=== PATIENT | male | born 1950 | race Caucasian/White ===

== ENCOUNTER 2024-07-21 13:04 | Emergency (ER) | payer OTHER, SELFPAY ==
[2024-07-21 13:19] VITALS: BP 107/59; PULSE 62; RESP 22; TEMP 37; O2SAT 95
--- NOTE | 2024-07-21 13:19 | EKG_ITS ---
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
--- NOTE | 2024-07-21 13:30 | XR_ITS ---
Examination: CT cervical spine without contrast 2-D sagittal reconstructions 2-D coronal reconstructions 3-D reconstructions. Exam date and time:July 21, 2024 1417 hours Indications fell today with injury to the neck, neck pain CTDI:vol (mGy) 13.2 DLP: (mGycm) 322 Technique: Multiple 2 mm axial sections of the cervical spine have been obtained. The coronal and sagittal reconstructions have been obtained. 3-D reconstructions have been obtained. Low dose protocols were performed. One or more of the following dose reduction techniques were used; automated exposure control, adjustment of the mA and/or KV according to patient size, use of iterative reconstruction technique. Findings: Axial sections demonstrate intact base of the skull. C1 exhibit satisfactory relationship to the odontoid. No acute cervical vertebral body fracture seen. Alignment posterior spinous processes satisfactory. Impression: No acute cervical fracture.
--- NOTE | 2024-07-21 13:30 | XR_ITS ---
Examination: CT brain head without contrast. 2-D sagittal coronal reconstructions Date and time of exam:July 21, 2024 1415 hours INDICATIONS: Syncopal episode, patient fell today with injury to the head, head pain COMPARISON: February 29, 2024 CTDI: vol (mGy):51 DLP: (mGycm):1097 Technique: Multiple CT axial sections of the brain have been obtained, 5 mm slice thickness. Contrast has not been administered. 2-D sagittal, coronal reconstructions have been obtained Low dose protocols were performed. One or more of the following dose reduction techniques were used; automated exposure control, adjustment of the mA and/or KV according to patient size, use of iterative reconstruction technique. Findings: No significant ventricular enlargement. Patient motion obscures frontal brain detail Intra-axial or extra-axial hemorrhage density is not seen. No mass effect or midline shift Basal cisterns are not remarkable. Fourth ventricle is midline. Cranial vault intact. Impression: Limited study secondary to patient motion No gross hemorrhage mass effect or midline shift
--- NOTE | 2024-07-21 13:32 | PD.EDRME ---
Rapid Medical Screening Exam RME Arrival date/time: 07/21/24 13:04 74-year-old male presents the emergency department today with caregiver reports patient has syncopal episode and fell hit his head Chief Complaint: Syncope / Near Syncope Vital signs: Vital Signs Temperature 98.6 F 07/21/24 13:19 Pulse Rate 62 07/21/24 13:19 Respiratory Rate 22 H 07/21/24 13:19 Blood Pressure 107/59 L 07/21/24 13:19 Pulse Oximetry (%) 95 07/21/24 13:19 Oxygen Delivery Method Room Air 07/21/24 13:19
[2024-07-21 14:54] LABS: Basophils # (Auto) 0.1 Thou/mm3 (0.0-0.2); Basophils % (Auto) 1 % (0-2.5); Eosinophils # (Auto) 0.5 Thou/mm3 (0.0-0.5); Eosinophils % (Auto) 5 % (0-10); Hematocrit 39.9 % (41.0-53.0); Immature Granulocytes % (Auto) 1 % (0-0); Immature Granulocytes Auto 0.05 Thou/mm3 (0.00-0.00); Lymphocytes # (Auto) 1.2 Thou/mm3 (1.0-4.8); Lymphocytes % (Auto) 11 % (10-50); Mean Corpuscular HGB Conc 32.6 g/dl (31.0-37.0); Mean Corpuscular Volume 95 fL (80-100); Monocytes # (Auto) 0.8 Thou/mm3 (0.0-0.8); Monocytes % (Auto) 8 % (0-12); Neutrophils # (Auto) 8.1 Thou/mm3 (1.8-7.7); Neutrophils % (Auto) 75 % (37-80); Nucleated Red Blood Cell % 0 /100 WBC (0); Platelet Count 234 Thou/mm3 (140-440); RDW Standard Deviation 43.1 fL (35.1-43.9); White Blood Count 10.8 Thou/mm3 (3.8-10.6)
--- NOTE | 2024-07-21 15:15 | EDNOTE_ITS ---
ED General RME/HPI General Chief complaint: Syncope / Near Syncope Stated complaint: SYNCOPE Time Seen by Provider: 07/21/24 15:10 Arrival date/time: 07/21/24 13:04 CC: Syncope HPI this patient is developmentally delayed with Parkinson's disease and a history of prenatally anoxic brain injury was sitting in a barstool chair eating breakfast, the care provider watched him suddenly become silent close as I am begin to slide out of the chair. Patient has no history of such. She was able to partially blocked the fall but not until he hit his head and part of his face cutting his lip against his teeth. The patient is currently awake alert answering to very basic questions. He has no specific complaints RME / HPI RME / HPI narrative: 07/21/24 13:04 74-year-old male presents the emergency department today with caregiver reports patient has syncopal episode and fell hit his head Related Data Home Medications ?Medication ?Instructions ?Recorded ?Confirmed docusate sodium 250 mg capsule 1 tab PO QDAY ##0 10/27/14 05/12/24 omeprazole 20 mg capsule,delayed 20 mg PO QDAY ##0 10/27/14 05/12/24 release (Prilosec) cetirizine 10 mg tablet 10 mg PO QDAY 09/11/22 05/12/24 montelukast 10 mg tablet 10 mg PO HS 09/11/22 05/12/24 propranolol 40 mg tablet 40 mg PO BID 09/11/22 05/12/24 valbenazine 80 mg capsule 80 mg PO QDAY 09/11/22 05/12/24 (Ingrezza) calcium 600 mg (as 1 tab PO HS 02/28/24 05/12/24 carbonate)-vitamin D3 10 mcg (400 unit) tablet escitalopram oxalate 10 mg tablet 10 mg PO DAILY 02/28/24 05/12/24 ferrous sulfate 325 mg (65 mg 325 mg PO DAILY 02/28/24 05/12/24 iron) tablet (FeroSul) tamsulosin 0.4 mg capsule 0.4 mg PO QHS 05/12/24 05/12/24 Previous Rx's ?Medication ?Instructions ?Recorded aspirin 81 mg capsule 81 mg PO QDAY #30 caps 02/29/24 Allergies Allergy/AdvReac Type Severity Reaction Status Date / Time No Known Drug Allergies Allergy Verified 07/21/24 13:06 Review of Systems Review of Systems Narrative Review of Systems: GEN: No fever, no chills, no weight loss EYES: No discharge, no visual changes, no pain HEENT: No ear pain, no congestion, no sore throat PULM: No shortness of breath, no cough, no congestion CV: No chest pain, no dyspnea on exertion, no palpitations GI: No nausea, no vomiting, no diarrhea, no pain, no constipation : No frequency, no urgency, no dysuria MUSC/SKEL: No joint pain, no back pain SKIN: No rash PSYCH: No hallucinations, no depression HEME/LYMPH: No easy bleeding or bruising tendencies NEURO: No weakness, no headache Past Medical History Past Medical History NEUROLOGIC: Positive Neurological Disorders, Parkinson's Disease and Traumatic Brain Injury; Negative Seizures CARDIAC: Positive Cardiac Disorders and Hypertension; Negative Congestive Heart Failure RESPIRATORY: Positive Asthma; Negative Chronic Obstructive Pulmonary Disease (COPD) GASTROINTESTINAL: Positive Gastrointestinal Disorders and Gastroesophageal Reflux Disease GENITOURINARY: Negative Genitourinary Disorders or Renal Disease MUSCULOSKELETAL: Positive Musculoskeletal Disorders, Osteoporosis and Fractures ENT: Positive Cataracts ENDOCRINE: Negative Endocrine Disorders, Diabetes Mellitus Type 1 or Diabetes Mellitus Type 2 HEMATOLOGIC: Positive Blood Disorders and Anemia PSYCHO/SOCIAL: Positive Depression OTHER HISTORY: Negative Blood Transfusions or Anesthesia Reactions Social History SMOKING STATUS: Never smoker ED Exam Narrative Physical exam: [General: Not in any acute distress Head normocephalic, no step-off hematoma depression laceration abrasion HEENT: Eyes pupils are PERRLA EOMs intact, nose no rhinorrhea epistaxis, face no facial asymmetry bogginess mouth, pink dry membranes uvula is midline swallow symmetrical. Small laceration to the center upper lip secondary to a crush injury from his upper front teeth. No Hummel sign or raccoon's eyes. All other subsystems of HEENT are within acceptable limits Neck is supple nontender no JVD no edema Chest equal chest rise nontender to palpation Respiratory: Clear to auscultation no wheezes crackles or rubs CV: Rate rhythm is regular no murmurs rubs or clicks Abdomen is soft nontender no masses positive bowel sounds all 4 quadrants Back: No CVA tenderness no spinous process tenderness from cervical spine thoracic and lumbar spine Skin: Intact no petechiae rash induration ulceration or crepitus Extremities: Moving all extremity against resistance cap refill less than 2 seconds neurosensory intact Neuro: Awake alert oriented x3 Glascow coma 15 no focal deficits] Course Quality Measures none Orders Category Date Time Status EKG (ED ONLY) *Do not use* NOW Care 07/21/24 13:[address] cervical spine wo con Stat Exams 07/21/24 13:[address] head/brain wo con Stat Exams 07/21/24 13:30 Completed EKG (ED Only) Stat Exams 07/21/24 13:19 Draft CBC Stat Lab 07/21/24 14:36 Completed Comprehensive Metabolic Panel Stat Lab 07/21/24 14:36 Completed Troponin I Stat Lab 07/21/24 14:36 Completed Vital Signs Vital signs: Vital Signs Temperature 98.6 F 07/21/24 13:19 Pulse Rate 62 07/21/24 13:19 Respiratory Rate 22 H 07/21/24 13:19 Blood Pressure 107/59 L 07/21/24 13:19 Pulse Oximetry (%) 95 07/21/24 13:19 Oxygen Delivery Method Room Air 07/21/24 13:19 [facility] Patient data External records reviewed:: [facility] previous records 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 CBC shows no significant leukocytosis stable H&H of 13 and 39 no thrombocytopenia. CMP shows no acute electrolyte imbalances renal impairment transaminitis or T. bili elevation. Interpretation Summary: Patient has had no deterioration neurologic status throughout his visit the emergency room and the care provider states he is at baseline the patient states he wants to go home I am comfortable discharging the patient at this time with a diagnosis of syncope. There are no indications of dehydration I suspect this may be vasovagal. Medications Medications considered but not ordered:: None Medication administrations:: None Consultations Consultation(s) initiated? (list below): No Diagnosis Differential Diagnosis ED Complaint MDM: Vasovagal closed head injury neck fracture Most likely diagnosis given after review of the tests above:: Syncope Admission Indicated Admission indicated?: not indicated Explain why admission is indicated or not indicated:: Stable for outpatient follow-up Admission Request Was there a request for admission?: No Disposition Plan Disposition Plan: Discharge Discharge Attestation Discharge Attestation: The patient and all family members were given an opportunity to ask questions and understood the discharge instructions. Discharge instructions specifically effects, indications for sooner follow up or return to the emergency department, and the expected course of current diagnosis. Patient condition: Stable Medical Decision Making Differential Diagnosis Differential Diagnosis: Vasovagal closed head injury neck fracture Lab Data 07/21/24 14:36 07/21/24 14:36 Labs: Lab Results 07/21/24 Range/Units 14:36 WBC 10.8 H (3.8-10.6) Thou/mm3 RBC 4.20 L (4.50-5.90) Miln/mm3 Hgb 13.0 L (13.5-16.0) g/dL Hct 39.9 L (41.0-53.0) % MCV 95 (80-100) fL MCH 31.0 (25.0-35.0) pg MCHC 32.6 (31.0-37.0) g/dl RDW Std Deviation 43.1 (35.1-43.9) fL Plt Count 234 (140-440) Thou/mm3 Neut % (Auto) 75 (37-80) % Lymph % (Auto) 11 (10-50) % Burnett % (Auto) 8 (0-12) % Eos % (Auto) 5 (0-10) % Baso % (Auto) 1 (0-2.5) % Neut # (Auto) 8.1 H (1.8-7.7) Thou/mm3 Lymph # (Auto) 1.2 (1.0-4.8) Thou/mm3 Burnett # (Auto) 0.8 (0.0-0.8) Thou/mm3 Eos # (Auto) 0.5 (0.0-0.5) Thou/mm3 Baso # (Auto) 0.1 (0.0-0.2) Thou/mm3 Immature Gran # (Auto) 0.05 H (0.00-0.00) Thou/mm3 Absolute Nucleated RBC 0.00 (0.00-0.00) Thou/mm3 Immature Gran % 1 H (0-0) % Nucleated RBC % 0 (0) /100 WBC Sodium 140 (136-145) mMol/L Potassium 4.0 (3.4-5.1) mMol/L Chloride 105 (98-107) mMol/L Carbon Dioxide 28.1 (20.0-31.0) mMol/L Anion Gap 7 (7-16) BUN 21 (9-23) mg/dL Creatinine 1.2 (0.6-1.3) mg/dL Estim Creat Clear Calc Not Performed. eGFR > 60 (60 - ) See Note BUN/Creatinine Ratio 18 (12-20) Ratio Glucose 77 (74-106) mg/dL Calculated Osmolality 281 (275-295) Calcium 9.0 (8.3-10.6) mg/dL Corrected Calcium 9.0 (8.5-10.1) mg/dL Total Bilirubin 0.4 (0.3-1.2) mg/dL AST 20 (0-34) U/L ALT < 7 L (10-49) U/L Alkaline Phosphatase 112 (46-116) U/L Troponin I < 0.002 (0.0-0.045) ng/mL Total Protein 7.4 (5.7-8.2) gm/dL Albumin 4.5 (3.4-4.8) gm/dL Globulin 2.9 (2.3-3.5) gm/dL Albumin/Globulin Ratio 1.6 (1.2-2.2) Discharge Plan Plan Patient Disposition: HOME (Self Care) Patient condition on transfer: Stable Prescriptions/Referrals Prescriptions/Med Rec: No Action tamsulosin 0.4 mg capsule 0.4 mg PO QHS omeprazole [Prilosec] 20 MG capsule,delayed release(DR/EC) 20 mg PO QDAY Qty: 0 Patient Comments: TO SUPPRESS GASTRIC ACID SECRETIONS docusate sodium 250 MG capsule 1 tab PO QDAY Qty: 0 ferrous sulfate [FeroSul] 325 mg (65 mg iron) tablet 325 mg PO DAILY escitalopram oxalate 10 mg tablet 10 mg PO DAILY calcium carbonate-vitamin D3 600 mg-10 mcg (400 unit) tablet 1 tab PO HS aspirin 81 mg capsule 81 mg PO QDAY Qty: 30 0RF cetirizine 10 mg tablet 10 mg PO QDAY propranolol 40 mg tablet 40 mg PO BID montelukast 10 mg tablet 10 mg PO HS Ingrezza 80 mg capsule 80 mg PO QDAY 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 Print Language: German Stand Alone Forms: [place] Award Info., Patient Portal Info Letter, Work/School Release PA/LINUX NETWORK ENGINEER Supervising Physician PA/LINUX NETWORK ENGINEER Supervising Physician: Juan Strauss ENP
[2024-07-21 15:23] VITALS: BP 100/58; PULSE 58; RESP 18; O2SAT 98
[2024-07-21 15:25] LABS: Alanine Aminotransferase < 7 U/L (10-49); Albumin, Serum 4.5 gm/dL (3.4-4.8); Albumin/Globulin Ratio 1.6 (1.2-2.2); Alkaline Phosphatase 112 U/L (46-116); Anion Gap 7 (7-16); Aspartate Amino Transferase 20 U/L (0-34); BUN/Creatinine Ratio 18 Ratio (12-20); Bilirubin,Total 0.4 mg/dL (0.3-1.2); Blood Urea Nitrogen 21 mg/dL (9-23); Carbon Dioxide 28.1 mMol/L (20.0-31.0); Chloride 105 mMol/L (98-107); Creatinine (Component) 1.2 mg/dL (0.6-1.3); Globulin 2.9 gm/dL (2.3-3.5); Glucose 77 mg/dL (74-106); Osmolality,Calculated 281 (275-295); Sodium 140 mMol/L (136-145); Total Protein 7.4 gm/dL (5.7-8.2); Troponin I < 0.002 ng/mL (0.0-0.045); eGFR > 60 See Note
--- NOTE | 2024-07-21 15:28 | PC.NURSE ---
Patient from [facility] and taken to [facility] with [facility], care provider at bedside, from [facility] with c/o syncopal episode at approx. 1230pm, upon standing patient fell forward, with abrasion to mid upper lip and fell onto left arm, patient developmentally delayed and is actin appropriately per careprovider, patient skin is warm dry and slightly pale. Awaiting lab work.
== END 2024-07-21 16:07 | disposition home or self-care (01) ==
PROVIDERS: Nurse Practitioner Primary Care; Emergency Provider Emergency Medicine; PCP Nurse Practitioner Family
DX: R55 Syncope and collapse (principal); G20.A1 Parkinson's disease without dyskinesia, without mention of fluctuations
CPT/HCPCS: 36415; 70450; 72125; 80053; 84484; 85025; 93005; 99284

== ENCOUNTER → 2024-08-20 | Outpatient (CLI) | payer OTHER, SELFPAY ==
[2024-08-20 08:36] LABS: Basophils # (Auto) 0.1 Thou/mm3 (0.0-0.2); Basophils % (Auto) 1 % (0-2.5); Eosinophils # (Auto) 0.5 Thou/mm3 (0.0-0.5); Eosinophils % (Auto) 6 % (0-10); Hematocrit 39.8 % (41.0-53.0); Hemoglobin 12.9 g/dL (13.5-16.0); Immature Granulocytes % (Auto) 0 % (0-0); Immature Granulocytes Auto 0.03 Thou/mm3 (0.00-0.00); Lymphocytes # (Auto) 1.2 Thou/mm3 (1.0-4.8); Lymphocytes % (Auto) 14 % (10-50); Mean Corpuscular HGB Conc 32.4 g/dl (31.0-37.0); Mean Corpuscular Hemoglobin 30.4 pg (25.0-35.0); Mean Corpuscular Volume 94 fL (80-100); Monocytes # (Auto) 0.6 Thou/mm3 (0.0-0.8); Monocytes % (Auto) 7 % (0-12); Neutrophils # (Auto) 6.2 Thou/mm3 (1.8-7.7); Neutrophils % (Auto) 72 % (37-80); Nucleated Red Blood Cell % 0 /100 WBC (0); Platelet Count 295 Thou/mm3 (140-440); Red Blood Count 4.25 Miln/mm3 (4.50-5.90); White Blood Count 8.6 Thou/mm3 (3.8-10.6)
[2024-08-20 08:41] LABS: Glucose Estimated Average 105 mg/dL (80-131); Hemoglobin A1C 5.3 % Hgb (4.8-6.0)
[2024-08-20 08:51] LABS: Prostate Specific Antigen 1.41 ng/mL (0-4.00)
[2024-08-20 09:01] LABS: Folate > 24.00 ng/mL (>5.38); Vitamin B12 945 pg/mL (211-911); Vitamin D 25 Hydroxy Total 63.3 ng/mL (7.3-40.2)
[2024-08-20 09:19] LABS: Alanine Aminotransferase 13 U/L (10-49); Albumin, Serum 4.3 gm/dL (3.4-4.8); Albumin/Globulin Ratio 1.6 (1.2-2.2); Alkaline Phosphatase 124 U/L (46-116); Anion Gap 7 (7-16); Aspartate Amino Transferase 18 U/L (0-34); BUN/Creatinine Ratio 14 Ratio (12-20); Bilirubin,Total 0.3 mg/dL (0.3-1.2); Blood Urea Nitrogen 19 mg/dL (9-23); Carbon Dioxide 31.2 mMol/L (20.0-31.0); Cardiac Risk Estimate 3.8 RATIO (4.0-6.7); Chloride 106 mMol/L (98-107); Cholesterol 167 mg/dL (132-200); Creatinine (Component) 1.4 mg/dL (0.6-1.3); Free T4 (Free Thyroxine) 1.47 ng/dL (0.89-1.76); Globulin 2.7 gm/dL (2.3-3.5); Glucose 89 mg/dL (74-106); HDL Cholesterol 44 mg/dL (40-60); LDL Cholesterol,Calculated 102 mg/dL (0-130); Osmolality,Calculated 288 (275-295); Potassium 4.4 mMol/L (3.4-5.1); Sodium 144 mMol/L (136-145); Thyroid Stimulating Hormone 4.35 uIU/mL (0.55-4.78); Triglycerides 103 mg/dL (30-150); Uric Acid 4.4 mg/dL (3.7-9.2); eGFR 53 See Note
[2024-08-20 09:57] LABS: Sed Rate (ESR) 22 mm/hr (0-20)
[2024-08-20 13:29] LABS: RA Screen Negative (Negative)
[2024-08-24 06:50] LABS: ANA Pattern CYTOPLASMIC; ANA Pattern NUCLEAR, SPECKLED; ANA Screen, IFA POSITIVE (NEGATIVE); ANA Titer 1:40 titer
== END | disposition home or self-care (01) ==
PROVIDERS: PCP Nurse Practitioner Family; Referring Provider Nurse Practitioner Family; Visit Provider Nurse Practitioner Family
DX: R25.1 Tremor, unspecified (principal); E78.2 Mixed hyperlipidemia; E03.9 Hypothyroidism, unspecified; Z79.899 Other long term (current) drug therapy; E55.9 Vitamin D deficiency, unspecified; Z12.5 Encounter for screening for malignant neoplasm of prostate; K25.1 Acute gastric ulcer with perforation
CPT/HCPCS: 36415; 80053; 80061; 81001; 82043; 82306; 82570; 82607; 82746; 83036; 84153; 84439; 84443; 84550; 85025; 85652; 86038; 86039; 86430

== ENCOUNTER → 2024-09-17 | Outpatient (CLI) | payer OTHER, SELFPAY ==
--- NOTE | 2024-09-17 09:01 | XR_ITS ---
Examination: PA chest single view TECHNIQUE: Upright PA chest single view Exam date and time: September 17, 2024 0943 hours INDICATIONS: Difficulty swallowing this week. FINDINGS: Normal heart size No pneumonia. Prominent osteopenia IMPRESSION: No pneumonia or pulmonary edema
== END | disposition home or self-care (01) ==
PROVIDERS: PCP Nurse Practitioner Family; Referring Provider Nurse Practitioner Family; Visit Provider Nurse Practitioner Family
DX: R13.10 Dysphagia, unspecified (principal)
CPT/HCPCS: 74220

== ENCOUNTER 2024-09-21 13:35 | Emergency (ER) | payer OTHER, SELFPAY ==
[2024-09-21 13:36] VITALS: BMI 25.7
--- NOTE | 2024-09-21 13:45 | EKG_ITS ---
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
[2024-09-21 13:51] VITALS: BP 105/63; PULSE 71; RESP 20; TEMP 36.5; O2SAT 95
--- NOTE | 2024-09-21 14:12 | XR_ITS ---
Examination: PA lateral chest 2 views TECHNIQUE: Upright PA lateral chest 2 views Exam date and time: September 21, 2024 1433 hours INDICATIONS: Onset chest pain today. FINDINGS: Pleural scarring at the right base Normal heart size No pneumonia or pulmonary edema IMPRESSION: No pneumonia or pulmonary edema
--- NOTE | 2024-09-21 14:12 | EDRME_ITS ---
Rapid Medical Screening Exam RME Arrival date/time: 09/21/24 13:35 74-year-old male developmentally delayed and a residential presents emergency department today with caregiver reports the patient had an episode today where he looks like he was having trouble breathing and went to the clinic and they referred the patient to the ER for further evaluation Chief Complaint: Arrhythmia/Palpitations Vital signs: Vital Signs Temperature 97.7 F 09/21/24 13:51 Pulse Rate 71 09/21/24 13:51 Respiratory Rate 20 09/21/24 13:51 Blood Pressure 105/63 09/21/24 13:51 Pulse Oximetry (%) 95 09/21/24 13:51 Oxygen Delivery Method Room Air 09/21/24 13:51
[2024-09-21 16:23] LABS: Basophils # (Auto) 0.1 Thou/mm3 (0.0-0.2); Basophils % (Auto) 1 % (0-2.5); Eosinophils # (Auto) 0.6 Thou/mm3 (0.0-0.5); Eosinophils % (Auto) 7 % (0-10); Hematocrit 39.4 % (41.0-53.0); Hemoglobin 12.7 g/dL (13.5-16.0); Immature Granulocytes % (Auto) 0 % (0-0); Immature Granulocytes Auto 0.03 Thou/mm3 (0.00-0.00); Lymphocytes # (Auto) 1.4 Thou/mm3 (1.0-4.8); Lymphocytes % (Auto) 16 % (10-50); Mean Corpuscular HGB Conc 32.2 g/dl (31.0-37.0); Mean Corpuscular Hemoglobin 30.2 pg (25.0-35.0); Mean Corpuscular Volume 94 fL (80-100); Monocytes # (Auto) 0.9 Thou/mm3 (0.0-0.8); Monocytes % (Auto) 10 % (0-12); Neutrophils % (Auto) 66 % (37-80); Nucleated Red Blood Cell % 0 /100 WBC (0); Platelet Count 252 Thou/mm3 (140-440); RDW Standard Deviation 43.4 fL (35.1-43.9); White Blood Count 9.1 Thou/mm3 (3.8-10.6)
[2024-09-21 16:45] LABS: INR 1.1 (0.9-1.3); Partial Thromboplastin Time 24.8 Seconds (22.0-36.0)
[2024-09-21 16:46] LABS: B-Type Natriuretic Peptide 28 pg/mL (0-100)
[2024-09-21 16:52] LABS: Alanine Aminotransferase 14 U/L (10-49); Albumin, Serum 4.3 gm/dL (3.4-4.8); Albumin/Globulin Ratio 1.3 (1.2-2.2); Alkaline Phosphatase 119 U/L (46-116); Anion Gap 9 (7-16); Aspartate Amino Transferase 19 U/L (0-34); BUN/Creatinine Ratio 16 Ratio (12-20); Bilirubin,Total 0.2 mg/dL (0.3-1.2); Blood Urea Nitrogen 19 mg/dL (9-23); Calcium 9.4 mg/dL (8.3-10.6); Calcium (Corrected) 9.4 mg/dL (8.5-10.1); Carbon Dioxide 30.3 mMol/L (20.0-31.0); Chloride 105 mMol/L (98-107); Creatinine (Component) 1.2 mg/dL (0.6-1.3); Estimated Creatinine Clearance 45.9 mL/min (>60); Globulin 3.3 gm/dL (2.3-3.5); Glucose 92 mg/dL (74-106); Magnesium 2.2 mg/dL (1.6-2.6); Osmolality,Calculated 289 (275-295); Potassium 4.3 mMol/L (3.4-5.1); Sodium 144 mMol/L (136-145); Total Protein 7.6 gm/dL (5.7-8.2); Troponin I < 0.002 ng/mL (0.0-0.045); eGFR > 60 See Note
--- NOTE | 2024-09-21 17:35 | PD.EDARRY ---
ED Arrhythmia Palp. RME/HPI General Chief Complaint: Arrhythmia/Palpitations Stated Complaint: TACHYCARDIA (SENT FROM [facility]) Time Seen by Provider: 09/21/24 17:32 Arrival date/time: 09/21/24 13:35 74 year old male with developmentally delayed and a residential present to emergency room with c/o of tachycardia and having trouble breathing while at [facility] today. SEVERITY: Symptoms are described as being severe with limitations on activities of daily living CONTEXT: The patient is unable to identify any inciting events. DURATION/TIMING: The symptoms started approximately 1 day ASSOCIATED SYMPTOMS: The patient is unable to identify any other associated symptoms. MODIFYING FACTORS: The patient is unable to identify any alleviating or aggravating symptoms. PERTINENT ROS: no fevers, no cough, no pleuritic pain, no ripping or tearing sensations, denies any lower extremity edema and no unilateral swelling, no chest pain no nausea,vomiting, diarrhea, no dizziness/headache no rash no loc/syncope episode no abd/back pain REVIEW OF SYSTEMS: See History of Present Illness - with the exception of those mentioned in the history of present illness, all other systems reviewed and reported as negative GENERAL: In general the patient is awake, interactive, in an emergency department gurney. HEAD/EYES/EARS/NOSE/THROAT: normo-cephalic, atraumatic, mucus membranes are moist, anicteric, palpebral conjunctiva is pink, trachea is midline. CARDIOVASCULAR: regular rate and regular rhythm, no murmurs, heart sounds are not distant, strong pulses in all four extremities that are equal and symmetric bilateral upper and lower extremities, normal capillary refill. CHEST/PULMONARY: normal chest rise and fall, good air movement, clear to auscultation bilaterally, normal inspiratory to expiratory ratios without evidence of respiratory distress. NECK: No midline/Paraspinal tenderness, no step off ROM/Strenght intact No Kernig and bruzinski sign. No trauma ABDOMEN: soft, not tender, no masses appreciated BACK: normal range of motion without pain. NEUROLOGICAL: cranio-facial features are symmetric, moves all four extremities equally without obvious limitations or weakness. EXTREMITY: no tenderness to palpation over the long bones or large joints of the bilateral upper and lower extremities, no joint swelling, no joint erythema, no signs of trauma, no unilateral leg swelling and no peripheral edema. SKIN: warm, dry, well-perfused, no jaundice, no rash, no telangiectasias or petechia. PSYCH: , no evidence of psychosis or agitation RME / HPI RME / HPI narrative: 09/21/24 13:35 74-year-old male developmentally delayed and a residential presents emergency department today with caregiver reports the patient had an episode today where he looks like he was having trouble breathing and went to the clinic and they referred the patient to the ER for further evaluation Related Data Home Medications ?Medication ?Instructions ?Recorded ?Confirmed docusate sodium 250 mg capsule 1 tab PO QDAY ##0 10/27/14 05/12/24 omeprazole 20 mg capsule,delayed 20 mg PO QDAY ##0 10/27/14 05/12/24 release (Prilosec) cetirizine 10 mg tablet 10 mg PO QDAY 09/11/22 05/12/24 montelukast 10 mg tablet 10 mg PO HS 09/11/22 05/12/24 propranolol 40 mg tablet 40 mg PO BID 09/11/22 05/12/24 valbenazine 80 mg capsule 80 mg PO QDAY 09/11/22 05/12/24 (Ingrezza) calcium 600 mg (as 1 tab PO HS 02/28/24 05/12/24 carbonate)-vitamin D3 10 mcg (400 unit) tablet escitalopram oxalate 10 mg tablet 10 mg PO DAILY 02/28/24 05/12/24 ferrous sulfate 325 mg (65 mg 325 mg PO DAILY 02/28/24 05/12/24 iron) tablet (FeroSul) tamsulosin 0.4 mg capsule 0.4 mg PO QHS 05/12/24 05/12/24 Previous Rx's ?Medication ?Instructions ?Recorded aspirin 81 mg capsule 81 mg PO QDAY #30 caps 02/29/24 oseltamivir 75 mg capsule (Tamiflu) 75 mg PO BID 5 days #10 caps 09/21/24 Allergies Allergy/AdvReac Type Severity Reaction Status Date / Time No Known Drug Allergies Allergy Verified 07/21/24 13:06 Course Course Course Narrative: Patient presenting with influenza like symptoms.? Obtained influenza A/B screen, which revealed positive influenza.? The following were considered in the patient's differential diagnosis but was not deemed to be consistent with patient's history of present illness and/or physical examination; meningitis, pharyngitis, otitis media, pneumonia, urinary tract infection, peritonsillar abscess, retropharyngeal abscess.? As patient does not present with any signs/symptoms of pneumonia or other complications, cxr: nad, cbc/cmp no acute findings Educated patient on diagnosis and natural course of influenza.? Supportive care and preventive measures were discussed.? Continue fluid hydration. Follow up with primary physician in 3-5 days if symptoms continue or new problems arise. Return if having persistent high fever, altered mental status, shortness of breath, uncontrolled vomiting, or other concerns.? ? Plan:? Prescribed tamiflu? Advised patient on support therapies, including rest, advancement of fluids as tolerated, thorough handwashing w/ soap and H2O, taking OTC ibuprofen or acetaminophen as directed, OTC expectorant/antitussive/decongestants as directed. Advised patient to refrain from visiting work, school, or daycares , elderly, or those w/ chronic illnesses. Advised patient to return with new or worsening symptoms. Quality Measures none Orders Category Date Time Status Bedside Influenza A&B Antigen Test NOW Care 09/21/24 14:12 Completed EKG (ED ONLY) *Do not use* NOW Care 09/21/24 13:45 Completed EKG (ED Only) Stat Exams 09/21/24 13:45 Draft XR chest 2V Stat Exams 09/21/24 14:12 Completed B-Type Natriuretic Peptide Stat Lab 09/21/24 15:54 Completed CBC Stat Lab 09/21/24 14:12 Completed Comprehensive Metabolic Panel Stat Lab 09/21/24 15:54 Completed Magnesium Stat Lab 09/21/24 15:54 Completed Partial Thromboplastin Time Stat Lab 09/21/24 15:54 Completed Prothrombin Time with INR Stat Lab 09/21/24 15:54 Completed Troponin I Stat Lab 09/21/24 15:54 Completed Vital Signs Vital signs: Vital Signs Temperature 97.7 F 09/21/24 13:51 Pulse Rate 71 09/21/24 13:51 Respiratory Rate 20 09/21/24 13:51 Blood Pressure 105/63 09/21/24 13:51 Pulse Oximetry (%) 95 09/21/24 13:51 Oxygen Delivery Method Room Air 09/21/24 13:51 Procedures -ED EKG Interpretation #1: Date of EK09/21/24 Rate: 74 Interpretation: Reviewed by me EKG Impression: Normal sinus rhythm, No acute ST-T changes, No ectopy, No ischemic changes and Normal QRS Arrhythmia/Palpitations Patient data External records reviewed:: 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 Social determinants that could affect healthcare access:: mental health Patient has the following chronic illnesses:: mentally delayed How is presenting disease/condition affected by chronic disease/condition?: exacerbated by Evaluation data The following diagnostics were reviewed and interpreted by me:: lab results, radiology exam(s) and EKG tracing(s) Lab and/or radiology exams considered but not ordered:: none Interpretation Summary: cbc/cmp no acute findings mg, trop negative xray: nad Medications / Prescriptions Medications or Prescriptions considered but not ordered:: no Medication administrations:: none Consultations Consultation(s) initiated? (list below): No Diagnosis Most likely diagnosis given after review of the tests above:: influenza a Admission Indicated Admission indicated?: not indicated Admission Request Was there a request for admission?: No Disposition Plan Disposition Plan: Discharge Discharge Attestation Discharge Attestation: The patient and all family members were given an opportunity to ask questions and understood the discharge instructions. Discharge instructions specifically effects, indications for sooner follow up or return to the emergency department, and the expected course of current diagnosis. Patient condition: Stable Discharge Plan Plan Patient Disposition: HOME (Self Care) Health Concerns: Follow with PMD as directed Take tylenol or motrin as need Return to ED if sx worsen Prescriptions/Referrals Prescriptions/Med Rec: New oseltamivir [Tamiflu] 75 mg capsule 75 mg PO BID 5 Days Qty: 10 0RF No Action tamsulosin 0.4 mg capsule 0.4 mg PO QHS omeprazole [Prilosec] 20 MG capsule,delayed release(DR/EC) 20 mg PO QDAY Qty: 0 Patient Comments: TO SUPPRESS GASTRIC ACID SECRETIONS docusate sodium 250 MG capsule 1 tab PO QDAY Qty: 0 ferrous sulfate [FeroSul] 325 mg (65 mg iron) tablet 325 mg PO DAILY escitalopram oxalate 10 mg tablet 10 mg PO DAILY calcium carbonate-vitamin D3 600 mg-10 mcg (400 unit) tablet 1 tab PO HS aspirin 81 mg capsule 81 mg PO QDAY Qty: 30 0RF cetirizine 10 mg tablet 10 mg PO QDAY propranolol 40 mg tablet 40 mg PO BID montelukast 10 mg tablet 10 mg PO HS Ingrezza 80 mg capsule 80 mg PO QDAY Problem List Clinical Impression: Influenza Patient/Caregiver Discharge Instructions Education Materials: ED Influenza (Adult) Print Language: Congolese Stand Alone Forms: [place] Award Info., Patient Portal Info Letter
[2024-09-21] MEDS: OSELTAMIVIR 75 MG CAPSULE PO (17:59)
== END 2024-09-21 18:07 | disposition home or self-care (01) ==
PROVIDERS: Nurse Practitioner Primary Care; Emergency Provider Emergency Medicine
DX: J10.1 Influenza due to other identified influenza virus with other respiratory manifestations (principal); F88 Other disorders of psychological development; R00.0 Tachycardia, unspecified
CPT/HCPCS: 36415; 71046; 80053; 83735; 83880; 84484; 85025; 85610; 85730; 87400; 93005; 99283; A9270

== ENCOUNTER 2025-03-03 14:08 | Emergency (ER) | payer OTHER, SELFPAY ==
[2025-03-03 14:16] VITALS: BP 113/63; PULSE 75; RESP 20; TEMP 37; O2SAT 97
--- NOTE | 2025-03-03 14:25 | XR_ITS ---
Examination: AP lateral chest 2 views TECHNIQUE: Upright AP lateral chest 2 views Date and time: March 03, 2025 1449 hours INDICATIONS: Coughing and congestion today. FINDINGS: Normal heart size Blunting of the right costophrenic angle. No pneumonia or pulmonary edema IMPRESSION: No pneumonia or pulmonary edema
--- NOTE | 2025-03-03 14:25 | PD.EDRME ---
Rapid Medical Screening Exam RME Arrival date/time: 03/03/25 14:08 74-year-old male with developmental delay here with caregiver presents to the emergency department today for concerns for cough, congestion Chief Complaint: Flu Like Symptoms Vital signs: Vital Signs Temperature 98.6 F 03/03/25 14:16 Pulse Rate 75 03/03/25 14:16 Respiratory Rate 20 03/03/25 14:16 Blood Pressure 113/63 03/03/25 14:16 Pulse Oximetry (%) 97 03/03/25 14:16 Oxygen Delivery Method Room Air 03/03/25 14:16
[2025-03-03 14:50] LABS: Lactate (Lactic Acid) 1.8 mMol/L (0.4-2.0)
[2025-03-03 14:51] LABS: Basophils # (Auto) 0.1 Thou/mm3 (0.0-0.2); Basophils % (Auto) 1 % (0-2.5); Eosinophils # (Auto) 0.9 Thou/mm3 (0.0-0.5); Eosinophils % (Auto) 9 % (0-10); Hematocrit 38.7 % (41.0-53.0); Hemoglobin 13.0 g/dL (13.5-16.0); Immature Granulocytes Auto 0.03 Thou/mm3 (0.00-0.00); Lymphocytes # (Auto) 1.4 Thou/mm3 (1.0-4.8); Lymphocytes % (Auto) 14 % (10-50); Mean Corpuscular HGB Conc 33.6 g/dl (31.0-37.0); Mean Corpuscular Hemoglobin 31.0 pg (25.0-35.0); Mean Corpuscular Volume 92 fL (80-100); Monocytes # (Auto) 0.8 Thou/mm3 (0.0-0.8); Monocytes % (Auto) 8 % (0-12); Neutrophils # (Auto) 6.8 Thou/mm3 (1.8-7.7); Neutrophils % (Auto) 68 % (37-80); Nucleated Red Blood Cell # 0.00 Thou/mm3 (0.00-0.00); Nucleated Red Blood Cell % 0 /100 WBC (0); Platelet Count 258 Thou/mm3 (140-440); RDW Standard Deviation 42.2 fL (35.1-43.9); Red Blood Count 4.20 Miln/mm3 (4.50-5.90); White Blood Count 10.0 Thou/mm3 (3.8-10.6)
[2025-03-03 15:21] LABS: Alanine Aminotransferase 12 U/L (10-49); Albumin, Serum 4.3 gm/dL (3.4-4.8); Anion Gap 9 (7-16); Aspartate Amino Transferase 20 U/L (0-34); BUN/Creatinine Ratio 12 Ratio (12-20); Bilirubin,Total 0.2 mg/dL (0.3-1.2); Blood Urea Nitrogen 14 mg/dL (9-23); Calcium 8.9 mg/dL (8.3-10.6); Calcium (Corrected) 8.9 mg/dL (8.5-10.1); Carbon Dioxide 29.8 mMol/L (20.0-31.0); Chloride 105 mMol/L (98-107); Creatinine (Component) 1.2 mg/dL (0.6-1.3); Glucose 76 mg/dL (74-106); Osmolality,Calculated 286 (275-295); Potassium 3.9 mMol/L (3.4-5.1); Sodium 144 mMol/L (136-145); Total Protein 7.2 gm/dL (5.7-8.2); eGFR > 60 See Note
[2025-03-03 15:22] LABS: Albumin/Globulin Ratio 1.5 (1.2-2.2); Alkaline Phosphatase 122 U/L (46-116); Globulin 2.9 gm/dL (2.3-3.5); Procalcitonin 0.05 ng/ml (0.0-0.49)
[2025-03-03 19:00] VITALS: BP 113/66; PULSE 89; RESP 18; TEMP 36.6; O2SAT 99
--- NOTE | 2025-03-03 19:02 | PD.EDURI ---
Upper Respiratory Inf. RME/HPI General Chief Complaint: Flu Like Symptoms Stated Complaint: COUGH W/ SOB; POSSIBE ASPIRATIONS Time Seen by Provider: 03/03/25 18:11 Arrival date/time: 03/03/25 14:08 RME / HPI RME / HPI Narrative: 03/03/25 14:08 74-year-old male with developmental delay here with caregiver presents to the emergency department today for concerns for cough, congestion This section includes all my notes and documentations, including HPI, PE, and ED course. Silvestre Avery MD HPI: 74yo male here with about a week history of worsening cough, productive cough, purulent sputum, and dyspnea. No other complaints. ROS: Unable to obtain from the patient due to the patient's history of developmental delay. Physical Exam: General: Alert. Hacking cough noted. Eyes: Conjunctivae and lids clear. ENT: No nasal congestion. Pharynx normal. TM normal bilaterally. Neck: Supple. Heart: RRR. Lungs: Mild respiratory distress. Moderately decreased air movement with diffuse rhonchi. Abdomen: Soft and nontender. Skin: Warm and dry. Neuro: Alert and oriented X 1. I reviewed all diagnostic test results. My interpretation of the chest x-ray is increased bronchial markings. My review of the CT angio chest is no PE. Blood tests are remarkable for ESR 38, D-Dimer 2240. COVID/Influenza negative. At this point, diagnoses include lower respiratory infection. Treatment here included Duoneb, Solumedrol, Rocephin, Azithromycin. Significant improvement noted. Recommend outpatient management. Based on my best medical judgment, made decision no further evaluation or treatment indicated at this time. Staff understands and agrees to the discharge instructions customized and printed, see below. Discharge instructions from Dr. Avery: --No physical exertion for 3 days to help rest the lungs. ?No smoking or exposure to smoking or pets or dust or cold or humidity. --Zithromax and cefdinir to kill the germs causing the bronchitis. --Prednisone to help decrease the swelling in the airways. --Albuterol 2 puffs every 4-6 hours as needed for cough or shortness of breath. --See a private doctor on 03/08/2025 if not completely better. --Seek immediate medical care with worsening or with any concerns. Silvestre Avery MD Related Data Home Medications ?Medication ?Instructions ?Recorded ?Confirmed docusate sodium 250 mg capsule 1 tab PO QDAY ##0 10/27/14 05/12/24 omeprazole 20 mg capsule,delayed 20 mg PO QDAY ##0 10/27/14 05/12/24 release (Prilosec) cetirizine 10 mg tablet 10 mg PO QDAY 09/11/22 05/12/24 montelukast 10 mg tablet 10 mg PO HS 09/11/22 05/12/24 propranolol 40 mg tablet 40 mg PO BID 09/11/22 05/12/24 valbenazine 80 mg capsule 80 mg PO QDAY 09/11/22 05/12/24 (Ingrezza) calcium 600 mg (as 1 tab PO HS 02/28/24 05/12/24 carbonate)-vitamin D3 10 mcg (400 unit) tablet escitalopram oxalate 10 mg tablet 10 mg PO DAILY 02/28/24 05/12/24 ferrous sulfate 325 mg (65 mg 325 mg PO DAILY 02/28/24 05/12/24 iron) tablet (FeroSul) tamsulosin 0.4 mg capsule 0.4 mg PO QHS 05/12/24 05/12/24 Previous Rx's ?Medication ?Instructions ?Recorded aspirin 81 mg capsule 81 mg PO QDAY #30 caps 02/29/24 albuterol sulfate 90 mcg/actuation 2 puff inhalation Q6H PRN 03/04/25 aerosol inhaler shortness of breath or wheezing #8.5 grams azithromycin 500 mg tablet 500 mg PO QDAY 3 days #3 tabs 03/04/25 (Zithromax TRI-RACHEL) cefdinir 300 mg capsule 300 mg PO BID #14 caps 03/04/25 prednisone 50 mg tablet 50 mg PO QDAY #3 tabs 03/04/25 Allergies Allergy/AdvReac Type Severity Reaction Status Date / Time No Known Drug Allergies Allergy Verified 03/03/25 14:10 Review of Systems Review of Systems ROS Unobtainable: other (unobtainable due to the patient's history of developmental delay) Past Medical History Past Medical History NEUROLOGIC: Positive Neurological Disorders, Parkinson's Disease and Traumatic Brain Injury ( anoxia at ); Negative Seizures CARDIAC: Positive Cardiac Disorders and Hypertension; Negative Congestive Heart Failure RESPIRATORY: Positive Asthma; Negative Chronic Obstructive Pulmonary Disease (COPD) GASTROINTESTINAL: Positive Gastrointestinal Disorders and Gastroesophageal Reflux Disease GENITOURINARY: Negative Genitourinary Disorders or Renal Disease MUSCULOSKELETAL: Positive Musculoskeletal Disorders, Osteoporosis and Fractures ENT: Positive Cataracts ENDOCRINE: Positive Hypothyroidism; Negative Endocrine Disorders, Diabetes Mellitus Type 1 or Diabetes Mellitus Type 2 HEMATOLOGIC: Positive Blood Disorders and Anemia PSYCHO/SOCIAL: Positive Depression OTHER HISTORY: Negative Blood Transfusions or Anesthesia Reactions Social History SMOKING STATUS: Never smoker Course Quality Measures none Orders Category Date Time Status Bedside COVID-19 Antigen Test NOW Care 03/03/25 19:12 Completed Bedside Influenza A&B Antigen Test NOW Care 03/03/25 19:[address] Screening NOW Care 03/03/25 19:13 Completed Saline [Insert IV] NOW Care 03/03/25 19:12 Completed Straight [In and Out Catheter] X1 Care 03/03/25 19:[address] angio chest Stat Exams 03/03/25 19:13 Completed XR chest 2V Stat Exams 03/03/25 14:25 Completed BNP [B-Type Natriuretic Peptide] Stat Lab 03/03/25 14:41 Completed Blood Culture (Lab) Stat Lab 03/03/25 14:41 Received CBC Stat Lab 03/03/25 14:41 Completed CRP [C-Reactive Protein] Stat Lab 03/03/25 14:41 Completed Comprehensive Metabolic Panel Stat Lab 03/03/25 14:41 Completed D-Dimer Stat Lab 03/03/25 14:41 Completed Lactate (Lactic Acid) Stat Lab 03/03/25 14:41 Completed Magnesium Stat Lab 03/03/25 14:41 Completed Procalcitonin Stat Lab 03/03/25 14:41 Completed Sed Rate (ESR) Stat Lab 03/03/25 14:41 Completed Troponin I Stat Lab 03/03/25 14:41 Completed Albuterol/Ipratr Rt [place] [Duoneb Rt [place]] Med 03/03/25 19:13 Discontinued 3 ml INH X1 ONE Azithromycin Po [Zithromax PO] Med 03/04/25 01:10 Discontinued 500 mg PO X1 ONE MethylPREDNISolone.* [SoluMEDROL Inj] Med 03/03/25 19:13 Discontinued 125 mg IVP X1 ONE MethylPREDNISolone.* [SoluMEDROL Inj] Med 03/04/25 00:21 Discontinued 125 mg IVP X1 ONE cefTRIAXone/D5w 1gm IV premix [Rocephin/D5w 1gm IV Med 03/04/25 01:10 Discontinued premix] 1 gm in 50 ml IV X1 Vital Signs Vital signs: Vital Signs Temperature 98.6 F 03/03/25 14:16 Pulse Rate 75 03/03/25 14:16 Respiratory Rate 20 03/03/25 14:16 Blood Pressure 113/63 03/03/25 14:16 Pulse Oximetry (%) 97 03/03/25 14:16 Oxygen Delivery Method Room Air 03/03/25 14:16 Upper Respiratory Infection MDM Narrative MDM Narrative:: 74yo male here with about a week history of worsening cough, productive cough, purulent sputum, and dyspnea. No other complaints. Patient data External records reviewed:: [facility] previous records (Per chart review, patient was seen here on 09/21/24 for Influenza.) Clinical information provided by:: patient Social determinants that could affect healthcare access:: none Patient has the following chronic illnesses:: develepmental delay, Parkinson's, HTN How is presenting disease/condition affected by chronic disease/condition?: uneffected by Evaluation data The following diagnostics were reviewed and interpreted by me:: lab results and radiology exam(s) Lab and/or radiology exams considered but not ordered:: none Interpretation Summary: I reviewed all diagnostic test results. My interpretation of the chest x-ray is increased bronchial markings. My review of the CT angio chest is no PE. Blood tests are remarkable for ESR 38, D-Dimer 2240. COVID/Influenza negative. Medications / Prescriptions Medications or Prescriptions considered but not ordered:: none Medication administrations:: Medication Administration History Discontinued Medications Albuterol/Ipratropium (Albuterol/Ipratropium (Duoneb) Rt [place] 3 Ml Nebu) 3 ml INH X1 ONE Stop: 03/03/25 19:14 Last Admin: 03/03/25 22:18 Dose: 3 ml Documented By: FYMeliza Azithromycin (Azithromycin 250 Mg Tablet) 500 mg PO X1 ONE Stop: 03/04/25 01:11 Last Admin: 03/04/25 01:45 Dose: 500 mg Documented By: SF Ceftriaxone Sodium/Dextrose (Rocephin/D5w 1gm Iv Premix) 1 gm in 50 mls @ 100 mls/hr IV X1 ONE Stop: 03/04/25 01:39 Last Infusion: 03/04/25 02:20 Dose: Infused Documented By: Admin: 03/04/25 01:45 Dose: 100 mls/hr Documented By: NEAL Methylprednisolone Sodium Succinate (Methylprednisolone Sod Succ 62.5 Mg/Ml 2ml Vial) 125 mg IVP X1 ONE Stop: 03/03/25 19:14 Last Admin: 03/04/25 00:36 Dose: Not Given Documented By: HARI Non-Admin Reason: Cancelled by Provider Methylprednisolone Sodium Succinate (Methylprednisolone Sod Succ 62.5 Mg/Ml 2ml Vial) 125 mg IVP X1 ONE Stop: 03/04/25 00:22 Last Admin: 03/04/25 00:30 Dose: 125 mg Documented By: HARI Duoneb, Solumedrol, Rocephin, Azithromycin Consultations Consultation(s) initiated? (list below): No Diagnosis Upper Respiratory Differential Diagnosis: upper respiratory infection, viral infection, bronchitis, influenza and other (Pneumonia, COVID) Most likely diagnosis given after review of the tests above:: Lower respiratory infection Admission Indicated Admission indicated?: not indicated Explain why admission is indicated or not indicated:: With significant improvement and no condition needing emergent intervention, there was no indication for admission. Admission Request Was there a request for admission?: No Disposition Plan Disposition Plan: Discharge Discharge Attestation Discharge Attestation: The patient and all family members were given an opportunity to ask questions and understood the discharge instructions. Discharge instructions specifically effects, indications for sooner follow up or return to the emergency department, and the expected course of current diagnosis. Patient condition: Stable Discharge Plan Plan Patient Disposition: HOME (Self Care) Prescriptions/Referrals Prescriptions/Med Rec: New prednisone 50 mg tablet 50 mg PO QDAY Qty: 3 0RF albuterol sulfate 90 mcg/actuation HFA aerosol inhaler 2 puff inhalation Q6H PRN (Reason: shortness of breath or wheezing) Qty: 8.5 0RF cefdinir 300 mg capsule 300 mg PO BID Qty: 14 0RF azithromycin [Zithromax TRI-RACHEL] 500 mg tablet 500 mg PO QDAY 3 Days Qty: 3 0RF No Action tamsulosin 0.4 mg capsule 0.4 mg PO QHS omeprazole [Prilosec] 20 MG capsule,delayed release(DR/EC) 20 mg PO QDAY Qty: 0 Patient Comments: TO SUPPRESS GASTRIC ACID SECRETIONS docusate sodium 250 MG capsule 1 tab PO QDAY Qty: 0 ferrous sulfate [FeroSul] 325 mg (65 mg iron) tablet 325 mg PO DAILY escitalopram oxalate 10 mg tablet 10 mg PO DAILY calcium carbonate-vitamin D3 600 mg-10 mcg (400 unit) tablet 1 tab PO HS aspirin 81 mg capsule 81 mg PO QDAY Qty: 30 0RF cetirizine 10 mg tablet 10 mg PO QDAY propranolol 40 mg tablet 40 mg PO BID montelukast 10 mg tablet 10 mg PO HS Ingrezza 80 mg capsule 80 mg PO QDAY Referrals: Mandi Fernandez PA-C [Primary Care Provider] - In 1 week Problem List Clinical Impression: Lower respiratory infection Patient/Caregiver Discharge Instructions Discharge Activity: activity as tolerated Education Materials: ED Bronchitis, Antibiotics (Child) Additional Instructions: Discharge instructions from Dr. Avery: --No physical exertion for 3 days to help rest the lungs. ?No smoking or exposure to smoking or pets or dust or cold or humidity. --Zithromax and cefdinir to kill the germs causing the bronchitis. --Prednisone to help decrease the swelling in the airways. --Albuterol 2 puffs every 4-6 hours as needed for cough or shortness of breath. --See a private doctor on 03/08/2025 if not completely better. --Seek immediate medical care with worsening or with any concerns. Print Language: Wolof Stand Alone Forms: [place] Award Info., Patient Portal Info Letter
--- NOTE | 2025-03-03 19:13 | XR_ITS ---
Examination: CTA chest with intravenous contrast 2-D reconstructions 3-D reconstructions, vascular Date and time of exam: March 03, 2025 11:15 AM INDICATIONS: Shortness of breath chest pain today CTDI: vol (mGy) 13.1 DLP: (mGycm) 537 Technique: Multiple axial sections of the thorax have been obtained. 3 mm slice thickness, from below the hemidiaphragms to above the apices of the lungs. Mediastinal and lung density settings have been obtained. 2-D sagittal and coronal reconstructions. 3-D angiographic renderings, 3-D volume renderings, 3D post processing, vascular maximum intensity projections obtained. Contrast administered is 100 cc Isovue 370. Intravenous Low dose protocols were performed. One or more of the following dose reduction techniques were used; automated exposure control, adjustment of the mA and/or KV according to patient size, use of iterative reconstruction technique. Findings: No thoracic aortic aneurysm dilatation or dissection Pulmonary artery segments are not enlarged No pulmonary artery emboli No mediastinal lymphadenopathy. No pneumonia or pulmonary edema No visualized liver or splenic lesion No gallstones No pancreatic mass IMPRESSION: Negative for pulmonary artery emboli No pneumonia, pulmonary edema or pleural disease
[2025-03-03 19:46] LABS: Sed Rate (ESR) 38 mm/hr (0-20)
[2025-03-03 20:10] LABS: D-Dimer 2240 ng/mL (<600)
[2025-03-03 20:11] LABS: C-Reactive Protein < 0.5 mg/dL (0.0-0.9); Magnesium 1.8 mg/dL (1.6-2.6); Troponin I < 0.002 ng/mL (0.0-0.045)
[2025-03-03 20:26] LABS: B-Type Natriuretic Peptide 40 pg/mL (0-100)
[2025-03-03] MEDS: ALBUTEROL/IPRATROPIUM (Duoneb) RT SOL 3 ML NEBU INH (22:18)
[2025-03-03 22:20] VITALS: PULSE 56; RESP 16; O2SAT 99
--- NOTE | 2025-03-04 00:15 | PC.NURSE ---
lyric writer assumes care of patient at this time, no reports of pain or acuted stress noted, pt noted to be mentally delayed but is able to follow lyric writer commands, child day care provider at bedside at this time, reports coughing x 1 to 2 days, no fever
[2025-03-04 00:20] VITALS: BP 123/52; PULSE 61; RESP 13; TEMP 36.9; O2SAT 95
[2025-03-04] MEDS: MethylPREDNISolone SOD SUCC 62.5 MG/ML 2ML VIAL 125 MG IVP (00:30)
[2025-03-04] MEDS: cefTRIAXone/D5w 1gm IV premix 1 GM/50 ML BAG IV (01:45)
[2025-03-04] MEDS: AZITHROMYCIN 250 MG TABLET 500 MG PO (01:45)
[2025-03-04 01:55] VITALS: BP 143/41; PULSE 63; RESP 18; TEMP 37.2; O2SAT 97
== END 2025-03-04 02:38 | disposition home or self-care (01) ==
PROVIDERS: Nurse Practitioner Primary Care; Emergency Provider Emergency Medicine; PCP Physician Assistant
DX: J22 Unspecified acute lower respiratory infection (principal)
CPT/HCPCS: 36415; 71046; 71275; 80053; 81001; 83605; 83735; 83880; 84145; 84484; 85025; 85379; 85652; 86140; 87040; 87400; 87811; 94640; 96365; 96375; 99284; A4649; A9270; J0696; J2919; Q9967

== ENCOUNTER 2025-03-08 10:21 | Inpatient (IN) | payer OTHER, MEDICAID, MEDICARE, SELFPAY ==
[2025-03-08] VITALS (9 sets, daily range): BP systolic 105–143; BP diastolic 54–68; PULSE 58–100; RESP 17–93; TEMP 36.4–38.8; O2SAT 94–96; BMI 25.7
--- NOTE | 2025-03-08 10:42 | EKG_ITS ---
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
--- NOTE | 2025-03-08 10:42 | PD.EDWEAK ---
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 Per circuit breaker supervisor, patient at baseline is able to perform majority of ADLs and communicate with some words. However, this morning noted he was not able to stand and required assistance by two caregivers to change him. Caregiver additionally reported the patient had woken up drenched in sweat , making different facial expressions, and while attempting to talk sounded muffled . Caregiver states he is being treated with antibiotics for bronchitis by PCP. Otherwise no other recent illness reported. Related Data Home Medications ?Medication ?Instructions ?Recorded ?Confirmed docusate sodium 250 mg capsule 1 tab PO QDAY ##0 10/27/14 05/12/24 omeprazole 20 mg capsule,delayed 20 mg PO QDAY ##0 10/27/14 05/12/24 release (Prilosec) cetirizine 10 mg tablet 10 mg PO QDAY 09/11/22 05/12/24 montelukast 10 mg tablet 10 mg PO HS 09/11/22 05/12/24 propranolol 40 mg tablet 40 mg PO BID 09/11/22 05/12/24 valbenazine 80 mg capsule 80 mg PO QDAY 09/11/22 05/12/24 (Ingrezza) calcium 600 mg (as 1 tab PO HS 02/28/24 05/12/24 carbonate)-vitamin D3 10 mcg (400 unit) tablet escitalopram oxalate 10 mg tablet 10 mg PO DAILY 02/28/24 05/12/24 ferrous sulfate 325 mg (65 mg 325 mg PO DAILY 02/28/24 05/12/24 iron) tablet (FeroSul) tamsulosin 0.4 mg capsule 0.4 mg PO QHS 05/12/24 05/12/24 Previous Rx's ?Medication ?Instructions ?Recorded aspirin 81 mg capsule 81 mg PO QDAY #30 caps 02/29/24 albuterol sulfate 90 mcg/actuation 2 puff inhalation Q6H PRN 03/04/25 aerosol inhaler shortness of breath or wheezing #8.5 grams cefdinir 300 mg capsule 300 mg PO BID #14 caps 03/04/25 prednisone 50 mg tablet 50 mg PO QDAY #3 tabs 03/04/25 Allergies Allergy/AdvReac Type Severity Reaction Status Date / Time No Known Drug Allergies Allergy Verified 03/08/25 10:31 Review of Systems Review of Systems ROS Unobtainable: unobtainable due to medical condition Past Medical History Past Medical History NEUROLOGIC: Positive Neurological Disorders, Parkinson's Disease and Traumatic Brain Injury CARDIAC: Positive Cardiac Disorders and Hypertension RESPIRATORY: Positive Asthma GASTROINTESTINAL: Positive Gastrointestinal Disorders and Gastroesophageal Reflux Disease GENITOURINARY: Positive Genitourinary Disorders and Renal Disease MUSCULOSKELETAL: Positive Musculoskeletal Disorders, Osteoporosis and Fractures ENT: Positive Cataracts PSYCHO/SOCIAL: Positive Depression Social History SMOKING STATUS: Never smoker ED Exam General Limitations: Present no limitations General appearance: Present other (awake, appears to be in pain, nonverbal at baseline, resting tremor noted ) Head Head exam: Present atraumatic and normocephalic Eye Eye exam: Present normal appearance, PERRL and EOMI ENT ENT exam: Present normal exam, normal oropharynx and mucous membranes moist Neck Neck exam: Present normal inspection, full ROM and trachea midline Chest Chest inspection: Present normal inspection and symmetric chest wall rise Respiratory Respiratory exam: Present other (diminished breath sounds bilaterally ) Cardiovascular Cardiovascular exam: Present regular rate, normal rhythm and normal heart sounds Abdominal Exam Abdominal exam: Present soft, tenderness (in all quadrants without rebound or guarding) and normal bowel sounds Extremities Exam Extremities exam: Present normal inspection and full ROM Neurological Exam Neurological exam: Present other (awake, nonverbal at baseline, resting tremor noted ) Psychiatric Psychiatric exam: Present normal affect and normal mood Skin Skin exam: Present warm, dry, intact and normal color Course Quality Measures Current suspected stage: sepsis Possible source: unknown Blood cultures ordered: completed in ED Antibiotic ordered: Yes Pertinent labs: 03/08/25 11:00 Lactic Acid 2.0 mMol/L (0.4-2.0) Procalcitonin 0.10 ng/ml (0.0-0.49) sepsis Orders Category Date Time Status Bedside COVID-19 Antigen Test NOW Care 03/08/25 14:18 Active Bedside Influenza A&B Antigen Test NOW Care 03/08/25 14:[address] Screening NOW Care 03/08/25 14:52 Active [employer] Consultant STAT Care 03/08/25 10:42 Active Continuous Pulse Oximetry STAT Care 03/08/25 10:42 Completed EKG (ED ONLY) *Do not use* NOW Care 03/08/25 10:42 Completed In and Out Catheter X1PRN Care 03/08/25 10:42 Completed Insert IV NOW Care 03/08/25 10:42 Active NPO STAT Care 03/08/25 10:42 Active Strict Intake and Output Routine Care 03/08/25 10:[address] chest abdomen pelvis w Stat Exams 03/08/25 14:51 Completed EKG (ED Only) Stat Exams 03/08/25 10:42 Draft XR chest 1V portable Stat Exams 03/08/25 10:42 Completed XR hip RT w pelvis 2-3V Stat Exams 03/08/25 17:30 Taken B-Type Natriuretic Peptide Stat Lab 03/08/25 11:00 Completed Blood Culture (Lab) Stat Lab 03/08/25 11:00 Received CBC Stat Lab 03/08/25 11:00 Completed Comprehensive Metabolic Panel Stat Lab 03/08/25 11:00 Completed LDH (Lactate Dehydrogenase) Stat Lab 03/08/25 11:00 Completed Lactate (Lactic Acid) Stat Lab 03/08/25 11:00 Completed Lipase Stat Lab 03/08/25 11:00 Completed Magnesium Stat Lab 03/08/25 11:00 Completed Partial Thromboplastin Time Stat Lab 03/08/25 11:02 Completed Phosphorous Stat Lab 03/08/25 11:00 Completed Procalcitonin Stat Lab 03/08/25 11:00 Completed Prothrombin Time with INR Stat Lab 03/08/25 11:02 Completed Troponin I Stat Lab 03/08/25 11:00 Completed Urinalysis Stat Lab 03/08/25 11:23 Completed Urine Culture Stat Lab 03/08/25 11:23 Received VBG [Venous Blood Gas] Stat Lab 03/08/25 11:00 Completed Acetaminophen Ivpb [Ofirmev Inj] Med 03/08/25 10:44 Discontinued 1,000 mg in 100 ml IV NOW Doxycycline Inj [Vibramycin Inj] 100 mg Med 03/08/25 10:42 Discontinued Sodium Chloride 0.9% (Pop) [NS 0.9% mini bag] 100 ml IV X1 Piper/Tazo 3.375 gm Premix [Zosyn] Med 03/08/25 10:43 Discontinued 3.375 gm in 50 ml IV X1 Sodium Chloride 0.9% 1000 ml [Ns] 1,000 ml Med 03/08/25 10:42 Discontinued IV 999 mls/hr Sodium Chloride 0.9% 1000 ml [Ns] 1,000 ml Med 03/08/25 12:08 Discontinued IV 999 mls/hr Sodium Chloride 0.9% 250 ml [Ns] 250 ml Med 03/08/25 12:08 Discontinued IV 999 mls/hr Oxygen Delivery NOW RT 03/08/25 10:42 Active Vital Signs Vital signs: Vital Signs Temperature 100.1 F 03/08/25 10:26 Pulse Rate 66 03/08/25 10:26 Respiratory Rate 22 H 03/08/25 10:26 Blood Pressure 121/68 03/08/25 10:26 Pulse Oximetry (%) 94 L 03/08/25 10:26 Oxygen Delivery Method Room Air 03/08/25 10:26 Pulse ox is 94% on room air which is adequate. Weakness MDM Narrative MDM Narrative:: Matilde Hassan am scribing for and in the presence of Dr. Carnes. Hospitalist team was contacted for admission. They are requesting ortho consultation prior to accepting patient for admission due to acute comminuted right subcapital hip fracture on CT. Ortho Dr. Nguyen was called with no answer. Patient signed out to Dr. Ley at 18:00 hours pending call back from Dr. Nguyen and final disposition. 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 NSR, rate 68, normal axis, no ectopy, no signs of acute ischemia, QRS 105 ms. ) Lab and/or radiology exams considered but not ordered:: None Interpretation Summary: Ordering Physician: Bharat Carnes MD Date of Service: 03/08/25 Procedure(s): XR chest 1V portable Accession Number(s): [id number] cc: Himanshu Palacio MD; Pretty Serrato NP; Bharat Carnes MD~ Examination: AP chest single view Technique one AP portable upright chest single view Date and time: March 08, 2025 1102 hours Comparison March 03, 2025 INDICATIONS: Shortness of breath fever sepsis today. FINDINGS: Normal heart size. Lungs are clear. Significant osteopenia. IMPRESSION: No pneumonia or pulmonary edema Dictated By: Himanshu Palacio MD Signed By: <Electronically signed by Himanshu Palacio MD in OV> 03/08/25 1125 Ordering Physician: Bharat Carnes MD Date of Service: 03/08/25 Procedure(s): CT chest abdomen pelvis w Accession Number(s): [id number] cc: Himanshu Palacio MD; Pretty Serrato NP; Bharat Carnes MD~ Examination: CT chest with intravenous contrast CT abdomen with intravenous contrast CT pelvis with intravenous contrast 2-D coronal and sagittal reconstructions Time of exam: March 08, 2025, 1622 hours 399 INDICATIONS: Sepsis alert, sepsis unknown source CTDI: vol (mGy) : 10.0 DLP: (mGycm): There is an Technique: Multiple axial images of the chest, abdomen and pelvis with intravenous contrast, 3.0 mm slice thickness. Images obtained post intravenous injection Isovue 370 CT chest March 03, 2025 cc. 2-D sagittal and coronal reconstructions. Low dose protocols were performed. One or more of the following dose reduction techniques were used; automated exposure control, adjustment of the mA and/or KV according to patient size, use of iterative reconstruction technique. Findings: No thoracic aortic aneurysm dilatation No pulmonary artery emboli No paratracheal tracheobronchial or bronchopulmonary adenopathy No pneumonia pulmonary edema or pleural disease Lower wall of the esophagus is thickened No visualized liver or splenic lesion No gallstones No pancreatic or adrenal mass No renal or ureteral calculi, no hydronephrosis Normal appendix No bowel obstruction No diverticulitis Normal seminal vesicles Abundant stool in the rectum Negative for prostatomegaly No bladder mass or bladder calculi No abdominal or pelvic abscess Moderate osteopenia Old left hip fracture deformity Acute comminuted right subcapital hip fracture IMPRESSION: No pneumonia, pulmonary edema or pleural disease Lower wall of the esophagus is thickened, consider reflux esophagitis, recommend standard fluoroscopically guided esophagram follow-up Normal appendix No abdominal or pelvic abscess Acute comminuted right subcapital hip fracture, recommend plain films right hip follow-up Dictated By: Himanshu Palacio MD Signed By: <Electronically signed by Himanshu Palaico MD in [place]> 03/08/25 1717 Medications / Prescriptions Medications or Prescriptions considered but not ordered:: None Medication administrations:: Medication Administration History Discontinued Medications Sodium Chloride (Ns) 1,000 mls @ 999 mls/hr IV .Q1H1M ONE Stop: 03/08/25 11:42 Last Infusion: 03/08/25 14:02 Dose: Infused Documented By: Admin: 03/08/25 11:39 Dose: 999 mls/hr Documented By: CLOVER Piperacillin/Tazobactam/Dextrose (Zosyn) 3.375 gm in 50 mls @ 100 mls/hr IV X1 ONE Stop: 03/08/25 11:12 Last Infusion: 03/08/25 12:10 Dose: Infused Documented By: Admin: 03/08/25 11:43 Dose: 100 mls/hr Documented By: CLOVER Doxycycline Hyclate 100 mg/ (Sodium Chloride) 100 mls @ 100 mls/hr IV X1 ONE Stop: 03/08/25 11:41 Last Infusion: 03/08/25 14:01 Dose: Infused Documented By: Admin: 03/08/25 12:35 Dose: 100 mls/hr Documented By: CLOVER Acetaminophen (Ofirmev Inj) 1,000 mg in 100 mls @ 250 mls/hr IV NOW ONE Stop: 03/08/25 11:07 Last Infusion: 03/08/25 12:10 Dose: Infused Documented By: Admin: 03/08/25 11:41 Dose: 250 mls/hr Documented By: CLOVER Sodium Chloride (Ns) 1,000 mls @ 999 mls/hr IV .Q1H1M ONE Stop: 03/08/25 13:08 Last Infusion: 03/08/25 15:30 Dose: Infused Documented By: Admin: 03/08/25 12:39 Dose: 999 mls/hr Documented By: CLOVER Sodium Chloride (Ns) 250 mls @ 999 mls/hr IV .Q16M ONE Stop: 03/08/25 12:23 Last Infusion: 03/08/25 14:01 Dose: Infused Documented By: Admin: 03/08/25 12:39 Dose: 999 mls/hr Documented By: CLOVER See above Consultations Consultation(s) initiated? (list below): Yes Consultation #1 (Physician, Specialty, Details): 1806: I called ortho Dr. Nguyen and left a voicemail. Diagnosis Weakness Differential Diagnosis: acute myocardial infarction, anemia, hypoglycemia, sepsis, dehydration and other (UTI) Most likely diagnosis given after review of the tests above:: Sepsis Generalized weakness Admission Indicated Admission indicated?: indicated Admission Request Was there a request for admission?: Yes Admission Attestation Admission request attestation: Discussed case with [] from Hospitalist service regarding admission. Discussed patients ED course, exam findings, labs, and radiology results. The Hospitalist [agrees,declines] to accept the patient for admission. Disposition Plan Disposition Plan: Admit Critical Care Time Critical Care Time Critical Care Time: Yes Total Critical Care Time (min.): 40 Attestation: The high probability of sudden, clinically significant deterioration in the patient's condition required the highest level of my preparedness to intervene urgently. The services I provided to this patient were to treat and/or prevent clinically significant deterioration. Services included the following: chart data review, reviewing nursing notes and/or old charts, documentation time, data center consultant collaboration regarding findings and treatment options, medication orders and management, direct patient care, vital sign assessments and ordering, interpreting and reviewing diagnostic studies and lab tests. Aggregate critical care time includes only time during which I was engaged in work directly related to the patient's care, as described above, whether at bedside or elsewhere in the Emergency Department. It did not include time spent performing other reported procedures or the services of residents, students, nurses or physician assistants. Discharge Plan Prescriptions/Referrals Prescriptions/Med Rec: No Action tamsulosin 0.4 mg capsule 0.4 mg PO QHS omeprazole [Prilosec] 20 MG capsule,delayed release(DR/EC) 20 mg PO QDAY Qty: 0 Patient Comments: TO SUPPRESS GASTRIC ACID SECRETIONS docusate sodium 250 MG capsule 1 tab PO QDAY Qty: 0 ferrous sulfate [FeroSul] 325 mg (65 mg iron) tablet 325 mg PO DAILY escitalopram oxalate 10 mg tablet 10 mg PO DAILY calcium carbonate-vitamin D3 600 mg-10 mcg (400 unit) tablet 1 tab PO HS aspirin 81 mg capsule 81 mg PO QDAY Qty: 30 0RF prednisone 50 mg tablet 50 mg PO QDAY Qty: 3 0RF albuterol sulfate 90 mcg/actuation HFA aerosol inhaler 2 puff inhalation Q6H PRN (Reason: shortness of breath or wheezing) Qty: 8.5 0RF cefdinir 300 mg capsule 300 mg PO BID Qty: 14 0RF cetirizine 10 mg tablet 10 mg PO QDAY propranolol 40 mg tablet 40 mg PO BID montelukast 10 mg tablet 10 mg PO HS Ingrezza 80 mg capsule 80 mg PO QDAY Referrals: Pretty Serrato [employer]ELTER HELPER [Primary Care Provider] - In 1 week Problem List Clinical Impression: Sepsis, Generalized weakness Patient/Caregiver Discharge Instructions Print Language: Hebrew
[2025-03-08 11:21] LABS: Lactate (Lactic Acid) 2.0 mMol/L (0.4-2.0)
[2025-03-08 11:22] LABS: Base Excess, Venous 3 (-3-3); O2 Saturation, Venous 62 % (96-97); PCO2, Venous 49 mmHg (36-56); PO2, Venous 33 mmHg (15-58); pH, Venous 7.38 (7.33-7.66)
[2025-03-08 11:35] LABS: Basophils # (Auto) 0.1 Thou/mm3 (0.0-0.2); Basophils % (Auto) 0 % (0-2.5); Eosinophils # (Auto) 0.4 Thou/mm3 (0.0-0.5); Eosinophils % (Auto) 2 % (0-10); Hematocrit 37.6 % (41.0-53.0); Hemoglobin 12.6 g/dL (13.5-16.0); Immature Granulocytes Auto 0.10 Thou/mm3 (0.00-0.00); Lymphocytes # (Auto) 0.8 Thou/mm3 (1.0-4.8); Lymphocytes % (Auto) 4 % (10-50); Mean Corpuscular HGB Conc 33.5 g/dl (31.0-37.0); Mean Corpuscular Hemoglobin 30.7 pg (25.0-35.0); Mean Corpuscular Volume 92 fL (80-100); Monocytes # (Auto) 2.2 Thou/mm3 (0.0-0.8); Monocytes % (Auto) 11 % (0-12); Neutrophils # (Auto) 17.1 Thou/mm3 (1.8-7.7); Neutrophils % (Auto) 83 % (37-80); Nucleated Red Blood Cell # 0.00 Thou/mm3 (0.00-0.00); Nucleated Red Blood Cell % 0 /100 WBC (0); Platelet Count 257 Thou/mm3 (140-440); RDW Standard Deviation 42.6 fL (35.1-43.9); Red Blood Count 4.10 Miln/mm3 (4.50-5.90); White Blood Count 20.6 Thou/mm3 (3.8-10.6)
[2025-03-08] MEDS: SODIUM CHLORIDE 0.9% 1000 ML 1,000 ML 999 ML IV ×2 (11:39→12:39)
[2025-03-08] MEDS: ACETAMINOPHEN IVPB 1,000 MG/100 ML VIAL 250 MG IV (11:41)
[2025-03-08 11:43] LABS: INR 1.1 (0.9-1.3); Partial Thromboplastin Time 20.8 Seconds (22.0-36.0); Prothrombin Time 12.4 Seconds (9.0-12.2)
[2025-03-08] MEDS: PIPER/TAZO 3.375 GM PREMIX 3.375 GM/50 ML BAG IV (11:43)
[2025-03-08 11:45] LABS: Collection Type, Urine Clean Catch
[2025-03-08 11:49] LABS: Alanine Aminotransferase 18 U/L (10-49); Albumin, Serum 3.9 gm/dL (3.4-4.8); Albumin/Globulin Ratio 1.4 (1.2-2.2); Alkaline Phosphatase 101 U/L (46-116); Anion Gap 10 (7-16); Aspartate Amino Transferase 33 U/L (0-34); BUN/Creatinine Ratio 13 Ratio (12-20); Bilirubin,Total 0.5 mg/dL (0.3-1.2); Blood Urea Nitrogen 17 mg/dL (9-23); Calcium 8.8 mg/dL (8.3-10.6); Calcium (Corrected) 8.9 mg/dL (8.5-10.1); Carbon Dioxide 23.8 mMol/L (20.0-31.0); Chloride 113 mMol/L (98-107); Creatinine (Component) 1.3 mg/dL (0.6-1.3); Estimated Creatinine Clearance 42.4 mL/min (>60); Globulin 2.8 gm/dL (2.3-3.5); Glucose 101 mg/dL (74-106); LDH (Lactate Dehydrogenase) 400 U/L (120-246); Lipase 60 U/L (12-53); Magnesium 1.9 mg/dL (1.6-2.6); Osmolality,Calculated 293 (275-295); Phosphorous 2.5 mg/dL (2.4-5.1); Potassium 4.4 mMol/L (3.4-5.1); Procalcitonin 0.10 ng/ml (0.0-0.49); Sodium 147 mMol/L (136-145); Total Protein 6.7 gm/dL (5.7-8.2); Troponin I < 0.002 ng/mL (0.0-0.045); eGFR 58 See Note
[2025-03-08 11:52] LABS: B-Type Natriuretic Peptide 105 pg/mL (0-100)
[2025-03-08] MEDS: DOXYCYCLINE INJ 100 MG in SODIUM CHLORIDE 0.9% (POP) 100 ML IV ×2 (12:35→21:09)
[2025-03-08] MEDS: SODIUM CHLORIDE 0.9% 250 ML 250 ML 999 ML IV (12:39)
[2025-03-08 13:02] LABS: Bilirubin,Urine Negative (Negative); Blood,Urine Trace (Negative); Clarity,Urine Clear (Clear/Hazy); Color,Urine Yellow (Lt Yel-Yel); Glucose, Urine Negative (Negative); Ketones,Urine Negative (Negative); Leukocyte Esterase,Urine Negative (Negative); Nitrite,Urine Negative (Negative); PH,Urine 5.5 (5.0-7.0); Protein,Urine Trace (Neg - Trace); RBC,Urine 8 /hpf (0-3); Specific Gravity,Urine 1.031 (1.001-1.035); Squamous Epithelial Cell,Urine 1 /hpf (0-5); Transitional Epi Cells,Urine < 1 /hpf (0-5); Urobilinogen,Urine Negative mg/dL (0.0-1.0); WBC,Urine 2 /hpf (0-5)
--- NOTE | 2025-03-08 14:51 | XR_ITS ---
Examination: CT chest with intravenous contrast CT abdomen with intravenous contrast CT pelvis with intravenous contrast 2-D coronal and sagittal reconstructions Time of exam: March 08, 2025, 1622 hours 399 INDICATIONS: Sepsis alert, sepsis unknown source CTDI: vol (mGy) : 10.0 DLP: (mGycm): There is an Technique: Multiple axial images of the chest, abdomen and pelvis with intravenous contrast, 3.0 mm slice thickness. Images obtained post intravenous injection Isovue 370 CT chest March 03, 2025 cc. 2-D sagittal and coronal reconstructions. Low dose protocols were performed. One or more of the following dose reduction techniques were used; automated exposure control, adjustment of the mA and/or KV according to patient size, use of iterative reconstruction technique. Findings: No thoracic aortic aneurysm dilatation No pulmonary artery emboli No paratracheal tracheobronchial or bronchopulmonary adenopathy No pneumonia pulmonary edema or pleural disease Lower wall of the esophagus is thickened No visualized liver or splenic lesion No gallstones No pancreatic or adrenal mass No renal or ureteral calculi, no hydronephrosis Normal appendix No bowel obstruction No diverticulitis Normal seminal vesicles Abundant stool in the rectum Negative for prostatomegaly No bladder mass or bladder calculi No abdominal or pelvic abscess Moderate osteopenia Old left hip fracture deformity Acute comminuted right subcapital hip fracture IMPRESSION: No pneumonia, pulmonary edema or pleural disease Lower wall of the esophagus is thickened, consider reflux esophagitis, recommend standard fluoroscopically guided esophagram follow-up Normal appendix No abdominal or pelvic abscess Acute comminuted right subcapital hip fracture, recommend plain films right hip follow-up
--- NOTE | 2025-03-08 17:30 | XR_ITS ---
Examination:Right hip AP, lateral, AP pelvis 3 views Technique: Hip AP lateral, AP pelvis, 3 views Exam date and time:March 08, 2025 at 1740 hours INDICATIONS: Patient fell today with injury of the right hip, right hip pain. FINDINGS: Acute comminuted right subcapital hip fracture Severe osteopenia. Old fracture deformities greater trochanter left hip Bones of the pelvis and direct IMPRESSION: Acute comminuted right subcapital hip fracture.
--- NOTE | 2025-03-08 18:53 | PD.EDADDENDU ---
Emergency Room Addendum Addendum Narrative: 1800: Care assumed from Dr. Carnes, the previous shift emergency physician. Past medical, surgical, social and family history reviewed. Vitals and home medications reviewed. Results and treatment plan discussed. I will assume the care of the patient at this time and will follow the patient, pending consultation with Dr. Nguyen. Please refer to the emergency department record for history and examination from initial visit. 1843: Discussed case with Dr. Nguyen from orthopedic surgery regarding consultation. Discussed patients ED course, exam findings, labs, and radiology results. Agrees to consult. 1845: Discussed case with Dr. Kang from Hospitalist service regarding admission. Discussed patients ED course, exam findings, labs, and radiology results. The Hospitalist agrees to accept the patient for admission.
--- NOTE | 2025-03-08 19:22 | ESHP_ITS ---
<Statement entered by Tushar James MD - 03/09/25 11:24> I have reviewed the note and agree with the resident's assessment & plan with exceptions as below. I have personally reviewed labs, imaging, home meds/prior records, examined the patient, formulated and discussed management plan with the IM team. Pt examined at bedside today. Initial call from ED was due to concern for sepsis with 3/4 SIRS criteria (leukocytosis, fever and tachycardia), of unknown source. However, per history, it was noted that patient has been having more trouble with ambulation. Further imaging had revealed a subcapital R Hip fracture. Fever could be related to systemic inflammatory response to fracture, however, could be an underlying infection as well. Other responses including tachycardia and leukocytosis are likely reactive at this time. Orthopedics, Dr. Nguyen, was consulted for admission for possible surgical intervention. Will continue with analgesia, at this time and resume other home medicines for chronic conditions including Parkinson's and HTN. Orthopedics on consult, appreciate further recs. Repeat hematology, and chemistry in AM. Holding DVT prophylaxis at this time. 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 History taken with assistance of caregiver. A 74 yo male with a pmh of Parkinson's, cognitive impairment associated with anoxia, hypertension, and depression presents for concerns of fever, and inability to bear weight per caregiver. Per caregiver, the patient is ambulatory at baseline without assistance, however he is a bit unsteady due to his parkinsons disease. He is also difficult to understand, however he typically is able to follow directions at baseline. Today, patient is difficulty to understand, and does not follow commands. He was found to be clammy, febrile, and nonambulatory at home and was brought in for evaluation. ED course: Vitals on admission were T: 101.9, HR: 70, RR: 22, BP 121/68, SPO2: 94 RA Physical exam in ER was found to be unrevealing. Labs were notable for WBC 20.6, Hgb 12.6, PT 12.4, APTT 20.8, VBG 02 62, Na+ 147, Cl 113, Est Cr Cl 42.4, eGFR 58, LDH 400, BNP 105, Lipase 60, UA 8RBC Imaging: CXR: No pneumonia or pulmonary edema Chest CTA: Negative for pulmonary artery emboli, No pneumonia, pulmonary edema or pleural disease EKG: Sinus rhythm, QT 376 CT Abd/Pelvis w Con: No pneumonia, pulmonary edema or pleural disease, Lower wall of the esophagus is thickened, consider reflux esophagitis, Normal appendix, No abdominal or pelvic abscess, Acute comminuted right subcapital hip fracture, recommend plain films right hip follow-up Hip and Pelvis X-ray: Acute comminuted right subcapital hip fracture Medications given: NS 1L x2, NS 250 mls IV X1, Acetaminophen 1G IV x1, Zosyn 3.375 gm IV x1, Doxycycline Hyclate 100 mg IV x1 Consults: Orthopedics PMH: Parkinsons disease, HTN, MR PSx: None Meds: Amlodipine 5mg AM, Asa 81 po qd, cetirizine 10mg Qam, Docusate 100mg am, escitalopram 10mg QAM, Ferrous sulfate 1325 mg iron supplement All; NKDA FHx: unable to ascertain at this time Social Hx: unable to ascertain at this time, receives care from caregiver ROS: Unable to ascertain at this time Review of Systems Review of Systems ROS Unobtainable: unobtainable due to mental status and unobtainable due to medical condition Exam Vital Signs Temp Pulse Resp BP Pulse Ox O2 Del Method 98.7 F 58 L 18 114/56 L 94 L Room Air 03/08/25 17:13 03/08/25 17:13 03/08/25 17:13 03/08/25 17:13 03/08/25 17:13 03/08/25 17:13 Narrative Exam General: NAD, nonconversant, unable to follow commands HEENT: NOrmocephalic atraumatic, PERRL, pupils anicteric Cardio: Normal S1, S2, RRR, Peripheral pulses 2+, no peripheral edema Pulm: Lungs clear to auscultation bilaterally Abdominal: Abdomen soft, nontender with no rigidity or guarding, bowel sounds present x4 MSK: Patient is moving all extremities against gravity, unable to assess ROM/strength at this time Neuro: CN exam, strength/sensation unable to assess due to patients medical condition/mentation Results: Labs 03/09/25 05:26 03/09/25 05:26 Labs: Short CBC 03/08/25 Range/Units 11:00 WBC 20.6 H D (3.8-10.6) Thou/mm3 Hgb 12.6 L (13.5-16.0) g/dL Hct 37.6 L (41.0-53.0) % Plt Count 257 (140-440) Thou/mm3 BMP 03/08/25 11:00 Sodium 147 H Potassium 4.4 Chloride 113 H Carbon Dioxide 23.8 BUN 17 Creatinine 1.3 Glucose 101 Calcium 8.8 Cardiac Enzymes 03/08/25 Range/Units 11:00 Troponin I < 0.002 (0.0-0.045) ng/mL Liver Function 03/08/25 Range/Units 11:00 Total Bilirubin 0.5 (0.3-1.2) mg/dL AST 33 (0-34) U/L ALT 18 (10-49) U/L Alkaline Phosphatase 101 (46-116) U/L Albumin 3.9 (3.4-4.8) gm/dL Urine 03/08/25 Range/Units 11:23 Urine Color Yellow (Lt Yel-Yel) Urine Clarity Clear (Clear/Hazy) Urine pH 5.5 (5.0-7.0) Ur Specific [place] 1.031 (1.001-1.035) Urine Protein Trace (Neg - Trace) Urine Glucose (UA) Negative (Negative) ABG Interpretation ABG results: 03/08/25 11:00 VBG pH 7.38 VBG pCO2 49 VBG pO2 33 VBG Base Excess 3 Quality Measures Quality Measures sepsis Current suspected stage: ruled out Possible source: unknown Blood cultures ordered: completed in ED Antibiotic ordered: Yes Advance care planning discussed with:: other (Caregiver who relayed information from patients conservatory) Medications Home Medications and Allergies Home Medications ?Medication ?Instructions ?Recorded ?Confirmed ?Type docusate sodium 250 mg capsule 1 tab PO QDAY ##0 10/2703/09/25 History omeprazole 20 mg capsule,delayed 20 mg PO QDAY ##0 07/0303/09/25 History release (Prilosec) cetirizine 10 mg tablet 10 mg PO QDAY 09/11/2203/09 History montelukast 10 mg tablet 10 mg PO HS 09/11/22 5 History propranolol 40 mg tablet 40 mg PO BID 09/11/22 History valbenazine 80 mg capsule 80 mg PO QDAY 09/11/2203/09 History (Ingrezza) calcium 600 mg (as 1 tab PO HS 02/28/24 5 History carbonate)-vitamin D3 10 mcg (400 unit) tablet escitalopram oxalate 10 mg tablet 10 mg PO DAILY 02/2703/09/25 History ferrous sulfate 325 mg (65 mg 325 mg PO DAILY 02/28/24 03/09/25 History iron) tablet (FeroSul) tamsulosin 0.4 mg capsule 0.4 mg PO QHS 05/12/2403/09 History amlodipine 5 mg tablet 5 mg PO DAILY 03/09/2503/09 History ibuprofen 400 mg tablet 400 mg PO Q12H 03/09/2502/17 History levothyroxine 50 mcg tablet 50 mcg PO DAILY 03/09/25 0 03/09/25 History Allergies Allergy/AdvReac Type Severity Reaction Status Date / Time No Known Drug Allergies Allergy Verified 03/08/25 10:31 Visit Medications Acetaminophen (Acetaminophen 325 Mg Tablet) 650 mg PO Q6H PRN PRN Reason: Fever >100.4 or pain 1-3 Stop: 04/07/25 19:06 Hydrocodone Bitart/Acetaminophen (Hydrocodone/Apap 10/325 Tab) 1 tab PO Q4HR PRN PRN Reason: PAIN SCALE 7-10 (Severe Stop: 03/13/25 19:06 Docusate Sodium (Docusate Sod 100 Mg Capsule) 100 mg PO QDAY PRN; Protocol PRN Reason: CONSTIPATION Stop: 04/07/25 19:06 Ondansetron HCl (Ondansetron Inj 2 Mg/Ml Inj 2 Ml) 4 mg IVP Q6H PRN; Protocol PRN Reason: NAUSEA OR VOMITING Stop: 04/07/25 19:06 Oxycodone/Acetaminophen (Oxycodone/Apap 5/325 Tablet) 1 tab PO Q6H PRN PRN Reason: PAIN SCALE 4-6 (Moderate Stop: 03/13/25 19:06 Discontinued Medications Heparin Sodium (Porcine) (Heparin Sod Inj 5000 Unit/Ml Vial) 5,000 unit SC X1 ONE Stop: 03/08/25 19:20 Sodium Chloride (Ns) 1,000 mls @ 999 mls/hr IV .Q1H1M ONE Stop: 03/08/25 11:42 Last Infusion: 03/08/25 14:02 Dose: Infused Piperacillin/Tazobactam/Dextrose (Zosyn) 3.375 gm in 50 mls @ 100 mls/hr IV X1 ONE Stop: 03/08/25 11:12 Last Infusion: 03/08/25 12:10 Dose: Infused Doxycycline Hyclate 100 mg/ (Sodium Chloride) 100 mls @ 100 mls/hr IV X1 ONE Stop: 03/08/25 11:41 Last Infusion: 03/08/25 14:01 Dose: Infused Acetaminophen (Ofirmev Inj) 1,000 mg in 100 mls @ 250 mls/hr IV NOW ONE Stop: 03/08/25 11:07 Last Infusion: 03/08/25 12:10 Dose: Infused Sodium Chloride (Ns) 1,000 mls @ 999 mls/hr IV .Q1H1M ONE Stop: 03/08/25 13:08 Last Infusion: 03/08/25 15:30 Dose: Infused Sodium Chloride (Ns) 250 mls @ 999 mls/hr IV .Q16M ONE Stop: 03/08/25 12:23 Last Infusion: 03/08/25 14:01 Dose: Infused Assessment & Plan Plan Assessment and Plan A 74 yo male with a pmh of Parkinson's, 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 He met 2/4 SIRS criteria and was found to have an acute comminuted right subcapital hip fracture. #R Comminuted Subcapital Hip Fx Patient is able to ambulate without assistance at baseline Per caregiver, patient was unable to bear weight today, and was found to be febrile and clammy CT Abd/Pelvis w Con: No pneumonia, pulmonary edema or pleural disease, Lower wall of the esophagus is thickened, consider reflux esophagitis, Normal appendix, No abdominal or pelvic abscess, Acute comminuted right subcapital hip fracture Hip and Pelvis X-ray confirmed the CT findings. LDH 400 likely due to soft tissue injury/bone trauma Hip fracture could be source of systemic inflammatory response (SIRS 3/4) Plan: -Orthopedics consulted -Pain managed with PRN analgesics per pain scale protocol -XR Femur 2V pending -PT w INR AM #SIRS 3/4 No signs of end organ damage Patient had Temp of 101.9, RR: 22, WBC 20.6 CXR, UA, Chest CTA negative for infectious process/emboli Given Acetaminophen 1G IV x1, Zosyn 3.375 gm IV x1, Doxycycline Hyclate 100 mg IV x1 in ED Plan: -LR IV 70 mls/hr -Doxycycline 100mg IV BID -Ceftriaxone 1gm IV QD -Blood cxr pending -Urine cxr pending -Trend CBC #Parkinsons Disease Per caregiver, patient is hard to understand, and follows commands at baseline Currently functioning below baseline as he does not follow commands, and is not understandable Plan: -Swallow screen -Txt acute process and monitor for return to baseline #Depression Continue home Escitalopram 10mg po QAM #Hypertension Patient takes Amlodipine 5mg po QAM at home Blood pressure is soft today at 114/56 Plan: -Hold home meds Health Maintenance: Disposition: Med Tele DVT Prophylaxis: Held as patient will require Orthopedic intervention GI Prophylaxis: Protonix 40 QD Diet: NPO after midnight CODE STATUS: Full Code Case and Plan discussed with my attending physician, Dr. Kang , and my senior resident, Dr. Jacob Colón, [facility] Attending Provider Attestation/Addendum I attest that I was physically present for the evaluation, physical examination, lab and imaging review of the patient with the residents. I discussed the case with the residents and agree with the findings and plans of care as documented above. After examination of the patient and review of the clinical data I feel that this patient needs admission to the hospital for further treatment/evaluation. Patient is a 74 years old male with past medical history of Parkinson's disease, cognitive impairment associated with anoxia, hypertension and depression who was brought to the ED with concern of inability to bear weight and fever. Hospitalist team was consulted for possible admission for sepsis with SIRS criteria and unknown source of infection. As per the roof painter at bedside, patient is ambulatory without rehab assistant at baseline but recently has been unable to ambulate. He had a temperature of 101.9 ?F in the ED with elevated respiratory rate. Saturating well on room air. He also had WBC count of 20.6, sodium 147, chloride 113, GFR 58. Chest CTA was done which was negative for PE, pneumonia or any pulmonary disease. CT abdomen/pelvis also did not show any infectious pathology but showed acute commuted right subcapital hip fracture. Hip and pelvis x-ray was done afterwards which also confirmed acute comminuted right subcapital hip fracture. Orthopedics was contacted by ED, who agreed to follow the patient. Patient received fluid bolus in the ED, IV antibiotics. We will admit the patient for management of right comminuted subcapital hip fracture, we will start analgesic regimen, obtain physical therapy, and follow orthopedics recommendations. There is also concern for infection, meeting 3/4 SIRS criteria, we will start him on IV Rocephin and doxycycline, IV hydration with Ringer's lactate at 70 cc/h, obtain culture results. Selvin Kang MD
--- NOTE | 2025-03-08 19:30 | XR_ITS ---
Examination: Right femur 2 views TECHNIQUE:: AP lateral right femur 2 views Date and time: March 08, 2025 1755 hours INDICATIONS: Injury to the hip today, hip pain. FINDINGS: Right subcapital hip fracture. Shaft of the femur intact IMPRESSION: Right subcapital hip fracture with impaction
[2025-03-08] MEDS: cefTRIAXone/D5w 1gm IV premix 1 GM/50 ML BAG IV (20:17)
[2025-03-08] MEDS: RINGERS LACTATED 1000 ML 1,000 ML 70 ML IV (21:08)
--- NOTE | 2025-03-08 23:05 | PC.NURSE ---
called Oxana Forbes, one of patient's caregiver at [facility] to obtain admission information and updated on POC. Per caregiver, will bring patient's medication list tomorrow, a caregiver will be at bedside at 0830 tomorrow. Per caregiver, patient is conserved by [facility] to obtain consent from them if needed.
[2025-03-09] VITALS (9 sets, daily range): BP systolic 96–137; BP diastolic 57–82; PULSE 77–96; RESP 18–20; TEMP 36.4–37.1; O2SAT 93–97
[2025-03-09 06:03] LABS: Basophils # (Auto) 0.0 Thou/mm3 (0.0-0.2); Basophils % (Auto) 0 % (0-2.5); Eosinophils # (Auto) 0.7 Thou/mm3 (0.0-0.5); Eosinophils % (Auto) 4 % (0-10); Hematocrit 35.9 % (41.0-53.0); Hemoglobin 11.9 g/dL (13.5-16.0); Immature Granulocytes Auto 0.07 Thou/mm3 (0.00-0.00); Lymphocytes # (Auto) 0.5 Thou/mm3 (1.0-4.8); Lymphocytes % (Auto) 3 % (10-50); Mean Corpuscular HGB Conc 33.1 g/dl (31.0-37.0); Mean Corpuscular Hemoglobin 30.8 pg (25.0-35.0); Mean Corpuscular Volume 93 fL (80-100); Monocytes # (Auto) 1.1 Thou/mm3 (0.0-0.8); Monocytes % (Auto) 7 % (0-12); Neutrophils # (Auto) 14.0 Thou/mm3 (1.8-7.7); Neutrophils % (Auto) 86 % (37-80); Nucleated Red Blood Cell # 0.00 Thou/mm3 (0.00-0.00); Nucleated Red Blood Cell % 0 /100 WBC (0); Platelet Count 203 Thou/mm3 (140-440); RDW Standard Deviation 43.8 fL (35.1-43.9); Red Blood Count 3.86 Miln/mm3 (4.50-5.90); White Blood Count 16.4 Thou/mm3 (3.8-10.6)
[2025-03-09 06:15] LABS: INR 1.2 (0.9-1.3); Prothrombin Time 13.2 Seconds (9.0-12.2)
[2025-03-09 06:31] LABS: Alanine Aminotransferase 16 U/L (10-49); Albumin, Serum 3.6 gm/dL (3.4-4.8); Albumin/Globulin Ratio 1.4 (1.2-2.2); Alkaline Phosphatase 95 U/L (46-116); Anion Gap 13 (7-16); Aspartate Amino Transferase 28 U/L (0-34); BUN/Creatinine Ratio 13 Ratio (12-20); Bilirubin,Total 0.6 mg/dL (0.3-1.2); Blood Urea Nitrogen 13 mg/dL (9-23); Calcium 8.3 mg/dL (8.3-10.6); Calcium (Corrected) 8.6 mg/dL (8.5-10.1); Carbon Dioxide 24.1 mMol/L (20.0-31.0); Chloride 109 mMol/L (98-107); Creatinine (Component) 1.0 mg/dL (0.6-1.3); Estimated Creatinine Clearance 55.1 mL/min (>60); Globulin 2.6 gm/dL (2.3-3.5); Glucose 68 mg/dL (74-106); Magnesium 1.6 mg/dL (1.6-2.6); Osmolality,Calculated 288 (275-295); Phosphorous 2.1 mg/dL (2.4-5.1); Potassium 4.0 mMol/L (3.4-5.1); Sodium 146 mMol/L (136-145); Total Protein 6.2 gm/dL (5.7-8.2); eGFR > 60 See Note
[2025-03-09] MEDS: PANTOPRAZOLE 40 MG TABLET PO (08:30)
[2025-03-09] MEDS: ESCITALOPRAM OXALATE 10 MG TABLET PO (08:30)
[2025-03-09] MEDS: DOXYCYCLINE INJ 100 MG in SODIUM CHLORIDE 0.9% (POP) 100 ML IV ×2 (08:31→20:57)
[2025-03-09] MEDS: SODIUM CHLORIDE 0.9% IV (11:12)
[2025-03-09] MEDS: LEVOTHYROXINE IV (11:12)
--- NOTE | 2025-03-09 11:55 | PC.SS ---
Initial assessment: Patient is a 74-year old male admitted for hip fracture. Patient comes from a community care facility names [facility] in [place]. Information was obtained by the administration at the assisted, Rosanna Taylor . Per Rosanna, the patient is aligned with [facility] and they are the ones who make medical decsions on behalf of the patient. The point of contact with [facility] is Mango Santos and Olvin Colin . Per Rosanna, the patient was previously independent with ambulation. Patient does not require or use any DME at their care facility. Patient's PCP is Pretty Serrato. At this time, the discharge plan is pending to return to community care facility vs SNF. Rosanna informs if physical therapy recommends SNF then they would be agreeable. No preferred SNF identified. If patient is to return to facility, then the staff is able to transport the patient to return. D/c plan: Home vs SNF Next of kin: [facility]: Olvin Llamas [facility]: Rosanna
--- NOTE | 2025-03-09 13:09 | PD.ORTHCONPN ---
Subjective Subjective Narrative: I have talked to Rosanna Taylor and Olvin Leon who are the contacts listed. The latter informed us that she will get in contact with her boss. It has been over 24 hours now and we still have no consent. I have spent over 1 hour trying to obtain consent personally. I have tried calling [facility] this morning and could not get any information regarding the status of the consent. Her boss' (romero osei) number is not being answered as well as Olvin Edward's number. I am escalating the situation to risk management and social human services assistants. Exam Vital Signs Temp Pulse Resp BP Pulse Ox O2 Del Method 97.8 F 86 18 96/66 95 Room Air 03/09/25 12:00 03/09/25 12:00 03/09/25 12:00 03/09/25 12:00 03/09/25 12:00 03/09/25 12:00 Objective - Ortho Labs 03/10/25 05:28 03/10/25 05:28 Labs: Laboratory Results - last 24 hr 03/09/25 05:26 WBC 16.4 H RBC 3.86 L Hgb 11.9 L Hct 35.9 L MCV 93 MCH 30.8 MCHC 33.1 RDW Std Deviation 43.8 Plt Count 203 D Neut % (Auto) 86 H Lymph % (Auto) 3 L [place] % (Auto) 7 Eos % (Auto) 4 Baso % (Auto) 0 Neut # (Auto) 14.0 H Lymph # (Auto) 0.5 L [place] # (Auto) 1.1 H Eos # (Auto) 0.7 H Baso # (Auto) 0.0 Immature Gran # (Auto) 0.07 H Absolute Nucleated RBC 0.00 Immature Gran % 0 Nucleated RBC % 0 PT 13.2 H INR 1.2 Sodium 146 H Potassium 4.0 Chloride 109 H Carbon Dioxide 24.1 Anion Gap 13 BUN 13 Creatinine 1.0 Estim Creat Clear Calc 55.1 L eGFR > 60 BUN/Creatinine Ratio 13 Glucose 68 L Calculated Osmolality 288 Calcium 8.3 Corrected Calcium 8.6 Phosphorus 2.1 L Magnesium 1.6 Total Bilirubin 0.6 AST 28 ALT 16 Alkaline Phosphatase 95 Total Protein 6.2 Albumin 3.6 Globulin 2.6 Albumin/Globulin Ratio 1.4 ABG Interpretation ABG results: 03/08/25 11:00 VBG pH 7.38 VBG pCO2 49 VBG pO2 33 VBG Base Excess 3 Documentation for date of: 03/09/25
--- NOTE | 2025-03-09 13:09 | PD.ORTHCON ---
HPI Consult details Reason for consultation narrative: Right hip pain History of present illness: Patient is a 74-year-old male with developmental delay with right hip pain. He was reportedly walking on Saturday and has been unable to walk since then. He was admitted to hospital for respiratory issues. He is now stable from this perspective. He is using no assistive device at baseline. He is alert and oriented x 0 due to his developmental delay. He has been able to walk since the injury The history was obtained from his detention. I spoke to Rosanna in great detail today. Meds Home Medications and Allergies Home Medications ?Medication ?Instructions ?Recorded ?Confirmed ?Type docusate sodium 250 mg capsule 1 tab PO QDAY ##0 10/27/14 03/09/25 History omeprazole 20 mg capsule,delayed 20 mg PO QDAY ##0 10/27/14 03/09/25 History release (Prilosec) cetirizine 10 mg tablet 10 mg PO QDAY 09/11/22 03/09/25 History montelukast 10 mg tablet 10 mg PO HS 09/11/22 03/09/25 History propranolol 40 mg tablet 40 mg PO BID 09/11/22 03/09/25 History valbenazine 80 mg capsule 80 mg PO QDAY 09/11/22 03/09/25 History (Ingrezza) calcium 600 mg (as 1 tab PO HS 02/28/24 03/09/25 History carbonate)-vitamin D3 10 mcg (400 unit) tablet escitalopram oxalate 10 mg tablet 10 mg PO DAILY 02/28/24 03/09/25 History ferrous sulfate 325 mg (65 mg 325 mg PO DAILY 02/28/24 03/09/25 History iron) tablet (FeroSul) tamsulosin 0.4 mg capsule 0.4 mg PO QHS 05/12/24 03/09/25 History amlodipine 5 mg tablet 5 mg PO DAILY 03/09/25 03/09/25 History ibuprofen 400 mg tablet 400 mg PO Q12H 03/09/25 03/09/25 History levothyroxine 50 mcg tablet 50 mcg PO DAILY 03/09/25 03/09/25 History Allergies Allergy/AdvReac Type Severity Reaction Status Date / Time No Known Drug Allergies Allergy Verified 03/08/25 10:31 Exam Vital Signs Temp Pulse Resp BP Pulse Ox O2 Del Method 97.8 F 86 18 96/66 95 Room Air 03/09/25 12:00 03/09/25 12:00 03/09/25 12:00 03/09/25 12:00 03/09/25 12:00 03/09/25 12:00 Additional findings Additional findings: Patient is in no acute distress and is cooperative with the examination today. Patient is stuttering and shaking his fingers Breathing is nonlabored. In no respiratory distress. Bilateral extremities were evaluated and demonstrates sensation intact to light touch. Palpable pedal pulses are present. No significant edema is present. He has pain with logroll of his right hip. It is not significantly shortened Results - Ortho Labs 03/09/25 05:26 03/09/25 05:26 Labs: Short CBC 03/09/25 Range/Units 05:26 WBC 16.4 H (3.8-10.6) Thou/mm3 Hgb 11.9 L (13.5-16.0) g/dL Hct 35.9 L (41.0-53.0) % Plt Count 203 D (140-440) Thou/mm3 BMP 03/09/25 05:26 Sodium 146 H Potassium 4.0 Chloride 109 H Carbon Dioxide 24.1 BUN 13 Creatinine 1.0 Glucose 68 L Calcium 8.3 Liver Function 03/09/25 Range/Units 05:26 Total Bilirubin 0.6 (0.3-1.2) mg/dL AST 28 (0-34) U/L ALT 16 (10-49) U/L Alkaline Phosphatase 95 (46-116) U/L Albumin 3.6 (3.4-4.8) gm/dL ABG Interpretation ABG results: 03/08/25 11:00 VBG pH 7.38 VBG pCO2 49 VBG pO2 33 VBG Base Excess 3 Imaging Xray: Additional comments: Right hip x-rays as well as a CT of his abdomen pelvis directly reviewed the right hip demonstrates a comminuted right femoral head and femoral neck fracture. Assessment & Plan Problem List (1) Femoral neck fracture: Status: Acute Assessment and plan: Patient is a 74-year-old male with right femoral neck fracture that is displaced and comminuted. There is extension to the femoral head as well. It is an unusual pattern. There is no mechanism of the injury except for the fact that he has stopped walking 2 days ago. This almost certainly happened because of trauma. Obtaining consent on this patient was rather difficult. I spoke with Rosanna in great detail about the risks and benefits of surgery. She is the director of the home he is at. She subsequently sent me to talk to Daria Beltre who I also spoke to in great detail. She reports that she cannot consent the patient as she needs to speak to her mainframe programmer. I did try to call the mainframe programmer directly but he was unable to be reached. I discussed the risks and benefits of surgery including infection, fracture, dislocation, loosening, medical complications. In Particular he is at high risk for dislocation due to his dementia. - N.p.o. at midnight - Social work consult as we cannot talk to the mainframe programmer to consent him for surgery - Plan for right hip hemiarthroplasty if he can be cleared
[2025-03-09] MEDS: RINGERS LACTATED 1000 ML 1,000 ML 70 ML IV (13:12)
[2025-03-09] MEDS: cefTRIAXone/D5w 1gm IV premix 1 GM/50 ML BAG IV (13:13)
--- NOTE | 2025-03-09 14:16 | ESPR_ITS ---
<Statement entered by Medardo Alex MD - 03/09/25 19:59> In summary: 74-year-old male PMH of Parkinson and cognitive impairment, HTN, asthma, hypothyroidism, and depression presenting with acute onset of weakness, found to have fever, tachypnea and leukocytosis as well as acute subcapital fracture of the right hip. Pending possible ORIF tomorrow 03/10. Additionally, he has leukocytosis of 20 > 16 with unknown source. UA was negative. No findings of pneumonia on imaging. CT CAP also showed no signs of infection. Continued on CEFTRIAXONE for now. Cultures are still are pending. I?ve reviewed the note and agree with the resident's assessment and plan, with the exceptions outlined above. I personally went over the labs, imaging, home medications, and prior records, and examined the patient. The case was also reviewed with the attending physician. Please note: this document was transcribed using voice recognition technology; minor inaccuracies may be present. Medardo Alex DO PGY II Documentation for date of: 03/09/25 Subjective Subjective Interval history: Patient seen and examined at bedside today. Patient is able to tell me his name and where he is, but does not answer further questions. No acute overnight events. Caregiver is at bedside, and tells me that at baseline he can follow commands and respond to questions, but only if hes willing to engage. Not sure if he is below baseline in regards to mentation secondary to pain/possible infection or he is anxious/uncomfortable in a new environment. There were no acute overnight events. Exam Vital Signs Temp Pulse Resp BP Pulse Ox O2 Del Method 97.8 F 86 18 96/66 95 Room Air 03/09/25 12:03/09/25 12:03/09/25 12:03/09/25 12:03/09/25 12:03/09/25 12:00 Narrative Exam General: NAD, nonconversant, unable to follow commands HEENT: Normocephalic atraumatic, PERRL, pupils anicteric Cardio: Normal S1, S2, RRR, Peripheral pulses 2+, no peripheral edema Pulm: Lungs clear to auscultation bilaterally Abdominal: Abdomen soft, nontender with no rigidity or guarding, bowel sounds present x4 MSK: Patient is moving all extremities against gravity, unable to assess ROM/strength at this time Neuro: CN exam, strength/sensation unable to assess due to patients medical condition/mentation Objective Labs 03/09/25 05:26 03/09/25 05:26 Labs: Laboratory Results - last 24 hr 03/09/25 05:26 WBC 16.4 H RBC 3.86 L Hgb 11.9 L Hct 35.9 L MCV 93 MCH 30.8 MCHC 33.1 RDW Std Deviation 43.8 Plt Count 203 D Neut % (Auto) 86 H Lymph % (Auto) 3 L Patrick % (Auto) 7 Eos % (Auto) 4 Baso % (Auto) 0 Neut # (Auto) 14.0 H Lymph # (Auto) 0.5 L Patrick # (Auto) 1.1 H Eos # (Auto) 0.7 H Baso # (Auto) 0.0 Immature Gran # (Auto) 0.07 H Absolute Nucleated RBC 0.00 Immature Gran % 0 Nucleated RBC % 0 PT 13.2 H INR 1.2 Sodium 146 H Potassium 4.0 Chloride 109 H Carbon Dioxide 24.1 Anion Gap 13 BUN 13 Creatinine 1.0 Estim Creat Clear Calc 55.1 L eGFR > 60 BUN/Creatinine Ratio 13 Glucose 68 L Calculated Osmolality 288 Calcium 8.3 Corrected Calcium 8.6 Phosphorus 2.1 L Magnesium 1.6 Total Bilirubin 0.6 AST 28 ALT 16 Alkaline Phosphatase 95 Total Protein 6.2 Albumin 3.6 Globulin 2.6 Albumin/Globulin Ratio 1.4 ABG Interpretation ABG results: 03/08/25 11:00 VBG pH 7.38 VBG pCO2 49 VBG pO2 33 VBG Base Excess 3 Quality Measures Quality Measures sepsis Current suspected stage: ruled out (low suspicion) Possible source: unknown Blood cultures ordered: completed in ED Antibiotic ordered: Yes Advance care planning discussed with:: other (with caregiver who relayed information from his legal surrogate) Assessment & Plan Assessment Current Active Medications: Generic Name Dose Route Start Last Admin Trade Name Freq PRN Reason Stop Dose Admin Acetaminophen 650 mg 03/08/25 19:07 Acetaminophen 325 Mg Tablet PO 04/07/25 19:06 Q6H PRN Fever >100.4 or pain 1-3 Hydrocodone Bitart/Acetaminophen 1 tab 03/08/25 19:07 Hydrocodone/Apap 10/325 Tab PO 03/13/25 19:06 Q4HR PRN PAIN SCALE 7-10 (Severe Levothyroxine Sodium 35 mcg/ 0 mcg 03/09/25 09:45 03/09/25 11:12 Sodium Chloride 1.75 ml IV 04/08/25 09:44 1.75 syringe QDAY [facility] Administration Docusate Sodium 100 mg 03/08/25 19:07 Docusate Sod 100 Mg Capsule PO 04/07/25 19:06 QDAY PRN CONSTIPATION Protocol Escitalopram Oxalate 10 mg 03/09/25 09:00 03/09/25 08:30 Escitalopram Oxalate 10 Mg Tablet PO 04/08/25 08:59 10 mg DAILY RO[facility]IE Administration Ceftriaxone Sodium/Dextrose 1 gm in 50 mls @ 100 mls/hr 03/08/25 19:28 03/09/25 13:13 Rocephin/D5w 1gm Iv Premix IV 03/15/25 19:27 100 mls/hr QDAY@1400 [facility] Administration Doxycycline Hyclate 100 mg/ 100 mls @ 100 mls/hr 03/08/25 21:00 03/09/25 08:31 Sodium Chloride IV 03/15/25 20:59 100 mls/hr BID RO[facility]IE Administration Lactated Ringer's 1,000 mls @ 70 mls/hr 03/08/25 19:30 03/09/25 13:12 Lactated Ringers IV 04/07/25 19:29 70 mls/hr .[id number] RO[facility] Administration Loratadine 10 mg 03/09/25 09:00 03/09/25 08:30 Loratadine 10 Mg Tablet PO 04/08/25 08:59 10 mg QDAY [facility] Administration Morphine Sulfate 1 mg 03/08/25 19:31 Morphine Sulf Inj 10 Mg/Ml Vial IVP 03/13/25 19:30 Q6HR PRN pain 7-10 Ondansetron HCl 4 mg 03/08/25 19:07 Ondansetron Inj 2 Mg/Ml Inj 2 Ml IVP 04/07/25 19:06 Q6H PRN NAUSEA OR VOMITING Protocol Oxycodone/Acetaminophen 1 tab 03/08/25 19:07 Oxycodone/Apap 5/325 Tablet PO 03/13/25 19:06 Q6H PRN PAIN SCALE 4-6 (Moderate Pantoprazole Sodium 40 mg 03/09/25 09:00 03/09/25 08:30 Pantoprazole 40 Mg Tablet PO 04/08/25 08:59 40 mg QDAY [facility] Administration Tamsulosin HCl 0.4 mg 03/10/25 09:00 Tamsulosin Hcl 0.4 Mg Capsule PO 04/09/25 08:59 QAM [facility] Plan Assessment and Plan A 74 yo male with a pmh of Parkinson's, 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 He was febrile, tachypneic with leukocyotis, and was found to have an acute comminuted right subcapital hip fracture. #R Comminuted Subcapital Hip Fx Patient is able to ambulate without assistance at baseline Per caregiver, patient was brought in because he was unable to bear weight, and was found to be febrile and clammy CT Abd/Pelvis w Con: No pneumonia, pulmonary edema or pleural disease, Lower wall of the esophagus is thickened, consider reflux esophagitis, Normal appendix, No abdominal or pelvic abscess, Acute comminuted right subcapital hip fracture Hip and Pelvis X-ray confirmed the CT findings. Fexur X-ray: Right subcapital hip fracture with impaction LDH 400 on admission likely due to soft tissue injury/bone trauma Plan: -Orthopedics consulted, appreciate recs -NPO at midnight -Pain managed with PRN analgesics per pain scale protocol -XR Femur 2V pending -PT w INR AM #Leukocytosis Likely reactive Patient had Temp of 101.9, RR: 22, WBC 20.6 WBC downtrending Procalcitonin wnl CXR, UA, Chest CTA negative for infectious process/emboli Given Acetaminophen 1G IV x1, Zosyn 3.375 gm IV x1, Doxycycline Hyclate 100 mg IV x1 in ED Blood culture preliminary read shows no growth after 24 hrs x2 Plan: -LR IV 70 mls/hr -Doxycycline 100mg IV BID -Ceftriaxone 1gm IV QD -Blood cxr pending -Urine cxr pending -Trend CBC #Parkinsons Disease Per caregiver, patient can communicate in short phrases, and follows commands at baseline Currently functioning below baseline as he does not follow commands, and is difficult to understand However, change in baseline status can be secondary to stress/agitation in setting of pain and new environment Plan: -Txt acute process and monitor for return to baseline #Depression Continue home Escitalopram 10mg po QAM #Hypertension Patient takes Amlodipine 5mg po QAM at home Propranolol 50 TID Blood pressure ranges from 130s systolic to 96. Plan: -Hold home meds Health Maintenance: Disposition: Medsur DVT Prophylaxis: Held as patient will require Orthopedic intervention GI Prophylaxis: Protonix 40 QD Diet: NPO after midnight CODE STATUS: Full Code Case and Plan discussed with my attending physician, Dr. Arita, and my senior resident, Dr. Abi Colón, [facility] [place]- Attending Provider Attestation/Addendum I have discussed and was present for the essential components of the history, physical examination, diagnosis, and treatment plan with the resident. I agree with the patient's care as documented by the resident and amended herein by me. Osbaldo Arita DO. Although this document has been carefully reviewed, there may still be some phonetic and other typographical errors. These errors are purely grammatical due to imperfections in the software program and should not be construed in any way to compromise the substance of the patient's medical care during this visit.
--- NOTE | 2025-03-09 14:36 | PC.SS ---
Rounding note: patient to have surgery tomorrow with Dr. Nguyen. D/c plan is home vs SNF, pending PT recommendations.
[2025-03-09 19:59] LABS: Partial Thromboplastin Time 29.1 Seconds (22.0-36.0)
[2025-03-09] MEDS: ACETAMINOPHEN 325 MG TABLET 650 MG PO (22:38)
[2025-03-10] VITALS (14 sets, daily range): BP systolic 108–150; BP diastolic 52–86; PULSE 72–93; RESP 16–23; TEMP 36.3–37.2; O2SAT 95–100
[2025-03-10] MEDS: RINGERS LACTATED 1000 ML 1,000 ML 70 ML IV (02:45)
[2025-03-10 06:23] LABS: Basophils # (Auto) 0.0 Thou/mm3 (0.0-0.2); Basophils % (Auto) 0 % (0-2.5); Eosinophils # (Auto) 0.8 Thou/mm3 (0.0-0.5); Eosinophils % (Auto) 5 % (0-10); Hematocrit 35.6 % (41.0-53.0); Hemoglobin 11.8 g/dL (13.5-16.0); Immature Granulocytes Auto 0.13 Thou/mm3 (0.00-0.00); Lymphocytes # (Auto) 0.8 Thou/mm3 (1.0-4.8); Lymphocytes % (Auto) 6 % (10-50); Mean Corpuscular HGB Conc 33.1 g/dl (31.0-37.0); Mean Corpuscular Hemoglobin 30.9 pg (25.0-35.0); Mean Corpuscular Volume 93 fL (80-100); Monocytes # (Auto) 1.5 Thou/mm3 (0.0-0.8); Monocytes % (Auto) 10 % (0-12); Neutrophils # (Auto) 11.3 Thou/mm3 (1.8-7.7); Neutrophils % (Auto) 78 % (37-80); Nucleated Red Blood Cell # 0.00 Thou/mm3 (0.00-0.00); Nucleated Red Blood Cell % 0 /100 WBC (0); Platelet Count 195 Thou/mm3 (140-440); RDW Standard Deviation 43.1 fL (35.1-43.9); Red Blood Count 3.82 Miln/mm3 (4.50-5.90); White Blood Count 14.5 Thou/mm3 (3.8-10.6)
[2025-03-10 06:28] LABS: INR 1.2 (0.9-1.3); Partial Thromboplastin Time 29.1 Seconds (22.0-36.0); Prothrombin Time 13.3 Seconds (9.0-12.2)
[2025-03-10 06:42] LABS: Alanine Aminotransferase 18 U/L (10-49); Albumin, Serum 3.5 gm/dL (3.4-4.8); Albumin/Globulin Ratio 1.4 (1.2-2.2); Alkaline Phosphatase 91 U/L (46-116); Anion Gap 12 (7-16); Aspartate Amino Transferase 38 U/L (0-34); BUN/Creatinine Ratio 9 Ratio (12-20); Bilirubin,Total 0.5 mg/dL (0.3-1.2); Blood Urea Nitrogen 9 mg/dL (9-23); Calcium 8.2 mg/dL (8.3-10.6); Calcium (Corrected) 8.6 mg/dL (8.5-10.1); Carbon Dioxide 23.8 mMol/L (20.0-31.0); Chloride 105 mMol/L (98-107); Creatinine (Component) 1.0 mg/dL (0.6-1.3); Estimated Creatinine Clearance 55.1 mL/min (>60); Globulin 2.5 gm/dL (2.3-3.5); Glucose 82 mg/dL (74-106); Magnesium 1.5 mg/dL (1.6-2.6); Osmolality,Calculated 278 (275-295); Phosphorous 2.0 mg/dL (2.4-5.1); Potassium 3.6 mMol/L (3.4-5.1); Sodium 141 mMol/L (136-145); Total Protein 6.0 gm/dL (5.7-8.2); eGFR > 60 See Note
--- NOTE | 2025-03-10 08:15 | PC.SS ---
Addendum entered by KEVIN Rodriguez 03/10/25 17:04: Rounding note: patient had orthopedic surgery with Dr. Nguyen today. Addendum entered by KEVIN Rodriguez 03/10/25 09:24: SS update: confirmed with [facility]-pillowcase turner Olvin that verbal consent was provided to Dr. Nguyen for surgery today. Dr. Arita and MARIA DEL CARMEN Hutton were updated. Original Note: SS follow up: Was contacted by [facility] DEL CARMEN Hutton informing that Dr. Nguyen is pending consent for this patient to have surgery today. Reached out to [facility] pillowcase turner- Olvin Llamas to notify her. She informed that she was waiting for paperwork consent to be faxed over/emailed to be signed by [facility] Dr. Simmons. Updated MARIA DEL CARMEN Hutton. Provided Olvin with Dr. Nguyen's contact information and updated MARIA DEL CARMEN Hutton and resident Dr. James with his contact information to get in touch. Per Olvin, she informs that Dr. Simmons or her supervisor mirror fabrication are able to provide verbal consent.
[2025-03-10] MEDS: DOXYCYCLINE INJ 100 MG in SODIUM CHLORIDE 0.9% (POP) 100 ML IV ×2 (09:32→20:40)
[2025-03-10] MEDS: SODIUM CHLORIDE 0.9% IV (09:33)
[2025-03-10] MEDS: LEVOTHYROXINE IV (09:33)
[2025-03-10] MEDS: Magnesium Sulfate 2 GM Ivpb 2 GM/50 ML BAG IV (09:46)
--- NOTE | 2025-03-10 12:30 | XR_ITS ---
Examination: AP right hip single view TECHNIQUE: Portable AP right hip single view Date and time: March 10, 2025 1404 hours INDICATIONS: Status post right hip arthroplasty FINDINGS: Right hip hemiarthroplasty. Satisfactory alignment No fractures IMPRESSION: Right hip hemiarthroplasty with satisfactory alignment
--- NOTE | 2025-03-10 13:54 | ESPR_ITS ---
<Statement entered by Tushar James MD - 03/11/25 14:40> I have reviewed the note and agree with the resident's assessment & plan with exceptions as below. I have personally reviewed labs, imaging, home meds/prior records, examined the patient, formulated and discussed management plan with the IM team. Patient examined at bedside today. Patient to get orthopedic surgery today by Dr. Nguyen. Will continue with antibiotic, analgesia and will determine anticoagulation after procedure. Repeat hematology and chemistry in AM. Will get physical therapy after patient has surgery. Tushar James, PGY-2 Internal Medicine Documentation for date of: 03/10/25 Subjective Subjective Interval history: Patient seen and examined at bedside. Per caregiver, patient seems to be more at his baseline of mentation. He is more conversant today and was able tell me his name, where he is, and appreciated the fact that he will be receiving surgery today. He had one bowel movement yesterday evening. Unable to perform a detailed ros due to patients cognitive impairment. Exam Vital Signs Temp Pulse Resp BP Pulse Ox O2 Del Method 97.4 F 87 18 119/86 H 99 Room Air 03/10/25 12:00 03/10/25 12:00 03/10/25 12:00 03/10/25 12:00 03/10/25 12:03/10/25 12:00 Narrative Exam General: NAD, nonconversant, unable to follow commands HEENT: Normocephalic atraumatic, PERRL, pupils anicteric Cardio: Normal S1, S2, RRR, Peripheral pulses 2+, no peripheral edema Pulm: Lungs clear to auscultation bilaterally Abdominal: Abdomen soft, nontender with no rigidity or guarding, bowel sounds present x4 MSK: Patient is moving all extremities against gravity, unable to assess ROM/strength at this time Neuro: CN exam, strength/sensation unable to assess due to patients medical condition/mentation Objective Labs 03/11/25 06:00 03/11/25 06:00 Labs: Laboratory Results - last 24 hr 03/09/25 03/10/25 19:27 05:28 WBC 14.5 H RBC 3.82 L Hgb 11.8 L Hct 35.6 L MCV 93 MCH 30.9 MCHC 33.1 RDW Std Deviation 43.1 Plt Count 195 Neut % (Auto) 78 Lymph % (Auto) 6 L Union % (Auto) 10 Eos % (Auto) 5 Baso % (Auto) 0 Neut # (Auto) 11.3 H Lymph # (Auto) 0.8 L Union # (Auto) 1.5 H Eos # (Auto) 0.8 H Baso # (Auto) 0.0 Immature Gran # (Auto) 0.13 H Absolute Nucleated RBC 0.00 Immature Gran % 1 H Nucleated RBC % 0 PT 13.3 H INR 1.2 APTT 29.1 29.1 Sodium 141 Potassium 3.6 Chloride 105 Carbon Dioxide 23.8 Anion Gap 12 BUN 9 Creatinine 1.0 Estim Creat Clear Calc 55.1 L eGFR > 60 BUN/Creatinine Ratio 9 L Glucose 82 Calculated Osmolality 278 Calcium 8.2 L Corrected Calcium 8.6 Phosphorus 2.0 L Magnesium 1.5 L Total Bilirubin 0.5 AST 38 H ALT 18 Alkaline Phosphatase 91 Total Protein 6.0 Albumin 3.5 Globulin 2.5 Albumin/Globulin Ratio 1.4 ABG Interpretation ABG results: 03/08/25 11:00 VBG pH 7.38 VBG pCO2 49 VBG pO2 33 VBG Base Excess 3 Quality Measures Quality Measures sepsis Current suspected stage: ruled out Possible source: unknown Blood cultures ordered: completed in ED Antibiotic ordered: Yes Advance care planning discussed with:: other (Patients conservator) Assessment & Plan Assessment Current Active Medications: Generic Name Dose Route Start Last Admin Trade Name Freq PRN Reason Stop Dose Admin Acetaminophen 650 mg 03/08/25 19:07 03/09/25 22:38 Acetaminophen 325 Mg Tablet PO 04/07/25 19:06 650 mg Q6H PRN Administration Fever >100.4 or pain 1-3 Hydrocodone Bitart/Acetaminophen 1 tab 03/08/25 19:07 Hydrocodone/Apap 10/325 Tab PO 03/13/25 19:06 Q4HR PRN PAIN SCALE 7-10 (Severe Levothyroxine Sodium 35 mcg/ 0 mcg 03/09/25 09:45 03/10/25 09:33 Sodium Chloride 1.75 ml IV 04/08/25 09:44 1.75 syringe QDAY [facility] Administration Ingrezza 80 Mg 0 ea 03/10/25 11:00 Capsule PO 04/09/25 10:59 DAILY ROSE MARIE Docusate Sodium 100 mg 03/08/25 19:07 Docusate Sod 100 Mg Capsule PO 04/07/25 19:06 QDAY PRN CONSTIPATION Protocol Escitalopram Oxalate 10 mg 03/09/25 09:00 03/10/25 09:34 Escitalopram Oxalate 10 Mg Tablet PO 04/08/25 08:59 Not Given DAILY ROSE MARIE Ceftriaxone Sodium/Dextrose 1 gm in 50 mls @ 100 mls/hr 03/08/25 19:28 03/09/25 13:13 Rocephin/D5w 1gm Iv Premix IV 03/15/25 19:27 100 mls/hr QDAY@1400 [facility] Administration Doxycycline Hyclate 100 mg/ 100 mls @ 100 mls/hr 03/08/25 21:00 03/10/25 09:32 Sodium Chloride IV 03/15/25 20:59 100 mls/hr BID [facility] Administration Lactated Ringer's 1,000 mls @ 70 mls/hr 03/08/25 19:30 03/10/25 02:45 Lactated Ringers IV 04/07/25 19:29 70 mls/hr .[id number] [facility] Administration Loratadine 10 mg 03/09/25 09:00 03/10/25 09:34 Loratadine 10 Mg Tablet PO 04/08/25 08:59 Not Given QDAY [facility] Morphine Sulfate 1 mg 03/08/25 19:31 Morphine Sulf Inj 10 Mg/Ml Vial IVP 03/13/25 19:30 Q6HR PRN pain 7-10 Ondansetron HCl 4 mg 03/08/25 19:07 Ondansetron Inj 2 Mg/Ml Inj 2 Ml IVP 04/07/25 19:06 Q6H PRN NAUSEA OR VOMITING Protocol Oxycodone/Acetaminophen 1 tab 03/08/25 19:07 Oxycodone/Apap 5/325 Tablet PO 03/13/25 19:06 Q6H PRN PAIN SCALE 4-6 (Moderate Pantoprazole Sodium 40 mg 03/09/25 09:00 03/10/25 09:34 Pantoprazole 40 Mg Tablet PO 04/08/25 08:59 Not Given QDAY [facility] Tamsulosin HCl 0.4 mg 03/10/25 09:00 03/10/25 09:34 Tamsulosin Hcl 0.4 Mg Capsule PO 04/09/25 08:59 Not Given QAM [facility] Plan Assessment and Plan A 74 yo male with a pmh of Parkinson's, 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 He was febrile, tachypneic with leukocyotis, and was found to have an acute comminuted right subcapital hip fracture. #R Comminuted Subcapital Hip Fx Patient is able to ambulate without assistance at baseline CT Abd/Pelvis w Con: No pneumonia, pulmonary edema or pleural disease, Lower wall of the esophagus is thickened, consider reflux esophagitis, Normal appendix, No abdominal or pelvic abscess, Acute comminuted right subcapital hip fracture Hip and Pelvis X-ray confirmed the CT findings. Fexur X-ray: Right subcapital hip fracture with impaction LDH 400 on admission likely due to soft tissue injury/bone trauma Plan: -Orthopedics consulted, appreciate recs -Right hip hemiarthroplasty planned today -Pain managed with PRN analgesics per pain scale protocol #Leukocytosis Likely reactive Patient had Temp of 101.9, RR: 22, WBC 20.6 WBC downtrending Procalcitonin wnl CXR, UA, Chest CTA negative for infectious process/emboli Given Acetaminophen 1G IV x1, Zosyn 3.375 gm IV x1, Doxycycline Hyclate 100 mg IV x1 in ED Blood culture preliminary read shows no growth after 24 hrs x2 Plan: -LR IV 70 mls/hr -Doxycycline 100mg IV BID -Ceftriaxone 1gm IV QD -Blood cxr pending -Urine cxr pending -Trend CBC #Parkinsons Disease Per caregiver, patient can communicate in short phrases, and follows commands at baseline Mentation is improving, patient is conversant today. Change in baseline status can be secondary to stress/agitation in setting of pain and new environment Plan: -Txt acute process -Ingrezza 80 MG po QAM #Electrolyte abnormalities Repleted #Depression Continue home Escitalopram 10mg po QAM #Hypertension Patient takes Amlodipine 5mg po QAM at home Propranolol 50 TID Blood pressure ranges from 130s systolic to 96. Plan: -Held home meds Health Maintenance: Disposition: Medsur DVT Prophylaxis: Held as patient will require Orthopedic intervention GI Prophylaxis: Protonix 40 QD Diet: Dysphagia 2-Mechanical altered CODE STATUS: Full Code Case and Plan discussed with my attending physician, Dr. Arita, and my senior resident, Dr. Jacob Colón, [facility] Attending Provider Attestation/Addendum I have discussed and was present for the essential components of the history, physical examination, diagnosis, and treatment plan with the resident. I agree with the patient's care as documented by the resident and amended herein by me. Osbaldo Arita DO. Although this document has been carefully reviewed, there may still be some phonetic and other typographical errors. These errors are purely grammatical due to imperfections in the software program and should not be construed in any way to compromise the substance of the patient's medical care during this visit.
--- NOTE | 2025-03-10 14:24 | ESOP_ITS ---
Date of Procedure 03/10/25 Pre Op Diagnosis right hip femoral neck fracture Post Op Diagnosis right hip femoral neck fracture Procedure right hip hemiarthroplasty anterolateral Findings subcapital and comminuted femoral head fracture Procedure Description Indications: The patient is a 74y.o. year-old with a right femoral neck fracture after ground-level fall. After considering the patient's condition and the impact of their hip injury on the patient's quality of life and risks of nonoperative treatment, total hip replacement was offered as a reasonable option. Prior to the surgery I discussed the nature of the hip replacement surgery including alternatives to surgery and the purpose of, and indications for proceeding with surgery. I discussed that this surgery is a shared decision between the patient and the surgeon. Risks and benefits and alternatives of the procedure have been explained to the medical safety director [place]. Anesthesia complications and risks include but are not limited to stroke, heart attack, and . The surgical risks include but are not limited to infection, instability/dislocation, bleeding, nerve and blood vessel injury, deep vein thrombosis, pulmonary embolus, stiffness, pain, scar, need for reoperation, leg length discrepancy, thigh numbness, weakness, and mechanical failure of the implant including loosening, metal complications, metal allergy, wear or breakage. I discussed the expected recovery from surgery and the importance of compliance with all our pre and post-operative recommendat ions in order to maximize the recovery. We obtained consent from his legal provider. Patient Positioning: The patient was placed in the lateral decubitus position on a standard table using a pegboard. An axillary role was placed. All extremities were padded to ensure adequate protection. A howe catheter was aseptically inserted. Time Out: A timeout was performed prior to the procedure which verified the correct patient, positioning, operation to be performed, operative site, antibiotics, allergies, imaging, and any other concerns. All parties were in agreement. Procedure in detail: The operative site was cleaned and draped in the usual sterile fashion. A final timeout was performed with all parties in agreement. A modified anterolateral approach to the hip was utilized. A 16cm skin incision was made centered over the greater trochanter in line with the femur. This was taken down through skin and subcutaneous tissue using a 10 blade. Bleeding was controlled using electrocautery. The fascia was identified and split in line with the femur. The charnley retractor was then placed. The abductor insertion was identified and a split made in the anterior 1/3 of the tendon proximally. Retractors were placed and the gluteus minimus was visualized. A capsulotomy was made down to the femoral neck anterior to the minimus. A split was then made in the anterior 1/3 of the vastus lateralis. A retractor was then placed anterior to the femoral shaft, the tendon was tagged with #1 ethibond sutures and a U-shaped split was made in the anterior 1/3 of the abductor tendon being careful to leave enough tendon to re-attach. The hip was then gently externally rotated as the anterior tissues were taken down with the tendon and capsule as one sleeve. A femoral neck fracture was visualized. The hip was gently dislocated. Retractors were placed around the femoral neck and the femoral neck osteotomy was then made to freshen up the cut. The femoral head was then removed. We then turned our attention to the femur. The leg was brought into external rotation and the femur was exposed. A canal finder was used followed by a box osteotomy and the femur was broached sequentially. The trial stem was then left in and the hip was trialed using various neck offsets and head sizes until the appropriate size was found based on leg length, stability. Once we were satisfied with the construct a cross-table AP pelvis radiograph was obtained to confirm appropriate positioning and sizing. The hip was then dislocated and the trials were then removed and the final stem impacted into placed. The hip was then again trialed and the appropriate head size identified. The severino taper was then cleaned and dried and the final head impact into place and tested. The acetabulum was irrigated and confirmed to be free of debris. The hip was then reduced and taken through range of motion. The hip was stable in abduction and external rotation, adduction and external rotation, flexion past 90 degrees and internal rotation past 20 degrees. It did not sublux throughout range of motion and no impingement was detected. Leg lengths were appropriately restored based on preoperative leg lengths and intraoperative testing. . The hip was then copiously irrigated with dilute betadine followed by normal saline. The hip was then injected with the cocktail per protocol The hip was the closed in layers. The abductor tendon was closed with #1 ethibond. The fascia was closed with 0 Vicryl followed by an 0 V-lock. . The deep layer was closed with 0-Vicryl and the subcutaneous layer by a 2-0 Vicryl. The subdermal layer was closed with a 3-0 monocryl. The skin was then cleaned and dried and steri- strips placed followed by a sterile dressing. The drapes were then taken down and the patient was placed supine. Leg lengths were confirmed to be appropriate and the patient's lower extremities were warm and well perfused with brisk capillary refill and palpable pulses. The patient was then awoken, transferred to the [facility] and taken to the PACU in stable condition. They tolerated the procedure well. The patient's family/caregiviers were made aware of their condition. Postoperative plan Activity: WBAT, no hip precautions , no active hip abduction DVT Prophylaxis: aspirin 81mg BID Antibiotics: Standard postoperative antibiotics x 24 hours Implants: Barbara 42 bipolar head, 4 high stem, 42 outer ball, 26+0 Anesthesia GETA Implants barbara Pathology / specimen None Pathology comment: none Estimated Blood Loss 150 Condition Stable Disposition floor Surgeon Iván Nguyen MD Surgical Staff Operation Date: 03/10/25 13:30 Case Staff Anesthesiologist: Bharat Sanchez RN First Assistant: Ciera Baldwin
--- NOTE | 2025-03-10 14:38 | XR_ITS ---
Examination:Right hip AP, lateral, AP pelvis 3 views Technique: Hip AP lateral, AP pelvis, 3 views Exam date and time:March 10, 2025 1557 hours INDICATIONS: Postop right hip replacement FINDINGS: Right hip bipolar hemiarthroplasty. Satisfactory alignment Old deformity of the left hip greater trochanter Bones the pelvis intact IMPRESSION: Right hip bipolar hemiarthroplasty with satisfactory alignment.
--- NOTE | 2025-03-10 15:00 | SUR.PHASEI ---
pt received from OR in recovery bay 4. pt obtunded, breathing unlabored on oxymask 8l, oral airway in place. v/s stable. pt dressing to right hip cdi. report recevied from Dr. Sanchez and Dasia JOYCE.
--- NOTE | 2025-03-10 16:32 | SUR.PHASEI ---
pt awake and alert, breathing unlabored on room air. v/s stable. pt dressing to right hip cdi. report called to Anni JOYCE. pt will be transferred to room at this time.
--- NOTE | 2025-03-10 19:32 | PC.RT ---
pt remains on RA spo2 97% hr 85, RR 19
[2025-03-11] VITALS: BP 130/66; PULSE 87; RESP 19; TEMP 36.6; O2SAT 98
[2025-03-11] MEDS: RINGERS LACTATED 1000 ML 1,000 ML 70 ML IV (02:24)
[2025-03-11] MEDS: ACETAMINOPHEN 325 MG TABLET 650 MG PO (02:27)
[2025-03-11 04:00] VITALS: BP 119/80; PULSE 76; PULSE 87; RESP 21; TEMP 36.9; O2SAT 97
[2025-03-11 06:31] LABS: Basophils # (Auto) 0.0 Thou/mm3 (0.0-0.2); Basophils % (Auto) 0 % (0-2.5); Eosinophils # (Auto) 0.0 Thou/mm3 (0.0-0.5); Eosinophils % (Auto) 0 % (0-10); Hematocrit 33.7 % (41.0-53.0); Hemoglobin 11.5 g/dL (13.5-16.0); Immature Granulocytes Auto 0.13 Thou/mm3 (0.00-0.00); Lymphocytes # (Auto) 0.7 Thou/mm3 (1.0-4.8); Lymphocytes % (Auto) 3 % (10-50); Mean Corpuscular HGB Conc 34.1 g/dl (31.0-37.0); Mean Corpuscular Hemoglobin 31.3 pg (25.0-35.0); Mean Corpuscular Volume 92 fL (80-100); Monocytes # (Auto) 1.9 Thou/mm3 (0.0-0.8); Monocytes % (Auto) 9 % (0-12); Neutrophils # (Auto) 18.5 Thou/mm3 (1.8-7.7); Neutrophils % (Auto) 87 % (37-80); Nucleated Red Blood Cell # 0.00 Thou/mm3 (0.00-0.00); Nucleated Red Blood Cell % 0 /100 WBC (0); Platelet Count 216 Thou/mm3 (140-440); RDW Standard Deviation 41.8 fL (35.1-43.9); Red Blood Count 3.68 Miln/mm3 (4.50-5.90); White Blood Count 21.2 Thou/mm3 (3.8-10.6)
[2025-03-11 06:48] LABS: Alanine Aminotransferase 21 U/L (10-49); Albumin, Serum 3.5 gm/dL (3.4-4.8); Albumin/Globulin Ratio 1.3 (1.2-2.2); Alkaline Phosphatase 86 U/L (46-116); Anion Gap 13 (7-16); Aspartate Amino Transferase 43 U/L (0-34); BUN/Creatinine Ratio 12 Ratio (12-20); Bilirubin,Total 0.4 mg/dL (0.3-1.2); Blood Urea Nitrogen 12 mg/dL (9-23); Calcium 8.1 mg/dL (8.3-10.6); Calcium (Corrected) 8.5 mg/dL (8.5-10.1); Carbon Dioxide 21.3 mMol/L (20.0-31.0); Chloride 107 mMol/L (98-107); Creatinine (Component) 1.0 mg/dL (0.6-1.3); Estimated Creatinine Clearance 55.1 mL/min (>60); Globulin 2.6 gm/dL (2.3-3.5); Glucose 109 mg/dL (74-106); Magnesium 1.9 mg/dL (1.6-2.6); Osmolality,Calculated 281 (275-295); Phosphorous 2.2 mg/dL (2.4-5.1); Potassium 4.0 mMol/L (3.4-5.1); Sodium 141 mMol/L (136-145); Total Protein 6.1 gm/dL (5.7-8.2); eGFR > 60 See Note
[2025-03-11 08:00] VITALS: BP 120/62; PULSE 112; PULSE 80; RESP 19; TEMP 36.5; O2SAT 94
[2025-03-11] MEDS: HYDROcodone/APAP 5/325 TABLET 1 TAB PO (08:56)
[2025-03-11] MEDS: TAMSULOSIN HCL 0.4 MG CAPSULE PO (08:56)
[2025-03-11] MEDS: INGREZZA 80 MG CAPSULE PO (08:57)
[2025-03-11] MEDS: ASPIRIN EC 81 MG TABEC PO (08:57)
[2025-03-11] MEDS: PANTOPRAZOLE 40 MG TABLET PO (08:57)
[2025-03-11] MEDS: ESCITALOPRAM OXALATE 10 MG TABLET PO (08:57)
[2025-03-11] MEDS: DOXYCYCLINE INJ 100 MG in SODIUM CHLORIDE 0.9% (POP) 100 ML IV (08:58)
[2025-03-11] MEDS: LEVOTHYROXINE IV (08:59)
[2025-03-11] MEDS: SODIUM CHLORIDE 0.9% IV (08:59)
[2025-03-11] MEDS: NAPH,KPH MBDB 1 PACKET (1.5 GM) PO (10:25)
[2025-03-11 12:00] VITALS: BP 98/69; PULSE 101; PULSE 105; RESP 20; TEMP 36.9; O2SAT 94
--- NOTE | 2025-03-11 13:07 | PD.ORTHCON ---
HPI Consult details History of present illness: Patient is a 74-year-old male with developmental delay with right hip pain. He is status post right hip hemiarthroplasty for a displaced femoral neck fracture. He is doing well. Meds Home Medications and Allergies Home Medications ?Medication ?Instructions ?Recorded ?Confirmed ?Type docusate sodium 250 mg capsule 1 tab PO QDAY ##0 10/27/14 03/09/25 History omeprazole 20 mg capsule,delayed 20 mg PO QDAY ##0 10/27/14 03/09/25 History release (Prilosec) cetirizine 10 mg tablet 10 mg PO QDAY 09/11/22 03/09/25 History montelukast 10 mg tablet 10 mg PO HS 09/11/22 03/09/25 History propranolol 40 mg tablet 40 mg PO BID 09/11/22 03/09/25 History valbenazine 80 mg capsule 80 mg PO QDAY 09/11/22 03/09/25 History (Ingrezza) calcium 600 mg (as 1 tab PO HS 02/28/24 03/09/25 History carbonate)-vitamin D3 10 mcg (400 unit) tablet escitalopram oxalate 10 mg tablet 10 mg PO DAILY 02/28/24 03/09/25 History tamsulosin 0.4 mg capsule 0.4 mg PO QHS 05/12/24 03/09/25 History amlodipine 5 mg tablet 5 mg PO DAILY 03/09/25 03/09/25 History ibuprofen 400 mg tablet 400 mg PO Q12H 03/09/25 03/09/25 History Held on 03/11/25. Instructions: resume with pcp as now you are taking eliquis levothyroxine 50 mcg tablet 50 mcg PO DAILY 03/09/25 03/09/25 History Allergies Allergy/AdvReac Type Severity Reaction Status Date / Time No Known Drug Allergies Allergy Verified 03/08/25 10:31 Exam Vital Signs Temp Pulse Resp BP Pulse Ox O2 Del Method O2 Flow Rate 97.7 F 80 19 120/62 94 L Room Air 6 03/11/25 08:00 03/11/25 08:00 03/11/25 08:00 03/11/25 08:00 03/11/25 08:00 03/11/25 08:00 03/10/25 16:00 Additional findings Additional findings: Right hip incision is clean dry intact. He is able to grossly move his extremities. The exam is limited due to verbal communication Results - Ortho Labs 03/11/25 06:00 03/11/25 06:00 Labs: Short CBC 03/11/25 Range/Units 06:00 WBC 21.2 H D (3.8-10.6) Thou/mm3 Hgb 11.5 L (13.5-16.0) g/dL Hct 33.7 L (41.0-53.0) % Plt Count 216 (140-440) Thou/mm3 BMP 03/11/25 06:00 Sodium 141 Potassium 4.0 Chloride 107 Carbon Dioxide 21.3 BUN 12 Creatinine 1.0 Glucose 109 H Calcium 8.1 L Liver Function 03/11/25 Range/Units 06:00 Total Bilirubin 0.4 (0.3-1.2) mg/dL AST 43 H (0-34) U/L ALT 21 (10-49) U/L Alkaline Phosphatase 86 (46-116) U/L Albumin 3.5 (3.4-4.8) gm/dL ABG Interpretation ABG results: 03/08/25 11:00 VBG pH 7.38 VBG pCO2 49 VBG pO2 33 VBG Base Excess 3 Assessment & Plan Problem List (1) Femoral neck fracture: Status: Acute Assessment and plan: Patient is a 74-year-old male with right femoral neck fracture that is displaced and comminuted. He is status post right hip MR with arthroplasty and is doing well. His leg lengths are equal. - Eliquis for DVT prophylaxis - Pain control - Discharged to SNF versus rehab versus home pending physical therapy.
[2025-03-11 13:16] VITALS: BMI 12.0
[2025-03-11] MEDS: cefTRIAXone/D5w 1gm IV premix 1 GM/50 ML BAG IV (13:48)
--- NOTE | 2025-03-11 14:48 | PC.SS ---
Addendum entered by Adeline Whaley ELECTRICAL WIRER 03/11/25 16:19: Dr. Arita informs he spoke with [facility] keycase assembler and Dr. Simmons and they are agreeable with patient returning back to [facility] with [facility] health services as they have hired more staff to help assist with patient's care. Dr. Arita informs home health orders have been placed. And d/c plan is to return to [facility] today w/home health for PT and [facility] to transport the patient at 5:30pm. Addendum entered by Adeline Whaley ELECTRICAL WIRER 03/11/25 16:04: Received call from [facility], who informs they want to transition patient home w/ home health services for PT needs today. No preferred home health agency. PCP is Pretty Serrato. RN Socorro updated. Updated Dr. Arita as home health orders would be needed and he expressed concern with the patient returning to the [facility] as he is high fall risk/maximum assist. Dr. Arita to speak to [facility] and pen[facility]entiary to discuss disposition plan. Addendum entered by KEVIN Rodriguez 03/11/25 16:01: SNF referral sent on [facility]. Addendum entered by Adeline Whaley ELECTRICAL WIRER 03/11/25 15:46: PASRR completed. No follow up required. Addendum entered by Adeline Whaley ELECTRICAL WIRER 03/11/25 15:38: Rosanna is aware, insurance authorization for SNF will be needed from patient's insurance for SNF. Addendum entered by Adeline Whaley [facility] 03/11/25 15:37: SS update: spoke with [facility] Rosanna Taylor. She is aware that patient is unable to bear his own weight at this time and is requesting short term SNF for PT needs. Rosanna informs the preferred SNF is [facility]. Addendum entered by Adeline Whaley [facility] 03/11/25 14:53: Per PT note, the patient is a maximum assist. Patient was recommended for SNF vs HH for PT needs if the [facility] is able to accommodate. Original Note: SS follow up: attempted contact with [facility] Rosanna aTylor at and to discuss the d/c plan as patient has d/c orders in. Unsuccessful in reaching, voicemail provided to both contact numbers listed.
[2025-03-11 16:00] VITALS: PULSE 98
--- NOTE | 2025-03-11 16:41 | ESDS_ITS ---
<Statement entered by Tushar James MD - 03/11/25 17:51> I have reviewed the note and agree with the resident's assessment & plan with exceptions as below. I have personally reviewed labs, imaging, home meds/prior records, examined the patient, formulated and discussed management plan with the IM team. Patient examined at bedside today. No acute overnight events. Patient to be discharged back home although it was recommended for patient to be discharged to SNF, will send patient out home with home health. Patient to be sent out with Eliquis 2.5 mg twice a day for 35 days for DVT prophylaxis after surgery, [place] 10 every 8 hours as needed for pain for 5 days. Patient to follow-up with orthopedic surgeon, Dr. Puentes in 1 to 2 weeks of discharge. Patient was then di scharged with the following instructions listed below. Tushar James, PGY-2 Internal Medicine Planned Discharge Date 03/11/25 DS: Providers Provider Date of admission: 03/08/25 18:47 Primary care physician: Pretty Serrato NP Admitting Provider: Selvin Kang MD Attending Provider on Admission: Selvin Kang MD Consults: 03/08/25 18:48 Consult to Orthopedic Stat Comment: Consulting Provider: Iván Puentes 03/08/25 23:02 Referral Physical Therapy Routine Comment: Physician Instructions: Referral Respiratory Therapy Routine Comment: 03/10/25 14:37 PT [Referral Physical Therapy] Urgent Comment: Physician Instructions: Attending Provider on DC: Dakota Arita DO Discharging Provider: Dakota Arita DO Anticipated date of discharge: 03/11/25 DS: Diagnosis Problem List Completed Was Problem List Reviewed/Reconciled?: Yes Hospital Course Hospital Course Hospital course: A 74 yo male with a pmh of Parkinson's, 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 He was febrile, tachypneic with leukocyotis, and was found to have an acute comminuted right subcapital hip fracture. ED Course: Vitals on admission were T: 101.9, HR: 70, RR: 22, BP 121/68, SPO2: 94 RA Physical exam in ER was found to be unrevealing. Labs were notable for WBC 20.6, Hgb 12.6, PT 12.4, APTT 20.8, VBG 02 62, Na+ 147, Cl 113, Est Cr Cl 42.4, eGFR 58, LDH 400, BNP 105, Lipase 60, UA 8RBC Imaging: CXR: No pneumonia or pulmonary edema Chest CTA: Negative for pulmonary artery emboli, No pneumonia, pulmonary edema or pleural disease EKG: Sinus rhythm, QT 376 CT Abd/Pelvis w Con: No pneumonia, pulmonary edema or pleural disease, Lower wall of the esophagus is thickened, consider reflux esophagitis, Normal appendix, No abdominal or pelvic abscess, Acute comminuted right subcapital hip fracture, recommend plain films right hip follow-up Hip and Pelvis X-ray: Acute comminuted right subcapital hip fracture Medications given: NS 1L x2, NS 250 mls IV X1, Acetaminophen 1G IV x1, Zosyn 3.375 gm IV x1, Doxycycline Hyclate 100 mg IV x1 Consults: Orthopedics Hospital Course: The patients right communited subcapital fracture was managed with prn pain medications per pain scale protocol. Additionally, the patient was closely monitored for signs of pain as his cognitive impairment makes it difficult to converse with the patient. As for the patients leukocytosis, the patient received doxycycline 100mg IV BID, and Ceftriaxone 1gm IV QD. The patient was kept npo at midnight before his surgery, and underwent a right hip hemiarthroplasty with satisfactory alignment on post op imaging per ortho. The patients electrolyte abnormalities were repleted during his stay. His chronic conditions of Parkinsons disease, depression, hypothyroidism, and hypertension were managed with continuation of his home medications. Discharge Instructions: * Follow-up with PCP within 1-2 weeks of discharge. * Follow-up with orthopedics, Dr. Puentes, within 1-2 weeks of discharge. * Continue taking ELIQUIS 2.5 mg twice daily for 35 days (NEW). * Continue taking IRON supplements sue (NEW). * Continue taking NORCO every 8 hours as needed for pain (NEW). * Continue taking medications as prescribed below. * Return to Emergency Room if symptoms persist, worsen, or new symptoms develop. Problem list #R Comminuted Subcapital Hip Fx s/p right hip hemiarthroplasty #Leukocytosis, resolved #Electrolyte abnormalities, resolved #Parkinsons Disease #Depression #Hypertension #Hypothyroidism Case and Plan discussed with my attending physician, Dr. Arita, and my senior resident, Dr. Jacob Colón, [facility] Time Spent with Patient Time attestation: Total time spent providing and/or coordinating discharge services: Time spent: Greater than 30 minutes Home Health Home Health Referral Orders: 03/11/25 16:11 Home Health Referral Routine Reason For Exam: debility Home-Bound The patient must either because of illness or injury, need the aid of supportive devices such as crutches, canes, wheelchairs, and walkers; the use of special transportation; or the assistance of another person in order to leave their place of residence; OR have a condition such that leaving his or her home is medically contraindicated. In addition, the patient also meets the following criteria: patient is normally unable to leave the home and leaving home requires considerable taxing effort. Addendum to Home Health Certification Practitioner's Certification: I certify that the patient has been under my care in the hospital and the care of attending physician (see below). We had a [id number] encounter on (see date below). My clinical findings indicate that the patient is home bound per the above criteria and the Home Health Services noted in these orders are medically necessary. The primary reason for the [id number] encounter is related to the fact that the patient requires home health services. Date Certifying [id number] Physician Encounter: 03/08/25 Physician's Name who will Assume Oversight for Services: Pretty Serrato Physician's Phone No.who will Assume Oversight for Service: [employer] SAL[employer] NETWORK ENGINEER - Community Resources: No PT to Evaluate: Yes PT to evaluate and provide a treatmnet plan to increase patient's mobility and strength. Wound Care: No IV Therapy: No Discontinue PICC Line Once Treatment Complete: No RN Safety Evaluation: Yes RN to evaluate and create a plan of care that will produce positive outcomes. Palliative Treatment: No Palliative treatment and evaluate the need for hospice. Home Health Aide - Personal Care: No Home Health Aide to assist with any ADL's. Exam Vital Signs Temp Pulse Resp BP Pulse Ox O2 Del Method O2 Flow Rate 98.5 F 105 H 20 98/69 94 L Room Air 6 03/11/25 12:00 03/11/25 12:00 03/11/25 12:00 03/11/25 12:00 03/11/25 12:00 03/11/25 12:03/10/25 16:00 Narrative Exam General: NAD, intermittently conversant, unable to follow commands HEENT: Normocephalic atraumatic, PERRL, pupils anicteric, involuntary facial grimacing consisent with tardive dyskinesia Cardio: Normal S1, S2, RRR, Peripheral pulses 2+, no peripheral edema Pulm: Lungs clear to auscultation bilaterally Abdominal: Abdomen soft, nontender with no rigidity or guarding, bowel sounds present x4 MSK: Patient is moving all extremities against gravity, unable to assess ROM/strength at this time. Bilateral pill rolling tremors of the hands noted. The patients surgical dressing is dry and intact with no bleed through. Neuro: CN exam, strength/sensation unable to assess due to patients medical condition/mentation, Discharge Plan Plan Patient Disposition: Xfer Skilled Ns Fac (SNF) Care Plan Goals: * Follow-up with PCP within 1-2 weeks of discharge. * Follow-up with orthopedics, Dr. Puentes, within 1-2 weeks of discharge. * Continue taking ELIQUIS 2.5 mg twice daily for 35 days (NEW). * Continue taking IRON supplements sue (NEW). * Continue taking NORCO every 8 hours as needed for pain (NEW). * Continue taking medications as prescribed below. * Return to Emergency Room if symptoms persist, worsen, or new symptoms develop. Prescriptions/Referrals Prescriptions/Med Rec: New hydrocodone-acetaminophen 10-325 mg tablet 1 tab PO Q8H MDD 3 tablets in one day PRN (Reason: pain 7-10 or breakthrough pain) 5 Days Qty: 15 0RF Rx Instructions: Take one tablet by mouth up to three times a day for severe pain Eliquis 2.5 mg tablet 2.5 mg PO BID 35 Days Qty: 70 0RF Rx Instructions: Take one tablet by mouth twice a day ferrous sulfate 325 mg (65 mg iron) tablet 325 mg PO Q OTHER DAY 30 Days Qty: 15 0RF Rx Instructions: Take one tablet by mouth every other day Continued tamsulosin 0.4 mg capsule 0.4 mg PO QHS omeprazole [Prilosec] 20 MG capsule,delayed release(DR/EC) 20 mg PO QDAY Qty: 0 Patient Comments: TO SUPPRESS GASTRIC ACID SECRETIONS docusate sodium 250 MG capsule 1 tab PO QDAY Qty: 0 escitalopram oxalate 10 mg tablet 10 mg PO DAILY calcium carbonate-vitamin D3 600 mg-10 mcg (400 unit) tablet 1 tab PO HS albuterol sulfate 90 mcg/actuation HFA aerosol inhaler 2 puff inhalation Q6H PRN (Reason: shortness of breath or wheezing) Qty: 8.5 0RF amlodipine 5 mg tablet 5 mg PO DAILY levothyroxine 50 mcg tablet 50 mcg PO DAILY cetirizine 10 mg tablet 10 mg PO QDAY propranolol 40 mg tablet 40 mg PO BID montelukast 10 mg tablet 10 mg PO HS Ingrezza 80 mg capsule 80 mg PO QDAY Held aspirin 81 mg capsule 81 mg PO QDAY Qty: 30 0RF Hold Instructions: resume with pcp once eliquis finishes ibuprofen 400 mg tablet 400 mg PO Q12H Hold Instructions: resume with pcp as now you are taking eliquis Discontinued ferrous sulfate [FeroSul] 325 mg (65 mg iron) tablet 325 mg PO DAILY cefdinir 300 mg capsule 300 mg PO BID Qty: 14 0RF Referrals: Pretty Serrato, COLD STRIP FEEDER [Primary Care Provider] - Patient/Caregiver Discharge Instructions Education Materials: Surgery Anesthesia After, Preventing Surgical Site Infections, TOTAL KNEE ARTHROPLASTY - DR. PUENTES Print Language: Pakistani Stand Alone Forms: [place] Award Info., Patient Portal Info Letter Discharge Order Discharge Orders: Discharge (Routine); Ordered 03/11/25 Ordered By: Medardo Alex Quality Discharge Quality Measures VTE prophylaxis
--- NOTE | 2025-03-11 17:20 | PC.NURSE ---
All discharge instructions given to child caregiver private home. Vital signs stable. IV removed. All questions answered.
--- NOTE | 2025-03-12 13:08 | PC.CM ---
Addendum entered by Eliane Em RN 03/12/25 18:58: I later received a text and [facility] and they said they will be able to keep the patient after all. I updated [facility]. Devon text me at the end of my shift and stated they are full and they are going to decline patient. They stated we could send to [facility]. [facility] and I was not able to unbook. I asked Devon to forward paperwork to [facility]. Addendum entered by Eliane Em RN 03/12/25 14:35: Patient accepted by [facility]. Start of care date set for 03/16. Original Note: Referral sent to [facility] and [facility]. Patient has [employer] insurance.
== END 2025-03-11 17:20 | disposition home health service (06) | DRG 522 ==
LOC: SERX 18:28 → SERHOLD 18:57 → S3SX 21:39
PROVIDERS: Orthopaedic Surgery Adult Reconstructive Orthopaedic Surgery; Admitting Provider Student in an Organized Health Care Education/Training Program; Emergency Provider Emergency Medicine; PCP Nurse Practitioner Family; Visit Provider Student in an Organized Health Care Education/Training Program
PROC: 0SRR0JZ Replacement of Right Hip Joint, Femoral Surface with Synthetic Substitute, Open Approach (ICD-10-PCS; CPT 27125; principal; 2025-03-10 13:15)
DX: S72.011A Unspecified intracapsular fracture of right femur, initial encounter for closed fracture (principal); F02.83 Dementia in other diseases classified elsewhere, unspecified severity, with mood disturbance; R65.10 Systemic inflammatory response syndrome (SIRS) of non-infectious origin without acute organ dysfunction; F32.A Depression, unspecified; G20.A1 Parkinson's disease without dyskinesia, without mention of fluctuations; I10 Essential (primary) hypertension; E03.9 Hypothyroidism, unspecified; R09.02 Hypoxemia; J45.909 Unspecified asthma, uncomplicated; Z79.890 Hormone replacement therapy; Z79.899 Other long term (current) drug therapy; Z87.440 Personal history of urinary (tract) infections
CPT/HCPCS: 36415; 71045; 71260; 73501; 73502; 73552; 74177; 80053; 81001; 82803; 83605; 83615; 83690; 83735; 83880; 84100; 84145; 84484; 85025; 85610; 85730; 87040; 87081; 87086; 87400; 87811; 93005; 93225; 96361; 96365; 96366; 97162; 99285; A4216; A4217; A4649; C1776; J0131; J0690; J0696; J2543; J2704; J3010; J3475; J3490; J7030; J7050; J7120; J7999; Q9967; A9270

== ENCOUNTER 2025-03-16 07:23 | Emergency (ER) | payer OTHER, MEDICAID, SELFPAY ==
[2025-03-16] VITALS (14 sets, daily range): BP systolic 92–124; BP diastolic 42–91; PULSE 71–96; RESP 13–26; TEMP 36.8–38.3; O2SAT 94–100; BMI 23.3
--- NOTE | 2025-03-16 07:47 | PD.EDSOB ---
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 Per medics report, patient is on a liquid diet and noted after 2 spoonfuls the patient began gurgling with bilateral rhonchi which concerned them. Medics state on scene the patient was saturating 82% on room air and placed on 6L nasal cannula with improvement to 96%. Staff denied patient coughing. Related Data Home Medications ?Medication ?Instructions ?Recorded ?Confirmed docusate sodium 250 mg capsule 1 tab PO QDAY ##0 10/27/14 03/09/25 omeprazole 20 mg capsule,delayed 20 mg PO QDAY ##0 10/27/14 03/09/25 release (Prilosec) cetirizine 10 mg tablet 10 mg PO QDAY 09/11/22 03/09/25 montelukast 10 mg tablet 10 mg PO HS 09/11/22 03/09/25 propranolol 40 mg tablet 40 mg PO BID 09/11/22 03/09/25 valbenazine 80 mg capsule 80 mg PO QDAY 09/11/22 03/09/25 (Ingrezza) calcium 600 mg (as 1 tab PO HS 02/28/24 03/09/25 carbonate)-vitamin D3 10 mcg (400 unit) tablet escitalopram oxalate 10 mg tablet 10 mg PO DAILY 02/28/24 03/09/25 tamsulosin 0.4 mg capsule 0.4 mg PO QHS 05/12/24 03/09/25 amlodipine 5 mg tablet 5 mg PO DAILY 03/09/25 03/09/25 ibuprofen 400 mg tablet 400 mg PO Q12H 03/09/25 03/09/25 Held on 03/11/25. Instructions: resume with pcp as now you are taking eliquis levothyroxine 50 mcg tablet 50 mcg PO DAILY 03/09/25 03/09/25 Previous Rx's ?Medication ?Instructions ?Recorded aspirin 81 mg capsule 81 mg PO QDAY #30 caps 02/29/24 Held on 03/11/25. Instructions: resume with pcp once eliquis finishes albuterol sulfate 90 mcg/actuation 2 puff inhalation Q6H PRN 03/04/25 aerosol inhaler shortness of breath or wheezing #8.5 grams apixaban 2.5 mg tablet (Eliquis) 2.5 mg PO BID 35 days #70 tabs 03/11/25 ferrous sulfate 325 mg (65 mg 325 mg PO Q OTHER DAY 1 month #15 03/11/25 iron) tablet tabs levofloxacin 500 mg tablet 500 mg PO QDAY #4 tabs 03/16/25 Allergies Allergy/AdvReac Type Severity Reaction Status Date / Time No Known Drug Allergies Allergy Verified 03/16/25 07:47 Review of Systems Review of Systems ROS Unobtainable: unobtainable due to medical condition Past Medical History Past Medical History NEUROLOGIC: Positive Neurological Disorders, Parkinson's Disease and Traumatic Brain Injury CARDIAC: Positive Cardiac Disorders and Hypertension RESPIRATORY: Positive Asthma GASTROINTESTINAL: Positive Gastrointestinal Disorders and Gastroesophageal Reflux Disease GENITOURINARY: Positive Genitourinary Disorders and Renal Disease MUSCULOSKELETAL: Positive Musculoskeletal Disorders, Osteoporosis and Fractures ENT: Positive Cataracts ENDOCRINE: Positive Hypothyroidism HEMATOLOGIC: Positive Blood Disorders and Anemia PSYCHO/SOCIAL: Positive Depression Social History SMOKING STATUS: Never smoker ED Exam Narrative Physical exam: GENERAL APPEARANCE: awake, well-developed, well-nourished, no acute distress HEENT: Normocephalic, atraumatic; pupils equal, round, reactive to light; EOMI; mucous membranes pink, moist; oropharynx clear NECK: Supple LUNGS: mild upper airway noise; no wheezes, no rales, no rhonchi HEART: Regular rate, regular rhythm; normal S1, S2; no murmurs ABDOMEN: non distended; normal BS; soft, no tenderness, no guarding, no rebound; no masses, no organomegaly, no hernia BACK: no CVA tenderness EXTREMITIES: atraumatic; no edema NEUROLOGIC: awake; alert; baseline tremor; cranial nerves II-XII grossly intact PSYCHIATRIC: appropriate mood and affect SKIN: warm, dry, normal color; no rashes Course Course Course Narrative: chest xray ordered to help determine etiology of chest pain. Quality Measures none Orders Category Date Time Status CT Screening NOW Care 03/16/25 10:05 Active Jtac NOW Care 03/16/25 07:47 Active EKG (ED ONLY) *Do not use* NOW Care 03/16/25 07:[address] angio chest Stat Exams 03/16/25 10:05 Completed EKG (ED Only) Stat Exams 03/16/25 07:47 Ordered XR chest 1V portable Stat Exams 03/16/25 07:47 Completed B-Type Natriuretic Peptide Stat Lab 03/16/25 08:14 Completed Blood Culture (Lab) Stat Lab 03/16/25 08:25 Received CBC Stat Lab 03/16/25 08:14 Completed Comprehensive Metabolic Panel Stat Lab 03/16/25 08:14 Completed Lactate (Lactic Acid) Stat Lab 03/16/25 08:14 Completed Lipase Stat Lab 03/16/25 08:14 Completed Magnesium Stat Lab 03/16/25 08:14 Completed Procalcitonin Stat Lab 03/16/25 08:14 Completed Troponin I Stat Lab 03/16/25 08:14 Completed Urinalysis Stat Lab 03/16/25 08:14 Completed Urine Culture Stat Lab 03/16/25 08:14 Received Levofloxacin/D5w 500 mg Ivpb [Levaquin Ivpb] Med 03/16/25 14:41 Discontinued 500 mg in 100 ml IV X1 Reevaluation(s) Reevaluation #1: Patient saturating 93% on room air. Was saturating 97% on 2L nasal cannula. Time: 13:45 Vital Signs Vital signs: Vital Signs Temperature 99.6 F 03/16/25 07:47 Pulse Rate 75 03/16/25 07:47 Respiratory Rate 25 H 03/16/25 07:47 Blood Pressure 119/62 03/16/25 07:47 Pulse Oximetry (%) 97 03/16/25 07:47 Oxygen Delivery Method Nasal Cannula 03/16/25 07:47 Oxygen Flow Rate 2 03/16/25 07:47 Shortness of Breath / Dyspnea MDM Narrative MDM Narrative:: Matilde Hassan am scribing for and in the presence of Dr. Ley. 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 Nguyen on 03/10/2025 How is presenting disease/condition affected by chronic disease/condition?: exacerbated by Evaluation data The following diagnostics were reviewed and interpreted by me:: lab results, radiology exam(s) and EKG tracing(s) (03/16/2025 @ 07:46 AM. Sinus rhythm, rate 72, baseline wander, mild IVCD, T-wave inversion in V1 and V2, no acute ischemic changes. ) Lab and/or radiology exams considered but not ordered:: None Interpretation Summary: Ordering Physician: Chanelle Ley MD Date of Service: 03/16/25 Procedure(s): CT angio chest Accession Number(s): [id number] cc: Himanshu Palacio MD; Pretty Serrato ELECTRONICS INSPECTOR; Chanelle Ley MD~ Examination: CTA chest with intravenous contrast 2-D reconstructions 3-D reconstructions, vascular Date and time of exam: March 16, 2025, 1240 hours Comparison March 08, 2025 INDICATIONS: Shortness of breath chest pain today CTDI: vol (mGy) : 1.1 DLP: (mGycm) 561 Technique: Multiple axial sections of the thorax have been obtained. 3 mm slice thickness, from below the hemidiaphragms to above the apices of the lungs. Mediastinal and lung density settings have been obtained. 2-D sagittal and coronal reconstructions. 3-D angiographic renderings, 3-D volume renderings, 3D post processing, vascular maximum intensity projections obtained. Contrast administered is 100 cc Isovue-370. Low dose protocols were performed. One or more of the following dose reduction techniques were used; automated exposure control, adjustment of the mA and/or KV according to patient size, use of iterative reconstruction technique. Findings: No thoracic aortic aneurysm dilatation or dissection No pulmonary artery filling defects No paratracheal tracheobronchial or bronchopulmonary adenopathy Multiple small soft nodules in the right lung, not visualized on the March 08, 2025 exam, most consistent with nodular pneumonia Left lung clear No visualized liver splenic lesion No gallstones No hydronephrosis IMPRESSION: Negative for pulmonary artery emboli Findings most consistent with diffuse nodular right lung pneumonia, recommend follow-up chest imaging to document clearing Dictated By: Himanshu Palacio MD Signed By: <Electronically signed by Himanshu Palacio MD in OV> 03/16/25 1303 Procedure(s): XR chest 1V portable Accession Number(s): [id number] cc: Himanshu Palacio MD; Pretty Serrato NP; Chanelle Lye MD~ Examination: AP chest single view Technique one AP portable sitting chest single view Date and time: March 16, 2025, 0813 hours Comparison March 08, 2025 INDICATIONS: Onset chest pain today FINDINGS: Normal heart size No lobar pneumonia or pulmonary edema Moderate osteopenia IMPRESSION: No pneumonia or pulmonary edema Dictated By: Himanshu Palacio MD Medications / Prescriptions Medications or Prescriptions considered but not ordered:: None Medication administrations:: Medication Administration History Discontinued Medications Levofloxacin/Dextrose (Levaquin Ivpb) 500 mg in 100 mls @ 100 mls/hr IV X1 ONE Stop: 03/16/25 15:40 Last Admin: 03/16/25 14:59 Dose: 100 mls/hr Documented By: MARCIAL See above Consultations Consultation(s) initiated? (list below): No Diagnosis Shortness of Breath Differential Diagnosis: acute exacerbation of chronic obstructive airways disease, congestive heart failure, asthma with exacerbation and other (Aspiration pneumonia ) Most likely diagnosis given after review of the tests above:: Pneumonia Admission Indicated Admission indicated?: not indicated Admission Request Was there a request for admission?: No Disposition Plan Disposition Plan: Discharge Discharge Attestation Discharge Attestation: The patient and all family members were given an opportunity to ask questions and understood the discharge instructions. Discharge instructions specifically effects, indications for sooner follow up or return to the emergency department, and the expected course of current diagnosis. Patient condition: Stable Discharge Plan Plan Patient Disposition: HOME (Self Care) Prescriptions/Referrals Prescriptions/Med Rec: New levofloxacin 500 mg tablet 500 mg PO QDAY Qty: 4 0RF No Action tamsulosin 0.4 mg capsule 0.4 mg PO QHS omeprazole [Prilosec] 20 MG capsule,delayed release(DR/EC) 20 mg PO QDAY Qty: 0 Patient Comments: TO SUPPRESS GASTRIC ACID SECRETIONS docusate sodium 250 MG capsule 1 tab PO QDAY Qty: 0 escitalopram oxalate 10 mg tablet 10 mg PO DAILY calcium carbonate-vitamin D3 600 mg-10 mcg (400 unit) tablet 1 tab PO HS aspirin 81 mg capsule 81 mg PO QDAY Qty: 30 0RF albuterol sulfate 90 mcg/actuation HFA aerosol inhaler 2 puff inhalation Q6H PRN (Reason: shortness of breath or wheezing) Qty: 8.5 0RF amlodipine 5 mg tablet 5 mg PO DAILY levothyroxine 50 mcg tablet 50 mcg PO DAILY ibuprofen 400 mg tablet 400 mg PO Q12H Eliquis 2.5 mg tablet 2.5 mg PO BID 35 Days Qty: 70 0RF Rx Instructions: Take one tablet by mouth twice a day ferrous sulfate 325 mg (65 mg iron) tablet 325 mg PO Q OTHER DAY 30 Days Qty: 15 0RF Rx Instructions: Take one tablet by mouth every other day cetirizine 10 mg tablet 10 mg PO QDAY propranolol 40 mg tablet 40 mg PO BID montelukast 10 mg tablet 10 mg PO HS Ingrezza 80 mg capsule 80 mg PO QDAY Referrals: Pretty Serrato NP [Primary Care Provider] - In 1 week Problem List Clinical Impression: Pneumonia Patient/Caregiver Discharge Instructions Education Materials: ED Pneumonia (Adult) Print Language: Lithuanian Stand Alone Forms: [place] Award Info., Patient Portal Info Letter
[2025-03-16 08:23] LABS: Collection Type, Urine Clean Catch; Squamous Epithelial Cell,Urine 0 /hpf (0-5)
[2025-03-16 08:27] LABS: Lactate (Lactic Acid) 1.9 mMol/L (0.4-2.0)
[2025-03-16 08:35] LABS: Basophils # (Auto) 0.1 Thou/mm3 (0.0-0.2); Basophils % (Auto) 1 % (0-2.5); Eosinophils # (Auto) 0.9 Thou/mm3 (0.0-0.5); Eosinophils % (Auto) 5 % (0-10); Hematocrit 32.9 % (41.0-53.0); Hemoglobin 10.6 g/dL (13.5-16.0); Immature Granulocytes Auto 0.27 Thou/mm3 (0.00-0.00); Lymphocytes # (Auto) 1.2 Thou/mm3 (1.0-4.8); Lymphocytes % (Auto) 7 % (10-50); Mean Corpuscular HGB Conc 32.2 g/dl (31.0-37.0); Mean Corpuscular Hemoglobin 30.5 pg (25.0-35.0); Mean Corpuscular Volume 95 fL (80-100); Monocytes # (Auto) 1.4 Thou/mm3 (0.0-0.8); Monocytes % (Auto) 8 % (0-12); Neutrophils # (Auto) 13.4 Thou/mm3 (1.8-7.7); Neutrophils % (Auto) 78 % (37-80); Nucleated Red Blood Cell # 0.00 Thou/mm3 (0.00-0.00); Nucleated Red Blood Cell % 0 /100 WBC (0); Platelet Count 379 Thou/mm3 (140-440); RDW Standard Deviation 45.1 fL (35.1-43.9); Red Blood Count 3.48 Miln/mm3 (4.50-5.90); White Blood Count 17.3 Thou/mm3 (3.8-10.6)
[2025-03-16 08:44] LABS: Bilirubin,Urine Negative (Negative); Blood,Urine Negative (Negative); Clarity,Urine Clear (Clear/Hazy); Color,Urine Yellow (Lt Yel-Yel); Glucose, Urine Negative (Negative); Ketones,Urine Negative (Negative); Leukocyte Esterase,Urine Negative (Negative); Nitrite,Urine Negative (Negative); PH,Urine 5.5 (5.0-7.0); Protein,Urine Trace (Neg - Trace); RBC,Urine 6 /hpf (0-3); Specific Gravity,Urine 1.031 (1.001-1.035); Urobilinogen,Urine Negative mg/dL (0.0-1.0); WBC,Urine 4 /hpf (0-5)
[2025-03-16 08:58] LABS: Alanine Aminotransferase 46 U/L (10-49); Albumin, Serum 3.2 gm/dL (3.4-4.8); Albumin/Globulin Ratio 1.4 (1.2-2.2); Alkaline Phosphatase 75 U/L (46-116); Anion Gap 10 (7-16); Aspartate Amino Transferase 79 U/L (0-34); BUN/Creatinine Ratio 13 Ratio (12-20); Bilirubin,Total 0.4 mg/dL (0.3-1.2); Blood Urea Nitrogen 13 mg/dL (9-23); Calcium 8.7 mg/dL (8.3-10.6); Calcium (Corrected) 9.3 mg/dL (8.5-10.1); Carbon Dioxide 27.8 mMol/L (20.0-31.0); Chloride 105 mMol/L (98-107); Creatinine (Component) 1.0 mg/dL (0.6-1.3); Estimated Creatinine Clearance 61.5 mL/min (>60); Globulin 2.3 gm/dL (2.3-3.5); Glucose 94 mg/dL (74-106); Lipase 44 U/L (12-53); Magnesium 1.9 mg/dL (1.6-2.6); Osmolality,Calculated 285 (275-295); Potassium 4.4 mMol/L (3.4-5.1); Procalcitonin 0.08 ng/ml (0.0-0.49); Sodium 143 mMol/L (136-145); Total Protein 5.5 gm/dL (5.7-8.2); Troponin I < 0.020 ng/mL (0.0-0.045); eGFR > 60 See Note
[2025-03-16 09:03] LABS: B-Type Natriuretic Peptide 46 pg/mL (0-100)
--- NOTE | 2025-03-16 09:35 | PC.NURSE ---
social worker palliative care at bedside
--- NOTE | 2025-03-16 10:05 | XR_ITS ---
Examination: CTA chest with intravenous contrast 2-D reconstructions 3-D reconstructions, vascular Date and time of exam: March 16, 2025, 1240 hours Comparison March 08, 2025 INDICATIONS: Shortness of breath chest pain today CTDI: vol (mGy) : 1.1 DLP: (mGycm) 561 Technique: Multiple axial sections of the thorax have been obtained. 3 mm slice thickness, from below the hemidiaphragms to above the apices of the lungs. Mediastinal and lung density settings have been obtained. 2-D sagittal and coronal reconstructions. 3-D angiographic renderings, 3-D volume renderings, 3D post processing, vascular maximum intensity projections obtained. Contrast administered is 100 cc Isovue-370. Low dose protocols were performed. One or more of the following dose reduction techniques were used; automated exposure control, adjustment of the mA and/or KV according to patient size, use of iterative reconstruction technique. Findings: No thoracic aortic aneurysm dilatation or dissection No pulmonary artery filling defects No paratracheal tracheobronchial or bronchopulmonary adenopathy Multiple small soft nodules in the right lung, not visualized on the March 08, 2025 exam, most consistent with nodular pneumonia Left lung clear No visualized liver splenic lesion No gallstones No hydronephrosis IMPRESSION: Negative for pulmonary artery emboli Findings most consistent with diffuse nodular right lung pneumonia, recommend follow-up chest imaging to document clearing
[2025-03-16] MEDS: LEVOFLOXACIN/D5W 500 MG IVPB 500 MG/100 ML BAG 100 MG IV (14:59)
--- NOTE | 2025-03-16 17:27 | PC.CC ---
ASW arranged transportation via [employer] and via [facility]. [facility] [phone] will call back with an expected p/u ETA. At this time, there is no expected p/u ETA and [employer] will call once they have a time ready.
--- NOTE | 2025-03-16 18:26 | PC.CM ---
1726 I received a referral to transfer patient for urology services. I sent information to Aaron and to Lalitha Garcia.
--- NOTE | 2025-03-16 18:54 | PC.NURSE ---
report given to senior living demo coordinator luis a miller.
== END 2025-03-16 18:54 | disposition home or self-care (01) ==
PROVIDERS: Emergency Provider Emergency Medicine; PCP Nurse Practitioner Family
DX: J18.9 Pneumonia, unspecified organism (principal); I10 Essential (primary) hypertension
CPT/HCPCS: 36415; 71045; 71275; 80053; 81001; 83605; 83690; 83735; 83880; 84145; 84484; 85025; 87040; 87077; 87086; 87186; 93005; 96365; 96366; 99283; A4649; J1956; Q9967

== ENCOUNTER 2025-03-26 15:11 | Outpatient (AMB) | payer OTHER, MEDICAID, SELFPAY ==
--- NOTE | 2025-03-26 15:40 | PD.ORTHCLVIS ---
Med/Allergies Allergies & Medications Allergies No Known Drug Allergies Allergy (Verified 03/16/25 07:47) Exam Exam Patient is in no acute distress and is cooperative with the examination today. Patient has a normal mood and affect. Breathing is nonlabored. In no respiratory distress. Bilateral extremities were evaluated and demonstrates sensation intact to light touch. Palpable pedal pulses are present. No significant edema is present. Right hip incision is clean dry and intact. His Prineo dressing is on and we instructed his caregiver to remove it Assessment and Plan Problem List (1) History of right hip hemiarthroplasty: Status: Acute Plan: Patient 74-year-old male status post right hip hemiarthroplasty. The patient is doing well. We will see him back in approximately 4 weeks with new hip x-rays. He reports that he is doing well and has minimal pain going Advanced Care Planning Discussion Advance care planning discussed with:: patient Questionairres Past Medical History Past Medical History Have you ever been diagnosed with any of the following: Neurological Problems Parkinson's Disease: Yes Seizures: No Traumatic Brain Injury: Yes Cardiology Problems Congestive Heart Failure: No Hypertension: Yes Respiratory Problems Chronic Obstructive Pulmonary Disease (COPD): No Asthma: Yes Stomache/Intestinal Problems Gastroesophageal Reflux Disease: Yes Genital/Urinary Problems Renal Disease: No Musculoskeletal Problems Osteoporosis: Yes Fractures: Yes Head,Eye,Nose,Throat Problems Cataracts: Yes Endocrine Problems Diabetes Mellitus Type 1: No Diabetes Mellitus Type 2: No Hypothyroidism: Yes Blood Problems Anemia: Yes Sickle Cell Disease: No Psychologic Problems Depression: Yes Other Problems Blood Transfusions: No Blood Transfusion Reaction: No Anesthesia Reactions: No Subjective Immunization / Flu Flu Vaccine in the Last 12 Months: Yes Flu Vaccine Exclusion Criteria: Already Received History of Present Illness Chief complaint: 2-week postop Patient is 2 weeks postop status post right hip hemiarthroplasty. He is doing well. Review of Systems Review of Systems: All systems negative unless otherwise noted in HPI.
== END 2025-03-26 15:41 | disposition home or self-care (01) ==
LOC: HODSRG 15:11
PROVIDERS: PCP Nurse Practitioner Family; Referring Provider Nurse Practitioner Family; Supervising Provider Orthopaedic Surgery Adult Reconstructive Orthopaedic Surgery; Visit Provider Orthopaedic Surgery Adult Reconstructive Orthopaedic Surgery
DX: Z96.641 Presence of right artificial hip joint (principal); I10 Essential (primary) hypertension; K21.9 Gastro-esophageal reflux disease without esophagitis
CPT/HCPCS: 99213; G0463

== ENCOUNTER 2025-04-05 00:28 | Emergency (ER) | payer OTHER, MEDICAID, SELFPAY ==
[2025-04-05 00:30] VITALS: BMI 20.5
[2025-04-05 00:50] VITALS: BP 107/66; PULSE 97; RESP 20; TEMP 36.6; O2SAT 97
--- NOTE | 2025-04-05 00:51 | XR_ITS ---
Examination: CT chest, without intravenous contrast. CT abdomen, without intravenous contrast. CT pelvis, without intravenous contrast. 2-D sagittal and coronal reconstructions. 3-D reconstructions. Date and time of exam:April 05, 2025 0115 hours INDICATIONS: Patient fell out of bed this morning with injury to the chest and abdomen, chest pain abdomen pain CTDI vol (mgy) 8.50 DLP (MGycm)674 Technique: Multiple CT images, 3.0 mm slice thickness, obtained chest, abdomen, pelvis, with the high-resolution 64 slice scanner.. Sagittal and coronal 2-D reconstructions are obtained. 3-D reconstructions Low dose protocols were performed. One or more of the following dose reduction techniques were used; automated exposure control, adjustment of the mA and/or KV according to patient size, use of iterative reconstruction technique. Findings: Thoracic aorta pulmonary arteries intact No hemopericardium No pneumothorax Minimal opacity right base Manubrium and body of the sternum intact No acute thoracic lumbar or sacral fracture Fracture right eighth rib anteriorly, nondisplaced, which may be acute, clinical correlation advised Multiple old left-sided rib fractures No visualized liver is splenic or renal laceration Aorta is intact with no free body in the abdomen or pelvis Pancreas is not enlarged Normal appendix Negative for pneumoperitoneum No diverticulitis Intact urinary bladder Soft tissue swelling and air density lateral to the right hip, the patient is postop right hip replacement, clinical correlation is advised The right hip hemiarthroplasty with satisfactory alignment Impression : Thoracic aorta and pulmonary arteries intact. No hemopericardium or pneumothorax. Minimal opacity right base, consider pneumonia, pulmonary contusion Findings most consistent with postop status right hip No abdominal parenchymal laceration. Abdominal aorta intact No free blood in the abdomen or pelvis
--- NOTE | 2025-04-05 00:51 | XR_ITS ---
Examination: CT brain head without contrast. 2-D sagittal coronal reconstructions Date and time of exam:April 05, 2025 0113 hours INDICATIONS: Patient fell today with injury to the head, head pain CTDI: vol (mGy):50.60 DLP: (mGycm):1022 Technique: Multiple CT axial sections of the brain have been obtained, 5 mm slice thickness. Contrast has not been administered. 2-D sagittal, coronal reconstructions have been obtained Low dose protocols were performed. One or more of the following dose reduction techniques were used; automated exposure control, adjustment of the mA and/or KV according to patient size, use of iterative reconstruction technique. Findings: Patient motion degrades scan image quality No gross hemorrhage mass effect or midline shift Ventricles are not enlarged Cranial vault grossly intact IMPRESSION: Study severely limited secondary to patient motion No gross hemorrhage or mass effect or midline shift
--- NOTE | 2025-04-05 00:51 | XR_ITS ---
Examination: Bilateral hips, AP pelvis, 5 views Technique: AP, lateral views both hips, AP pelvis, 5 views Exam date and time: April 05, 2025 0110 hours INDICATIONS: Patient fell today with injury to the hips, hip pain FINDINGS: Total right hip hemiarthroplasty. Satisfactory alignment. No loosening of the prosthetic components. No acute left hip fracture There is a possible old fracture of the left greater trochanter IMPRESSION: There is displacement of the greater trochanter left hip which appears old but clinical correlation advised Recommend 1-2 day follow-up AP pelvis as clinically warranted
--- NOTE | 2025-04-05 02:03 | PRELIM_ITS ---
CT scan of the head without intravenous contrast (axial sections with sagittal and coronal reformats) April 05, 2025 0113 hours Clinical History: Fall. Comparison: None. Findings: There is no evidence of intracranial hemorrhage, mass effect or midline shift. There are periventricular white matter hypodensities, compatible with chronic small vessel ischemia. There is moderate volume loss. The calvarium is intact. The mastoid air cells and the visualized paranasal sinuses are clear. Impression: No evidence of intracranial hemorrhage, midline shift or calvarial fracture. Periventricular chronic small vessel ischemia and volume loss. Report Electronically Signed By: Iglesia Ruiz 04/05/2025 2:02:42 AM [EST]
--- NOTE | 2025-04-05 02:40 | PRELIM_ITS ---
CT scan of the chest, abdomen and pelvis without intravenous contrast (axial sections with sagittal and coronal reformats) April 05, 2025 0115 hours Clinical History: Fall. Comparison: None. Findings: Small consolidation in the right lower lobe. There is no pleural effusion or pneumothorax. The aorta is within normal limits for age on this noncontrast study. There is no mediastinal collection. There is no pericardial effusion. The liver, gallbladder, spleen, pancreas, adrenals and kidneys are unremarkable on this noncontrast study. The bowel is unremarkable. The urinary bladder is unremarkable. There is no free fluid or free air. Degenerative changes of the imaged portions of the spine. Chronic multilevel disc disease. No acute fractures. Status post right hip replacement. Small hiatus hernia. Vascular calcifications. Soft tissues emphysema lateral to the left trace right hip with questionable collection. Impression: 1. No acute fractures. 2. Small consolidation in the right lower lobe, atelectasis versus contusion versus pneumonia. 3. Small hiatus hernia. 4. Soft tissues emphysema lateral to the left trace right hip with questionable collection. Please, correlate clinically. Orthopedic consult is recommended. Consider repeating the study with IV contrast for further evaluation if clinically indicated Discussion Details: Results verbally communicated to : Dr. Nguyen at 02:17 AM 04/05/2025 Report Electronically Signed By: Iglesia Ruiz 04/05/2025 2:39:19 AM [EST]
--- NOTE | 2025-04-05 02:52 | PD.EDFALL ---
ED Fall Injury RME/HPI General Chief Complaint: Fall Stated Complaint: FALL HIP ISSUES Time Seen by Provider: 04/05/25 00:47 Arrival date/time: 04/05/25 00:28 This is a case 74-year-old male PMH of Parkinson and cognitive impairment, HTN, asthma, hypothyroidism, and depression history of mental delay nonverbal came in in the emergency room secondary to fall patient was brought by the shredding machine knife changer stated that patient fell at home from the bed landed on the right hip patient had status post hip Suhail arthroplasty secondary to femoral neck fracture last March 10, 2025 patient is currently complaining of headache right chest pain and noted to have bleeding on the surgical incision on the right hip caregiver denies any loss of consciousness Limitations: no limitations, physical limitation and other (Patient is mental delay) Related Data Home Medications ?Medication ?Instructions ?Recorded ?Confirmed docusate sodium 250 mg capsule 1 tab PO QDAY ##0 10/27/14 03/09/25 omeprazole 20 mg capsule,delayed 20 mg PO QDAY ##0 10/27/14 03/09/25 release (Prilosec) cetirizine 10 mg tablet 10 mg PO QDAY 09/11/22 03/09/25 montelukast 10 mg tablet 10 mg PO HS 09/11/22 03/09/25 propranolol 40 mg tablet 40 mg PO BID 09/11/22 03/09/25 valbenazine 80 mg capsule 80 mg PO QDAY 09/11/22 03/09/25 (Ingrezza) calcium 600 mg (as 1 tab PO HS 02/28/24 03/09/25 carbonate)-vitamin D3 10 mcg (400 unit) tablet escitalopram oxalate 10 mg tablet 10 mg PO DAILY 02/28/24 03/09/25 tamsulosin 0.4 mg capsule 0.4 mg PO QHS 05/12/24 03/09/25 amlodipine 5 mg tablet 5 mg PO DAILY 03/09/25 03/09/25 ibuprofen 400 mg tablet 400 mg PO Q12H 03/09/25 03/09/25 Held on 03/11/25. Instructions: resume with pcp as now you are taking eliquis levothyroxine 50 mcg tablet 50 mcg PO DAILY 03/09/25 03/09/25 Previous Rx's ?Medication ?Instructions ?Recorded aspirin 81 mg capsule 81 mg PO QDAY #30 caps 02/29/24 Held on 03/11/25. Instructions: resume with pcp once eliquis finishes albuterol sulfate 90 mcg/actuation 2 puff inhalation Q6H PRN 03/04/25 aerosol inhaler shortness of breath or wheezing #8.5 grams apixaban 2.5 mg tablet (Eliquis) 2.5 mg PO BID 35 days #70 tabs 03/11/25 ferrous sulfate 325 mg (65 mg 325 mg PO Q OTHER DAY 1 month #15 03/11/25 iron) tablet tabs levofloxacin 500 mg tablet 500 mg PO QDAY #4 tabs 03/16/25 Allergies Allergy/AdvReac Type Severity Reaction Status Date / Time No Known Drug Allergies Allergy Verified 04/05/25 00:38 Review of Systems Review of Systems Systems Reviewed: All systems reviewed, normal except as documented ROS Unobtainable: unobtainable due to medical condition and other (Unable to perform ROS due to medical condition patient is mentally delayed) Past Medical History Past Medical History NEUROLOGIC: Positive Neurological Disorders, Parkinson's Disease and Traumatic Brain Injury; Negative Seizures CARDIAC: Positive Hypertension; Negative Cardiac Disorders or Congestive Heart Failure RESPIRATORY: Positive Asthma; Negative Chronic Obstructive Pulmonary Disease (COPD) GASTROINTESTINAL: Positive Gastrointestinal Disorders and Gastroesophageal Reflux Disease GENITOURINARY: Positive Genitourinary Disorders; Negative Renal Disease MUSCULOSKELETAL: Positive Musculoskeletal Disorders, Osteoporosis and Fractures ENT: Positive Cataracts ENDOCRINE: Positive Hypothyroidism; Negative Endocrine Disorders, Diabetes Mellitus Type 1 or Diabetes Mellitus Type 2 HEMATOLOGIC: Positive Blood Disorders and Anemia; Negative Sickle Cell Disease PSYCHO/SOCIAL: Positive Depression OTHER HISTORY: Negative Blood Transfusions, Blood Transfusion Reaction or Anesthesia Reactions Social History SMOKING STATUS: Never smoker ED Exam General Limitations: Present no limitations, physical limitation and other (Patient is mental delay) General appearance: Present alert, in no apparent distress and other (Patient is awake mentally delay nonverbal not in distress nontoxic looking) Head Head exam: Present atraumatic, normocephalic, normal inspection and other (No contusion or hematoma) Eye Eye exam: Present normal appearance, PERRL, EOMI and other (no pappiledema) ENT ENT exam: Present normal exam, normal oropharynx and mucous membranes moist Neck Neck exam: Present normal inspection, full ROM and trachea midline; Absent tenderness, meningismus, lymphadenopathy or thyromegaly Chest Chest inspection: Present normal inspection, symmetric chest wall rise and tenderness (Noted mild tenderness on the right anterior chest suggestive of contusion negative crepitation negative deformity no palpable rib fracture) Respiratory Respiratory exam: Present normal lung sounds bilaterally; Absent respiratory distress, wheezes, stridor, accessory muscle use or prolonged expiratory phase Cardiovascular Cardiovascular exam: Present regular rate, normal rhythm and normal heart sounds; Absent bradycardia, tachycardia, irregular rhythm, systolic murmur or diastolic murmur Abdominal Exam Abdominal exam: Present soft and normal bowel sounds; Absent distention, tenderness, guarding, rebound, rigidity, diminished bowel sounds, hyperactive bowel sounds, hypoactive bowel sounds, organomegaly or trauma Extremities Exam Extremities exam: Present normal inspection and full ROM Expanded Lower Extremity Exam Hip/Pelvis exam: Present tenderness (Moderate tenderness), swelling (Mild swelling), pelvis stable and other (Noted surgical incision in the right hip is bleeding wound is slightly open no redness with bloody discharge unable to examine ROM patient following command neurovascular intact); Absent abrasion, laceration, ecchymosis, deformity, crepitus, dislocation or erythema Back Exam Back exam: Present normal inspection and full ROM Neurological Exam Neurological exam: Present other (Patient is awake nonverbal not following command sitting in the wheelchair) Psychiatric Psychiatric exam: Present normal affect and normal mood Skin Skin exam: Present warm, dry, intact and normal color Course Quality Measures none Orders Category Date Time Status CT chest abdomen pelvis wo Stat Exams 04/05/25 00:[address] head/brain wo con Stat Exams 04/05/25 00:51 Taken XR hip BI w pelvis 2V Stat Exams 04/05/25 00:51 Taken Acetaminophen Tab [Tylenol Tab] Med 04/05/25 03:42 Discontinued 650 mg PO X1 ONE Vital Signs Vital signs: Vital Signs Temperature 97.9 F 04/05/25 00:50 Pulse Rate 97 04/05/25 00:50 Respiratory Rate 20 04/05/25 00:50 Blood Pressure 107/66 04/05/25 00:50 Pulse Oximetry (%) 97 04/05/25 00:50 Oxygen Delivery Method Room Air 04/05/25 00:50 Patient is afebrile not tachycardic not tachypneic BP stable not hypoxic oxygen saturation is 97% in room Fall MDM Narrative MDM Narrative:: This is a case 74-year-old male PMH of Parkinson and cognitive impairment, HTN, asthma, hypothyroidism, and depression history of mental delay nonverbal came in in the emergency room secondary to fall patient was brought by the shredding machine knife changer stated that patient fell at home from the bed landed on the right hip patient had status post hip Suhail arthroplasty secondary to femoral neck fracture last March 10, 2025 patient is currently complaining of headache right chest pain and noted to have bleeding on the surgical incision on the right hip caregiver denies any loss of consciousness Medications / Prescriptions Medication administrations:: Medication Administration History Discontinued Medications Acetaminophen (Acetaminophen 325 Mg Tablet) 650 mg PO X1 ONE Stop: 04/05/25 03:43 Last Admin: 04/05/25 03:50 Dose: 650 mg Documented By: BD Discharge Plan Prescriptions/Referrals Prescriptions/Med Rec: No Action tamsulosin 0.4 mg capsule 0.4 mg PO QHS omeprazole [Prilosec] 20 MG capsule,delayed release(DR/EC) 20 mg PO QDAY Qty: 0 Patient Comments: TO SUPPRESS GASTRIC ACID SECRETIONS docusate sodium 250 MG capsule 1 tab PO QDAY Qty: 0 escitalopram oxalate 10 mg tablet 10 mg PO DAILY calcium carbonate-vitamin D3 600 mg-10 mcg (400 unit) tablet 1 tab PO HS aspirin 81 mg capsule 81 mg PO QDAY Qty: 30 0RF albuterol sulfate 90 mcg/actuation HFA aerosol inhaler 2 puff inhalation Q6H PRN (Reason: shortness of breath or wheezing) Qty: 8.5 0RF amlodipine 5 mg tablet 5 mg PO DAILY levothyroxine 50 mcg tablet 50 mcg PO DAILY ibuprofen 400 mg tablet 400 mg PO Q12H Eliquis 2.5 mg tablet 2.5 mg PO BID 35 Days Qty: 70 0RF Rx Instructions: Take one tablet by mouth twice a day ferrous sulfate 325 mg (65 mg iron) tablet 325 mg PO Q OTHER DAY 30 Days Qty: 15 0RF Rx Instructions: Take one tablet by mouth every other day levofloxacin 500 mg tablet 500 mg PO QDAY Qty: 4 0RF cetirizine 10 mg tablet 10 mg PO QDAY propranolol 40 mg tablet 40 mg PO BID montelukast 10 mg tablet 10 mg PO HS Ingrezza 80 mg capsule 80 mg PO QDAY Referrals: Ciera Serrato PA-C [Primary Care Provider] - In 1 week Patient/Caregiver Discharge Instructions Print Language: Azeri
[2025-04-05] MEDS: ACETAMINOPHEN 325 MG TABLET 650 MG PO (03:50)
--- NOTE | 2025-04-05 04:24 | PD.EDRME ---
Rapid Medical Screening Exam RME Arrival date/time: 04/05/25 00:28 This is a case 74-year-old male PMH of Parkinson and cognitive impairment, HTN, asthma, hypothyroidism, and depression history of mental delay nonverbal came in in the emergency room secondary to fall patient was brought by the sports marketing coordinator stated that patient fell at home from the bed landed on the right hip patient had status post hip Suhail arthroplasty secondary to femoral neck fracture last March 10, 2025 patient is currently complaining of headache right chest pain and noted to have bleeding on the surgical incision on the right hip caregiver denies any loss of consciousness Chief Complaint: Fall Time Seen by Provider: 04/05/25 00:47 Vital signs: Vital Signs Temperature 97.9 F 04/05/25 00:50 Pulse Rate 97 04/05/25 00:50 Respiratory Rate 20 04/05/25 00:50 Blood Pressure 107/66 04/05/25 00:50 Pulse Oximetry (%) 97 04/05/25 00:50 Oxygen Delivery Method Room Air 04/05/25 00:50
[2025-04-05 04:44] LABS: Basophils # (Auto) 0.1 Thou/mm3 (0.0-0.2); Basophils % (Auto) 1 % (0-2.5); Eosinophils # (Auto) 0.3 Thou/mm3 (0.0-0.5); Eosinophils % (Auto) 4 % (0-10); Hematocrit 31.9 % (41.0-53.0); Hemoglobin 10.1 g/dL (13.5-16.0); Immature Granulocytes Auto 0.04 Thou/mm3 (0.00-0.00); Lymphocytes # (Auto) 1.2 Thou/mm3 (1.0-4.8); Lymphocytes % (Auto) 13 % (10-50); Mean Corpuscular HGB Conc 31.7 g/dl (31.0-37.0); Mean Corpuscular Hemoglobin 29.7 pg (25.0-35.0); Mean Corpuscular Volume 94 fL (80-100); Monocytes # (Auto) 0.9 Thou/mm3 (0.0-0.8); Monocytes % (Auto) 9 % (0-12); Neutrophils # (Auto) 6.7 Thou/mm3 (1.8-7.7); Neutrophils % (Auto) 73 % (37-80); Nucleated Red Blood Cell # 0.00 Thou/mm3 (0.00-0.00); Nucleated Red Blood Cell % 0 /100 WBC (0); Platelet Count 323 Thou/mm3 (140-440); RDW Standard Deviation 44.2 fL (35.1-43.9); Red Blood Count 3.40 Miln/mm3 (4.50-5.90); White Blood Count 9.2 Thou/mm3 (3.8-10.6)
--- NOTE | 2025-04-05 04:57 | PD.EDFALL ---
ED Fall Injury RME/HPI General Chief Complaint: Fall Stated Complaint: FALL HIP ISSUES Time Seen by Provider: 04/05/25 00:47 Arrival date/time: 04/05/25 00:28 RME / HPI RME / HPI Narrative: 04/05/25 00:28 This is a case 74-year-old male PMH of Parkinson and cognitive impairment, HTN, asthma, hypothyroidism, and depression history of mental delay nonverbal came in in the emergency room secondary to fall patient was brought by the veterinary parasitologist stated that patient fell at home from the bed landed on the right hip patient had status post hip Suhail arthroplasty secondary to femoral neck fracture last March 10, 2025 patient is currently complaining of headache right chest pain and noted to have bleeding on the surgical incision on the right hip caregiver denies any loss of consciousness See MDM for HPI documentation. Related Data Home Medications ?Medication ?Instructions ?Recorded ?Confirmed docusate sodium 250 mg capsule 1 tab PO QDAY ##0 10/27/14 03/09/25 omeprazole 20 mg capsule,delayed 20 mg PO QDAY ##0 10/27/14 03/09/25 release (Prilosec) cetirizine 10 mg tablet 10 mg PO QDAY 09/11/22 03/09/25 montelukast 10 mg tablet 10 mg PO HS 09/11/22 03/09/25 propranolol 40 mg tablet 40 mg PO BID 09/11/22 03/09/25 valbenazine 80 mg capsule 80 mg PO QDAY 09/11/22 03/09/25 (Ingrezza) calcium 600 mg (as 1 tab PO HS 02/28/24 03/09/25 carbonate)-vitamin D3 10 mcg (400 unit) tablet escitalopram oxalate 10 mg tablet 10 mg PO DAILY 02/28/24 03/09/25 tamsulosin 0.4 mg capsule 0.4 mg PO QHS 05/12/24 03/09/25 amlodipine 5 mg tablet 5 mg PO DAILY 03/09/25 03/09/25 ibuprofen 400 mg tablet 400 mg PO Q12H 03/09/25 03/09/25 Held on 03/11/25. Instructions: resume with pcp as now you are taking eliquis levothyroxine 50 mcg tablet 50 mcg PO DAILY 03/09/25 03/09/25 Previous Rx's ?Medication ?Instructions ?Recorded aspirin 81 mg capsule 81 mg PO QDAY #30 caps 02/29/24 Held on 03/11/25. Instructions: resume with pcp once eliquis finishes albuterol sulfate 90 mcg/actuation 2 puff inhalation Q6H PRN 03/04/25 aerosol inhaler shortness of breath or wheezing #8.5 grams apixaban 2.5 mg tablet (Eliquis) 2.5 mg PO BID 35 days #70 tabs 03/11/25 ferrous sulfate 325 mg (65 mg 325 mg PO Q OTHER DAY 1 month #15 03/11/25 iron) tablet tabs levofloxacin 500 mg tablet 500 mg PO QDAY #4 tabs 03/16/25 Allergies Allergy/AdvReac Type Severity Reaction Status Date / Time No Known Drug Allergies Allergy Verified 04/05/25 00:38 Review of Systems Review of Systems Systems Reviewed: All systems reviewed, normal except as documented ED Exam Narrative Physical exam: See MDM for physical exam documentation. Course Quality Measures none Orders Category Date Time Status Saline [Insert IV] NOW Care 04/05/25 05:[address] chest abdomen pelvis wo Stat Exams 04/05/25 00:[address] head/brain wo con Stat Exams 04/05/25 00:51 Taken XR hip BI w pelvis 2V Stat Exams 04/05/25 00:51 Taken CBC Stat Lab 04/05/25 04:39 Completed CMP [Comprehensive Metabolic Panel] Stat Lab 04/05/25 04:39 Completed Hemoglobin and Hematocrit Stat Lab 04/05/25 05:20 Ordered Magnesium Stat Lab 04/05/25 05:02 Ordered PT [Prothrombin Time with INR] Stat Lab 04/05/25 05:02 Ordered PTT [Partial Thromboplastin Time] Stat Lab 04/05/25 05:02 Ordered Acetaminophen Tab [Tylenol Tab] Med 04/05/25 03:42 Discontinued 650 mg PO X1 ONE Morphine Inj Med 04/05/25 05:01 Discontinued 4 mg IVP X1 ONE Ondansetron Inj [Zofran Inj] Med 04/05/25 05:01 Discontinued 4 mg IVP X1 ONE Sodium Chloride 0.9% 1000 ml [Ns] 1,000 ml Med 04/05/25 05:01 Active IV 999 mls/hr Vital Signs Vital signs: Vital Signs Temperature 97.9 F 04/05/25 00:50 Pulse Rate 97 04/05/25 00:50 Respiratory Rate 20 04/05/25 00:50 Blood Pressure 107/66 04/05/25 00:50 Pulse Oximetry (%) 97 04/05/25 00:50 Oxygen Delivery Method Room Air 04/05/25 00:50 Fall MDM Narrative MDM Narrative:: This section includes all my notes and documentations, including HPI, PE, and ED course. Silvestre Avery MD HPI: 74yo male here after a fall several hours ago.. Dynamiter heard a fall and found the patient lying on his right side next to his bed. Patient has headache and bleeding at his right hip surgical site. Dr. Nguyen repaired right femoral neck fracture on 03/10/2025. No other complaints reported. ROS: All negative except as documented in HPI. Physical Exam: General: Alert and oriented. No acute distress loitering still. Eyes: Conjunctivae and lids clear. EOMI. PERRL. ENT: No signs of head trauma. Neck: Supple. No tenderness. Heart: RRR. Lungs: No respiratory distress. Good air movement. No rhonchi, wheezing, rales. Chest: No tenderness. Abdomen: Soft and nontender. Normal bowel sounds. No distension. No rebound or guarding. Back: No tenderness. Skin: Warm and dry. Right hip incision appears to be open with equivocal bleeding. Neuro: Alert and oriented X 3. Cranial Nerves II-XII grossly intact. No peripheral motor deficits. Musculoskeletal: Remarkable for right hip tenderness. All other major joints and bones are not tender with no limited ROM. I reviewed all diagnostic test results. My interpretation of the right hip/pelvis x-ray is no acute fracture. My review of the CT head report is NAD. My review of the CT chest abdomen pelvis report is soft tissues emphysema lateral to the left trace right hip with questionable collection. Blood tests are unremarkable. Repeat H/H pending. At this point, diagnoses include possible bleeding at right hip surgical site after fall. Multiple attempts to call Dr. Nguyen not successful. At 6 AM on 04/05/25, care is transferred to Dr. Ley. 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 My interpretation of the right hip/pelvis x-ray is no acute fracture. My review of the CT head report is NAD. My review of the CT chest abdomen pelvis report is soft tissues emphysema lateral to the left trace right hip with questionable collection. Blood tests are unremarkable. Repeat H/H pending. Medications / Prescriptions Medications or Prescriptions considered but not ordered:: none Medication administrations:: Medication Administration History Sodium Chloride (Ns) 1,000 mls @ 999 mls/hr IV .Q1H1M ONE Stop: 04/05/25 06:01 Last Admin: 04/05/25 05:17 Dose: 999 mls/hr Documented By: MM Discontinued Medications Acetaminophen (Acetaminophen 325 Mg Tablet) 650 mg PO X1 ONE Stop: 04/05/25 03:43 Last Admin: 04/05/25 03:50 Dose: 650 mg Documented By: BD Morphine Sulfate (Morphine Sulf Inj 10 Mg/Ml Vial) 4 mg IVP X1 ONE Stop: 04/05/25 05:02 Last Admin: 04/05/25 05:15 Dose: 4 mg Documented By: MM Ondansetron HCl (Ondansetron Inj 2 Mg/Ml Inj 2 Ml) 4 mg IVP X1 ONE; Protocol Stop: 04/05/25 05:02 Last Admin: 04/05/25 05:15 Dose: 4 mg Documented By: MM IV fluid and Zofran and morphine. Consultations Consultation(s) initiated? (list below): No Consultation #1 (Physician, Specialty, Details): Multiple attempts at contacting Dr. Nguyen not successful. Diagnosis Fall Differential Diagnosis: syncope, compression fracture, concussion with loss of consciousness, concussion without loss of consciousness and other (Internal bleeding) Most likely diagnosis given after review of the tests above:: Possible bleeding at right hip surgical site after fall. Admission Indicated Admission indicated?: not indicated Explain why admission is indicated or not indicated:: Multiple attempts to contact Dr. Nguyen not successful. Admission Request Was there a request for admission?: No Disposition Plan Disposition Plan: other (specify) (Signed out to Dr. Ley at 6 AM.) Discharge Plan Prescriptions/Referrals Prescriptions/Med Rec: No Action tamsulosin 0.4 mg capsule 0.4 mg PO QHS omeprazole [Prilosec] 20 MG capsule,delayed release(DR/EC) 20 mg PO QDAY Qty: 0 Patient Comments: TO SUPPRESS GASTRIC ACID SECRETIONS docusate sodium 250 MG capsule 1 tab PO QDAY Qty: 0 escitalopram oxalate 10 mg tablet 10 mg PO DAILY calcium carbonate-vitamin D3 600 mg-10 mcg (400 unit) tablet 1 tab PO HS aspirin 81 mg capsule 81 mg PO QDAY Qty: 30 0RF albuterol sulfate 90 mcg/actuation HFA aerosol inhaler 2 puff inhalation Q6H PRN (Reason: shortness of breath or wheezing) Qty: 8.5 0RF amlodipine 5 mg tablet 5 mg PO DAILY levothyroxine 50 mcg tablet 50 mcg PO DAILY ibuprofen 400 mg tablet 400 mg PO Q12H Eliquis 2.5 mg tablet 2.5 mg PO BID 35 Days Qty: 70 0RF Rx Instructions: Take one tablet by mouth twice a day ferrous sulfate 325 mg (65 mg iron) tablet 325 mg PO Q OTHER DAY 30 Days Qty: 15 0RF Rx Instructions: Take one tablet by mouth every other day levofloxacin 500 mg tablet 500 mg PO QDAY Qty: 4 0RF cetirizine 10 mg tablet 10 mg PO QDAY propranolol 40 mg tablet 40 mg PO BID montelukast 10 mg tablet 10 mg PO HS Ingrezza 80 mg capsule 80 mg PO QDAY Referrals: Ciera Serrato PA-C [Primary Care Provider] - In 1 week Problem List Clinical Impression: Fall, Status post hip surgery Patient/Caregiver Discharge Instructions Print Language: Ethiopian
[2025-04-05 05:01] VITALS: BP 148/31; PULSE 73; RESP 24; TEMP 37; O2SAT 93
[2025-04-05 05:03] LABS: Alanine Aminotransferase 24 U/L (10-49); Albumin, Serum 3.6 gm/dL (3.4-4.8); Albumin/Globulin Ratio 1.4 (1.2-2.2); Alkaline Phosphatase 189 U/L (46-116); Anion Gap 8 (7-16); Aspartate Amino Transferase 21 U/L (0-34); BUN/Creatinine Ratio 10 Ratio (12-20); Bilirubin,Total 0.4 mg/dL (0.3-1.2); Blood Urea Nitrogen 10 mg/dL (9-23); Calcium 9.3 mg/dL (8.3-10.6); Calcium (Corrected) 9.6 mg/dL (8.5-10.1); Carbon Dioxide 28.3 mMol/L (20.0-31.0); Chloride 108 mMol/L (98-107); Creatinine (Component) 1.0 mg/dL (0.6-1.3); Estimated Creatinine Clearance 58.7 mL/min (>60); Globulin 2.5 gm/dL (2.3-3.5); Glucose 106 mg/dL (74-106); Osmolality,Calculated 285 (275-295); Potassium 4.2 mMol/L (3.4-5.1); Sodium 144 mMol/L (136-145); Total Protein 6.1 gm/dL (5.7-8.2); eGFR > 60 See Note
[2025-04-05] MEDS: ONDANSETRON INJ 2 MG/ML INJ 2 ML 4 MG IVP (05:15)
[2025-04-05] MEDS: MORPHINE SULF INJ 10 MG/ML VIAL 4 MG IVP (05:15)
[2025-04-05] MEDS: SODIUM CHLORIDE 0.9% 1000 ML 1,000 ML 999 ML IV (05:17)
[2025-04-05 05:50] LABS: INR 1.2 (0.9-1.3); Partial Thromboplastin Time 26.8 Seconds (22.0-36.0); Prothrombin Time 12.6 Seconds (9.0-12.2)
[2025-04-05 05:52] LABS: Magnesium 1.8 mg/dL (1.6-2.6)
--- NOTE | 2025-04-05 06:07 | EDNOTE_ITS ---
<Statement entered by Chanelle Ley MD - 04/19/25 06:29> I, Chanelle Ley MD, have reviewed the history, exam, and assessment of the patient. I have evaluated the patient independently and agree with the plan of care documented by [ ]. All diagnostic studies were reviewed and discussed. I confirm the diagnosis as documented by the Resident. I was present during the Medical Decision Making for this patient. The patient's plan of care was created between myself and the Resident and consistent with our discussion of the patient's case. Emergency Room Addendum Addendum Narrative: Gen: mentally delayed, A&O X 1 (to name only), NAD HEENT: NCAT, EOMI, Pupils reactive JAMARI, not icteric. External ears normal. No rhinorrhea. Moist mucous membranes. Neck: Supple, full range of motion, no observable masses, No meningeal sign. Lungs: No Respiratory distress, clear bilateral. CV: RRR, no murmurs. Abdomen: Soft, nondistended, No rebound tenderness. MSK: No joint swelling, no redness, peripheral pulses presents, Right hip incision with no more active bleeding, minimally tenderness dressing with blood. Skin: No rashes, petechiae, lesions.. Neuro: No focal neurological deficits appreciated, moving all extremities Psych: Cooperative Care assumed from night ER physician Dr. Avery. For further history please refer back to the emergency visit note. Patient seen and assessed by myself after chart was reviewed. 6:25: Spoke with orthopedic surgeon who stated at this time patient did not need any surgical intervention and the findings on the CT were normal after surgery. Stated that patient could be discharged back home with close follow-up in 2 weeks. At this time was discharge patient back home. Will need close follow-up primary care physician and with his orthopedic surgeon. Patient caregiver was updated at the plan. Case disclosed with Attending Dr. Jil Hammonds PGY2 Disclaimer: Even though this this note was dictated by speech recognition and even though it was carefully revised there may still be minor errors in tannery gummer due to voice recognition software.
[2025-04-05 06:44] VITALS: BP 140/57; PULSE 76; RESP 21; TEMP 36.8; O2SAT 96
== END 2025-04-05 06:45 | disposition home or self-care (01) ==
PROVIDERS: Nurse Practitioner Family; Emergency Provider Emergency Medicine; PCP Physician Assistant Surgical
DX: S09.90XA Unspecified injury of head, initial encounter (principal); R07.89 Other chest pain; W19.XXXA Unspecified fall, initial encounter; Z96.641 Presence of right artificial hip joint; I10 Essential (primary) hypertension; G20.A1 Parkinson's disease without dyskinesia, without mention of fluctuations; J45.909 Unspecified asthma, uncomplicated; E03.9 Hypothyroidism, unspecified; F32.A Depression, unspecified
CPT/HCPCS: 36415; 70450; 71250; 73521; 74176; 80053; 83735; 85014; 85018; 85025; 85610; 85730; 96361; 96374; 96375; 99283; J2270; J2405; J7030; A9270

== ENCOUNTER 2025-04-06 07:49 | Emergency (ER) | payer OTHER, MEDICAID, SELFPAY ==
[2025-04-06 08:13] VITALS: BP 110/69; PULSE 83; RESP 20; TEMP 36.6; O2SAT 96; BMI 25.7
[2025-04-06 08:35] VITALS: BP 166/52; PULSE 74; RESP 19; O2SAT 98; BMI 24.0
--- NOTE | 2025-04-06 08:41 | EDNOTE_ITS ---
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 Reports the patient underwent right hip hemiarthroplasty on 03/10/[address] Nguyen. Reportedly had a ground level fall yesterday, landing on his right side, and noted the surgical wound was open. Caregiver states the patient was brought in yesterday for evaluation and discharged home. States this morning while changing the dressing, noted the wound appeared more open which concerned her. No other complaints or concerns reported. Related Data Home Medications ?Medication ?Instructions ?Recorded ?Confirmed docusate sodium 250 mg capsule 1 tab PO QDAY ##0 10/2703/09/25 omeprazole 20 mg capsule,delayed 20 mg PO QDAY ##0 07/0303/09/25 release (Prilosec) cetirizine 10 mg tablet 10 mg PO QDAY 09/11/2203/09 montelukast 10 mg tablet 10 mg PO HS 09/11/22 5 propranolol 40 mg tablet 40 mg PO BID 09/11/22 valbenazine 80 mg capsule 80 mg PO QDAY 09/11/2203/09 (Ingrezza) calcium 600 mg (as 1 tab PO HS 02/28/24 5 carbonate)-vitamin D3 10 mcg (400 unit) tablet escitalopram oxalate 10 mg tablet 10 mg PO DAILY 02/2703/09/25 tamsulosin 0.4 mg capsule 0.4 mg PO QHS 05/12/2403/09 amlodipine 5 mg tablet 5 mg PO DAILY 03/09/2503/09 ibuprofen 400 mg tablet 400 mg PO Q12H 03/09/2502/17 Held on 03/11/25. Instructions: resume with pcp as now you are taking eliquis levothyroxine 50 mcg tablet 50 mcg PO DAILY 03/09/25 0 03/09/25 Previous Rx's ?Medication ?Instructions ?Recorded aspirin 81 mg capsule 81 mg PO QDAY #30 caps 02/28 Held on 03/11/25. Instructions: resume with pcp once eliquis finishes albuterol sulfate 90 mcg/actuation 2 puff inhalation Q 6H PRN 03/04/25 aerosol inhaler shortness of breath or wheez ing #8.5 grams apixaban 2.5 mg tablet (Eliquis) 2.5 mg PO BID 35 days #70 tabs 03/11/25 ferrous sulfate 325 mg (65 mg 325 mg PO Q OTHER DAY 1 month #15 03/11/25 iron) tablet tabs levofloxacin 500 mg tablet 500 mg PO QDAY #4 tabs 02/17 05/13 acetaminophen 325 mg tablet 325 mg PO QID PRN fever or pain 04/06/25 (Tylenol) #30 tabs Allergies Allergy/AdvReac Type Severity Reaction Status Date / Time No Known Drug Allergies Allergy Verified 04/06/25 07:55 Review of Systems Review of Systems ROS Unobtainable: unobtainable due to medical condition Past Medical History Past Medical History NEUROLOGIC: Positive Neurological Disorders, Parkinson's Disease and Traumatic Brain Injury CARDIAC: Positive Hypertension RESPIRATORY: Positive Asthma GASTROINTESTINAL: Positive Gastrointestinal Disorders and Gastroesophageal Reflux Disease GENITOURINARY: Positive Genitourinary Disorders MUSCULOSKELETAL: Positive Musculoskeletal Disorders, Osteoporosis and Fractures ENT: Positive Cataracts ENDOCRINE: Positive Hypothyroidism HEMATOLOGIC: Positive Blood Disorders and Anemia PSYCHO/SOCIAL: Positive Depression Social History SMOKING STATUS: Never smoker ED Exam General Limitations: Present no limitations General appearance: Present alert (awake, oriented x1 at baseline) and in no apparent distress Head Head exam: Present atraumatic, normocephalic and normal inspection Eye Eye exam: Present normal appearance and EOMI ENT ENT exam: Present normal exam, normal oropharynx and mucous membranes moist Neck Neck exam: Present normal inspection (No masses ) and full ROM Chest Chest inspection: Present normal inspection and symmetric chest wall rise Respiratory Respiratory exam: Present normal lung sounds bilaterally Cardiovascular Cardiovascular exam: Present regular rate, normal rhythm and normal heart sounds Abdominal Exam Abdominal exam: Present soft and normal bowel sounds Extremities Exam Extremities exam: Present other (rigth upper lateral thigh wound that is well healed with exception of a 3cm area of dehiscence that is superficial, oozing serosanguinous fluids) Back Exam Back exam: Present normal inspection and full ROM Neurological Exam Neurological exam: Present alert (awake, oriented x1 at baseline) and CN II-XII intact Skin Skin exam: Present warm, dry, intact and normal color Course Quality Measures none Orders Category Date Time Status Wound Care NOW Care 04/06/25 08:58 Active Vital Signs Vital signs: Vital Signs Temperature 97.9 F 04/06/25 08:13 Pulse Rate 83 04/06/25 08:13 Respiratory Rate 20 04/06/25 08:13 Blood Pressure 110/69 04/06/25 08:13 Pulse Oximetry (%) 96 04/06/25 08:13 Oxygen Delivery Method Room Air 04/06/25 08:13 Pulse ox is 96% on room air which is adequate. Critical Care Time Critical Care Time Critical Care Time: No Discharge Plan Plan Patient Disposition: HOME (Self Care) Prescriptions/Referrals Prescriptions/Med Rec: No Action tamsulosin 0.4 mg capsule 0.4 mg PO QHS omeprazole [Prilosec] 20 MG capsule,delayed release(DR/EC) 20 mg PO QDAY Qty: 0 Patient Comments: TO SUPPRESS GASTRIC ACID SECRETIONS docusate sodium 250 MG capsule 1 tab PO QDAY Qty: 0 escitalopram oxalate 10 mg tablet 10 mg PO DAILY calcium carbonate-vitamin D3 600 mg-10 mcg (400 unit) tablet 1 tab PO HS aspirin 81 mg capsule 81 mg PO QDAY Qty: 30 0RF albuterol sulfate 90 mcg/actuation HFA aerosol inhaler 2 puff inhalation Q6H PRN (Reason: shortness of breath or wheezing) Qty: 8.5 0RF amlodipine 5 mg tablet 5 mg PO DAILY levothyroxine 50 mcg tablet 50 mcg PO DAILY ibuprofen 400 mg tablet 400 mg PO Q12H Eliquis 2.5 mg tablet 2.5 mg PO BID 35 Days Qty: 70 0RF Rx Instructions: Take one tablet by mouth twice a day ferrous sulfate 325 mg (65 mg iron) tablet 325 mg PO Q OTHER DAY 30 Days Qty: 15 0RF Rx Instructions: Take one tablet by mouth every other day levofloxacin 500 mg tablet 500 mg PO QDAY Qty: 4 0RF cetirizine 10 mg tablet 10 mg PO QDAY propranolol 40 mg tablet 40 mg PO BID montelukast 10 mg tablet 10 mg PO HS Ingrezza 80 mg capsule 80 mg PO QDAY Referrals: Ciera Serrato PA-C [Primary Care Provider] - In 1 week Problem List Clinical Impression: Wound dehiscence, surgical Patient/Caregiver Discharge Instructions Education Materials: ED Post Op Wound Check, Infection Additional Instructions: Materials Needed: * Mild soap and water * Clean towel or gauze for drying * 4x4 sterile dressings * Gloves * Bandage tape Iild-io-Hkel Instructions: * Wash Your Hands: * Before handling the wound, wash your hands thoroughly with soap and water to reduce the risk of infection. * Prepare the Wound Area: * Put on gloves to maintain a sterile environment. * Gently remove any old dressing or bandage. * Clean the Wound: * Take a clean washcloth or gauze and moisten it with warm, soapy water. Use a mild soap to prevent irritation. * Gently cleanse the wound area by softly wiping away any drainage or debris. Be sure not to scrub or cause any unnecessary pressure. * If there?s any dried blood or ointment, gently wipe it away with clean gauze. * Dry the Wound: * Use a clean towel or sterile gauze pad to carefully pat the wound dry. Avoid rubbing the area to minimize irritation. * Ensure the wound is completely dry before applying a new dressing. * Apply the Dressing: * Place a sterile 4x4 dressing pad over the wound. Make sure it covers the entire wound area. * If the dressing is large, you may need to secure it with medical tape to prevent it from moving. * Ensure the dressing is not too tight but stays securely in place. Frequency: * For the first few days do this twice a day until the wound is mostly dried and healing. Once the wound shows signs of drying and is healing well, you can reduce care to once a day. Print Language: Moldovan Stand Alone Forms: [place] Award Info., Patient Portal Info Letter MDM Narrative [facility] hospital course: Matilde Hassan am scribing for and in the presence of Dr. Oscar. The caregiver was provided specific instructions on wound care. She is in agreement with plan to continue wound care at home and follow up with their doctor as scheduled. Clinical Information Provided by other: Psychiatric Aide provided history Medical Records Reviewed [facility] I reviewed yesterdays ED visit on 04/05/2025 Meds/Rx Considered, not Ordered None Labs/Rad/Tests considered, not Ordered None Chronic Illness/Social Conditions which may negatively complicate care or outcome(s)-explain: Congenital condition and Developmentally delayed EKG EKG not done Lab Interpretation Labs: none Imaging Imaging interpretation: none Medication Administration(s) none
--- NOTE | 2025-04-06 09:35 | PC.NURSE ---
THIS RN SEEKING CLARIFICATION FROM DR. COHEN REGARDING PT'S ELIQUIS PRESCRIPTION IF PT OK TO KEEP TAKING THIS MEDICATION PRESCRIBED BID; PER DR. COHEN, HOLD ELIQUIS TODAY; PT OK TO RESUME ELIQUIS TOMORROW.
[2025-04-06 09:45] VITALS: BP 155/58; PULSE 69; RESP 18; TEMP 36.9; O2SAT 97
== END 2025-04-06 09:48 | disposition home or self-care (01) ==
PROVIDERS: Emergency Provider Family Medicine; PCP Physician Assistant Surgical
DX: T81.30XA Disruption of wound, unspecified, initial encounter (principal); W18.30XA Fall on same level, unspecified, initial encounter; K21.9 Gastro-esophageal reflux disease without esophagitis; G20.A1 Parkinson's disease without dyskinesia, without mention of fluctuations
CPT/HCPCS: 99283

== ENCOUNTER 2025-04-22 09:14 | Outpatient (AMB) | payer OTHER, MEDICAID, SELFPAY ==
--- NOTE | 2025-04-22 09:34 | ORTHONT_ITS ---
Vital signs 04/22/25 09:35 Height 1.63 m Height Method Stated Weight 63.639 kg Weight Measurement Method Estimated by Patient BMI 23.9 BP 151/51 H Blood Pressure Source Automatic Cuff Blood Pressure Location Left Upper Arm Position Sitting Respiration 18 Pulse 82 Pulse Source Monitor Temp 97.6 F Temp Source Temporal Artery Scan Pulse Oximetry (%) 78 L Oxygen Delivery Method Room Air Med/Allergies Allergies & Medications Allergies No Known Drug Allergies Allergy (Verified 04/22/25 09:35) Medication Reconciliation docusate sodium 250 mg capsule 1 tab PO QDAY ##0 10/27/14 [History Confirmed 04/22/25] omeprazole 20 mg capsule,delayed release (Prilosec) 20 mg PO QDAY ##0 10/27/14 [History Confirmed 04/22/25] cetirizine 10 mg tablet 10 mg PO QDAY 09/11/22 [History Confirmed 04/22/25] montelukast 10 mg tablet 10 mg PO HS 09/11/22 [History Confirmed 04/22/25] propranolol 40 mg tablet 40 mg PO BID 09/11/22 [History Confirmed 04/22/25] valbenazine 80 mg capsule (Ingrezza) 80 mg PO QDAY 09/11/22 [History Confirmed 04/22/25] calcium 600 mg (as carbonate)-vitamin D3 10 mcg (400 unit) tablet 1 tab PO HS 02/28/24 [History Confirmed 04/22/25] escitalopram oxalate 10 mg tablet 10 mg PO DAILY 02/28/24 [History Confirmed 04/22/25] aspirin 81 mg capsule 81 mg PO QDAY #30 caps 02/29/24 [Rx Confirmed 04/22/25] Held on 03/11/25. Instructions: resume with pcp once eliquis finishes tamsulosin 0.4 mg capsule 0.4 mg PO QHS 05/12/24 [History Confirmed 04/22/25] albuterol sulfate 90 mcg/actuation aerosol inhaler 2 puff inhalation Q6H PRN shortness of breath or wheezing #8.5 grams 03/04/25 [Rx Confirmed 04/22/25] amlodipine 5 mg tablet 5 mg PO DAILY 03/09/25 [History Confirmed 04/22/25] ibuprofen 400 mg tablet 400 mg PO Q12H 03/09/25 [History Confirmed 04/22/25] Held on 03/11/25. Instructions: resume with pcp as now you are taking eliquis levothyroxine 50 mcg tablet 50 mcg PO DAILY 03/09/25 [History Confirmed 04/22/25] levofloxacin 500 mg tablet 500 mg PO QDAY #4 tabs 03/16/25 [Rx Confirmed 04/22/25] acetaminophen 325 mg tablet (Tylenol) 325 mg PO QID PRN fever or pain #30 tabs 04/06/25 [Rx Confirmed 04/22/25] Exam Exam Patient is in no acute distress and is cooperative with the examination today. Patient has a normal mood and affect. Breathing is nonlabored. In no respiratory distress. Bilateral extremities were evaluated and demonstrates sensation intact to light touch. Palpable pedal pulses are present. No significant edema is present. Right hip incision demonstrates a 3 x 3 cm wound dehiscence. Is difficult to see if it goes deep. There is serosanguineous drainage overlying the dressing Assessment and Plan Problem List (1) History of right hip hemiarthroplasty: Status: Acute Plan: Patient is a 74-year-old male status post right hip hemiarthroplasty with recent wound dehiscence after a fall 2 weeks ago. It was apparently a pin size at that time but has increased in size over the last 2 weeks. The drainage originally stopped after the first day but has increased recently. The patient is at his baseline and is alert and oriented x 0 which is his baseline status. We would need to talk to his conservator in order to get consent. I discussed with the patient that there is 2 options. Option 1 would be irrigation and debridement which I think is reasonable given that he would likely not tolerate a more morbid surgery like explantation. I discussed with him that this has a lower risk of treatment success as we would be retaining the implant if we were to do this. I am also unsure if the fascia is intact especially with the recent fall and story of the incision opening since then. The second option would be explantation with or without insertion of an antibiotic spacer. The caregiver reports that they do not think he wants a more morbid surgery which I think is reasonable given his mental status and mental capacity. I would thus lean toward explantation without the insertion of a spacer and a definitive [place]. I discussed would likely be placing antibiotic beads. I think that given the short duration of these recent symptoms and wound dehiscence after a traumatic fall, I do think that irrigation debridement and complex wound closure would be the first choice followed by explantation should this fail. They understand and there is a high chance that we may need to explant the components but that this is a last resort for him given his mental capacity. We discussed the risk of surgery including infection, fracture, persistent infection, and repeat surgery in the future. We also discussed that this may result in morbid surgery including explantation, and , and amputation. We also discussed that he would likely need chronic antibiotic suppression. We will have to talk to [facility] who is in control of his consents Advanced Care Planning Discussion Advance care planning discussed with:: patient Office Procedures GNS Level of Care Nursing/Assessment Patient Status: Established Patient Nursing Assessment/Reassesment: Medication Reconciliation, Update PMH in EMR and Vital Signs Coordination of Care: Complex Care and Chronic Disease 1-5, Education Complex Pt/Fam, Consent,records obtained, informed consent, Results/Orders obtained and Staff clarify orders Established Patient Charge Established Patient Point Assignment: 95 Established Patient Point Charge: EP Level 3 (80-115) MA Intake Visit Data Collection New Patient or Established: Established Patient (seen at [facility] within 3 years) Reason for Visit:: 6 WEEK R MAYRA Seen by Clinical Staff ONLY (RN/MA): No PCP or OBGYN visit in last 3 months: Yes Hx Now: No Do You Feel Safe at Home: Yes Authorities Contacted: N/A Questionairres Past Medical History Past Medical History Have you ever been diagnosed with any of the following: Neurological Problems Parkinson's Disease: Yes Seizures: No Traumatic Brain Injury: Yes Cardiology Problems Congestive Heart Failure: No Hypertension: Yes Respiratory Problems Chronic Obstructive Pulmonary Disease (COPD): No Asthma: Yes Stomache/Intestinal Problems Gastroesophageal Reflux Disease: Yes Genital/Urinary Problems Renal Disease: No Musculoskeletal Problems Osteoporosis: Yes Fractures: Yes Head,Eye,Nose,Throat Problems Cataracts: Yes Endocrine Problems Diabetes Mellitus Type 1: No Diabetes Mellitus Type 2: No Hypothyroidism: Yes Blood Problems Anemia: Yes Sickle Cell Disease: No Psychologic Problems Depression: Yes Other Problems Blood Transfusions: No Blood Transfusion Reaction: No Anesthesia Reactions: No Subjective Visit Visit for: follow up visit and hip Immunization / Flu Flu Vaccine in the Last 12 Months: Yes Flu Vaccine Exclusion Criteria: Already Received History of Present Illness Chief complaint: 4 week postop Patient is 6 weeks postop status post right hip hemiarthroplasty. The patient was reportedly doing well until a fall 2 weeks ago. He went to the emergency room as there is bleeding. It was apparently just a poke hole at that time and he was found to have no fracture. [facility]. Since that time, they reports there has been an increase in drainage and that there is no wound dehiscence. The patient denies any fevers or chills. He is with his caregiver today. The caregiver reports that there is no pus and the wound care nurse who has been changing his dressing reports that is not infected. The wound has increased in size from a pinhole to approximately 3 x 3 cm at this time. He is afebrile Pain Pain level (0-10): 0 Associated signs & symptoms: none Ambulatory data Ambulatory device: none Treatments Improvement with previous injections: No Improvement with PT: No Improvement with NSAIDS: no Review of Systems Review of Systems: All systems negative unless otherwise noted in HPI.
[2025-04-22 09:35] VITALS: BP 151/51; PULSE 82; RESP 18; TEMP 36.4; O2SAT 78; BMI 23.9
== END 2025-04-22 09:48 | disposition home or self-care (01) ==
LOC: HODSRG 09:14
PROVIDERS: PCP Nurse Practitioner Family; Referring Provider Nurse Practitioner Family; Supervising Provider Orthopaedic Surgery Adult Reconstructive Orthopaedic Surgery; Visit Provider Orthopaedic Surgery Adult Reconstructive Orthopaedic Surgery
DX: Z96.641 Presence of right artificial hip joint (principal); I10 Essential (primary) hypertension; G20.A1 Parkinson's disease without dyskinesia, without mention of fluctuations; E03.9 Hypothyroidism, unspecified
CPT/HCPCS: 99213; G0463

== ENCOUNTER 2025-04-25 09:03 | Inpatient (IN) | payer OTHER, MEDICAID, MEDICARE, SELFPAY ==
[2025-04-25 09:04] VITALS: BMI 22.6
[2025-04-25 09:16] VITALS: BP 93/45; PULSE 102; RESP 19; TEMP 36.6; O2SAT 95
--- NOTE | 2025-04-25 09:28 | PD.EDRME ---
Rapid Medical Screening Exam [facility] Arrival date/time: 04/25/25 09:03 This is a 74-year-old male that comes into the emergency room with complaints of right hip surgical wound draining per obstetrics specialist patient had a hip replacement in February. Patient had a fall mid March and since his fall in mid March patient has had drainage to that area. Home health has been doing dressing changes. They have been following up with Dr. Nguyen who did the surgery. Dr. Nguyen told patient to come to the emergency room to be admitted to the hospital to have the wound cleaned and surgery. Camera Technician states that there is purulent drainage. No other complaints. 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 Initial appropriate labs ordered at this time. A comprehensive ED assessment and evaluation of the patient and analysis of all test and completion of medical decision making process will be conducted by additional ED provider. Chief Complaint: Skin/Abscess/Foreign Body Time Seen by Provider: 04/25/25 09:11 Vital signs: Vital Signs Temperature 97.8 F 04/25/25 09:16 Pulse Rate 102 H 04/25/25 09:16 Respiratory Rate 19 04/25/25 09:16 Blood Pressure 93/45 L 04/25/25 09:16 Pulse Oximetry (%) 95 04/25/25 09:16 Oxygen Delivery Method Room Air 04/25/25 09:16
[2025-04-25 09:49] LABS: Lactate (Lactic Acid) 0.9 mMol/L (0.4-2.0)
[2025-04-25 09:50] LABS: Basophils # (Auto) 0.1 Thou/mm3 (0.0-0.2); Basophils % (Auto) 1 % (0-2.5); Eosinophils # (Auto) 0.3 Thou/mm3 (0.0-0.5); Eosinophils % (Auto) 3 % (0-10); Hematocrit 36.9 % (41.0-53.0); Hemoglobin 11.6 g/dL (13.5-16.0); Immature Granulocytes Auto 0.05 Thou/mm3 (0.00-0.00); Lymphocytes # (Auto) 1.0 Thou/mm3 (1.0-4.8); Lymphocytes % (Auto) 11 % (10-50); Mean Corpuscular HGB Conc 31.4 g/dl (31.0-37.0); Mean Corpuscular Hemoglobin 28.9 pg (25.0-35.0); Mean Corpuscular Volume 92 fL (80-100); Monocytes # (Auto) 0.7 Thou/mm3 (0.0-0.8); Monocytes % (Auto) 8 % (0-12); Neutrophils # (Auto) 7.0 Thou/mm3 (1.8-7.7); Neutrophils % (Auto) 77 % (37-80); Nucleated Red Blood Cell # 0.00 Thou/mm3 (0.00-0.00); Nucleated Red Blood Cell % 0 /100 WBC (0); Platelet Count 489 Thou/mm3 (140-440); RDW Standard Deviation 44.4 fL (35.1-43.9); Red Blood Count 4.02 Miln/mm3 (4.50-5.90); White Blood Count 9.1 Thou/mm3 (3.8-10.6)
[2025-04-25 10:08] VITALS: BP 94/78; PULSE 69; RESP 18; TEMP 37; O2SAT 99
--- NOTE | 2025-04-25 10:15 | PD.EDSKIN ---
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 Patient had a fall mid March and since his fall in mid March patient has had drainage to that area. Home health has been doing dressing changes. They have been following up with Dr. Nguyen who did the surgery. Dr. Nguyen told patient to come to the emergency room to be admitted to the hospital to have the wound cleaned and surgery. Vocational Rehabilitation Technician states that there is purulent drainage. No other complaints. 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 Initial appropriate labs ordered at this time. A comprehensive ED assessment and evaluation of the patient and analysis of all test and completion of medical decision making process will be conducted by additional ED provider. ----- See MDM for Dr. Carnes's HPI documentation. Related Data Home Medications ?Medication ?Instructions ?Recorded ?Confirmed docusate sodium 250 mg capsule 1 tab PO QDAY ##0 10/27/14 04/22/25 omeprazole 20 mg capsule,delayed 20 mg PO QDAY ##0 10/27/14 04/22/25 release (Prilosec) cetirizine 10 mg tablet 10 mg PO QDAY 09/11/22 04/22/25 montelukast 10 mg tablet 10 mg PO HS 09/11/22 04/22/25 propranolol 40 mg tablet 40 mg PO BID 09/11/22 04/22/25 valbenazine 80 mg capsule 80 mg PO QDAY 09/11/22 04/22/25 (Ingrezza) calcium 600 mg (as 1 tab PO HS 02/28/24 04/22/25 carbonate)-vitamin D3 10 mcg (400 unit) tablet escitalopram oxalate 10 mg tablet 10 mg PO DAILY 02/28/24 04/22/25 tamsulosin 0.4 mg capsule 0.4 mg PO QHS 05/12/24 04/22/25 amlodipine 5 mg tablet 5 mg PO DAILY 03/09/25 04/22/25 ibuprofen 400 mg tablet 400 mg PO Q12H 03/09/25 04/22/25 Held on 03/11/25. Instructions: resume with pcp as now you are taking eliquis levothyroxine 50 mcg tablet 50 mcg PO DAILY 03/09/25 04/22/25 Previous Rx's ?Medication ?Instructions ?Recorded aspirin 81 mg capsule 81 mg PO QDAY #30 caps 02/29/24 Held on 03/11/25. Instructions: resume with pcp once eliquis finishes albuterol sulfate 90 mcg/actuation 2 puff inhalation Q6H PRN 03/04/25 aerosol inhaler shortness of breath or wheezing #8.5 grams levofloxacin 500 mg tablet 500 mg PO QDAY #4 tabs 03/16/25 acetaminophen 325 mg tablet 325 mg PO QID PRN fever or pain 04/06/25 (Tylenol) #30 tabs Allergies Allergy/AdvReac Type Severity Reaction Status Date / Time No Known Drug Allergies Allergy Verified 04/22/25 09:35 Review of Systems Review of Systems ROS Unobtainable: unobtainable due to mental status Past Medical History Past Medical History NEUROLOGIC: Positive Neurological Disorders, Parkinson's Disease and Traumatic Brain Injury; Negative Seizures CARDIAC: Positive Hypertension; Negative Cardiac Disorders or Congestive Heart Failure RESPIRATORY: Positive Asthma; Negative Chronic Obstructive Pulmonary Disease (COPD) GASTROINTESTINAL: Positive Gastrointestinal Disorders and Gastroesophageal Reflux Disease GENITOURINARY: Positive Genitourinary Disorders; Negative Renal Disease MUSCULOSKELETAL: Positive Musculoskeletal Disorders, Osteoporosis and Fractures ENT: Positive Cataracts ENDOCRINE: Positive Hypothyroidism; Negative Endocrine Disorders, Diabetes Mellitus Type 1 or Diabetes Mellitus Type 2 HEMATOLOGIC: Positive Blood Disorders and Anemia; Negative Sickle Cell Disease PSYCHO/SOCIAL: Positive Depression OTHER HISTORY: Negative Blood Transfusions, Blood Transfusion Reaction or Anesthesia Reactions Social History SMOKING STATUS: Never smoker ED Exam Narrative Physical exam: See [facility] for Dr. Carnes's physical exam documentation. Course Quality Measures none Orders Category Date Time Status Breast Splitter now Care 04/25/25 10:26 Active Continuous Pulse Oximetry NOW Care 04/25/25 10:27 Active Insert IV NOW Care 04/25/25 10:26 Active Consult to Orthopedic Stat Cons 04/25/25 11:32 Ordered XR chest 1V SEPSIS PROTOCOL Stat Exams 04/25/25 10:26 Taken Blood Culture (Lab) Stat Lab 04/25/25 09:34 Received CBC Stat Lab 04/25/25 09:39 Completed CRP [C-Reactive Protein] Stat Lab 04/25/25 09:39 Completed Comprehensive Metabolic Panel Stat Lab 04/25/25 09:39 Completed Lactate (Lactic Acid) Stat Lab 04/25/25 09:39 Completed Procalcitonin Stat Lab 04/25/25 09:39 Completed Prothrombin Time with INR Stat Lab 04/25/25 10:46 Completed Sed Rate (ESR) Stat Lab 04/25/25 11:29 Ordered Troponin I Stat Lab 04/25/25 10:46 Completed Urinalysis Stat Lab 04/25/25 10:26 Ordered Urine Culture Stat Lab 04/25/25 10:26 Ordered Piper/Tazo Inj [Zosyn Inj] 4.5 gm Med 04/25/25 10:30 Discontinued Sodium Chloride 0.9% (Pop) [NS 0.9% mini bag] 100 ml IV X1 Sodium Chloride 0.9% 1000 ml [Ns] 1,000 ml Med 04/25/25 10:30 Discontinued IV 999 mls/hr EKG (RT) Stat RT 04/25/25 10:26 Draft Vital Signs Vital signs: Vital Signs Temperature 97.8 F 04/25/25 09:16 Pulse Rate 102 H 04/25/25 09:16 Respiratory Rate 19 04/25/25 09:16 Blood Pressure 93/45 L 04/25/25 09:16 Pulse Oximetry (%) 95 04/25/25 09:16 Oxygen Delivery Method Room Air 04/25/25 09:16 Skin / Abscess / Foreign Body MDM Narrative MDM Narrative:: This section includes all my notes and documentations, including HPI, PE, and ED course. Joshua Carnes MD HPI: 74yo male who had right hip hemiarthroplasty on 03/10/25 presents to the ED for worsening wound to the right hip. Vocational Rehabilitation Technician states the patient's wound to the right hip was initially getting better, but over the last one week, has started getting bigger with minimal drainage. Denies fever, sweating, or any other associated symptoms. NKA. ROS: History obtained from the patient's elevator operator freight due to his mental status. Physical Exam: GENERAL APPEARANCE: alert, well-developed, well-nourished, no acute distress VITALS: All vitals were reviewed and the pulse ox is 95% on room air, which is normal according to my interpretation. HEENT: Normocephalic, atraumatic; pupils equal, round, reactive to light; EOMI; mucous membranes pink, moist; oropharynx clear NECK: Supple LUNGS: CTABL; no wheezes, no rales, no rhonchi HEART: Regular rate, regular rhythm; normal S1, S2; no murmurs ABDOMEN: non distended; normal BS; soft, no tenderness, no guarding, no rebound BACK: no CVA tenderness EXTREMITIES: 3 cm open wound along the surgical site at the right hip with minimal drainage, but no active bleeding, swelling, erythema, or tenderness NEUROLOGIC: awake; alert; cranial nerves II-XII grossly intact; no focal sensory or motor deficits SKIN: warm, dry, normal color; no rashes I reviewed all diagnostic test results. My interpretation of the EKG is sinus rhythm with no ST-T wave changes. My interpretation of the chest x-ray is elevated right hemidiaphragm, no infiltrates, no cardiomegaly, according to my interpretation. Blood tests are unremarkable except for CRP 1.2. At this point, diagnoses include: wound dehiscence, wound infection Treatment here included: IV fluid, Zosyn. At 1124, I discussed case with Dr. Nguyen from orthopedic surgeon regarding consultation. Discussed patients ED course, exam findings, labs, and radiology results. Agrees to consult. At 1129, I discussed case with the resident physician, attending Dr. Stiles from Hospitalist service regarding admission. Discussed patients ED course, exam findings, labs, and radiology results. The Hospitalist agrees to accept the patient for admission. Patient data External records reviewed:: [facility] previous records (Per chart review, patient was seen here on 04/05/25 for a fall. Reviewed outpatient visit with Dr. 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 My interpretation of the EKG is sinus rhythm with no ST-T wave changes. My interpretation of the chest x-ray is elevated right hemidiaphragm, no infiltrates, no cardiomegaly, according to my interpretation. Blood tests are unremarkable except for CRP 1.2. Medications / Prescriptions Medications or Prescriptions considered but not ordered:: none Medication administrations:: Medication Administration History Discontinued Medications Sodium Chloride (Ns) 1,000 mls @ 999 mls/hr IV .Q1H1M ONE Stop: 04/25/25 11:30 Last Admin: 04/25/25 11:07 Dose: 999 mls/hr Documented By: BY Piperacillin Sod/Tazobactam (Sod 4.5 gm/ Sodium Chloride) 100 mls @ 200 mls/hr IV X1 ONE Stop: 04/25/25 10:59 Last Admin: 04/25/25 10:57 Dose: 200 mls/hr Documented By: BY see above Consultations Consultation(s) initiated? (list below): Yes Consultation #1 (Physician, Specialty, Details): Discussed case with Dr. Nguyen from orthopedic surgeon regarding consultation. Discussed patients ED course, exam findings, labs, and radiology results. Agrees to consult. Time: 11:24 Consultation #2 (Physician, Specialty, Details): Discussed case with the resident physician, attending Dr. Stiles from Hospitalist service regarding admission. Discussed patients ED course, exam findings, labs, and radiology results. The Hospitalist agrees to accept the patient for admission. Time: 11:29 Diagnosis Skin/Abscess Differential Diagnosis: other (wound infection, wound dehiscence with seroma, traumatic injury) Most likely diagnosis given after review of the tests above:: see clinical impression below Admission Indicated Admission indicated?: indicated Admission Request Was there a request for admission?: Yes Admission Attestation Admission request attestation: Discussed case with [] from Hospitalist service regarding admission. Discussed patients ED course, exam findings, labs, and radiology results. The Hospitalist [agrees,declines] to accept the patient for admission. Disposition Plan Disposition Plan: Admit Discharge Plan Plan Patient Disposition: Admit Acute Care w/in Hospital Prescriptions/Referrals Prescriptions/Med Rec: No Action tamsulosin 0.4 mg capsule 0.4 mg PO QHS omeprazole [Prilosec] 20 MG capsule,delayed release(DR/EC) 20 mg PO QDAY Qty: 0 Patient Comments: TO SUPPRESS GASTRIC ACID SECRETIONS docusate sodium 250 MG capsule 1 tab PO QDAY Qty: 0 escitalopram oxalate 10 mg tablet 10 mg PO DAILY calcium carbonate-vitamin D3 600 mg-10 mcg (400 unit) tablet 1 tab PO HS aspirin 81 mg capsule 81 mg PO QDAY Qty: 30 0RF albuterol sulfate 90 mcg/actuation HFA aerosol inhaler 2 puff inhalation Q6H PRN (Reason: shortness of breath or wheezing) Qty: 8.5 0RF amlodipine 5 mg tablet 5 mg PO DAILY levothyroxine 50 mcg tablet 50 mcg PO DAILY ibuprofen 400 mg tablet 400 mg PO Q12H levofloxacin 500 mg tablet 500 mg PO QDAY Qty: 4 0RF acetaminophen [Tylenol] 325 mg tablet 325 mg PO QID MDD 4 PRN (Reason: fever or pain) Qty: 30 0RF cetirizine 10 mg tablet 10 mg PO QDAY propranolol 40 mg tablet 40 mg PO BID montelukast 10 mg tablet 10 mg PO HS Ingrezza 80 mg capsule 80 mg PO QDAY Referrals: Pretty Serrato MANAGER INDUSTRIAL [Primary Care Provider] - In 1 week Problem List Clinical Impression: Wound dehiscence, Wound infection Patient/Caregiver Discharge Instructions Print Language: Bhutanese Stand Alone Forms: [place] Award Info., Patient Portal Info Letter
[2025-04-25 10:23] LABS: Alanine Aminotransferase 24 U/L (10-49); Albumin, Serum 4.0 gm/dL (3.4-4.8); Albumin/Globulin Ratio 1.3 (1.2-2.2); Alkaline Phosphatase 163 U/L (46-116); Anion Gap 10 (7-16); Aspartate Amino Transferase 24 U/L (0-34); BUN/Creatinine Ratio 7 Ratio (12-20); Bilirubin,Total 0.4 mg/dL (0.3-1.2); Blood Urea Nitrogen 8 mg/dL (9-23); C-Reactive Protein 1.2 mg/dL (0.0-0.9); Calcium 9.5 mg/dL (8.3-10.6); Calcium (Corrected) 9.5 mg/dL (8.5-10.1); Carbon Dioxide 27.1 mMol/L (20.0-31.0); Chloride 104 mMol/L (98-107); Creatinine (Component) 1.1 mg/dL (0.6-1.3); Estimated Creatinine Clearance 53.7 mL/min (>60); Globulin 3.1 gm/dL (2.3-3.5); Glucose 91 mg/dL (74-106); Osmolality,Calculated 279 (275-295); Potassium 4.3 mMol/L (3.4-5.1); Procalcitonin 0.07 ng/ml (0.0-0.49); Sodium 141 mMol/L (136-145); Total Protein 7.1 gm/dL (5.7-8.2); eGFR > 60 See Note
--- NOTE | 2025-04-25 10:26 | EKG_ITS ---
[facility] Test Date: 2025-04-25 Pat Name: DEEPA MILES Department: Room: - Gender: Male Floor Coverer: Shravan : 1950 Requested By: Bharat Lim Order Number: [id number] Reading MD: Bharat Lim Measurements Intervals [place] Rate: 65 P: 69 [place]: 128 QRS: 79 QRSD: 104 T: 72 QT: 407 QTc: 424 Interpretive Statements SINUS RHYTHM Compared to ECG 03/08/2025 10:49:38 No significant changes /store/S0/[id number].pdf
--- NOTE | 2025-04-25 10:26 | XR_ITS ---
Examination: AP chest single view Technique: Portable AP sitting chest single view Date and time: April 25, 2025, 10:49 AM Indications: Sepsis protocol. Findings: Normal heart size. The lungs are clear. Minimal elevation right hemidiaphragm. Moderate osteopenia. Impression: No pneumonia identified
[2025-04-25] MEDS: PIPER/TAZO INJ 4.5 GM in SODIUM CHLORIDE 0.9% (POP) 100 ML IV (10:57)
[2025-04-25] MEDS: SODIUM CHLORIDE 0.9% 1000 ML 1,000 ML 999 ML IV (11:07)
[2025-04-25 11:22] LABS: INR 1.2 (0.9-1.3); Prothrombin Time 12.6 Seconds (9.0-12.2)
[2025-04-25 11:28] LABS: Troponin I < 0.002 ng/mL (0.0-0.045)
--- NOTE | 2025-04-25 12:22 | XR_ITS ---
Examination:Right hip AP, lateral, AP pelvis 3 views Technique: Hip AP lateral, AP pelvis, 3 views Exam date and time:5 1240 hrs. Indications: Right hip replacement followed by infection indications abscess Findings: Total right hip hemiarthroplasty. Satisfactory alignment. No frandy cortical bone destruction. Left hip bones of the pelvis intact Impression: Total right hip arthroplasty with satisfactory alignment No acute fracture No frandy cortical bone destruction Air in the soft tissue adjacent to the greater trochanter right hip with soft tissue defect.
--- NOTE | 2025-04-25 12:24 | PD.RESHP ---
Documentation for date of: 04/25/25 HPI History of Present Illness Chief complaint: R Hip wound dehissence. History of present illness: Mr. Anderson is a 74-year-old gentleman with a past medical history of developmental delay Parkinson's disease asthma BPH GERD hypertension asthma BPH GERD hypertension status post right hip replacement with Dr. Nguyen in February 2025 who presents to the ED from his care facility after being advised by surgeon, Dr. Nguyen, to present for likely washout. coremaker reports that he was initially doing well after the surgery with Dr. Nguyen in february, hoewver after a fall in mid march, his incision opened up. pt began to report of some pain to the area, and developed a limp noted by staff. she states that the wound has developed a bad smell, and continues to drain serosanguenous fluids. Social hx patient reports to have been ambulatory at baseline and was improving with ambulation post hip replacement surgery however after his fall he was noted to have a limp for his care provider Surgical hx right hip replacement with Dr. Nguyen ROS Patient denies fevers chills nausea vomiting abdominal pain Patient endorses mild to moderate pain with palpation of the right hip near her surgical incision site ED course Labs pertinent for WBC 9 creatinine 1.10, CRP 1.2 ESR pending, Pertinent imaging: chest x-ray unremarkable, x-ray right hip pending Consults: Orthopedic surgery, Dr. Patrick Ambriz one-time 1 L normal saline Review of Systems Constitutional Comments: As per HPI Exam Vital Signs Temp Pulse Resp BP Pulse Ox O2 Del Method 98.6 F 69 18 94/78 99 Room Air 04/25/25 10:08 04/25/25 10:08 04/25/25 10:08 04/25/25 10:08 04/25/25 10:08 04/25/25 10:08 Narrative Exam GENERAL: no acute distress, AAO x0 (unable to respond to questions reliably), he does talk and may copy what you say, comfortably laying in bed HEENT: Head AT/ NC. Mucous membranes moist. PERRL. NECK: Supple, no lymphadenopathy, no carotid bruits. CARDIOVASCULAR: RRR. Normal S1/S2, No m/r/g. No pitting edema of bilateral LEs. (BP soft on monitor 90s/50s) RESPIRATORY: CTAB. No wheezing, rhonchi, crackles. GASTROINTESTINAL: Abdomen soft, non tender no palpable masses. Bowel sounds present MUSCULOSKELETAL:? R hip wound, 3 cm long 0.5 cm wide, depth not assessed (appears >3cm) NEUROLOGICAL: CN II-XII grossly intact. No focal deficits. Sensation intact, symmetric. Pill rolling tremor of RUE, PSYCHIATRIC: Awake and alert, not agitated, normal mood and affect. SKIN: No obvious rashes, no jaundice, normal turgor. Results: Labs 04/25/25 09:39 04/25/25 09:39 Labs: Short CBC 04/25/25 Range/Units 09:39 WBC 9.1 (3.8-10.6) Thou/mm3 Hgb 11.6 L (13.5-16.0) g/dL Hct 36.9 L (41.0-53.0) % Plt Count 489 H D (140-440) Thou/mm3 BMP 04/25/25 09:39 Sodium 141 Potassium 4.3 Chloride 104 Carbon Dioxide 27.1 BUN 8 L Creatinine 1.1 Glucose 91 Calcium 9.5 Cardiac Enzymes 04/25/25 Range/Units 10:46 Troponin I < 0.002 (0.0-0.045) ng/mL Liver Function 04/25/25 Range/Units 09:39 Total Bilirubin 0.4 (0.3-1.2) mg/dL AST 24 (0-34) U/L ALT 24 (10-49) U/L Alkaline Phosphatase 163 H (46-116) U/L Albumin 4.0 (3.4-4.8) gm/dL Quality Measures Quality Measures VTE prophylaxis Advance care planning discussed with:: other (animal care worker ) Medications Home Medications and Allergies Home Medications ?Medication ?Instructions ?Recorded ?Confirmed ?Type docusate sodium 250 mg capsule 1 tab PO QDAY ##0 10/27/14 04/25/25 History omeprazole 20 mg capsule,delayed 20 mg PO QDAY ##0 10/27/14 04/25/25 History release (Prilosec) cetirizine 10 mg tablet 10 mg PO QDAY 09/11/22 04/25/25 History montelukast 10 mg tablet 10 mg PO HS 09/11/22 04/25/25 History propranolol 40 mg tablet 40 mg PO BID 09/11/22 04/25/25 History valbenazine 80 mg capsule 80 mg PO QDAY 09/11/22 04/25/25 History (Ingrezza) calcium 600 mg (as 1 tab PO HS 02/28/24 04/25/25 History carbonate)-vitamin D3 10 mcg (400 unit) tablet escitalopram oxalate 10 mg tablet 10 mg PO DAILY 02/28/24 04/25/25 History tamsulosin 0.4 mg capsule 0.4 mg PO QHS 05/12/24 04/25/25 History amlodipine 5 mg tablet 5 mg PO DAILY 03/09/25 04/25/25 History ibuprofen 400 mg tablet 400 mg PO Q12H 03/09/25 04/25/25 History levothyroxine 50 mcg tablet 50 mcg PO DAILY 03/09/25 04/25/25 History ferrous sulfate 325 mg (65 mg 325 mg PO DAILY 04/25/25 04/25/25 History iron) tablet (FeroSul) Allergies Allergy/AdvReac Type Severity Reaction Status Date / Time No Known Drug Allergies Allergy Verified 04/22/25 09:35 Visit Medications Acetaminophen (Acetaminophen 325 Mg Tablet) 650 mg PO Q6H PRN PRN Reason: Fever >101.5 Stop: 05/25/25 12:12 Acetaminophen (Acetaminophen Supp 650 Mg Supp) 650 mg AL Q6H PRN PRN Reason: PAIN SCALE 1-3 (mild Stop: 05/25/25 12:12 Lactated Ringer's (Lactated Ringers) 1,000 mls @ 75 mls/hr IV .[id number] ROSE MARIE Stop: 05/25/25 12:14 Ondansetron HCl (Ondansetron Inj 2 Mg/Ml Inj 2 Ml) 4 mg IVP Q6H PRN; Protocol PRN Reason: NAUSEA OR VOMITING Stop: 05/25/25 12:12 Discontinued Medications Sodium Chloride (Ns) 1,000 mls @ 999 mls/hr IV .Q1H1M ONE Stop: 04/25/25 11:30 Last Admin: 04/25/25 11:07 Dose: 999 mls/hr Piperacillin Sod/Tazobactam (Sod 4.5 gm/ Sodium Chloride) 100 mls @ 200 mls/hr IV X1 ONE Stop: 04/25/25 10:59 Last Admin: 04/25/25 10:57 Dose: 200 mls/hr Assessment & Plan Plan Mr. 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 Nguyen in February 2025 who presented to the ED from after being advised by surgeon Dr. Nguyen to present to the ED given right hip dehiscence and right hip replacement with . Patient is n.p.o. at midnight pending washout with Dr. Nguyen tomorrow he is on IV antibiotics. R hip wound dehissence c/f infection s/p R hip replacement 02/2025 Afrebrile, no leukocytosis, nl lactic acid, nl procalcitonin, CRP mildly elevated, minimal paint to tenderness on palpation, some area of induration (woody on the inferior aspect of the wound. Per patient caregiver she states that patient had hip surgery in February [address] Nguyen. Patient had a fall in mid January which resulted in opening of surgical incision on the right hip. Wound care was followed for recommendations, was told that wound would heal from the bottom up was packed and then packing was removed daily. Junior Brand Manager reports that she has noticed foul smell from the wound no pus however continues to drain serosanguineous fluid. Right hip wound is approximately 3 cm long and 0.5 cm wide depth was not assessed during exam but appears to be a deep cavity. Dx WBC within normal limits CRP 1.2 Procalcitonin wnl ESR pending Bcx pending R hip XR pending Wound Cultures not yet taken Tx NPO at midnight Surgical washout with Dr. Nguyen tomorrow zosyn 4.5 g 1x in ED vancomycin (04/25- zosyn 3.375 q6hr (04/25- IV fluids Developmental delay 2/2 n Parkinsons significant pill rolling tremors of RUE noted on exam Valbenazine 80 mg p.o. daily Escitalopram 10mg p.o. daily Asthma Allergic Rhinitis HOLD Albuterol inhaler 2 puffs every 6 as needed HOLD Cetirizine 10 mg p.o. daily GERD Home regimen omeprazole 20 mg p.o. daily - Pantoprazole 20 mg IV daily Constipation Hold home docusate 100 mg p.o. daily Thrombocytosis HTN bp is soft while inpatient HOLD Amlodipine 5 mg p.o. daily HOLD propranalol 40 mg TID BPH tamsulosin 0.4 mg qd Normocytic Anemia HOLD home ferrus sulfate 325 mg qam hypothyroidism levothyroxine 50 mcg q AM Dispo: npo at midnight pending R hip washout with Dr. Nguyen tomorrow Diet: regular, mech alter Bowel Reg: not indicated VTE ppx: SCD GI ppx: Pantoprazole 20 mg IV daily Code status: FULL Plan discussed with Dr. Go Ochoa MD PGY1 Attending Provider Attestation/Addendum I have examined the patient, reviewed labs and imaging findings, discussed the case with the resident(s), and reviewed entered orders. I agree with the plan of care as outlined in this note, with these additional summaries/recommendations: After examination of the patient and review of the clinical data, I feel that this patient needs admission to the hospital for further treatment and evaluation. 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 Patient and patient's caregiver seen at bedside. Caregiver reports she has been caring for Mr. Anderson for approximately 3 years. He is conserved. She reports he is relatively nonverbal. Patient underwent right hip hemiarthroplasty on 03/10/2025. He recently had a ground-level fall. Since falling she has noted that patient's surgical wound has become ? open? and has been draining foul-smelling yellowish/serosanguineous fluid. Patient diagnosed with wound dehiscence. There is mild erythema surrounding surgical site suggestive of minimal cellulitis although I do not notice any purulent discharge at this time. I have a low suspicion for septic arthritis. Hip and pelvis x-ray revealed air in the soft tissue adjacent to the greater trochanteric right hip and low suspicion for necrotizing infection. Source of air likely wound dehiscence. Blood cultures taken, follow-up results when available. Start broad-spectrum antibiotics. In-house orthopedics consulted, recommendations appreciated. Plans for surgical intervention tomorrow 04/26/2025. N.p.o. after midnight. Continue home levothyroxine for hypothyroidism and Flomax for BPH. Awaiting home medication reconciliation although does not appear to be on carbidopa/levodopa for PAD. Will resume home medications once reconciled. Please see residents note for additional details and management. Dr. Go MD
[2025-04-25 13:39] LABS: Sed Rate (ESR) 100 mm/hr (0-20)
[2025-04-25] MEDS: RINGERS LACTATED 1000 ML 1,000 ML 75 ML IV (13:51)
[2025-04-25] MEDS: TAMSULOSIN HCL 0.4 MG CAPSULE PO (13:54)
[2025-04-25] MEDS: LEVOTHYROXINE SODIUM 25 MCG TABLET 50 MCG PO (13:54)
[2025-04-25] MEDS: PANTOPRAZOLE 20 MG TABLET PO (13:55)
[2025-04-25] MEDS: ESCITALOPRAM OXALATE 10 MG TABLET PO (13:55)
[2025-04-25] MEDS: VANCOMYCIN/NS 1 GM IVPB 200 ML IV (14:03)
[2025-04-25 15:14] VITALS: BP 152/52; PULSE 77; PULSE 78; RESP 18; O2SAT 99
[2025-04-25 15:18] VITALS: PULSE 77; O2SAT 97
--- NOTE | 2025-04-25 15:59 | PC.CC ---
Addendum entered by Gianna De La Rosa 04/25/25 16:22: Pt face sheet updated to include Pt [facility] Land[facility] [phone] Original Note: Juan Anderson is a 74-year-old male admitted for Hit Replacement. Machine Binder Stripper made contact with Pt at bedside to complete initial and discuss discharge disposition, caregiver bedside and was able to provide information Rosanna Taylor [phone]. Role and reason for the contact was explained. Demographic information was verified. [facility] [phone] as surrogate decision maker. Pt need support with all ADLs. Pt utilizes wheelchair as source of DME. Pt?s choice of pharmacy [place] [facility] [place] [address] . At time of discharge patient will return home to rifle case repairer home and rifle case repairer will provide transportation. Discharge Plan: Home Next of Kin: [facility] [phone] Manager Administrative: Rosanna Taylor [phone]
[2025-04-25 16:18] VITALS: BMI 22.1
[2025-04-25 20:00] VITALS: BP 126/48; PULSE 72; RESP 18; TEMP 36.1; O2SAT 94
[2025-04-25] MEDS: VANCOMYCIN/NS 750 MG IVPB 750 MG/150 ML BAG 120 MG IV (21:01)
[2025-04-25] MEDS: PIPER/TAZO 3.375 GM PREMIX 3.375 GM/50 ML BAG IV (23:09)
[2025-04-26] VITALS (18 sets, daily range): BP systolic 89–150; BP diastolic 39–79; PULSE 62–118; RESP 12–98; TEMP 36.1–36.6; O2SAT 93–100; BMI 22.1
--- NOTE | 2025-04-26 01:21 | PRELIM_ITS ---
Radiograph of the chest (single view). April 25, 2025 at 1044 hours. Clinical history: Sepsis protocol. Comparison: Correlated with the prior CT study dated April 05, 2025. Findings: The evaluation is limited by body habitus and portable technique. The heart, mediastinum and pulmonary peter are unremarkable. There is mild elevation of the right hemidiaphragm. The lungs are otherwise clear. There is no pleural effusion. The bony thorax is unremarkable. Impression: No focal consolidation or pleural effusion. Report Electronically Signed By: Missael Martin 04/26/2025 1:21:13 AM [EST]
--- NOTE | 2025-04-26 01:22 | PRELIM_ITS ---
Radiographs of the right hip joint (4 images). April 25, 2025 12:40 hours Clinical history: right hip wound dehiscence, c/f abscess Comparison: No prior study is available for comparison. Findings: A right hip replacement implant is in place, appropriately sited and aligned. No evidence suggests loosening or displacement of the implant. Small acetabular marginal osteophytes are noted. There is no fracture or dislocation. The sacroiliac joint is unremarkable. There is soft tissue irregularity and subcutaneous emphysema adjacent to the greater trochanter, which may represent a decubitus ulcer. There is no evidence of bony erosions. Impression: 1. Soft tissue irregularity and subcutaneous emphysema adjacent to the greater trochanter, may represent a decubitus ulcer. 2. No evidence of bony erosions. 3. Other findings are as described above. Report Electronically Signed By: Missael Martin 04/26/2025 1:22:16 AM [EST]
[2025-04-26 02:05] LABS: Influenza A Ag Negative; Influenza B Ag Negative
[2025-04-26] MEDS: PIPER/TAZO 3.375 GM PREMIX 3.375 GM/50 ML BAG IV ×3 (05:08→21:19)
--- NOTE | 2025-04-26 07:40 | PD.ORTHCON ---
HPI Consult details History of present illness: Patient is a 74-year-old male with developmental delay with right hip pain. He is status post right hip hemiarthroplasty for a displaced femoral neck fracture. He was doing well until a fall 2 weeks ago which caused drainage which has increased in the last 5 days. He originally went to the ER two weeks ago where I was told there was a poke hole size wound which has increased in size. He was admitted from clinic for I&D, wound exploration, possible explant. Meds Home Medications and Allergies Home Medications ?Medication ?Instructions ?Recorded ?Confirmed ?Type docusate sodium 250 mg capsule 1 tab PO QDAY ##0 10/27/14 04/25/25 History omeprazole 20 mg capsule,delayed 20 mg PO QDAY ##0 10/27/14 04/25/25 History release (Prilosec) cetirizine 10 mg tablet 10 mg PO QDAY 09/11/22 04/25/25 History montelukast 10 mg tablet 10 mg PO HS 09/11/22 04/25/25 History propranolol 40 mg tablet 40 mg PO BID 09/11/22 04/25/25 History valbenazine 80 mg capsule 80 mg PO QDAY 09/11/22 04/25/25 History (Ingrezza) calcium 600 mg (as 1 tab PO HS 02/28/24 04/25/25 History carbonate)-vitamin D3 10 mcg (400 unit) tablet escitalopram oxalate 10 mg tablet 10 mg PO DAILY 02/28/24 04/25/25 History tamsulosin 0.4 mg capsule 0.4 mg PO QHS 05/12/24 04/25/25 History amlodipine 5 mg tablet 5 mg PO DAILY 03/09/25 04/25/25 History ibuprofen 400 mg tablet 400 mg PO Q12H 03/09/25 04/25/25 History levothyroxine 50 mcg tablet 50 mcg PO DAILY 03/09/25 04/25/25 History ferrous sulfate 325 mg (65 mg 325 mg PO DAILY 04/25/25 04/25/25 History iron) tablet (FeroSul) Allergies Allergy/AdvReac Type Severity Reaction Status Date / Time No Known Drug Allergies Allergy Verified 04/22/25 09:35 Exam Vital Signs Temp Pulse Resp BP Pulse Ox O2 Del Method 97.4 F 79 17 122/77 95 Room Air 04/26/25 04:00 04/26/25 07:01 04/26/25 07:01 04/26/25 04:00 04/26/25 04:00 04/26/25 04:00 Additional findings Additional findings: Patient is in no acute distress and is cooperative with the examination today. Patient has a normal mood and affect. Breathing is nonlabored. In no respiratory distress. Bilateral extremities were evaluated and demonstrates sensation intact to light touch. Palpable pedal pulses are present. No significant edema is present. Right hip incision demonstrates a 3 x 3 cm wound dehiscence. Is difficult to see if it goes deep. There is serosanguineous drainage overlying the dressing Results - Ortho Labs 04/25/25 09:39 04/25/25 09:39 Labs: Short CBC 04/25/25 Range/Units 09:39 WBC 9.1 (3.8-10.6) Thou/mm3 Hgb 11.6 L (13.5-16.0) g/dL Hct 36.9 L (41.0-53.0) % Plt Count 489 H D (140-440) Thou/mm3 BMP 04/25/25 09:39 Sodium 141 Potassium 4.3 Chloride 104 Carbon Dioxide 27.1 BUN 8 L Creatinine 1.1 Glucose 91 Calcium 9.5 Cardiac Enzymes 04/25/25 Range/Units 10:46 Troponin I < 0.002 (0.0-0.045) ng/mL Liver Function 04/25/25 Range/Units 09:39 Total Bilirubin 0.4 (0.3-1.2) mg/dL AST 24 (0-34) U/L ALT 24 (10-49) U/L Alkaline Phosphatase 163 H (46-116) U/L Albumin 4.0 (3.4-4.8) gm/dL Assessment & Plan Problem List (1) Femoral neck fracture: Status: Acute Assessment and plan: verena is a 74-year-old male status post right hip hemiarthroplasty with recent wound dehiscence after a fall 2 weeks ago. It was apparently a pin size at that time but has increased in size over the last 2 weeks. The drainage originally stopped after the first day but has increased recently. The patient is at his baseline and is alert and oriented x 0 which is his baseline status. I discussed with his medical decision maker, Dr. Simmons, that there are 2 options. Option 1 would be irrigation and debridement +/- modular exchange which I think is reasonable given that he would likely not tolerate a more morbid surgery . I discussed with him that this has a lower risk of treatment success as we would be retaining the implant if we were to do this. I am also unsure if the fascia is intact especially with the recent fall and story of the incision opening since then. The second option would be explantation with or without insertion of an antibiotic spacer. The caregiver reports that they do not think he wants a more morbid surgery which I think is reasonable given his mental status and mental capacity. I would thus lean toward DAIR if possible. I discussed would likely be placing antibiotic beads. I think that given the short duration of these recent symptoms and wound dehiscence after a traumatic fall, I do think that irrigation debridement and complex wound closure would be the first choice followed by explantation should this fail. They understand and there is a high chance that we may need to explant the components but that this is a last resort for him given his mental capacity. We discussed the risk of surgery including infection, fracture, persistent infection, and repeat surgery in the future. We also discussed that this may result in morbid surgery including explantation, and , and amputation. We also discussed that he would likely need chronic antibiotic suppression. We talked to his medical decision maker, Dr. Simmons, who has agreed with the plan and would like to try a DAIR first.
[2025-04-26] MEDS: RINGERS LACTATED 1000 ML 1,000 ML 75 ML IV ×2 (07:59→18:08)
[2025-04-26] MEDS: VANCOMYCIN/NS 750 MG IVPB 750 MG/150 ML BAG 120 MG IV (09:22)
--- NOTE | 2025-04-26 09:30 | PC.NURSE ---
Spoke with Olvin Landry social work supervisor at [facility] regarding patient's consent for surgery. Per Olvin HUMPHRIES verbally spoke with Dr. Nguyen and gave consent to do surgery.
[2025-04-26 10:45] LABS: Collection Type, Urine Clean Catch; Squamous Epithelial Cell,Urine 0 /hpf (0-5)
[2025-04-26 11:25] LABS: Bilirubin,Urine Negative (Negative); Blood,Urine Negative (Negative); Clarity,Urine Clear (Clear/Hazy); Color,Urine Colorless (Lt Yel-Yel); Glucose, Urine Negative (Negative); Hyaline Casts,Urine < 1 /hpf (0-1); Ketones,Urine 1+ (Negative); Leukocyte Esterase,Urine Negative (Negative); Nitrite,Urine Negative (Negative); PH,Urine 6.5 (5.0-7.0); Protein,Urine Negative (Neg - Trace); RBC,Urine 1 /hpf (0-3); Specific Gravity,Urine 1.009 (1.001-1.035); Urobilinogen,Urine Negative mg/dL (0.0-1.0); WBC,Urine 1 /hpf (0-5)
--- NOTE | 2025-04-26 13:40 | PC.NURSE ---
Patient to surgery via bed, Alert to self, in stable condition.
--- NOTE | 2025-04-26 13:40 | ESPR_ITS ---
Documentation for date of: 04/26/25 Subjective Subjective Interval history: Mr. 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 Nguyen in February 2025 who presented to the ED from after being advised by surgeon Dr. Nguyen to present to the ED given right hip dehiscence and right hip replacement with . Patient is n.p.o. at midnight pending washout with Dr. Nguyen tomorrow he is on IV antibiotics. 04/25/2025: pt admitted, minimal pain to palpation of R hip wound, no puralent drainage. N.p.o. at midnight 04/26/2025: Patient seen and examined at bedside. No new concerns vital signs reviewed continues on antibiotics plan for surgery today with Dr. Nguyen for right hip washout Exam Vital Signs Temp Pulse Resp BP Pulse Ox O2 Del Method 97.6 F 118 H 18 119/39 L 93 L Room Air 04/26/25 08:00 04/26/25 08:00 04/26/25 08:00 04/26/25 08:00 04/26/25 08:00 04/26/25 04:00 Narrative Exam GENERAL: no acute distress, AAO x0 (unable to respond to questions reliably), he does talk and may copy what you say, comfortably laying in bed HEENT: Head AT/ NC. Mucous membranes moist. PERRL. tardive diskinesia lip smacking present. NECK: Supple, no lymphadenopathy, no carotid bruits. CARDIOVASCULAR: RRR. Normal S1/S2, No m/r/g. No pitting edema of bilateral LEs. RESPIRATORY: CTAB. No wheezing, rhonchi, crackles. GASTROINTESTINAL: Abdomen soft, non tender no palpable masses. Bowel sounds present MUSCULOSKELETAL:? R hip wound, 3 cm long 0.5 cm wide, depth not assessed (appears >3cm) NEUROLOGICAL: CN II-XII grossly intact. No focal deficits. Sensation intact, symmetric. Pill rolling tremor of BUE, TD lip smaking PSYCHIATRIC: Awake and alert, not agitated, normal mood and affect. SKIN: No obvious rashes, no jaundice, normal turgor. Objective Labs 04/25/25 09:39 04/25/25 09:39 Labs: Laboratory Results - last 24 hr 04/25/25 04/26/25 04/26/25 09:39 01:10 10:05 ESR 100 H Ur Collection Type Clean Catch Urine Color Colorless A Urine Clarity Clear Urine pH 6.5 Ur Specific [place] 1.009 Urine Protein Negative Urine Glucose (UA) Negative Urine Ketones 1+ A Urine Blood Negative Urine Nitrite Negative Urine Bilirubin Negative Urine Urobilinogen (Auto) Negative Ur Leukocyte Esterase Negative Urine RBC 1 Urine WBC 1 Ur Squamous Epith Cells 0 Urine Bacteria None Hyaline Casts < 1 Influenza A (Rapid) Negative Influenza B (Rapid) Negative Quality Measures Quality Measures VTE prophylaxis Advance care planning discussed with:: other Assessment & Plan Assessment Current Active Medications: Generic Name Dose Route Start Last Admin Trade Name Freq PRN Reason Stop Dose Admin Acetaminophen 650 mg 04/25/25 12:13 Acetaminophen 325 Mg Tablet PO 05/25/25 12:12 Q6H PRN Fever >101.5 Acetaminophen 650 mg 04/25/25 12:13 Acetaminophen Supp 650 Mg Supp MT 05/25/25 12:12 Q6H PRN PAIN SCALE 1-3 (mild Ingrezza ( 0 ea 04/26/25 13:45 Valbenazine) 80 Mg PO 05/26/25 13:44 Capsule QDAY ROSE MARIE Escitalopram Oxalate 10 mg 04/25/25 13:15 04/26/25 08:26 Escitalopram Oxalate 10 Mg Tablet PO 05/25/25 13:14 Not Given QDAY ROSE MARIE Lactated Ringer's 1,000 mls @ 75 mls/hr 04/25/25 12:15 04/26/25 07:59 Lactated Ringers IV 05/25/25 12:14 75 mls/hr .[id number] ROSE MARIE Administration Vancomycin/Sodium Chloride 750 mg in 150 mls @ 120 mls/hr 04/25/25 22:00 04/26/25 09:22 Vancomycin/Ns 750 Mg Ivpb IV 05/02/25 21:59 120 mls/hr Q12H ROSE MARIE Administration Protocol Piperacillin/Tazobactam/Dextrose 3.375 gm in 50 mls @ 12.5 mls/hr 04/25/25 22:00 04/26/25 05:08 Zosyn IV 05/02/25 21:59 12.5 mls/hr Q8HR ROSE MARIE Administration Levothyroxine Sodium 50 mcg 04/25/25 13:10 04/26/25 05:10 Levothyroxine Sodium 25 Mcg Tablet PO 05/25/25 13:09 Not Given [facility] Ondansetron HCl 4 mg 04/25/25 12:13 Ondansetron Inj 2 Mg/Ml Inj 2 Ml IVP 05/25/25 12:12 Q6H PRN NAUSEA OR VOMITING Protocol Pantoprazole Sodium 20 mg 04/26/25 09:00 04/26/25 08:27 Pantoprazole Inj 40 Mg Vial IVP 05/26/25 08:59 20 mg QDAY [facility] Administration Pharmacy Consult 1 each 04/25/25 12:45 Vancomycin Pharmacy To Dose 1 Each Each IV 05/25/25 12:44 QDAY PRN PROTOCOL Tamsulosin HCl 0.4 mg 04/25/25 13:00 04/26/25 08:26 Tamsulosin Hcl 0.4 Mg Capsule PO 05/25/25 12:59 Not Given QDAY [facility] Plan Mr. 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 Nguyen in February 2025 who presented to the ED from after being advised by surgeon Dr. Nguyen to present to the ED given right hip dehiscence and right hip replacement with . Preliminary blood cultures positive for GPC continues on vancomycin and Zosyn taken for surgery today with Dr. Nguyen. R hip wound dehissence c/f infection s/p R hip replacement 02/2025 Afrebrile, no leukocytosis, nl lactic acid, nl procalcitonin, CRP mildly elevated, minimal paint to tenderness on palpation, some area of induration (woody on the inferior aspect of the wound. Per patient caregiver she states that patient had hip surgery in February [address] Nguyen. Patient had a fall in mid January which resulted in opening of surgical incision on the right hip. Wound care was followed for recommendations, was told that wound would heal from the bottom up was packed and then packing was removed daily. Fire Equipment Inspector reports that she has noticed foul smell from the wound no pus however continues to drain serosanguineous fluid. Right hip wound is approximately 3 cm long and 0.5 cm wide depth was not assessed during exam but appears to be a deep cavity. Dx WBC within normal limits CRP 1.2 Procalcitonin wnl ESR 100 Bcx prelim with GPC, on vanc R hip XR with air in the soft tissue Wound Cultures pending Tx Status post surgical washout with Dr. gNuyen tomorrow zosyn 4.5 g 1x in ED vancomycin (04/25- zosyn 3.375 q6hr (04/25- IV fluids Developmental delay 2/2 n Parkinsons significant pill rolling tremors of RUE noted on exam Valbenazine 80 mg p.o. daily Escitalopram 10mg p.o. daily Asthma Allergic Rhinitis HOLD Albuterol inhaler 2 puffs every 6 as needed HOLD Cetirizine 10 mg p.o. daily GERD Home regimen omeprazole 20 mg p.o. daily - Pantoprazole 20 mg IV daily Constipation Hold home docusate 100 mg p.o. daily Thrombocytosis HTN bp is soft while inpatient HOLD Amlodipine 5 mg p.o. daily HOLD propranalol 40 mg TID BPH tamsulosin 0.4 mg qd Normocytic Anemia HOLD home ferrus sulfate 325 mg qam hypothyroidism levothyroxine 50 mcg q AM Dispo: Patient taken for surgery this afternoon with Dr. Nguyen for right hip washout Diet: regular, mech alter Bowel Reg: not indicated VTE ppx: SCD GI ppx: Pantoprazole 20 mg IV daily Code status: FULL Plan discussed with Dr. Go Ochoa MD PGY1 Attending Provider Attestation/Addendum I have examined the patient, reviewed labs and imaging findings, discussed the case with the resident(s), and reviewed entered orders. 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 Patient seen at bedside. No acute overnight events. Unfortunately no reliable history can be obtained at this time. Patient is conserved. Patient underwent right hip hemiarthroplasty on 03/10/2025. He recently had a ground-level fall. Since falling patient has been draining foul-smelling yellowish/serosanguineous fluid. Patient diagnosed with wound dehiscence +/- cellulitis. There is mild erythema surrounding surgical site suggestive of cellulitis although I do not notice any purulent discharge at this time. Hip and pelvis x-ray revealed air in the soft tissue adjacent to the greater trochanteric right hip and low suspicion for necrotizing infection. Source of air likely wound dehiscence. Blood cultures taken, follow-up results when available. Continue broad-spectrum antibiotics. In-house orthopedics consulted and patient will go fur surgical intervention today 04/26/25. NPO for now. Continue home levothyroxine for hypothyroidism and Flomax for BPH. Continue ingrezza for TD. Please see residents note for additional details and management. Dr. Go MD
--- NOTE | 2025-04-26 16:08 | PD.SUROPNT ---
Date of Procedure 04/26/25 Pre Op Diagnosis Wound dehiscence and infection Post Op Diagnosis Wound dehiscence and infection Procedure Right hip irrigation debridement and modular exchange with insertion of antibiotic beads Findings 3 x 3 cm wound dehiscence. Procedure Description Indications: Patient is a 74-year-old male with developmental delay and a prior hip hemiarthroplasty. He fell 2 weeks ago and developed wound dehiscence. This progressed as well as increased drainage. We thus discussed modular exchange and DAIR versus a two-stage exchange arthroplasty. I talked with his caregiver as well as Dr. Simmons, his his local legal medical provider, who wanted to proceed with a DAIR. They understand the risk of procedure including dislocation, infection, fracture, and persistent infection. Procedure in detail: The patient was prepped and draped in usual sterile fashion. We did have a clean and dirty table for the set up. The patient was prepped and draped in usual sterile fashion. Given that there was a small area that was open Betadine was used for the skin prep as well as ChloraPrep around the Betadine area so that no ChloraPrep was present internally. The existing incision was used and the area for dehiscence was ellipsed out. The fascia was intact. In addition, the abductor repair also appeared to be intact. We split the abductor in the usual lateral approach and obtain 3 cultures on the head, femur, and acetabulum. We then dislocated the hip with gentle external rotation using a bone hook. I thought synovectomy was performed followed by further irrigation the trunnion was inspected and was found to be intact. The component was not found to be loose. There was no gross purulence during the case. We first irrigated the wound with 6 L of saline. We then irrigated the wound with surgery for. We then irrigated the wound again and dried the trunnion. We then inserted 42/26+0 femoral head and tamped it in place. The hip was then taken through extension and external rotation as well as flexion and internal rotation and the hip was found to be stable. We did do like the existing x-rays and we used the same had a length size. The patient was then closed in a layered fashion. We closed the abductor tear with #1 PDS followed by fascia with 0 PDS. We then closed the fat with PDS as well as Monocryl. We then closed the skin in a horizontal mattress fashion with 2-0 nylon. A Prevena was then placed on the outside of the incision for a negative pressure dressing. The patient tolerated the procedure well Plan: Weightbearing as tolerated Follow cultures Continue antibiotics Anesthesia GETA Drains none Implants karen Pathology / specimen None Pathology comment: none Estimated Blood Loss 100 Condition Stable Disposition floor Surgeon Iván Nguyen MD Surgical Staff Operation Date: 04/26/25 17:45 Case Staff Anesthesiologist: Missael Mckeon RNplant operations coordinator: Destiny Spaulding
--- NOTE | 2025-04-26 16:16 | SUR.PHASEI ---
1616: Pt. lethargic, nasal trumpet in right nare, vitals stable, breathing unlabored, no signs of distress, wound vac to right hip, bilateral dorsalis pedis pulses strong and regular, cap refill to bilateral feet less than 3 seconds, report received from MD Mckeon and Dasia JOYCE.
--- NOTE | 2025-04-26 16:37 | XR_ITS ---
Examination: Right hip single view Technique: AP portable supine pelvis single view Date and time: April, 2024, 1735 hrs. Indications: Postop hip surgery Findings: Right hip bipolar hemiarthroplasty. Satisfactory alignment. Antibiotic beads project lateral to the right hip Left hip bones of the pelvis intact Impression: Total right hip arthroplasty with satisfactory alignment.
--- NOTE | 2025-04-26 16:40 | SUR.PHASEI ---
1640: Report given to Cassie Whaley RN to resume care. Pt. still lethargic, does not wake to painful stimuli, vitals stable, wound vac to right hip CDI.
--- NOTE | 2025-04-26 17:46 | PC.NURSE ---
@3313 Report received from PACU nurse Sheppard
--- NOTE | 2025-04-26 17:55 | PC.NURSE ---
@1755 Patient to room via bed from PACU, alert to self, no s/s of pain noted. Wound Vac intact to right hip.
--- NOTE | 2025-04-26 18:00 | SUR.PHASEI ---
1640: pt obtunded, pt respirations shallow, nasal airway present, pt obstructing saturation dropping to 88%-jaw thrust applied O2 saturation up to 97% with jaw thrust, Dr Mckeon at bedside, wound VAC in place to right hip 1652: pt continues to be unresponsive to pain stimuli and have shallow respirations, Dr Mckeon at bedside and Sugammadex given by Dr Mckeon 1700: pt respirations normal, saturations WNL on 4L o2 1715: pt responding to voice and opening eyes 1730: pt awake and communicating verbally, VS stable 1800: pt awake, alert, communicating at baseline, VS stable, wound VAC in place to right hip, report called to MARIA DEL CARMEN Willett, pt transferred to room at this time.
--- NOTE | 2025-04-26 18:22 | PC.NURSE ---
Patient caregiver at bedside. RN attempted to have patient drink water from straw which patient was unable to do. Ingrezza not given.
[2025-04-26] MEDS: CALCIUM CARBONATE 600 MG TABLET PO (20:11)
[2025-04-26] MEDS: CHOLECALCIFEROL (Vitamin D3) 400 IU TABLET PO (20:11)
[2025-04-26 21:57] LABS: Vancomycin,Trough 16.6 mcg/mL (5.0-10.0)
[2025-04-27] VITALS (9 sets, daily range): BP systolic 108–148; BP diastolic 55–79; PULSE 83–116; RESP 16–97; TEMP 36.3–36.8; O2SAT 93–100
[2025-04-27] MEDS: LEVOTHYROXINE SODIUM 25 MCG TABLET 50 MCG PO (05:15)
[2025-04-27] MEDS: PIPER/TAZO 3.375 GM PREMIX 3.375 GM/50 ML BAG IV ×3 (05:15→21:43)
[2025-04-27 06:04] LABS: Basophils # (Auto) 0.0 Thou/mm3 (0.0-0.2); Basophils % (Auto) 0 % (0-2.5); Eosinophils # (Auto) 0.0 Thou/mm3 (0.0-0.5); Eosinophils % (Auto) 0 % (0-10); Hematocrit 28.2 % (41.0-53.0); Hemoglobin 8.9 g/dL (13.5-16.0); Immature Granulocytes Auto 0.05 Thou/mm3 (0.00-0.00); Lymphocytes # (Auto) 0.8 Thou/mm3 (1.0-4.8); Lymphocytes % (Auto) 6 % (10-50); Mean Corpuscular HGB Conc 31.6 g/dl (31.0-37.0); Mean Corpuscular Hemoglobin 28.5 pg (25.0-35.0); Mean Corpuscular Volume 90 fL (80-100); Monocytes # (Auto) 0.9 Thou/mm3 (0.0-0.8); Monocytes % (Auto) 6 % (0-12); Neutrophils # (Auto) 12.5 Thou/mm3 (1.8-7.7); Neutrophils % (Auto) 88 % (37-80); Nucleated Red Blood Cell # 0.00 Thou/mm3 (0.00-0.00); Nucleated Red Blood Cell % 0 /100 WBC (0); Platelet Count 374 Thou/mm3 (140-440); RDW Standard Deviation 43.9 fL (35.1-43.9); Red Blood Count 3.12 Miln/mm3 (4.50-5.90); White Blood Count 14.3 Thou/mm3 (3.8-10.6)
[2025-04-27 06:29] LABS: Alanine Aminotransferase 22 U/L (10-49); Albumin, Serum 3.1 gm/dL (3.4-4.8); Albumin/Globulin Ratio 1.3 (1.2-2.2); Alkaline Phosphatase 124 U/L (46-116); Anion Gap 14 (7-16); Aspartate Amino Transferase 27 U/L (0-34); BUN/Creatinine Ratio 8 Ratio (12-20); Bilirubin,Total 0.2 mg/dL (0.3-1.2); Blood Urea Nitrogen 9 mg/dL (9-23); Calcium 8.9 mg/dL (8.3-10.6); Calcium (Corrected) 9.6 mg/dL (8.5-10.1); Carbon Dioxide 25.1 mMol/L (20.0-31.0); Chloride 105 mMol/L (98-107); Creatinine (Component) 1.1 mg/dL (0.6-1.3); Estimated Creatinine Clearance 49.6 mL/min (>60); Globulin 2.4 gm/dL (2.3-3.5); Glucose 101 mg/dL (74-106); Magnesium 1.9 mg/dL (1.6-2.6); Osmolality,Calculated 285 (275-295); Phosphorous 3.6 mg/dL (2.4-5.1); Potassium 4.7 mMol/L (3.4-5.1); Sodium 144 mMol/L (136-145); Total Protein 5.5 gm/dL (5.7-8.2); eGFR > 60 See Note
[2025-04-27] MEDS: RINGERS LACTATED 1000 ML 1,000 ML 75 ML IV ×2 (08:56→22:53)
[2025-04-27] MEDS: TAMSULOSIN HCL 0.4 MG CAPSULE PO (09:00)
[2025-04-27] MEDS: ESCITALOPRAM OXALATE 10 MG TABLET PO (09:00)
[2025-04-27] MEDS: ASPIRIN EC 81 MG TABEC PO (09:01)
--- NOTE | 2025-04-27 09:10 | PC.SS ---
CONTACT AND SERVICE CLERKS SUPERVISOR attempted phone contact with patient's neonatal intensive care unit nurse, Rosanna Taylor . No response CONTACT AND SERVICE CLERKS SUPERVISOR left message requesting return call. Patient possible d/c for today.
[2025-04-27] MEDS: INGREZZA 80 MG PO (09:32)
--- NOTE | 2025-04-27 09:35 | PC.SS ---
ENERGY CONSERVATION SPECIALIST received return call from [facility] staff, Denice Farah confirming that patient will return to senior living upon discharge. Patient will require ambulance transport back to the facility at time of discharge.
[2025-04-27] MEDS: VANCOMYCIN/NS 500 MG IVPB 100 ML 120 MG IV ×2 (09:45→20:25)
--- NOTE | 2025-04-27 14:21 | PC.SS ---
Rounding Note: Plan is for the patient to obtain a PICC line. Medical team recommending SNF placement at time of discharge.
--- NOTE | 2025-04-27 14:28 | PC.SS ---
AXMINSTER [employer]ER contacted [facility] and informed cost estimating engineer that medical team is recommending SNF placement. Preferred SNF is [facility]. AXMINSTER WEAVER to submit SNF referral.
--- NOTE | 2025-04-27 15:30 | PC.SS ---
PHLEBOTOMY SERVICES REPRESENTATIVE updated patient's [facility] social work case manager, Daria Landry ; on recommendation for patient to transition to short term SNF upon discharge. [facility] social work case manager in approval with discharge plan. [facility] requesting local placement in [facility]. PHLEBOTOMY SERVICES REPRESENTATIVE informed [facility] staff that SNF options have been discussed with adult senior care staff. information services tech to provide update to [facility] upon patient's discharge.
--- NOTE | 2025-04-27 15:35 | PD.ORTHPN ---
Subjective Subjective Brief History: Patient is a 74-year-old male with developmental delay with right hip pain. He is status post right hip hemiarthroplasty for a displaced femoral neck fracture. He was doing well until a fall 2 weeks ago which caused drainage which has increased in the last 5 days. He originally went to the ER two weeks ago where I was told there was a poke hole size wound which has increased in size. He was admitted from clinic for I&D, wound exploration, possible explant. Narrative: Patient is a 74-year-old male who underwent a right hip hemiarthroplasty complicated by bleeding 6. He underwent right hip modular change and irrigation debridement with insertion of antibiotics beads yesterday. We are still waiting for cultures. He is lying comfortably in bed Exam Vital Signs Temp Pulse Resp BP Pulse Ox O2 Del Method O2 Flow Rate 98.2 F 86 17 141/79 H 99 Room Air 2 04/27/25 12:00 04/27/25 12:00 04/27/25 12:00 04/27/25 12:00 04/27/25 12:00 04/27/25 12:00 04/27/25 00:00 Additional findings Additional findings: Patient is in no acute distress and is cooperative with the examination today. P Bilateral extremities were evaluated and demonstrates sensation intact to light touch. Palpable pedal pulses are present. No significant edema is present. Right hip has a Prevena incisional VAC in place He is able to move his extremities. Leg lengths are equal Objective - Ortho Labs 04/27/25 04:46 04/27/25 04:46 Labs: Laboratory Results - last 24 hr 04/26/25 04/27/25 21:30 04:46 WBC 14.3 H D RBC 3.12 L Hgb 8.9 L D Hct 28.2 L MCV 90 MCH 28.5 MCHC 31.6 RDW Std Deviation 43.9 Plt Count 374 D Neut % (Auto) 88 H Lymph % (Auto) 6 L [place] % (Auto) 6 Eos % (Auto) 0 Baso % (Auto) 0 Neut # (Auto) 12.5 H Lymph # (Auto) 0.8 L [place] # (Auto) 0.9 H Eos # (Auto) 0.0 Baso # (Auto) 0.0 Immature Gran # (Auto) 0.05 H Absolute Nucleated RBC 0.00 Immature Gran % 0 Nucleated RBC % 0 Sodium 144 Potassium 4.7 Chloride 105 Carbon Dioxide 25.1 Anion Gap 14 BUN 9 Creatinine 1.1 Estim Creat Clear Calc 49.6 L eGFR > 60 BUN/Creatinine Ratio 8 L Glucose 101 Calculated Osmolality 285 Calcium 8.9 Corrected Calcium 9.6 Phosphorus 3.6 Magnesium 1.9 Total Bilirubin 0.2 L AST 27 ALT 22 Alkaline Phosphatase 124 H D Total Protein 5.5 L Albumin 3.1 L D Globulin 2.4 Albumin/Globulin Ratio 1.3 Vancomycin Trough 16.6 H Assessment & Plan Diagnosis (1) History of right hip hemiarthroplasty: Status: Acute Assessment Additional comments: Patient is a 74-year-old male with a right hip hemiarthroplasty complicated by wound dehiscence. He underwent modular exchange of the femoral head as well as insertion of antibiotic beads. We took multiple cultures and awaiting for the results. - Follow-up ID recs - IV antibiotics - Weightbearing as tolerated
--- NOTE | 2025-04-27 15:39 | PC.SS ---
PASSR completed. Patient meets Level I criteria.
--- NOTE | 2025-04-27 17:04 | ESPR_ITS ---
Documentation for date of: 04/27/25 Subjective Subjective Interval history: Patient examined at bedside, no events overnight. Vitals significant for tachycardia heart rate 115, BP 148/76, patient saturating adequately at room air. He is status post right hip irrigation debridement and modular exchange with placement of antibiotic beads day 1. Laying comfortably in bed, appears to be at his baseline. Exam of wound site is clean no signs of active bleeding, wound VAC in place. Continue IV morphine for pain management and IV antibiotics for wound infection. Plan for PICC line placement continuation of antibiotics at discharge. Final wound cultures are pending. Exam Vital Signs Temp Pulse Resp BP Pulse Ox O2 Del Method O2 Flow Rate 98.2 F 86 17 141/79 H 99 Room Air 2 04/27/25 12:00 04/27/25 12:00 04/27/25 12:00 04/27/25 12:04/27/25 12:04/27/25 12:04/27/25 00:00 Narrative Exam General: Elder male with intelectual disability, not able to communicate, No acute distress HEENT: NCAT, No JVD noted. Mucosa moist. Tardive dyskinesia lip smacking. Cardiovascular: Normal S1 and S2. Regular rate and rhythm. Respiratory: Lungs are clear to auscultation bilaterally. No wheezing or crackles heard. Abdomen: Soft, nontender, not distended, normal bowel sounds. Skin: Warm to touch, dry, no rashes noted Musculoskeletal: No gross injuries. Able to move all 4 extremities. No pitting edema. Right hip has a Prevena incisional VAC in place Neuro: tremors b/L hands, TD Objective Labs 04/28/25 04:24 04/28/25 04:24 Labs: Laboratory Results - last 24 hr 04/26/25 04/27/25 21:30 04:46 WBC 14.3 H D RBC 3.12 L Hgb 8.9 L D Hct 28.2 L MCV 90 MCH 28.5 MCHC 31.6 RDW Std Deviation 43.9 Plt Count 374 D Neut % (Auto) 88 H Lymph % (Auto) 6 L [place] % (Auto) 6 Eos % (Auto) 0 Baso % (Auto) 0 Neut # (Auto) 12.5 H Lymph # (Auto) 0.8 L [place] # (Auto) 0.9 H Eos # (Auto) 0.0 Baso # (Auto) 0.0 Immature Gran # (Auto) 0.05 H Absolute Nucleated RBC 0.00 Immature Gran % 0 Nucleated RBC % 0 Sodium 144 Potassium 4.7 Chloride 105 Carbon Dioxide 25.1 Anion Gap 14 BUN 9 Creatinine 1.1 Estim Creat Clear Calc 49.6 L eGFR > 60 BUN/Creatinine Ratio 8 L Glucose 101 Calculated Osmolality 285 Calcium 8.9 Corrected Calcium 9.6 Phosphorus 3.6 Magnesium 1.9 Total Bilirubin 0.2 L AST 27 ALT 22 Alkaline Phosphatase 124 H D Total Protein 5.5 L Albumin 3.1 L D Globulin 2.4 Albumin/Globulin Ratio 1.3 Vancomycin Trough 16.6 H Quality Measures Quality Measures VTE prophylaxis Advance care planning discussed with:: other Assessment & Plan Assessment Current Active Medications: Generic Name Dose Route Start Last Admin Trade Name Freq PRN Reason Stop Dose Admin Acetaminophen 650 mg 04/25/25 12:13 Acetaminophen 325 Mg Tablet PO 05/25/25 12:12 Q6H PRN Fever >101.5 Acetaminophen 650 mg 04/26/25 18:46 Acetaminophen 325 Mg Tablet PO 05/26/25 18:45 Q6HR PRN PAIN SCALE 1-3 (Moderate Albuterol 2 puff 04/26/25 16:01 Albuterol Inh 8 Gm INH 05/26/25 16:00 Q6H PRN shortness of breath or wheezing Amlodipine Besylate 5 mg 04/27/25 09:00 04/27/25 09:00 Amlodipine Besylate 5 Mg Tablet PO 05/27/25 08:59 5 mg DAILY ROSE MARIE Administration Aspirin 81 mg 04/27/25 09:00 04/27/25 09:01 Aspirin Ec 81 Mg Tabec PO 05/27/25 08:59 81 mg QDAY ROSE MARIE Administration Calcium Carbonate 600 mg 04/26/25 21:00 04/26/25 20:11 Calcium Carbonate 600 Mg Tablet PO 05/26/25 20:59 600 mg HS ROSE MARIE Administration Ingrezza ( 0 ea 04/26/25 13:45 04/27/25 09:32 Valbenazine) 80 Mg PO 05/26/25 13:44 1 capsule Capsule QDAY ROSE MARIE Administration Escitalopram Oxalate 10 mg 04/25/25 13:15 04/27/25 09:00 Escitalopram Oxalate 10 Mg Tablet PO 05/25/25 13:14 10 mg QDAY ROSE MARIE Administration Lactated Ringer's 1,000 mls @ 75 mls/hr 04/25/25 12:15 04/27/25 08:56 Lactated Ringers IV 05/25/25 12:14 75 mls/hr .[id number] ROSE MARIE Administration Piperacillin/Tazobactam/Dextrose 3.375 gm in 50 mls @ 12.5 mls/hr 04/25/25 22:00 04/27/25 14:28 Zosyn IV 05/02/25 21:59 12.5 mls/hr Q8HR ROSE MARIE Administration Vancomycin/Sodium Chloride 100 mls @ 120 mls/hr 04/27/25 09:00 04/27/25 09:45 Vancomycin/Ns 500 Mg Ivpb IV 05/04/25 08:59 120 mls/hr Q12HR ROSE MARIE Administration Protocol Levothyroxine Sodium 50 mcg 04/25/25 13:10 04/27/25 05:15 Levothyroxine Sodium 25 Mcg Tablet PO 05/25/25 13:09 50 mcg ACBR ROSE MARIE Administration Morphine Sulfate 2 mg 04/26/25 18:47 Morphine Sulf Inj 4 Mg/Ml Vial IVP Q3HR PRN PAIN SCALE 4-10(Mod-Sev Ondansetron HCl 4 mg 04/25/25 12:13 Ondansetron Inj 2 Mg/Ml Inj 2 Ml IVP 05/25/25 12:12 Q6H PRN NAUSEA OR VOMITING Protocol Pantoprazole Sodium 20 mg 04/26/25 09:00 04/27/25 09:01 Pantoprazole Inj 40 Mg Vial IVP 05/26/25 08:59 20 mg QDAY ROSE MARIE Administration Pharmacy Consult 1 each 04/25/25 12:45 Vancomycin Pharmacy To Dose 1 Each Each IV 05/25/25 12:44 QDAY PRN PROTOCOL Tamsulosin HCl 0.4 mg 04/25/25 13:00 04/27/25 09:00 Tamsulosin Hcl 0.4 Mg Capsule PO 05/25/25 12:59 0.4 mg QDAY ROSE MARIE Administration Vitamin D 400 iu 04/26/25 21:00 04/26/25 20:11 Cholecalciferol (Vitamin D3) 400 Iu Tablet PO 05/26/25 20:59 400 iu HS ROSE MARIE Administration Plan Mr. 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 Nguyen in February 2025 who presented to the ED from after being advised by surgeon Dr. Nguyen to present to the ED given right hip dehiscence and right hip replacement with . Preliminary blood cultures positive for GPC continues on vancomycin and Zosyn taken for surgery today with Dr. Nguyen. #Right hip wound dehiscence and infection #s/p R hip replacement 02/2025 #post day 1 Right hip irrigation debridement Afrebrile, no leukocytosis, nl lactic acid, nl procalcitonin, CRP mildly elevated, minimal paint to tenderness on palpation, some area of induration (woody on the inferior aspect of the wound. Per patient caregiver, she states that patient had hip surgery in February [address] Nguyen. Patient had a fall in mid January which resulted in opening of surgical incision on the right hip. Wound care was followed for recommendations, was told that wound would heal from the bottom up was packed and then packing was removed daily. Machines Technician reports that she has noticed foul smell from the wound no pus however continues to drain serosanguineous fluid. Right hip wound was approximately 3 cm long and 0.5 cm wide. Depth was not assessed during exam but appears to be a deep cavity. Hip xray negative for cortical bone destruction, postivie for air levels--most likely due to the open wound. Less concern for nec fac. -consult ortho Dr. Nguyen, appreciate recs -04/26--completed right hip irrigation debridement and modular exchange with insertion of antibiotic beads -preliminary blood cultures 1 of 2 GPC positive -final wound cultures pending -IV vancomycin (04/25- -IV zosyn 3.375 q6hr (04/25- -IV fluids -IR to place PICC line tomorrow #Developmental delay #Parkinsons Pill rolling tremors of RUE noted on exam. Patient is conserved by Dr. Simmons. -Valbenazine 80 mg p.o. daily -Escitalopram 10mg p.o. daily #Asthma #Allergic Rhinitis Uses albuterol inhaler 2 puffs every 6 as needed and cetirizine 10 mg p.o. daily outpatient -monitor oxygen requirement -resume breathing treatments if oxygenation dropping 90-92% #GERD Home regimen omeprazole 20 mg p.o. daily - Pantoprazole 20 mg IV daily #Constipation Hold home docusate 100 mg p.o. daily #HTN BP has been well controlled since admission without and medical management. Patient takes amlodipine 5 mg p.o. daily and propranalol 40 mg TID. -resume amlodipine 5 mg daily -hold propranolol as BP well controlled -monitor BP #BPH tamsulosin 0.4 mg qd #Normocytic Anemia HOLD home ferrus sulfate 325 mg qam #Hypothyroidism Most recent TSH from 08/20/24 4.35, free T4 1.47. -levothyroxine 50 mcg q AM Dispo: med surg, s/p right hip wound irrigation/debridement day 1, PICC line tomorrow Diet: regular, mech alter Bowel Reg: not indicated VTE ppx: SCD GI ppx: Pantoprazole 20 mg IV daily Code status: FULL Patient's case discussed with my attending Dr. Arita. Karen Ovalle PGY2 Attending Provider Attestation/Addendum I have discussed and was present for the essential components of the history, physical examination, diagnosis, and treatment plan with the resident. I agree with the patient's care as documented by the resident and amended herein by me. Osbaldo Arita DO. Although this document has been carefully reviewed, there may still be some phonetic and other typographical errors. These errors are purely grammatical due to imperfections in the software program and should not be construed in any way to compromise the substance of the patient's medical care during this visit.
[2025-04-27] MEDS: CALCIUM CARBONATE 600 MG TABLET PO (20:25)
[2025-04-27] MEDS: CHOLECALCIFEROL (Vitamin D3) 400 IU TABLET PO (20:25)
[2025-04-28] VITALS (8 sets, daily range): BP systolic 118–135; BP diastolic 53–74; PULSE 75–105; RESP 17–95; TEMP 36.2–36.9; O2SAT 93–102
[2025-04-28] MEDS: PIPER/TAZO 3.375 GM PREMIX 3.375 GM/50 ML BAG IV ×2 (05:05→13:13)
[2025-04-28] MEDS: LEVOTHYROXINE SODIUM 25 MCG TABLET 50 MCG PO (05:05)
[2025-04-28 06:05] LABS: Basophils # (Auto) 0.1 Thou/mm3 (0.0-0.2); Basophils % (Auto) 0 % (0-2.5); Eosinophils # (Auto) 0.4 Thou/mm3 (0.0-0.5); Eosinophils % (Auto) 3 % (0-10); Hematocrit 28.0 % (41.0-53.0); Hemoglobin 9.0 g/dL (13.5-16.0); Immature Granulocytes Auto 0.05 Thou/mm3 (0.00-0.00); Lymphocytes # (Auto) 1.3 Thou/mm3 (1.0-4.8); Lymphocytes % (Auto) 10 % (10-50); Mean Corpuscular HGB Conc 32.1 g/dl (31.0-37.0); Mean Corpuscular Hemoglobin 29.3 pg (25.0-35.0); Mean Corpuscular Volume 91 fL (80-100); Monocytes # (Auto) 1.5 Thou/mm3 (0.0-0.8); Monocytes % (Auto) 12 % (0-12); Neutrophils # (Auto) 9.6 Thou/mm3 (1.8-7.7); Neutrophils % (Auto) 74 % (37-80); Nucleated Red Blood Cell # 0.00 Thou/mm3 (0.00-0.00); Nucleated Red Blood Cell % 0 /100 WBC (0); Platelet Count 355 Thou/mm3 (140-440); RDW Standard Deviation 45.6 fL (35.1-43.9); Red Blood Count 3.07 Miln/mm3 (4.50-5.90); White Blood Count 13.0 Thou/mm3 (3.8-10.6)
[2025-04-28 06:24] LABS: Alanine Aminotransferase 20 U/L (10-49); Albumin, Serum 3.3 gm/dL (3.4-4.8); Albumin/Globulin Ratio 1.5 (1.2-2.2); Alkaline Phosphatase 111 U/L (46-116); Anion Gap 10 (7-16); Aspartate Amino Transferase 33 U/L (0-34); BUN/Creatinine Ratio 5 Ratio (12-20); Bilirubin,Total 0.2 mg/dL (0.3-1.2); Blood Urea Nitrogen 6 mg/dL (9-23); Calcium 9.0 mg/dL (8.3-10.6); Calcium (Corrected) 9.6 mg/dL (8.5-10.1); Carbon Dioxide 29.3 mMol/L (20.0-31.0); Chloride 108 mMol/L (98-107); Creatinine (Component) 1.3 mg/dL (0.6-1.3); Estimated Creatinine Clearance 42.0 mL/min (>60); Globulin 2.2 gm/dL (2.3-3.5); Glucose 101 mg/dL (74-106); Magnesium 2.0 mg/dL (1.6-2.6); Osmolality,Calculated 290 (275-295); Phosphorous 3.5 mg/dL (2.4-5.1); Potassium 4.5 mMol/L (3.4-5.1); Sodium 147 mMol/L (136-145); Total Protein 5.5 gm/dL (5.7-8.2); eGFR 58 See Note
[2025-04-28] MEDS: INGREZZA 80 MG PO (08:45)
[2025-04-28] MEDS: RINGERS LACTATED 1000 ML 1,000 ML 75 ML IV (08:45)
[2025-04-28] MEDS: ASPIRIN EC 81 MG TABEC PO (08:46)
[2025-04-28] MEDS: TAMSULOSIN HCL 0.4 MG CAPSULE PO (08:46)
[2025-04-28] MEDS: ESCITALOPRAM OXALATE 10 MG TABLET PO (08:46)
[2025-04-28 09:04] LABS: Vancomycin,Trough 16.9 mcg/mL (5.0-10.0)
[2025-04-28] MEDS: VANCOMYCIN/NS 500 MG IVPB 100 ML 120 MG IV ×2 (10:58→21:22)
--- NOTE | 2025-04-28 14:38 | PC.SS ---
SS follow up note: Patient is pending a PIC Line and Cultures to determine what IV ABX patient will need. Patient is pending PT evaluation.
--- NOTE | 2025-04-28 14:48 | PC.SS ---
SS follow up note; SS followed up with Rosanna patient's critical care unit nurse to inform her that patient is pending Cultures to determine what IV ABX patient will need. SS informed Rosanna that SNF's are wanting to know the IV ABX and dosage first to determine if they are able to accommodate. SS will follow up with Rosanna tomorrow once IV ABX are determined. SS will stand by for further needs.
--- NOTE | 2025-04-28 14:55 | ESPR_ITS ---
<Statement entered by Karen Ovalle MD - 04/28/25 15:42> Note reviewed, I agree with most of its contents and agree with the patient's care as documented by Dr. Ochoa. Patient examined at bedside. No overnight events. Leukocytosis improving to 13, Hb 9.0, Cr uptrended to 1.3. He is s/p right hip wound irrigation debridement day [address] Nguyen. Wound van in place with no healing, he is moving LE. Wound cultures have been negative. 1 of 2 preliminary are GPC indicating possible contamination. Wait for final speciation. De escelate antibiotics from Zosyn to IV ceftrixone and continue vancomycin for wound. legal services professional team infromed that patient will need SNF at discharge as he is very high fall risk. Physical therapy assessment is pending. The patient's management plan was discussed with my attending physician Dr. Arita. Karen Ovalle, PGY-2 Documentation for date of: 04/28/25 Subjective Subjective Interval history: Mr. 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 Nguyen in February 2025 who presented to the ED from after being advised by surgeon Dr. Nguyen to present to the ED given right hip dehiscence and right hip replacement with . Patient is n.p.o. at midnight pending washout with Dr. Nguyen tomorrow he is on IV antibiotics. 04/25/2025: pt admitted, minimal pain to palpation of R hip wound, no puralent drainage. N.p.o. at midnight 04/26/2025: Patient seen and examined at bedside. No new concerns vital signs reviewed continues on antibiotics plan for surgery today with Dr. Nguyen for right hip washout 04/28/2025: Patient seen and examined at bedside, wound vac in place on R hip wound with hemosanguenous discharge, pain well controlled. pending bcx speciation for gpc, pending IR PICC line placement, cont on vanc, crowley zosyn to ctx. Exam Vital Signs Temp Pulse Resp BP Pulse Ox O2 Del Method O2 Flow Rate 97.1 F 81 17 129/74 94 L Room Air 2 04/28/25 12:00 04/28/25 12:00 04/28/25 12:00 04/28/25 12:00 04/28/25 12:00 04/28/25 12:00 04/27/25 16:00 Narrative Exam GENERAL: no acute distress, AAO x0 (unable to respond to questions reliably), he does talk and may copy what you say, comfortably laying in bed HEENT: Head AT/ NC. Mucous membranes moist. PERRL. tardive diskinesia lip smacking present. NECK: Supple, no lymphadenopathy, no carotid bruits. CARDIOVASCULAR: RRR. Normal S1/S2, No m/r/g. No pitting edema of bilateral LEs. RESPIRATORY: CTAB. No wheezing, rhonchi, crackles. GASTROINTESTINAL: Abdomen soft, non tender no palpable masses. Bowel sounds present MUSCULOSKELETAL:? R hip wound with wound vac with hemosangeounous fluid draining. NEUROLOGICAL: CN II-XII grossly intact. No focal deficits. Sensation intact, symmetric. Pill rolling tremor of BUE, TD lip smaking PSYCHIATRIC: Awake and alert, not agitated, normal mood and affect. SKIN: No obvious rashes, no jaundice, normal turgor. Objective Labs 04/29/25 05:08 04/29/25 05:08 Labs: Laboratory Results - last 24 hr 04/28/25 04/28/25 04:24 08:40 WBC 13.0 H RBC 3.07 L Hgb 9.0 L Hct 28.0 L MCV 91 MCH 29.3 MCHC 32.1 RDW Std Deviation 45.6 H Plt Count 355 Neut % (Auto) 74 Lymph % (Auto) 10 [place] % (Auto) 12 Eos % (Auto) 3 Baso % (Auto) 0 Neut # (Auto) 9.6 H Lymph # (Auto) 1.3 [place] # (Auto) 1.5 H Eos # (Auto) 0.4 Baso # (Auto) 0.1 Immature Gran # (Auto) 0.05 H Absolute Nucleated RBC 0.00 Immature Gran % 0 Nucleated RBC % 0 Sodium 147 H Potassium 4.5 Chloride 108 H Carbon Dioxide 29.3 Anion Gap 10 BUN 6 L Creatinine 1.3 Estim Creat Clear Calc 42.0 L eGFR 58 L BUN/Creatinine Ratio 5 L Glucose 101 Calculated Osmolality 290 Calcium 9.0 Corrected Calcium 9.6 Phosphorus 3.5 Magnesium 2.0 Total Bilirubin 0.2 L AST 33 ALT 20 Alkaline Phosphatase 111 Total Protein 5.5 L Albumin 3.3 L Globulin 2.2 L Albumin/Globulin Ratio 1.5 Vancomycin Trough 16.9 H Quality Measures Quality Measures VTE prophylaxis Advance care planning discussed with:: other Assessment & Plan Assessment Current Active Medications: Generic Name Dose Route Start Last Admin Trade Name Freq PRN Reason Stop Dose Admin Acetaminophen 650 mg 04/25/25 12:13 Acetaminophen 325 Mg Tablet PO 05/25/25 12:12 Q6H PRN Fever >101.5 Acetaminophen 650 mg 04/26/25 18:46 Acetaminophen 325 Mg Tablet PO 05/26/25 18:45 Q6HR PRN PAIN SCALE 1-3 (Moderate Albuterol 2 puff 04/26/25 16:01 Albuterol Inh 8 Gm INH 05/26/25 16:00 Q6H PRN shortness of breath or wheezing Amlodipine Besylate 5 mg 04/27/25 09:00 04/28/25 08:46 Amlodipine Besylate 5 Mg Tablet PO 05/27/25 08:59 5 mg DAILY ROSE MARIE Administration Aspirin 81 mg 04/27/25 09:00 04/28/25 08:46 Aspirin Ec 81 Mg Tabec PO 05/27/25 08:59 81 mg QDAY ROSE MARIE Administration Calcium Carbonate 600 mg 04/26/25 21:00 04/27/25 20:25 Calcium Carbonate 600 Mg Tablet PO 05/26/25 20:59 600 mg HS ROSE MARIE Administration Ingrezza ( 0 ea 04/26/25 13:45 04/28/25 08:45 Valbenazine) 80 Mg PO 05/26/25 13:44 1 capsule Capsule QDAY ROSE MARIE Administration Escitalopram Oxalate 10 mg 04/25/25 13:15 04/28/25 08:46 Escitalopram Oxalate 10 Mg Tablet PO 05/25/25 13:14 10 mg QDAY ROSE MARIE Administration Piperacillin/Tazobactam/Dextrose 3.375 gm in 50 mls @ 12.5 mls/hr 04/25/25 22:00 04/28/25 13:13 Zosyn IV 05/02/25 21:59 12.5 mls/hr Q8HR ROSE MARIE Administration Vancomycin/Sodium Chloride 100 mls @ 120 mls/hr 04/28/25 10:00 04/28/25 10:58 Vancomycin/Ns 500 Mg Ivpb IV 05/05/25 09:59 120 mls/hr Q12H ROSE MARIE Administration Protocol Levothyroxine Sodium 50 mcg 04/25/25 13:10 04/28/25 05:05 Levothyroxine Sodium 25 Mcg Tablet PO 05/25/25 13:09 50 mcg ACBR ROSE MARIE Administration Morphine Sulfate 2 mg 04/26/25 18:47 Morphine Sulf Inj 4 Mg/Ml Vial IVP Q3HR PRN PAIN SCALE 4-10(Mod-Sev Ondansetron HCl 4 mg 04/25/25 12:13 Ondansetron Inj 2 Mg/Ml Inj 2 Ml IVP 05/25/25 12:12 Q6H PRN NAUSEA OR VOMITING Protocol Pantoprazole Sodium 20 mg 04/26/25 09:00 04/28/25 08:45 Pantoprazole Inj 40 Mg Vial IVP 05/26/25 08:59 20 mg QDAY ROSE MARIE Administration Pharmacy Consult 1 each 04/25/25 12:45 Vancomycin Pharmacy To Dose 1 Each Each IV 05/25/25 12:44 QDAY PRN PROTOCOL Tamsulosin HCl 0.4 mg 04/25/25 13:00 04/28/25 08:46 Tamsulosin Hcl 0.4 Mg Capsule PO 05/25/25 12:59 0.4 mg QDAY ROSE MARIE Administration Vitamin D 400 iu 04/26/25 21:00 04/27/25 20:25 Cholecalciferol (Vitamin D3) 400 Iu Tablet PO 05/26/25 20:59 400 iu HS ROSE MARIE Administration Plan Mr. 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 Nguyen in February 2025 who presented to the ED from after being advised by surgeon Dr. Nguyen to present to the ED given right hip dehiscence and right hip replacement with . Preliminary blood cultures positive for GPC continues on vancomycin and ctx (d/c zosyn) pending picc line placement, wound cultures with no growth. #Right hip wound dehiscence and infection #s/p R hip replacement 02/2025 #post day 1 Right hip irrigation debridement Afrebrile, no leukocytosis, nl lactic acid, nl procalcitonin, CRP mildly elevated, minimal paint to tenderness on palpation, some area of induration (woody on the inferior aspect of the wound. Per patient caregiver, she states that patient had hip surgery in February [address] Nguyen. Patient had a fall in mid January which resulted in opening of surgical incision on the right hip. Wound care was followed for recommendations, was told that wound would heal from the bottom up was packed and then packing was removed daily. Diesel Engine Mechanic Apprentice reports that she has noticed foul smell from the wound no pus however continues to drain serosanguineous fluid. Right hip wound was approximately 3 cm long and 0.5 cm wide. Depth was not assessed during exam but appears to be a deep cavity. Hip xray negative for cortical bone destruction, postivie for air levels--most likely due to the open wound. Less concern for nec fac. remains afebrile, leukocytosis downtrending. likely reactive. -consult ortho Dr. Nguyen, appreciate recs -04/26--completed right hip irrigation debridement and modular exchange with insertion of antibiotic beads -preliminary blood cultures 1 of 2 GPC positive, pending speciation -final wound cultures no growth to date -IV vancomycin (04/25- -IV zosyn 3.375 q6hr (04/25- 04/28) -IV CTX 2gm qd ( 04/28- -IV fluids -IR to place PICC line pending #Electrolyte abnormalities, #mild hypernatremia -ctm daily cmp - replete as indicated #Developmental delay #Parkinsons Pill rolling tremors of RUE noted on exam. Patient is conserved by Dr. Simmons. -Valbenazine 80 mg p.o. daily -Escitalopram 10mg p.o. daily #Asthma #Allergic Rhinitis Uses albuterol inhaler 2 puffs every 6 as needed and cetirizine 10 mg p.o. daily outpatient -monitor oxygen requirement -resume breathing treatments if oxygenation dropping 90-92% #GERD Home regimen omeprazole 20 mg p.o. daily - Pantoprazole 20 mg IV daily #Constipation Hold home docusate 100 mg p.o. daily #HTN BP has been well controlled since admission without and medical management. Patient takes amlodipine 5 mg p.o. daily and propranalol 40 mg TID. -resume amlodipine 5 mg daily -hold propranolol as BP well controlled -monitor BP #BPH tamsulosin 0.4 mg qd #Normocytic Anemia HOLD home ferrus sulfate 325 mg qam #Hypothyroidism Most recent TSH from 08/20/24 4.35, free T4 1.47. -levothyroxine 50 mcg q AM Dispo: med surg, s/p right hip wound irrigation/debridement pending PICC line , pending speciation of gpc blood cx Diet: regular, mech alter Bowel Reg: not indicated VTE ppx: SCD GI ppx: Pantoprazole 20 mg IV daily Code status: FULL Plan discussed with Dr. Ovalle, and Dr. Lyla Ochoa MD PGY1 Attending Provider Attestation/Addendum I have discussed and was present for the essential components of the history, physical examination, diagnosis, and treatment plan with the resident. I agree with the patient's care as documented by the resident and amended herein by me. Osbaldo Arita DO. Although this document has been carefully reviewed, there may still be some phonetic and other typographical errors. These errors are purely grammatical due to imperfections in the software program and should not be construed in any way to compromise the substance of the patient's medical care during this visit. Patient seen and evaluated this AM. No acute events overnight, cultures negative thus far, can likely be discharged tomorrow with oral antibiotics however will touch base with orthopedic surgery prior. Patient will need to be discharged to SNF due to safety concerns, the patient has fallen multiple times at his usp and I do not feel that it is safe to send him back to the same location. His falls were also endorsed by one of his caregivers at bedside. I do feel the patient needs SNF for couple of weeks until he can heal and have a more supervised, controlled environment for recovery. Patient does have a wound VAC which is draining a hemopurulent material however scant output this morning. Patient will need wound VAC maintenance upon discharge. Will continue IV antibiotics at this time and continue to follow-up with blood and wound cultures.
[2025-04-28] MEDS: CHOLECALCIFEROL (Vitamin D3) 400 IU TABLET PO (20:06)
[2025-04-28] MEDS: CALCIUM CARBONATE 600 MG TABLET PO (20:06)
[2025-04-29] VITALS (9 sets, daily range): BP systolic 115–136; BP diastolic 53–85; PULSE 80–114; RESP 17–97; TEMP 36.1–36.6; O2SAT 94–99; BMI 12.0
[2025-04-29] MEDS: LEVOTHYROXINE SODIUM 25 MCG TABLET 50 MCG PO (05:23)
[2025-04-29 05:32] LABS: Basophils # (Auto) 0.1 Thou/mm3 (0.0-0.2); Basophils % (Auto) 1 % (0-2.5); Eosinophils # (Auto) 0.7 Thou/mm3 (0.0-0.5); Eosinophils % (Auto) 6 % (0-10); Hematocrit 29.5 % (41.0-53.0); Hemoglobin 9.5 g/dL (13.5-16.0); Immature Granulocytes Auto 0.05 Thou/mm3 (0.00-0.00); Lymphocytes # (Auto) 1.2 Thou/mm3 (1.0-4.8); Lymphocytes % (Auto) 11 % (10-50); Mean Corpuscular HGB Conc 32.2 g/dl (31.0-37.0); Mean Corpuscular Hemoglobin 29.4 pg (25.0-35.0); Mean Corpuscular Volume 91 fL (80-100); Monocytes # (Auto) 1.2 Thou/mm3 (0.0-0.8); Monocytes % (Auto) 11 % (0-12); Neutrophils # (Auto) 7.7 Thou/mm3 (1.8-7.7); Neutrophils % (Auto) 71 % (37-80); Nucleated Red Blood Cell # 0.00 Thou/mm3 (0.00-0.00); Nucleated Red Blood Cell % 0 /100 WBC (0); Platelet Count 317 Thou/mm3 (140-440); RDW Standard Deviation 46.9 fL (35.1-43.9); Red Blood Count 3.23 Miln/mm3 (4.50-5.90); White Blood Count 10.9 Thou/mm3 (3.8-10.6)
[2025-04-29 05:55] LABS: Alanine Aminotransferase 21 U/L (10-49); Albumin, Serum 3.4 gm/dL (3.4-4.8); Albumin/Globulin Ratio 1.4 (1.2-2.2); Alkaline Phosphatase 108 U/L (46-116); Anion Gap 10 (7-16); Aspartate Amino Transferase 35 U/L (0-34); BUN/Creatinine Ratio 6 Ratio (12-20); Bilirubin,Total 0.3 mg/dL (0.3-1.2); Blood Urea Nitrogen < 5 mg/dL (9-23); Calcium 9.4 mg/dL (8.3-10.6); Calcium (Corrected) 9.9 mg/dL (8.5-10.1); Carbon Dioxide 27.3 mMol/L (20.0-31.0); Chloride 106 mMol/L (98-107); Creatinine (Component) 0.9 mg/dL (0.6-1.3); Estimated Creatinine Clearance 60.6 mL/min (>60); Globulin 2.4 gm/dL (2.3-3.5); Glucose 91 mg/dL (74-106); Magnesium 1.7 mg/dL (1.6-2.6); Osmolality,Calculated 282 (275-295); Phosphorous 3.8 mg/dL (2.4-5.1); Potassium 4.2 mMol/L (3.4-5.1); Sodium 143 mMol/L (136-145); Total Protein 5.8 gm/dL (5.7-8.2); eGFR > 60 See Note
[2025-04-29] MEDS: ESCITALOPRAM OXALATE 10 MG TABLET PO (08:35)
[2025-04-29] MEDS: ASPIRIN EC 81 MG TABEC PO (08:35)
[2025-04-29] MEDS: TAMSULOSIN HCL 0.4 MG CAPSULE PO (08:35)
[2025-04-29] MEDS: Magnesium Sulfate 4 GM Ivpb 4 GM/50 ML BAG IV (08:36)
[2025-04-29] MEDS: INGREZZA 80 MG PO (08:38)
[2025-04-29 09:40] LABS: INR 1.2 (0.9-1.3); Partial Thromboplastin Time 21.3 Seconds (22.0-36.0); Prothrombin Time 12.5 Seconds (9.0-12.2)
[2025-04-29] MEDS: VANCOMYCIN/NS 500 MG IVPB 100 ML 120 MG IV (10:59)
--- NOTE | 2025-04-29 11:04 | PC.NURSE ---
Called Dr. Ochoa and informed her that yesterdays vanco trough was 16.9, which the protocol comment on the MAR says to hold if great than 15, and she said it was fine to hold because he was still given two doses yesterday after the draw. However, I spoke with An pharmacist in pharmacy and she said to disregard that note (she was going to remove it) and that 16.9 is an acceptable number to continue the administration of the vanco today
--- NOTE | 2025-04-29 11:52 | PC.NURSE ---
Pt is aware that she is being discharged, but she is unsure of her ride availability. We may need to provide a ride for her. She is going to let me know soon
--- NOTE | 2025-04-29 14:58 | ESPR_ITS ---
<Statement entered by Jeanette Cedeno MD - 04/30/25 13:08> I discussed with and supervised the brand marketing intern physician who took care of this patient. I personally saw and examined the patient and discussed the assessment and plan with the entire medicine team, including my attending Dr. Arita, I agree with most of the assessment and plan as documented below Jeanette Cedeno M.D. PGY-3 Documentation for date of: 04/29/25 Subjective Subjective Interval history: Mr. 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 Ríos in February 2025 who presented to the ED from after being advised by surgeon Dr. Ríos to present to the ED given right hip dehiscence and right hip replacement with . Patient is n.p.o. at midnight pending washout with Dr. Ríos tomorrow he is on IV antibiotics. 04/25/2025: pt admitted, minimal pain to palpation of R hip wound, no puralent drainage. N.p.o. at midnight 04/26/2025: Patient seen and examined at bedside. No new concerns vital signs reviewed continues on antibiotics plan for surgery today with Dr. Ríos for right hip washout 04/28/2025: Patient seen and examined at bedside, wound vac in place on R hip wound with hemosanguenous discharge, pain well controlled. pending bcx speciation for gpc, pending IR PICC line placement, cont on vanc, crowley zosyn to ctx. 04/29/2025: patient seen and examined at bedside. no new concerns, vitals reviewed, wound vac in place on R hip with hemosanguenous output, seal is intact. Bcx with gpc resulted with contamininat. d/c picc line placement iso wound cultures no growth, bcx negative, and pt without systemic signs of infection, PT evaluated today with recs for SNF (pt previously used to ambulate independently) plan for discharge to snf likely tomorrow if approved. abx changed from vanc and ctx to keflex 500 mg TID Exam Vital Signs Temp Pulse Resp BP Pulse Ox O2 Del Method O2 Flow Rate 97.2 F 88 19 130/85 H 96 Room Air 2 04/29/25 12:00 04/29/25 12:00 04/29/25 12:00 04/29/25 12:00 04/29/25 12:00 04/29/25 12:00 04/27/25 16:00 Narrative Exam GENERAL: no acute distress, AAO x0 (unable to respond to questions reliably), he does talk and may copy what you say, comfortably laying in bed HEENT: Head AT/ NC. Mucous membranes moist. PERRL. tardive diskinesia lip smacking present. NECK: Supple, no lymphadenopathy, no carotid bruits. CARDIOVASCULAR: RRR. Normal S1/S2, No m/r/g. No pitting edema of bilateral LEs. RESPIRATORY: CTAB. No wheezing, rhonchi, crackles. GASTROINTESTINAL: Abdomen soft, non tender no palpable masses. Bowel sounds present MUSCULOSKELETAL:? R hip wound with wound vac with hemosangeounous fluid output . NEUROLOGICAL: CN II-XII grossly intact. No focal deficits. Sensation intact, symmetric. Pill rolling tremor of BUE, TD lip smaking PSYCHIATRIC: Awake and alert, not agitated, normal mood and affect. SKIN: No obvious rashes, no jaundice, normal turgor. Objective Labs 04/30/25 04:39 04/30/25 04:39 Labs: Laboratory Results - last 24 hr 04/29/25 04/29/25 05:08 08:30 WBC 10.9 H RBC 3.23 L Hgb 9.5 L Hct 29.5 L MCV 91 MCH 29.4 MCHC 32.2 RDW Std Deviation 46.9 H Plt Count 317 D Neut % (Auto) 71 Lymph % (Auto) 11 [place] % (Auto) 11 Eos % (Auto) 6 Baso % (Auto) 1 Neut # (Auto) 7.7 Lymph # (Auto) 1.2 [place] # (Auto) 1.2 H Eos # (Auto) 0.7 H Baso # (Auto) 0.1 Immature Gran # (Auto) 0.05 H Absolute Nucleated RBC 0.00 Immature Gran % 1 H Nucleated RBC % 0 PT 12.5 H INR 1.2 APTT 21.3 L Sodium 143 Potassium 4.2 Chloride 106 Carbon Dioxide 27.3 Anion Gap 10 BUN < 5 L Creatinine 0.9 Estim Creat Clear Calc 60.6 L eGFR > 60 BUN/Creatinine Ratio 6 L Glucose 91 Calculated Osmolality 282 Calcium 9.4 Corrected Calcium 9.9 Phosphorus 3.8 Magnesium 1.7 Total Bilirubin 0.3 AST 35 H ALT 21 Alkaline Phosphatase 108 Total Protein 5.8 Albumin 3.4 Globulin 2.4 Albumin/Globulin Ratio 1.4 Quality Measures Quality Measures VTE prophylaxis Advance care planning discussed with:: other Assessment & Plan Assessment Current Active Medications: Generic Name Dose Route Start Last Admin Trade Name Freq PRN Reason Stop Dose Admin Acetaminophen 650 mg 04/25/25 12:13 Acetaminophen 325 Mg Tablet PO 05/25/25 12:12 Q6H PRN Fever >101.5 Acetaminophen 650 mg 04/26/25 18:46 Acetaminophen 325 Mg Tablet PO 05/26/25 18:45 Q6HR PRN PAIN SCALE 1-3 (Moderate Albuterol 2 puff 04/26/25 16:01 Albuterol Inh 8 Gm INH 05/26/25 16:00 Q6H PRN shortness of breath or wheezing Amlodipine Besylate 5 mg 04/27/25 09:00 04/29/25 08:35 Amlodipine Besylate 5 Mg Tablet PO 05/27/25 08:59 5 mg DAILY ROSE MARIE Administration Aspirin 81 mg 04/27/25 09:00 04/29/25 08:35 Aspirin Ec 81 Mg Tabec PO 05/27/25 08:59 81 mg QDAY ROSE MARIE Administration Calcium Carbonate 600 mg 04/26/25 21:00 04/28/25 20:06 Calcium Carbonate 600 Mg Tablet PO 05/26/25 20:59 600 mg HS ROSE MARIE Administration Cephalexin HCl 1,000 mg 04/29/25 14:00 Cephalexin 250 Mg Capsule PO 05/06/25 13:59 TID ROSE MARIE Ingrezza ( 0 ea 04/26/25 13:45 04/29/25 08:38 Valbenazine) 80 Mg PO 05/26/25 13:44 1 capsule Capsule QDAY ROSE MARIE Administration Escitalopram Oxalate 10 mg 04/25/25 13:15 04/29/25 08:35 Escitalopram Oxalate 10 Mg Tablet PO 05/25/25 13:14 10 mg QDAY ROSE MARIE Administration Levothyroxine Sodium 50 mcg 04/25/25 13:10 04/29/25 05:23 Levothyroxine Sodium 25 Mcg Tablet PO 05/25/25 13:09 50 mcg ACBR ROSE MARIE Administration Morphine Sulfate 2 mg 04/26/25 18:47 Morphine Sulf Inj 4 Mg/Ml Vial IVP Q3HR PRN PAIN SCALE 4-10(Mod-Sev Ondansetron HCl 4 mg 04/25/25 12:13 Ondansetron Inj 2 Mg/Ml Inj 2 Ml IVP 05/25/25 12:12 Q6H PRN NAUSEA OR VOMITING Protocol Pantoprazole Sodium 20 mg 04/26/25 09:00 04/29/25 08:34 Pantoprazole Inj 40 Mg Vial IVP 05/26/25 08:59 20 mg QDAY ROSE MARIE Administration Tamsulosin HCl 0.4 mg 04/25/25 13:00 04/29/25 08:35 Tamsulosin Hcl 0.4 Mg Capsule PO 05/25/25 12:59 0.4 mg QDAY ROSE MARIE Administration Vitamin D 400 iu 04/26/25 21:00 04/28/25 20:06 Cholecalciferol (Vitamin D3) 400 Iu Tablet PO 05/26/25 20:59 400 iu HS ROSE MARIE Administration Plan Mr. 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 Ríos in February 2025 who presented to the ED from after being advised by surgeon Dr. Ríos to present to the ED given right hip dehiscence and right hip replacement with . bcx and wound cultures negative, d/c vanc and ctx, start keflex [address] ríos ok to give po abx and f/u outpatient. #Right hip wound dehiscence #s/p R hip replacement 02/2025 #s/p Right hip irrigation debridement on 04/27 Afrebrile, no leukocytosis, nl lactic acid, nl procalcitonin, CRP mildly elevated, minimal paint to tenderness on palpation, some area of induration (woody on the inferior aspect of the wound. Per patient caregiver, she states that patient had hip surgery in February [address] Ríos. Patient had a fall in mid January which resulted in opening of surgical incision on the right hip. Wound care was followed for recommendations, was told that wound would heal from the bottom up was packed and then packing was removed daily. 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 Right hip wound was approximately 3 cm long and 0.5 cm wide. Depth was not assessed during exam but appears to be a deep cavity. Hip xray negative for cortical bone destruction, postivie for air levels--most likely due to the open wound. Less concern for nec fac. remains afebrile, leukocytosis downtrending. likely reactive. -consult ortho Dr. Ríos, appreciate recs, follow up next saturday outpatient -04/26--completed right hip irrigation debridement and modular exchange with insertion of antibiotic beads -preliminary blood cultures 1 of 2 GPC positive, stah hominous, contamininant -final wound cultures no growth to date -IV vancomycin (04/25- 04/29) -IV zosyn 3.375 q6hr (04/25- 04/28) -IV CTX 2gm qd ( 04/28- 04/29) - keflex 500 mg tid -IV fluids #Electrolyte abnormalities, -ctm daily cmp - replete as indicated #Developmental delay #Parkinsons Pill rolling tremors of RUE noted on exam. Patient is conserved by Dr. Simmons. -Valbenazine 80 mg p.o. daily -Escitalopram 10mg p.o. daily #Asthma #Allergic Rhinitis Uses albuterol inhaler 2 puffs every 6 as needed and cetirizine 10 mg p.o. daily outpatient -monitor oxygen requirement -resume breathing treatments if oxygenation dropping 90-92% #GERD Home regimen omeprazole 20 mg p.o. daily - Pantoprazole 20 mg IV daily #Constipation Hold home docusate 100 mg p.o. daily #HTN BP has been well controlled since admission without and medical management. Patient takes amlodipine 5 mg p.o. daily and propranalol 40 mg TID. -resume amlodipine 5 mg daily -hold propranolol as BP well controlled -monitor BP #BPH tamsulosin 0.4 mg qd #Normocytic Anemia HOLD home ferrus sulfate 325 mg qam #Hypothyroidism Most recent TSH from 08/20/24 4.35, free T4 1.47. -levothyroxine 50 mcg q AM Dispo: med surg, s/p right hip wound irrigation/debridement , pending auth for snf Diet: regular, mech alter Bowel Reg: not indicated VTE ppx: SCD GI ppx: Pantoprazole 20 mg IV daily Code status: FULL Plan discussed with, Dr Cedeno, and Dr. Lyla Ochoa MD PGY1 Attending Provider Attestation/Addendum I have discussed and was present for the essential components of the history, physical examination, diagnosis, and treatment plan with the resident. I agree with the patient's care as documented by the resident and amended herein by me. Osbaldo Arita, DO. Although this document has been carefully reviewed, there may still be some phonetic and other typographical errors. These errors are purely grammatical due to imperfections in the software program and should not be construed in any way to compromise the substance of the patient's medical care during this visit.
--- NOTE | 2025-04-29 15:36 | PC.SS ---
SS follow up note; SS contacted Pato and she informed she would review patient's clincals and contact SS back. SS was contacted by Kristina right away and she informed SS they are not able to authorize SNF due to patient not being able to participate with PT and follow commands. SS will contact integration consultant Rosanna and update her.
--- NOTE | 2025-04-29 15:51 | PC.SS ---
SS follow up note; SS contacted Rosanna from [facility] and SS updated her with Felice's decision. SS updated Dr. Arita and he is requesting a Peer to Peer. SS contacted Kristina from [facility] and she informed SS she would have their Review clinicals to determine if patient is approved. SS updated Dr. Arita.
[2025-04-29] MEDS: CHOLECALCIFEROL (Vitamin D3) 400 IU TABLET PO (21:03)
[2025-04-29] MEDS: CALCIUM CARBONATE 600 MG TABLET PO (21:03)
[2025-04-30] VITALS (7 sets, daily range): BP systolic 122–136; BP diastolic 56–76; PULSE 72–95; RESP 17–20; TEMP 35.9–36.4; O2SAT 94–96; BMI 11.0
[2025-04-30] MEDS: LEVOTHYROXINE SODIUM 25 MCG TABLET 50 MCG PO (05:03)
[2025-04-30 05:54] LABS: Basophils # (Auto) 0.1 Thou/mm3 (0.0-0.2); Basophils % (Auto) 1 % (0-2.5); Eosinophils # (Auto) 0.6 Thou/mm3 (0.0-0.5); Eosinophils % (Auto) 6 % (0-10); Hematocrit 30.2 % (41.0-53.0); Hemoglobin 9.6 g/dL (13.5-16.0); Immature Granulocytes Auto 0.05 Thou/mm3 (0.00-0.00); Lymphocytes # (Auto) 1.2 Thou/mm3 (1.0-4.8); Lymphocytes % (Auto) 13 % (10-50); Mean Corpuscular HGB Conc 31.8 g/dl (31.0-37.0); Mean Corpuscular Hemoglobin 29.4 pg (25.0-35.0); Mean Corpuscular Volume 93 fL (80-100); Monocytes # (Auto) 0.9 Thou/mm3 (0.0-0.8); Monocytes % (Auto) 10 % (0-12); Neutrophils # (Auto) 6.3 Thou/mm3 (1.8-7.7); Neutrophils % (Auto) 69 % (37-80); Nucleated Red Blood Cell # 0.00 Thou/mm3 (0.00-0.00); Nucleated Red Blood Cell % 0 /100 WBC (0); Platelet Count 279 Thou/mm3 (140-440); RDW Standard Deviation 47.3 fL (35.1-43.9); Red Blood Count 3.26 Miln/mm3 (4.50-5.90); White Blood Count 9.1 Thou/mm3 (3.8-10.6)
[2025-04-30 06:27] LABS: Alanine Aminotransferase 33 U/L (10-49); Albumin, Serum 3.3 gm/dL (3.4-4.8); Albumin/Globulin Ratio 1.4 (1.2-2.2); Alkaline Phosphatase 105 U/L (46-116); Anion Gap 11 (7-16); Aspartate Amino Transferase 50 U/L (0-34); BUN/Creatinine Ratio 6 Ratio (12-20); Bilirubin,Total 0.2 mg/dL (0.3-1.2); Blood Urea Nitrogen < 5 mg/dL (9-23); Calcium 9.2 mg/dL (8.3-10.6); Calcium (Corrected) 9.8 mg/dL (8.5-10.1); Carbon Dioxide 25.0 mMol/L (20.0-31.0); Chloride 105 mMol/L (98-107); Creatinine (Component) 0.9 mg/dL (0.6-1.3); Estimated Creatinine Clearance 60.6 mL/min (>60); Globulin 2.4 gm/dL (2.3-3.5); Glucose 84 mg/dL (74-106); Magnesium 2.2 mg/dL (1.6-2.6); Osmolality,Calculated 277 (275-295); Phosphorous 3.5 mg/dL (2.4-5.1); Potassium 4.0 mMol/L (3.4-5.1); Sodium 141 mMol/L (136-145); Total Protein 5.7 gm/dL (5.7-8.2); eGFR > 60 See Note
[2025-04-30] MEDS: TAMSULOSIN HCL 0.4 MG CAPSULE PO (08:27)
[2025-04-30] MEDS: ESCITALOPRAM OXALATE 10 MG TABLET PO (08:27)
[2025-04-30] MEDS: ASPIRIN EC 81 MG TABEC PO (08:29)
[2025-04-30] MEDS: INGREZZA 80 MG PO (08:30)
--- NOTE | 2025-04-30 09:00 | PC.SS ---
Follow up note: SS has spoken to Kristina MOSS from [employer], patient's health insurance who explained patient's information has been sent to Dr. Palomo for review and Dr. Palomo has approved SNF. Kristina MOSS is aware pt is going to require wound vac at SNF.
--- NOTE | 2025-04-30 09:36 | XR_ITS ---
Examination: AP chest single view Technique: AP portable upright chest single view Date and time: April 30, 2025, 0956 hours INDICATIONS: Coughing this week. FINDINGS: Normal heart size. No pneumonia or pulmonary edema. Prominent osteopenia IMPRESSION: No pneumonia identified.
--- NOTE | 2025-04-30 10:17 | PC.SS ---
Addendum entered by Karlie Mcgill 04/30/25 15:46: SS followed up with [facility] and spoke to Pedro Pablo who states transportation has not been assigned and SS request for [facility] was not noted. SS has explained transportation was arranged today since 12:07pm to [facility] for 4pm. Per Pedro Pablo, she will escalate transport request to her screen printing supervisor and is aware pt is ready for 4pm. Addendum entered by Karlie Mcgill 04/30/25 12:28: Ref# [id number] for transportation. SS spoke to Lilli at [facility]. Bedside nurse, Krishan is aware. Sarah at [facility] is aware. Caregiver, Rosanna is aware. Addendum entered by Karlie Mcgill 04/30/25 12:12: SS was infroemd by Sarah from [facility] insurance authorization has been provided and they can accept pt. SS has setup gurney transportation with [place] at [facility] for 4pm to [facility].? Ref# .? SS has requested [facility].? Per [facility] payable representative [facility] is not a guaranteed transport company.? Estimated time is 3-4 hours.? SS has sent patient?s facesheet and ambulance form to [facility] using [employer].? SS has spoken to at [facility] who has placed pt on will call list until she has been contacted by [facility]. Addendum entered by Karlie Mcgill 04/30/25 11:35: SS spoke to Sarah from [facility] who states they can accept pt once insurance authorization has been provided by his health insurance. Original Note: SS followed up with caregiver, Rosanna who is aware patient's health insurance has approved SNF for short term. Rosanna's 1st choice is [facility] and 2nd is [facility]. SS has spoken to Whit at [facility] and at this time they do not have male beds available. SS spoke to Sarah at [facility] and informed her pt is requiring a wound vac. Per Sarah at [facility], they can accept pt and will order wound vac. SS has informed Sarah from [facility] wound vac can be ordered through [employer], per Kristina MOSS from patient's health insurance. Caregiver, Rosanna is aware and her choice is for pt to d/c to [facility]. Sarah from [facility] is ordering wound vac.
--- NOTE | 2025-04-30 11:46 | ESDS_ITS ---
<Statement entered by Karen Ovalle MD - 04/30/25 16:08> 74-year-old gentleman with a past medical history of developmental delay Parkinson's disease asthma BPH GERD hypertension asthma BPH GERD hypertension status post right hip replacement with Dr. Nguyen in February 2025 who presents to the ED from his care facility after being advised by surgeon, Dr. Nguyen, to present for likely washout. 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 Nguyen in february, hoewver after a fall in mid march, his incision opened up. pt began to report of some pain to the area, and developed a limp noted by staff. she states that the wound has developed a bad smell, and continues to drain serosanguenous fluids. Dr. Nguyen completed right hip irrigation and debridement on 04/26. Patient was started on IV antibiotics and wound cultures remain negative. During hospitalization wound VAC remained in place and was clean with no active bleeding around the site. He is to complete p.o. antibiotic course as prescribed. Follow-up with orthopedics in 1-2 weeks. Note reviewed, I agree with most of its contents and agree with the patient's care as documented by Dr. Ochoa. The patient's management plan was discussed with my attending physician Dr. Arita. Karen Ovalle, PGY-2 Planned Discharge Date 04/30/25 DS: Providers Provider Date of admission: 04/25/25 12:26 Primary care physician: Pretty Serrato NP Admitting Provider: Arnulfo Stiles MD Attending Provider on Admission: Dakota Arita DO Consults: 04/25/25 11:32 Consult to Orthopedic Stat Comment: Consulting Provider: Iván Nguyen 04/25/25 16:36 Referral Registered Dietitian Routine Comment: 04/29/25 11:45 Referral Physical Therapy Routine Comment: Physician Instructions: Attending Provider on DC: Dakota Arita DO Discharging Provider: Dakota Arita DO DS: Diagnosis Problem List Completed Was Problem List Reviewed/Reconciled?: Yes Hospital Course Hospital Course Hospital course: Reason for Admission Concern for right hip wound dehiscence following right hip replacement. 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 Nguyen in February 2025. He had fluid collection and subsequent fall which resulted in open wound. He was referred to the ED after his surgeon raised concern for right hip wound dehiscence and possible infection. No systemic signs of infection during time of admission, mild leukocytosis of 14. Hospital Course * Orthopedic intervention: Patient underwent right hip washout by Dr. Nguyen. Wound cultures were obtained and showed no growth to date. * Wound care: Wound VAC placed, draining blood tinged output. * Antibiotics: IV vancomycin (04/25- 04/28) IV zosyn 3.375 q6hr (04/25- 04/28) IV CTX 2gm qd (04/28) * Cultures: Blood and urine cultures remained negative. * Pain control: Adequately controlled with acetaminophen. * Mobility / disposition: Given increased fall risk and recent surgical complications, discharge to [facility] facility (SNF) was arranged. Patient was previously ambulatory at home prior to wound complications. Pertinent Labs/Studies * Wound cultures: No growth to date * Blood cultures: Negative * Urine cultures: Negative * initial XR R hip : Air in the soft tissue adjacent to the greater trochanter right hip with soft tissue defect. Condition on Discharge * Hemodynamically stable * Afebrile, no leukocytosis * Right hip wound VAC in place with heme tinged drainage * Pain well controlled on oral regimen * Ambulation limited; requires supportive care in SNF Discharge Medications * Cephalexin 1000 mg PO TID for 10 days * Acetaminophen 650 mg PO q6h PRN pain * Continue home medications Follow-Up / Recommendations * Follow up with Dr. Nguyne (Orthopedic Surgery) on Saturday, May 04, 2025, for wound VAC removal and continued monitoring. Address: [address] [place] [address], [place] [address] * retirement facility to continue wound care and monitor for signs of infection (fever, worsening pain, erythema, purulent drainage). * Fall precautions and physical therapy at SNF to optimize mobility. * continue with physical therapy Disposition Discharged to usp facility in stable condition. Plan discussed with Dr. Ovalle and Dr. Lyla Ochoa MD PGY1 Time Spent with Patient Time attestation: Total time spent providing and/or coordinating discharge services: Time spent: Greater than 30 minutes Exam Vital Signs Temp Pulse Resp BP Pulse Ox O2 Del Method O2 Flow Rate 97.0 F 95 18 132/76 H 96 Room Air 2 04/30/25 08:00 04/30/25 08:27 04/30/25 08:00 04/30/25 08:27 04/30/25 08:00 04/30/25 08:00 04/27/25 16:00 Narrative Exam GENERAL: no acute distress, AAO x0 (unable to respond to questions reliably), he does talk and may copy what you say, comfortably laying in bed HEENT: Head AT/ NC. Mucous membranes moist. PERRL. tardive diskinesia lip smacking present. NECK: Supple, no lymphadenopathy, no carotid bruits. CARDIOVASCULAR: RRR. Normal S1/S2, No m/r/g. No pitting edema of bilateral LEs. RESPIRATORY: CTAB. No wheezing, rhonchi, crackles. GASTROINTESTINAL: Abdomen soft, non tender no palpable masses. Bowel sounds present MUSCULOSKELETAL:? R hip wound with wound vac with hemosangeounous fluid output . NEUROLOGICAL: CN II-XII grossly intact. No focal deficits. Sensation intact, symmetric. Pill rolling tremor of BUE, TD lip smaking PSYCHIATRIC: Awake and alert, not agitated, normal mood and affect. SKIN: No obvious rashes, no jaundice, normal turgor. Discharge Plan Plan Patient Disposition: Xfer Skilled Nsg Fac (SNF) Patient condition on transfer: Stable Prescriptions/Referrals Prescriptions/Med Rec: New cephalexin 500 mg capsule 1,000 mg PO TID Qty: 30 0RF Continued tamsulosin 0.4 mg capsule 0.4 mg PO QHS omeprazole [Prilosec] 20 MG capsule,delayed release(DR/EC) 20 mg PO QDAY Qty: 0 Patient Comments: TO SUPPRESS GASTRIC ACID SECRETIONS docusate sodium 250 MG capsule 1 tab PO QDAY Qty: 0 escitalopram oxalate 10 mg tablet 10 mg PO DAILY calcium carbonate-vitamin D3 600 mg-10 mcg (400 unit) tablet 1 tab PO HS aspirin 81 mg capsule 81 mg PO QDAY Qty: 30 0RF albuterol sulfate 90 mcg/actuation HFA aerosol inhaler 2 puff inhalation Q6H PRN (Reason: shortness of breath or wheezing) Qty: 8.5 0RF amlodipine 5 mg tablet 5 mg PO DAILY levothyroxine 50 mcg tablet 50 mcg PO DAILY ibuprofen 400 mg tablet 400 mg PO Q12H acetaminophen [Tylenol] 325 mg tablet 325 mg PO QID MDD 4 PRN (Reason: fever or pain) Qty: 30 0RF cetirizine 10 mg tablet 10 mg PO QDAY propranolol 40 mg tablet 40 mg PO BID montelukast 10 mg tablet 10 mg PO HS Ingrezza 80 mg capsule 80 mg PO QDAY ferrous sulfate [FeroSul] 325 mg (65 mg iron) tablet 325 mg PO DAILY Referrals: Pretty Serrato NP [Primary Care Provider] Iván Nguyen MD [Physician, Orthopedics] Patient/Caregiver Discharge Instructions Other Discharge Activity Instructions:: Resume previous medications. Complete antibiotics as prescribed for treatment of wound infection. Follow up with orthopedics in 1-2 weeks. Patient will need close monitoring and assistance for fall prevention. He is at high risk of falling. Weightbearing as tolerated. Follow up with Dr Nguyen on Saturday05/04/25 Address: [address], [place] [address] Education Materials: How Your Hip Works, ED Post Op Wound Check, Infection Print Language: Liberian Stand Alone Forms: [place] Award Info., Patient Portal Info Letter Discharge Order Discharge Orders: Discharge (Routine); Ordered 04/30/25 Ordered By: Karen Ovalle Quality Discharge Quality Measures VTE prophylaxis Attestestation Attestation I have discussed and was present for the essential components of the discharge history, physical examination, diagnosis, and discharge treatment plan with the resident. I agree with the patient's discharge care as documented by the resident and amended herein by me. Osbaldo Arita DO. The patient cleared for discharge to SNF, he was stable, afebrile and tolerating p.o. intake at time of discharge. Patient will be discharged on Keflex 500 mg p.o. 3 times daily for 10 days, he will also need close follow-up with orthopedic surgery in 7 to 10 days postdischarge. He will also need close follow-up with his primary care physician also within 7 to 10 days of discharge. The patient was stable, afebrile and tolerating p.o. intake at time of discharge to SNF. Although this document has been carefully reviewed, there may still be some phonetic and other typographical errors. These errors are purely grammatical due to imperfections in the software program and should not be construed in any way to compromise the substance of the patient's medical care during this visit.
== END 2025-04-30 16:14 | disposition skilled nursing facility (03) | DRG 920 ==
LOC: SERX 11:33 → SERHOLD 12:27 → S3NX 16:01
PROVIDERS: Nurse Practitioner Family; Orthopaedic Surgery Adult Reconstructive Orthopaedic Surgery; Admitting Provider Student in an Organized Health Care Education/Training Program; Emergency Provider Emergency Medicine; PCP Nurse Practitioner Family; Visit Provider Student in an Organized Health Care Education/Training Program
PROC: 3E1U38Z Irrigation of Joints using Irrigating Substance, Percutaneous Approach (ICD-10-PCS; principal; 2025-04-26 17:30)
DX: T81.30XA Disruption of wound, unspecified, initial encounter (principal); E87.0 Hyperosmolality and hypernatremia; L03.115 Cellulitis of right lower limb; G20.A1 Parkinson's disease without dyskinesia, without mention of fluctuations; J45.909 Unspecified asthma, uncomplicated; N40.0 Benign prostatic hyperplasia without lower urinary tract symptoms; K21.9 Gastro-esophageal reflux disease without esophagitis; I10 Essential (primary) hypertension; Z96.641 Presence of right artificial hip joint; G25.2 Other specified forms of tremor; K59.00 Constipation, unspecified; D75.839 Thrombocytosis, unspecified; D64.89 Other specified anemias; E03.9 Hypothyroidism, unspecified; Z79.890 Hormone replacement therapy; W18.30XA Fall on same level, unspecified, initial encounter; E78.5 Hyperlipidemia, unspecified; R29.6 Repeated falls; Z79.899 Other long term (current) drug therapy; F79 Unspecified intellectual disabilities; R62.50 Unspecified lack of expected normal physiological development in childhood; G24.01 Drug induced subacute dyskinesia
CPT/HCPCS: 36415; 71045; 73501; 73502; 80053; 80202; 81001; 83605; 83735; 84100; 84145; 84484; 85025; 85610; 85652; 85730; 86140; 87040; 87070; 87075; 87077; 87081; 87086; 87186; 87205; 87502; 87811; 93005; 96365; 96366; 97161; 99284; A4217; A4649; C1713; C1776; J0131; J1100; J1580; J2405; J2470; J2543; J2704; J3010; J3370; J3373; J3475; J3490; J7030; J7120; J7999; A9270; J1596

== ENCOUNTER 2025-05-04 13:01 | Outpatient (AMB) | payer OTHER, MEDICAID, SELFPAY ==
--- NOTE | 2025-05-04 13:53 | ORTHONT_ITS ---
Vital signs 05/04/25 13:54 Height 1.63 m Height Method Stated Weight 58.655 kg Weight Measurement Method Estimated by Patient BMI 22.1 BP 114/70 Blood Pressure Source Automatic Cuff Blood Pressure Location Left Upper Arm Position Sitting Respiration 19 Pulse 85 Pulse Source Monitor Temp 98.0 F Temp Source Temporal Artery Scan Pulse Oximetry (%) 90 L Oxygen Delivery Method Room Air Med/Allergies Allergies & Medications Allergies No Known Drug Allergies Allergy (Verified 05/04/25 13:59) Medication Reconciliation docusate sodium 250 mg capsule 1 tab PO QDAY ##0 10/27/14 [History Confirmed 05/04/25] omeprazole 20 mg capsule,delayed release (Prilosec) 20 mg PO QDAY ##0 10/27/14 [History Confirmed 05/04/25] cetirizine 10 mg tablet 10 mg PO QDAY 09/11/22 [History Confirmed 05/04/25] montelukast 10 mg tablet 10 mg PO HS 09/11/22 [History Confirmed 05/04/25] propranolol 40 mg tablet 40 mg PO BID 09/11/22 [History Confirmed 05/04/25] valbenazine 80 mg capsule (Ingrezza) 80 mg PO QDAY 09/11/22 [History Confirmed 05/04/25] calcium 600 mg (as carbonate)-vitamin D3 10 mcg (400 unit) tablet 1 tab PO HS 02/28/24 [History Confirmed 05/04/25] escitalopram oxalate 10 mg tablet 10 mg PO DAILY 02/28/24 [History Confirmed 05/04/25] aspirin 81 mg capsule 81 mg PO QDAY #30 caps 02/29/24 [Rx Confirmed 05/04/25] tamsulosin 0.4 mg capsule 0.4 mg PO QHS 05/12/24 [History Confirmed 05/04/25] albuterol sulfate 90 mcg/actuation aerosol inhaler 2 puff inhalation Q6H PRN shortness of breath or wheezing #8.5 grams 03/04/25 [Rx Confirmed 05/04/25] amlodipine 5 mg tablet 5 mg PO DAILY 03/09/25 [History Confirmed 05/04/25] ibuprofen 400 mg tablet 400 mg PO Q12H 03/09/25 [History Confirmed 05/04/25] levothyroxine 50 mcg tablet 50 mcg PO DAILY 03/09/25 [History Confirmed 05/04/25] acetaminophen 325 mg tablet (Tylenol) 325 mg PO QID PRN fever or pain #30 tabs 04/06/25 [Rx Confirmed 05/04/25] ferrous sulfate 325 mg (65 mg iron) tablet (FeroSul) 325 mg PO DAILY 04/25/25 [History Confirmed 05/04/25] cephalexin 500 mg capsule 1,000 mg (2 x 500 mg) PO TID #30 caps 04/29/25 [Rx Confirmed 05/04/25] Exam Exam Patient is in no acute distress and is cooperative with the examination today. Patient has a normal mood and affect. Breathing is nonlabored. In no respiratory distress. Bilateral extremities were evaluated and demonstrates sensation intact to light touch. Palpable pedal pulses are present. No significant edema is present. Right hip incision is clean dry and intact Assessment and Plan Problem List (1) Wound dehiscence: Status: Acute Plan: Patient is doing well after a DAIR of his right hip. He is doing well. We will see him back in 2 weeks for routine follow-up Advanced Care Planning Discussion Advance care planning discussed with:: patient and other Office Procedures GNS Level of Care Nursing/Assessment Patient Status: Established Patient Nursing Assessment/Reassesment: Medication Reconciliation, Update PMH in EMR and Vital Signs Coordination of Care: Complex Care and Chronic Disease 1-5, Education Complex Pt/Fam, Consent,records obtained, informed consent, Results/Orders obtained and Staff clarify orders Established Patient Charge Established Patient Point Assignment: 95 Established Patient Point Charge: EP Level 3 (80-115) MA Intake Visit Data Collection New Patient or Established: Established Patient (seen at [facility] within 3 years) Seen by Clinical Staff ONLY (RN/MA): No PCP or OBGYN visit in last 3 months: Yes Hx Now: No Do You Feel Safe at Home: Yes Authorities Contacted: N/A Questionairres Past Medical History Past Medical History Have you ever been diagnosed with any of the following: Neurological Problems Parkinson's Disease: Yes Seizures: No Traumatic Brain Injury: Yes Cardiology Problems Congestive Heart Failure: No Hypertension: Yes Respiratory Problems Chronic Obstructive Pulmonary Disease (COPD): No Asthma: Yes Stomache/Intestinal Problems Gastroesophageal Reflux Disease: Yes Genital/Urinary Problems Renal Disease: No Musculoskeletal Problems Osteoporosis: Yes Fractures: Yes Head,Eye,Nose,Throat Problems Cataracts: Yes Endocrine Problems Diabetes Mellitus Type 1: No Diabetes Mellitus Type 2: No Hypothyroidism: Yes Blood Problems Anemia: Yes Sickle Cell Disease: No Psychologic Problems Depression: Yes Other Problems Blood Transfusions: No Blood Transfusion Reaction: No Anesthesia Reactions: No Subjective Visit Visit for: follow up visit and hip Immunization / Flu Flu Vaccine in the Last 12 Months: Yes Flu Vaccine Exclusion Criteria: Already Received History of Present Illness Chief complaint: 4 week postop Patient is a 71-year-old male here for wound check. Incision is clean dry intact. Incisional VAC was removed and the looks great. There Is no drainage. He is still antibiotics. He is in a intermediate at this time Pain Pain level (0-10): 0 Associated signs & symptoms: none Ambulatory data Ambulatory device: none Treatments Improvement with previous injections: No Improvement with PT: No Improvement with NSAIDS: no Review of Systems Review of Systems: All systems negative unless otherwise noted in HPI.
[2025-05-04 13:54] VITALS: BP 114/70; PULSE 85; RESP 19; TEMP 36.7; O2SAT 90; BMI 22.1
== END 2025-05-04 14:12 | disposition home or self-care (01) ==
LOC: HODSRG 13:01
PROVIDERS: PCP Nurse Practitioner Family; Referring Provider Nurse Practitioner Family; Supervising Provider Orthopaedic Surgery Adult Reconstructive Orthopaedic Surgery; Visit Provider Orthopaedic Surgery Adult Reconstructive Orthopaedic Surgery
DX: T81.30XD Disruption of wound, unspecified, subsequent encounter (principal); I10 Essential (primary) hypertension; K21.9 Gastro-esophageal reflux disease without esophagitis; E03.9 Hypothyroidism, unspecified
CPT/HCPCS: 99213; G0463

== ENCOUNTER 2025-05-14 08:09 | Inpatient (IN) | payer OTHER, MEDICAID, MEDICARE, SELFPAY ==
[2025-05-14] VITALS (26 sets, daily range): BP systolic 106–152; BP diastolic 50–92; PULSE 81–108; RESP 26–40; TEMP 36.6–38.4; O2SAT 88–98; BMI 18.7; BMI 17.3
--- NOTE | 2025-05-14 08:10 | PC.NURSE ---
Patient to er via ems from [facility] with c/o wheezing, resp. distress, neb. tx en route, patient 02 sats 88% on oxy mask at 15l, RT and Dr. Gee called to bedside, new orders received.
--- NOTE | 2025-05-14 08:18 | XR_ITS ---
Examination: AP chest single view Technique one AP portable semiupright chest single view Date and time: May 14, 2025, 0856 hours, comparison April 30, 2025 INDICATIONS: Fever shortness of breath today, sepsis alert FINDINGS: Suspicious for early right base pneumonia Mild elevation right hemidiaphragm Normal heart size IMPRESSION: Suspicious for early right base pneumonia
--- NOTE | 2025-05-14 08:18 | EKG_ITS ---
[facility] (Formerly [facility]) Test Date: 2025-05-14 Pat Name: DEEPA MILES Department: Room: - Gender: Male Life Cycle Assessment Analyst: : 1950 Requested By: Rachel Michel Order Number: [id number] Reading MD: Rachel Michel Measurements Intervals [place] Rate: 96 P: 73 SD: 111 QRS: 75 QRSD: 87 T: 64 QT: 349 QTc: 442 Interpretive Statements SINUS RHYTHM WITH SHORT SD INTERVAL MODERATE ST DEPRESSION [0.05+ mV ST DEPRESSION] Compared to ECG 04/25/2025 11:10:20 Short SD interval now present ST (T wave) deviation now present /store/S0/[id number]/ecg/[id number].pdf
[2025-05-14] MEDS: ALBUTEROL RT 2.5 MG/0.5 ML NEBU 10 MG INH (08:27)
[2025-05-14] MEDS: IPRATROPIUM RT 0.5 MG/ 2.5 ML NEBU 1 MG INH (08:28)
[2025-05-14] MEDS: MethylPREDNISolone SOD SUCC 62.5 MG/ML 2ML VIAL 125 MG IVP (08:31)
[2025-05-14] MEDS: cefTRIAXone/D5w 1gm IV premix 1 GM/50 ML BAG IV (08:33)
[2025-05-14 08:45] LABS: Lactate (Lactic Acid) 2.9 mMol/L (0.4-2.0)
[2025-05-14 08:50] LABS: Basophils # (Auto) 0.1 Thou/mm3 (0.0-0.2); Basophils % (Auto) 0 % (0-2.5); Eosinophils # (Auto) 0.0 Thou/mm3 (0.0-0.5); Eosinophils % (Auto) 0 % (0-10); Hematocrit 45.4 % (41.0-53.0); Hemoglobin 13.2 g/dL (13.5-16.0); Immature Granulocytes Auto 0.09 Thou/mm3 (0.00-0.00); Lymphocytes # (Auto) 0.8 Thou/mm3 (1.0-4.8); Lymphocytes % (Auto) 4 % (10-50); Mean Corpuscular HGB Conc 29.1 g/dl (31.0-37.0); Mean Corpuscular Hemoglobin 28.4 pg (25.0-35.0); Mean Corpuscular Volume 98 fL (80-100); Monocytes # (Auto) 1.3 Thou/mm3 (0.0-0.8); Monocytes % (Auto) 7 % (0-12); Neutrophils # (Auto) 16.1 Thou/mm3 (1.8-7.7); Neutrophils % (Auto) 88 % (37-80); Nucleated Red Blood Cell # 0.02 Thou/mm3 (0.00-0.00); Nucleated Red Blood Cell % 0 /100 WBC (0); Platelet Count 370 Thou/mm3 (140-440); RDW Standard Deviation 54.7 fL (35.1-43.9); Red Blood Count 4.65 Miln/mm3 (4.50-5.90); White Blood Count 18.4 Thou/mm3 (3.8-10.6)
--- NOTE | 2025-05-14 08:51 | PC.NURSE ---
Patient 02 sats 83%, good waveform, Dr. Gee made aware, called RT to place patient on high flow 02
[2025-05-14] MEDS: RINGERS LACTATED 500 ML 500 ML IV (08:56)
[2025-05-14 09:03] LABS: INR 1.3 (0.9-1.3); Partial Thromboplastin Time 22.2 Seconds (22.0-36.0); Prothrombin Time 14.0 Seconds (9.0-12.2)
--- NOTE | 2025-05-14 09:08 | PC.NURSE ---
Patient noted to have sutures to right hip, wound well approximated, dressing clean and dry.
[2025-05-14 09:22] LABS: B-Type Natriuretic Peptide 71 pg/mL (0-100)
[2025-05-14 09:33] LABS: Collection Type, Urine Catheter
[2025-05-14] MEDS: ACETAMINOPHEN IVPB 1,000 MG/100 ML VIAL 250 MG IV (09:37)
[2025-05-14 09:45] LABS: Bilirubin,Urine Negative (Negative); Blood,Urine Negative (Negative); Clarity,Urine Clear (Clear/Hazy); Color,Urine Yellow (Lt Yel-Yel); Glucose, Urine Negative (Negative); Ketones,Urine 1+ (Negative); Leukocyte Esterase,Urine Negative (Negative); Nitrite,Urine Negative (Negative); PH,Urine 5.5 (5.0-7.0); Protein,Urine 1+ (Neg - Trace); RBC,Urine 1 /hpf (0-3); Specific Gravity,Urine 1.032 (1.001-1.035); Squamous Epithelial Cell,Urine < 1 /hpf (0-5); Urobilinogen,Urine 3.0 mg/dL (0.0-1.0); WBC,Urine 2 /hpf (0-5)
[2025-05-14 09:58] LABS: Alanine Aminotransferase 67 U/L (10-49); Albumin, Serum 4.4 gm/dL (3.4-4.8); Albumin/Globulin Ratio 1.4 (1.2-2.2); Alkaline Phosphatase 118 U/L (46-116); Anion Gap 18 (7-16); Aspartate Amino Transferase 43 U/L (0-34); BUN/Creatinine Ratio 21 Ratio (12-20); Bilirubin,Total 0.4 mg/dL (0.3-1.2); Blood Urea Nitrogen 50 mg/dL (9-23); Calcium 9.7 mg/dL (8.3-10.6); Calcium (Corrected) 9.7 mg/dL (8.5-10.1); Carbon Dioxide 26.6 mMol/L (20.0-31.0); Chloride 134 mMol/L (98-107); Creatinine (Component) 2.4 mg/dL (0.6-1.3); Estimated Creatinine Clearance 22.0 mL/min (>60); Globulin 3.2 gm/dL (2.3-3.5); Glucose 137 mg/dL (74-106); Osmolality,Calculated 367 (275-295); Potassium 4.1 mMol/L (3.4-5.1); Procalcitonin 0.39 ng/ml (0.0-0.49); Total Protein 7.6 gm/dL (5.7-8.2); Troponin I 0.045 ng/mL (0.0-0.045); eGFR 28 See Note
[2025-05-14 10:04] LABS: Sodium 179 mMol/L (136-145)
[2025-05-14 10:17] LABS: Influenza A Ag Negative; Influenza B Ag Negative
--- NOTE | 2025-05-14 10:34 | PD.EDSOB ---
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 Per medics, DC staff reported this morning patient was saturating 82% on room air, placed on oxygen, and given nebulizer treatment. No improvement reported prompting call to 911. On their arrival, patient was found saturating 86% on NRB mask with bilateral rhonchi on auscultation. State they increased o2 rate to 15L and given an Albuterol breathing treatment. Related Data Home Medications ?Medication ?Instructions ?Recorded ?Confirmed docusate sodium 250 mg capsule 1 tab PO QDAY ##0 10/27/14 05/15/25 omeprazole 20 mg capsule,delayed 20 mg PO QDAY ##0 10/27/14 05/15/25 release (Prilosec) cetirizine 10 mg tablet 10 mg PO QDAY 09/11/22 05/15/25 montelukast 10 mg tablet 10 mg PO HS 09/11/22 05/15/25 propranolol 40 mg tablet 40 mg PO BID 09/11/22 05/15/25 calcium 600 mg (as 1 tab PO QDAY 02/28/24 05/15/25 carbonate)-vitamin D3 10 mcg (400 unit) tablet escitalopram oxalate 10 mg tablet 10 mg PO DAILY 02/28/24 05/15/25 tamsulosin 0.4 mg capsule 0.4 mg PO QHS 05/12/24 05/15/25 amlodipine 5 mg tablet 5 mg PO DAILY 03/09/25 05/15/25 ibuprofen 400 mg tablet 400 mg PO Q12H 03/09/25 05/15/25 levothyroxine 50 mcg tablet 50 mcg PO DAILY 03/09/25 05/15/25 ferrous sulfate 325 mg (65 mg 325 mg PO DAILY 04/25/25 05/15/25 iron) tablet (FeroSul) bisacodyl 10 mg rectal suppository [address] QDAY PRN constipation 05/15/25 05/15/25 (Dulcolax (bisacodyl)) magnesium hydroxide 400 mg/5 mL 30 ml PO .q 72 PRN constipation 05/15/25 05/15/25 oral suspension (Milk of Magnesia) sodium phosphates 19 gram-[address] QDAY PRN constipation 05/15/25 05/15/25 gram/118 mL enema (Fleet Enema) valbenazine 80 mg capsule 80 mg PO QDAY 05/15/25 05/15/25 (Ingrezza) Previous Rx's ?Medication ?Instructions ?Recorded aspirin 81 mg capsule 81 mg PO QDAY #30 caps 02/29/24 albuterol sulfate 90 mcg/actuation 2 puff inhalation Q6H PRN 03/04/25 aerosol inhaler shortness of breath or wheezing #8.5 grams acetaminophen 325 mg tablet 325 mg PO QID PRN fever or pain 04/06/25 (Tylenol) #30 tabs cephalexin 500 mg capsule 1,000 mg (2 x 500 mg) PO TID #30 04/29/25 caps Allergies Allergy/AdvReac Type Severity Reaction Status Date / Time No Known Drug Allergies Allergy Verified 05/04/25 13:59 Review of Systems Review of Systems ROS Unobtainable: unobtainable due to medical condition Past Medical History Past Medical History NEUROLOGIC: Positive Neurological Disorders, Parkinson's Disease and Traumatic Brain Injury CARDIAC: Positive Hypertension RESPIRATORY: Positive Asthma GASTROINTESTINAL: Positive Gastrointestinal Disorders and Gastroesophageal Reflux Disease GENITOURINARY: Positive Genitourinary Disorders MUSCULOSKELETAL: Positive Musculoskeletal Disorders, Osteoporosis and Fractures ENT: Positive Cataracts ENDOCRINE: Positive Hypothyroidism HEMATOLOGIC: Positive Blood Disorders and Anemia PSYCHO/SOCIAL: Positive Depression Social History SMOKING STATUS: Never smoker ED Exam General Limitations: Present no limitations General appearance: Present other (Chronically ill appearing with acute decompensation, tachypneic, ) Head Head exam: Present atraumatic, normocephalic and normal inspection Eye Eye exam: Present normal appearance, PERRL and EOMI ENT ENT exam: Present normal exam, normal oropharynx and mucous membranes moist Neck Neck exam: Present normal inspection, full ROM and trachea midline Chest Chest inspection: Present normal inspection and symmetric chest wall rise Respiratory Respiratory exam: Present other (diminished breath sounds worse on the left) Cardiovascular Cardiovascular exam: Present normal rhythm, tachycardia and normal heart sounds Abdominal Exam Abdominal exam: Present soft and normal bowel sounds; Absent distention, tenderness or guarding Extremities Exam Extremities exam: Present other (contracture all 4 extremities) Neurological Exam Neurological exam: Present other (Nonverbal, contracture of all 4 extremities ) Skin Skin exam: Present warm, intact and normal color Course Quality Measures Current suspected stage: sepsis Possible source: pulmonary Blood cultures ordered: completed in ED Antibiotic ordered: Yes Pertinent labs: 05/14/25 05/14/25 08:20 12:24 Lactic Acid 2.9 H mMol/L 2.4 H mMol/L (0.4-2.0) (0.4-2.0) Procalcitonin 0.39 ng/ml (0.0-0.49) sepsis Orders Category Date Time Status Bedside Blood Glucose NOW Care 05/14/25 08:18 Completed Bedside COVID-19 Antigen Test NOW Care 05/14/25 08:19 Completed Secretary Administrative Assistant Q4H START 00 Care 05/14/25 08:18 Completed In and Out Catheter X1 Care 05/14/25 09:05 Completed Insert IV NOW Care 05/14/25 08:18 Completed Strict Intake and Output Routine Care 05/14/25 08:18 Ordered Urinary Catheter QS Care 05/14/25 11:58 Completed Consult to Nephrology Stat Cons 05/14/25 10:55 Ordered XR chest 1V SEPSIS PROTOCOL Stat Exams 05/14/25 08:18 Completed ABG [Arterial Blood Gas] Stat Lab 05/14/25 13:50 Completed BNP [B-Type Natriuretic Peptide] Stat Lab 05/14/25 08:10 Completed Blood Culture (Lab) Stat Lab 05/14/25 08:20 Completed CBC Stat Lab 05/14/25 08:20 Completed Comprehensive Metabolic Panel Stat Lab 05/14/25 08:20 Completed Influenza A & B Rapid Panel Stat Lab 05/14/25 09:09 Completed Lactate (Lactic Acid) Stat Lab 05/14/25 08:20 Completed Lactic Acid, 3 HR Stat Lab 05/14/25 12:24 Completed Partial Thromboplastin Time Stat Lab 05/14/25 08:20 Completed Procalcitonin Stat Lab 05/14/25 08:20 Completed Prothrombin Time with INR Stat Lab 05/14/25 08:20 Completed Troponin I Stat Lab 05/14/25 08:20 Completed Urinalysis Stat Lab 05/14/25 09:08 Completed Urine Culture Stat Lab 05/14/25 09:08 Completed ALBUTEROL RT 0.5ml [Proventil Rt 0.5ml] Med 05/14/25 08:16 Discontinued 10 mg .ROUTE .STK-MED ONE ALBUTEROL RT 0.5ml [Proventil Rt 0.5ml] Med 05/14/25 08:15 Discontinued 10 mg INH X1 ONE Acetaminophen Ivpb [Ofirmev Inj] Med 05/14/25 09:33 Discontinued 1,000 mg in 100 ml IV X1 Azithromycin Inj [Zithromax Inj] 500 mg Med 05/15/25 09:00 Discontinued Sodium Chloride 0.9% 250 ml [Ns] 250 ml IV QDAY Azithromycin Inj [Zithromax Inj] 500 mg Med 05/14/25 11:00 Discontinued Sodium Chloride 0.9% 250 ml [Ns] 250 ml IV X1 Ipratropium [place] Rt [place] [Atrovent Rt [place] Nena] Med 05/14/25 08:16 Discontinued 1 mg .ROUTE .STK-MED ONE Ipratropium [place] Rt [place] [Atrovent Rt [place] Nena] Med 05/14/25 08:15 Discontinued 1 mg INH X1 ONE Magnesium Sulfate 1 gm Ivpb [Magnesium Sulfate Ivpb] Med 05/14/25 08:17 Discontinued 1 gm in 100 ml IV X1 MethylPREDNISolone.* [SoluMEDROL Inj] Med 05/14/25 08:15 Discontinued 125 mg IVP X1 ONE Ringers Lactated 1000 ml [Lactated Ringers] 1,000 ml Med 05/14/25 08:54 Discontinued IV 999 mls/hr Ringers Lactated 500 ml [Lactated Ringers] 500 ml Med 05/14/25 08:17 Discontinued IV 500 mls/hr Sodium Chloride 0.45 % [Ns 0.45%] 1,000 ml Med 05/14/25 10:56 Discontinued IV 100 mls/hr cefTRIAXone/D5w 1gm IV premix [Rocephin/D5w 1gm IV Med 05/14/25 08:17 Discontinued premix] 1 gm in 50 ml IV STAT EKG (RT) Stat RT 05/14/25 08:18 Draft Oxygen Delivery NOW RT 05/14/25 08:18 Completed Oxygen Delivery PRN RT 05/14/25 09:00 Completed Transfer Order Routine Transfer 05/14/25 13:39 Completed Vital Signs Vital signs: Vital Signs Temperature 101.1 F H 05/14/25 08:18 Pulse Rate 108 H 05/14/25 08:18 Respiratory Rate 40 H 05/14/25 08:18 Blood Pressure 129/84 05/14/25 08:18 Pulse Oximetry (%) 92 L 05/14/25 08:18 Oxygen Delivery Method Oxy Mask 05/14/25 08:18 Oxygen Flow Rate 15 05/14/25 08:18 Shortness of Breath / Dyspnea MDM Narrative MDM Narrative:: Patient is a 75-year-old male with medical history notable for Parkinson's disease, developmental delay secondary to anoxic brain injury, BPH, GERD, hypertension, chronically bedbound, nonverbal that is coming in brought in by EMS with concerns for shortness of breath. Vital signs and exam as listed. Concern for pneumonia, asthma exacerbation, CHF exacerbation ACS among others. Patient was placed in resuscitation room, IV access obtained. Ordered sepsis order set given patient tachycardic, febrile and tachypneic. Provided patient with broad-spectrum antibiotics, gentle fluids, breathing treatment and steroids. Workup notable for white blood cells 18.4, left shift of 88%, sodium of 179, chloride 134 potassium normal. Patient has an anion gap of 18 normal bicarb. BUN 50, creatinine 2.4. GFR is 28. Previous GFR on April 30 was normal. Lactic acid is 2.9. Patient with a transaminitis AST 43, ALT 67, alk phos is 118, T. bili normal. Troponin is 0.045, BNP 71 procalcitonin 0.39. Urinalysis without evidence of infection COVID flu negative. Patient with pneumonia. Antibiotics provided. EKG performed today at 8:27 AM notable for sinus rhythm, short CT, normal QT, nonspecific T wave changes, not a cardiac alert. Patient is in acute renal failure, has pneumonia. Consulted on-call drug abuse resistance education officer patient is dehydrated. Recommends that we start the patient on half-normal saline at 100 cc/h. 10:56 called rn field case manager, accepted patient for admission. Patient presented meeting sepsis criteria, fluids and abx provided. On reassessment, patient neuro exam unchanged. Oxygen saturation improved with supplemental oxygen. Abdominal exam unchaged. Patient data External records reviewed:: [facility] previous records and Long-Term records Clinical information provided by:: EMS Social determinants that could affect healthcare access:: mental health Patient has the following chronic illnesses:: See MDM How is presenting disease/condition affected by chronic disease/condition?: exacerbated by Evaluation data The following diagnostics were reviewed and interpreted by me:: lab results, radiology exam(s) and EKG tracing(s) Lab and/or radiology exams considered but not ordered:: None Interpretation Summary: See MDM Medications / Prescriptions Medications or Prescriptions considered but not ordered:: None Medication administrations:: Medication Administration History Discontinued Medications Acetaminophen (Acetaminophen 325 Mg Tablet) 650 mg PO Q4HR PRN PRN Reason: PAIN SCALE 1-3 (mild Stop: 06/13/25 13:39 Acetaminophen (Acetaminophen Supp 650 Mg Supp) [address] Q4HR PRN PRN Reason: PAIN SCALE 1-3 (mild Stop: 06/13/25 13:39 Al Hydrox/Mg Hydrox/Simethicone (Mg Hyd/Al Hyd/James (Maalox Reg) Susp 30 Ml Udc) 30 ml PO Q4HR PRN PRN Reason: Heartburn or Upset Stomach Stop: 06/13/25 13:39 Albuterol (Albuterol Rt 2.5 Mg/0.5 Ml Nebu) 10 mg INH X1 ONE Stop: 05/14/25 08:16 Last Admin: 05/14/25 08:27 Dose: 10 mg Documented By: FEDE Albuterol (Albuterol Rt 2.5 Mg/0.5 Ml Nebu) Confirm Administered Dose 10 mg .ROUTE .STK-MED ONE Stop: 05/14/25 08:17 Last Admin: 05/14/25 09:04 Dose: Not Given Documented By: FEDE Non-Admin Reason: Duplicate Medication on eMAR Artificial Tears (Artificial Tears 225 Drop/15 Ml Btl) 1 drop BOTH EYES Q4HR PRN PRN Reason: Dry eyes Stop: 06/18/25 13:05 Azithromycin (Azithromycin Inj 500 Mg Vial) Confirm Administered Dose 500 mg IV .STK-MED ONE Stop: 05/15/25 09:06 Last Admin: 05/15/25 11:15 Dose: Not Given Documented By: MARYA Non-Admin Reason: Other, see note Diphenhydramine HCl (Diphenhydramine Inj 50 Mg/Ml Vial) 6.25 mg IVP X1 ONE Stop: 05/17/25 14:18 Last Admin: 05/17/25 14:29 Dose: 6.25 mg Documented By: DAVIDSON Furosemide (Furosemide Inj 10 Mg/Ml 4ml Vial) 20 mg IVP X1 ONE Stop: 05/17/25 13:22 Last Admin: 05/17/25 13:37 Dose: 20 mg Documented By: DAVIDSON Guaifenesin (Guaifenesin Syrup 200 Mg/10 Ml Udc) 100 mg PO TID ROSE MARIE; Protocol Stop: 06/17/25 07:29 Last Admin: 05/19/25 05:23 Dose: 100 mg Documented By: Admin: 05/18/25 21:07 Dose: 100 mg Documented By: Admin: 05/18/25 13:07 Dose: 100 mg Documented By: Admin: 05/18/25 08:10 Dose: 100 mg Documented By: CRESCENCIO Heparin Sodium (Porcine) (Heparin Sod Inj 5000 Unit/Ml Vial) 5,000 unit SC Q8HR [place] Stop: 05/28/25 13:59 Last Admin: 05/19/25 05:23 Dose: 5,000 unit Documented By: BOB Co-signed By: SS Admin: 05/18/25 21:07 Dose: 5,000 unit Documented By: BOB Co-signed By: LEIGHANN Admin: 05/18/25 13:07 Dose: 5,000 unit Documented By: CRESCENCIO Co-signed By: JARVIS Admin: 05/18/25 05:40 Dose: 5,000 unit Documented By: BOB Co-signed By: Admin: 05/17/25 21:27 Dose: 5,000 unit Documented By: BOB Co-signed By: JANET Admin: 05/17/25 13:37 Dose: 5,000 unit Documented By: DAVIDSON Co-signed By: GIULIANA Admin: 05/17/25 05:26 Dose: 5,000 unit Documented By: Co-signed By: ANEUDY Admin: 05/16/25 22:07 Dose: 5,000 unit Documented By: Co-signed By: RAJ Admin: 05/16/25 15:03 Dose: 5,000 unit Documented By: TC Co-signed By: fede Admin: 05/16/25 05:35 Dose: 5,000 unit Documented By: NAM Co-signed By: TAHIR Admin: 05/15/25 21:01 Dose: 5,000 unit Documented By: NAM Co-signed By: Admin: 05/15/25 15:23 Dose: 5,000 unit Documented By: KELVIN Co-signed By: fede Admin: 05/15/25 07:13 Dose: 5,000 unit Documented By: NAM Co-signed By: JULISA Admin: 05/14/25 22:18 Dose: 5,000 unit Documented By: NAM Co-signed By: RAJ Admin: 05/14/25 14:11 Dose: 5,000 unit Documented By: KAREEM Co-signed By: ANTONI Magnesium Sulfate/Dextrose (Magnesium Sulfate Ivpb) 1 gm in 100 mls @ 100 mls/hr IV X1 ONE Stop: 05/14/25 09:16 Last Infusion: 05/14/25 09:35 Dose: Infused Documented By: Admin: 05/14/25 08:33 Dose: 100 mls/hr Documented By: ANTHONY Ceftriaxone Sodium/Dextrose (Rocephin/D5w 1gm Iv Premix) 1 gm in 50 mls @ 100 mls/hr IV STAT STA Stop: 05/14/25 08:46 Last Infusion: 05/14/25 09:03 Dose: Infused Documented By: Admin: 05/14/25 08:33 Dose: 100 mls/hr Documented By: ANTHONY Lactated Ringer's (Lactated Ringers) 500 mls @ 500 mls/hr IV .Q1H ONE Stop: 05/14/25 09:16 Last Infusion: 05/14/25 10:00 Dose: Infused Documented By: Admin: 05/14/25 08:56 Dose: 500 mls/hr Documented By: ANTHONY Lactated Ringer's (Lactated Ringers) 1,000 mls @ 999 mls/hr IV .Q1H1M ONE Stop: 05/14/25 09:54 Last Admin: 05/14/25 08:57 Dose: Not Given Documented By: ANTHONY Non-Admin Reason: Cancelled by Provider Acetaminophen (Ofirmev Inj) 1,000 mg in 100 mls @ 250 mls/hr IV X1 ONE Stop: 05/14/25 09:56 Last Infusion: 05/14/25 10:11 Dose: Infused Documented By: Admin: 05/14/25 09:37 Dose: 250 mls/hr Documented By: ANTHONY Azithromycin 500 mg/ Sodium (Chloride) 250 mls @ 250 mls/hr IV QDAY [place] Stop: 05/22/25 08:59 Last Admin: 05/16/25 09:30 Dose: 250 mls/hr Documented By: Infusion: 05/15/25 10:09 Dose: Infused Documented By: Admin: 05/15/25 09:09 Dose: 250 mls/hr Documented By: MARYA Sodium Chloride (Ns 0.45%) 1,000 mls @ 100 mls/hr IV .Q10H ONE Stop: 05/14/25 20:55 Last Infusion: 05/14/25 14:14 Dose: 0 mls/hr Documented By: Admin: 05/14/25 11:53 Dose: 100 mls/hr Documented By: ANTHONY Azithromycin 500 mg/ Sodium (Chloride) 250 mls @ 250 mls/hr IV X1 ONE Stop: 05/14/25 11:59 Last Infusion: 05/14/25 14:13 Dose: Infused Documented By: Admin: 05/14/25 11:53 Dose: 250 mls/hr Documented By: ANTHONY Ceftriaxone Sodium/Dextrose (Rocephin/D5w 1gm Iv Premix) 1 gm in 50 mls @ 100 mls/hr IV QDAY [place] Stop: 05/22/25 08:59 Last Admin: 05/16/25 09:30 Dose: 100 mls/hr Documented By: Infusion: 05/15/25 09:39 Dose: Infused Documented By: Admin: 05/15/25 09:09 Dose: 100 mls/hr Documented By: MARYA Sodium Chloride (Ns 0.45%) 1,000 mls @ 150 mls/hr IV .Q6H40M [facility] Stop: 06/13/25 14:07 Last Infusion: 05/15/25 01:00 Dose: Infused Documented By: Infusion: 05/15/25 00:00 Dose: Infused Documented By: Infusion: 05/14/25 23:00 Dose: 75 mls/hr Documented By: Infusion: 05/14/25 22:00 Dose: 75 mls/hr Documented By: Infusion: 05/14/25 21:00 Dose: 75 mls/hr Documented By: Infusion: 05/14/25 20:00 Dose: 75 mls/hr Documented By: Infusion: 05/14/25 19:00 Dose: 75 mls/hr Documented By: Infusion: 05/14/25 18:00 Dose: 75 mls/hr Documented By: fede Admin: 05/14/25 14:13 Dose: 150 mls/hr Documented By: KAREEM Sodium Chloride (Ns 0.45%) 1,000 mls @ 75 mls/hr IV .[id number] [place] Stop: 06/13/25 19:32 Last Infusion: 05/15/25 05:40 Dose: 0 mls/hr Documented By: Admin: 05/15/25 05:37 Dose: 75 mls/hr Documented By: NAM Potassium Acetate 60 meq/ (Sodium Chloride) 1,030 mls @ 100 mls/hr IV X1 ONE Stop: 05/15/25 20:02 Last Infusion: 05/15/25 20:00 Dose: 100 mls/hr Documented By: Infusion: 05/15/25 19:00 Dose: 100 mls/hr Documented By: Infusion: 05/15/25 18:00 Dose: 100 mls/hr Documented By: Admin: 05/15/25 10:50 Dose: 100 mls/hr Documented By: KELVIN Dextrose (D5w) 1,000 mls @ 150 mls/hr IV .Q6H40M ONE Stop: 05/15/25 23:10 Last Admin: 05/15/25 17:59 Dose: Not Given Documented By: MARYA Non-Admin Reason: Cancelled by Provider Dextrose (D5w) 1,000 mls @ 70 mls/hr IV .[id number] ONE Stop: 05/16/25 06:48 Last Infusion: 05/15/25 20:00 Dose: 70 mls/hr Documented By: Infusion: 05/15/25 19:00 Dose: 70 mls/hr Documented By: Infusion: 05/15/25 18:00 Dose: 70 mls/hr Documented By: Admin: 05/15/25 17:13 Dose: 70 mls/hr Documented By: DA Dextrose (D5w) 1,000 mls @ 70 mls/hr IV .[id number] [facility] [facility] Stop: 06/15/25 01:29 Last Admin: 05/16/25 02:13 Dose: 70 mls/hr Documented By: NAM Dextrose (D5w) 1,000 mls @ 100 mls/hr IV .Q10H [place] Stop: 06/15/25 08:42 Last Admin: 05/16/25 11:05 Dose: 100 mls/hr Documented By: Infusion: 05/16/25 11:05 Dose: Infused Documented By: Admin: 05/16/25 09:31 Dose: 100 mls/hr Documented By: TC Dextrose (D5w) 1,000 mls @ 125 mls/hr IV .Q8H [place] Stop: 06/15/25 12:27 Last Admin: 05/16/25 12:40 Dose: Not Given Documented By: TC Non-Admin Reason: continuing d5W bag increased rate to 125ml/hr Dextrose (D5w) 1,000 mls @ 100 mls/hr IV .Q10H [place] Stop: 06/15/25 13:13 Last Infusion: 05/17/25 23:09 Dose: Infused Documented By: Admin: 05/17/25 00:12 Dose: 100 mls/hr Documented By: Infusion: 05/17/25 00:12 Dose: Infused Documented By: Admin: 05/16/25 15:04 Dose: 100 mls/hr Documented By: TC Ampicillin Sodium/Sulbactam (Sodium 1.5 gm/ Sodium Chloride) 50 mls @ 100 mls/hr IV Q12HR [facility]; Protocol Stop: 05/23/25 17:59 Last Admin: 05/19/25 08:35 Dose: 100 mls/hr Documented By: Infusion: 05/18/25 22:30 Dose: Infused Documented By: Admin: 05/18/25 20:30 Dose: 100 mls/hr Documented By: Infusion: 05/18/25 19:31 Dose: Infused Documented By: Admin: 05/18/25 08:09 Dose: 100 mls/hr Documented By: Infusion: 05/17/25 23:08 Dose: Infused Documented By: Admin: 05/17/25 20:37 Dose: 100 mls/hr Documented By: Infusion: 05/17/25 09:41 Dose: Infused Documented By: Admin: 05/17/25 09:11 Dose: 100 mls/hr Documented By: Infusion: 05/16/25 18:07 Dose: Infused Documented By: Admin: 05/16/25 17:37 Dose: 100 mls/hr Documented By: TC Dextrose (D5w) 1,000 mls @ 150 mls/hr IV .Q6H40M [place] Stop: 06/16/25 01:30 Last Infusion: 05/17/25 19:00 Dose: Infused Documented By: Admin: 05/17/25 07:50 Dose: 150 mls/hr Documented By: Infusion: 05/17/25 07:50 Dose: Infused Documented By: Admin: 05/17/25 01:36 Dose: 150 mls/hr Documented By: Potassium Phosphate 22.5 mmol/ (Sodium Chloride) 507.5 mls @ 82.778 mls/hr IV X1 ONE Stop: 05/17/25 13:35 Last Infusion: 05/17/25 23:09 Dose: Infused Documented By: Admin: 05/17/25 07:49 Dose: 82.778 mls/hr Documented By: DAVIDSON Sodium Chloride (Ns) 500 mls @ 60 mls/hr IV .Q8H20M ONE Stop: 05/17/25 18:23 Last Admin: 05/17/25 11:39 Dose: Not Given Documented By: DAVIDSON Non-Admin Reason: Discontinued Dextrose (D5w) 1,000 mls @ 75 mls/hr IV .[id number] [facility] [facility] Stop: 06/17/25 06:14 Last Infusion: 05/18/25 14:42 Dose: 0 mls/hr Documented By: Infusion: 05/18/25 09:45 Dose: 75 mls/hr Documented By: Infusion: 05/18/25 08:32 Dose: 0 mls/hr Documented By: Admin: 05/18/25 06:24 Dose: 75 mls/hr Documented By: BOB Dextrose (D5w) 1,000 mls @ 40 mls/hr IV .Q24H [place] [facility] Stop: 06/17/25 14:14 Last Infusion: 05/18/25 20:23 Dose: 0 mls/hr Documented By: Admin: 05/18/25 14:42 Dose: 40 mls/hr Documented By: CRESCENCIO Sodium Chloride 50 ml/ IV (Miscellaneous Supplies) 50 mls @ 30 mls/hr IV X1 ONE Stop: 05/19/25 09:47 Last Admin: 05/19/25 08:39 Dose: Not Given Documented By: WALTER Non-Admin Reason: Discontinued Dextrose/Sodium Chloride (D5-1/2ns) 1,000 mls @ 100 mls/hr IV .Q10H [place] [facility] Stop: 05/19/25 18:29 Last Admin: 05/19/25 08:36 Dose: 100 mls/hr Documented By: ISHAN Piperacillin Sod/Tazobactam (Sod 4.5 gm/ Sodium Chloride) 100 mls @ 200 mls/hr IV Q6HR [facility]; Protocol Stop: 05/26/25 10:04 Last Admin: 05/19/25 12:19 Dose: Not Given Documented By: ISHAN Non-Admin Reason: Per doctor Vitaliy at bedside do not give. Piperacillin/Tazobactam/Dextrose (Zosyn) 3.375 gm in 50 mls @ 100 mls/hr IV X1 ONE Stop: 05/19/25 10:59 Last Admin: 05/19/25 11:00 Dose: 100 mls/hr Documented By: ISHAN Piperacillin/Tazobactam/Dextrose (Zosyn) 3.375 gm in 50 mls @ 12.5 mls/hr IV Q8H [facility] [facility] Stop: 05/26/25 14:29 Morphine Sulfate (Morphine Sulfate Iv Drip 100mg/100ml) 100 mls @ 1 mls/hr IV .Q24H PRN; Protocol PRN Reason: PAIN (COMFORT CARE) Stop: 05/24/25 13:05 Last Titration: 05/19/25 22:30 Dose: 0 mg/hr, 0 mls/hr Documented By: ANNEMARIE Co-signed By: MLD Titration: 05/19/25 19:00 Dose: 5 mg/hr, 5 mls/hr Documented By: ISHAN Co-signed By: WALTER Titration: 05/19/25 18:00 Dose: 4 mg/hr, 4 mls/hr Documented By: ISHAN Co-signed By: WALTER Titration: 05/19/25 17:00 Dose: 3 mg/hr, 3 mls/hr Documented By: ISHAN Co-signed By: WALTER Titration: 05/19/25 16:00 Dose: 3 mg/hr, 3 mls/hr Documented By: WALTER Co-signed By: ISHAN Titration: 05/19/25 15:00 Dose: 2 mg/hr, 2 mls/hr Documented By: WALTER Co-signed By: WALTER Titration: 05/19/25 14:00 Dose: 1 mg/hr, 1 mls/hr Documented By: ISHAN Co-signed By: WALTER Admin: 05/19/25 13:51 Dose: 1 mg/hr, 1 mls/hr Documented By: WALTER Co-signed By: ISHAN Ipratropium [place] (Ipratropium Rt 0.5 Mg/ 2.5 Ml Nebu) 1 mg INH X1 ONE Stop: 05/14/25 08:16 Last Admin: 05/14/25 08:28 Dose: 1 mg Documented By: FEDE Ipratropium [place] (Ipratropium Rt 0.5 Mg/ 2.5 Ml Nebu) Confirm Administered Dose 1 mg .ROUTE .STK-MED ONE Stop: 05/14/25 08:17 Last Admin: 05/14/25 09:04 Dose: Not Given Documented By: FEDE Non-Admin Reason: Duplicate Medication on eMAR Levothyroxine Sodium (Levothyroxine Sodium 25 Mcg Tablet) 50 mcg PO ACBR [facility] Stop: 06/14/25 05:59 Last Admin: 05/17/25 05:33 Dose: Not Given Documented By: Non-Admin Reason: Unable to Swallow Admin: 05/16/25 05:35 Dose: 50 mcg Documented By: Admin: 05/15/25 06:08 Dose: Not Given Documented By: NAM Non-Admin Reason: Unable to Swallow Levothyroxine Sodium (Levothyroxine Inj 100 Mcg Vial) 35 mcg IV QDAY RO[facility]E Stop: 06/16/25 18:14 Last Admin: 05/19/25 08:34 Dose: 35 mcg Documented By: Admin: 05/18/25 08:12 Dose: 35 mcg Documented By: Admin: 05/17/25 18:25 Dose: 35 mcg Documented By: DAVIDSON Lidocaine (Lidocaine 5% 1 Patch) 1 patch TOP UD PRN; Protocol PRN Reason: PAIN Stop: 06/15/25 15:35 Magnesium Hydroxide (Milk Of Magnesia Susp 30 Ml Udc) 30 ml PO QDAY PRN PRN Reason: CONSTIPATION Stop: 06/13/25 13:39 Methylprednisolone Sodium Succinate (Methylprednisolone Sod Succ 62.5 Mg/Ml 2ml Vial) 125 mg IVP X1 ONE Stop: 05/14/25 08:16 Last Admin: 05/14/25 08:31 Dose: 125 mg Documented By: ANTHONY Nitroglycerin (Nitroglycerin 0.4 Mg Subl Btl #25) 0.4 mg SL Q5MIN PRN PRN Reason: CHEST PAIN Potassium Chloride (Potassium Chloride 10% 20 Meq/15 Ml Udc) 40 meq GT X1 ONE Stop: 05/15/25 07:42 Last Admin: 05/15/25 11:15 Dose: Not Given Documented By: MARYA Non-Admin Reason: NPO Potassium Chloride (Potassium Chloride 10% 20 Meq/15 Ml Udc) 20 meq GT X1 ONE Stop: 05/15/25 07:42 Last Admin: 05/15/25 11:15 Dose: Not Given Documented By: MARYA Non-Admin Reason: NPO Potassium Chloride (Potassium Chloride 10% 20 Meq/15 Ml Udc) 40 meq NG X1 ONE Stop: 05/18/25 07:28 Last Admin: 05/18/25 08:11 Dose: 40 meq Documented By: CRESCENCIO Scopolamine (Scopolamine 1 Mg Tdsy) 1 mg TOP Q3D ROSE MARIE Stop: 06/18/25 13:14 Last Admin: 05/19/25 13:53 Dose: 1 mg Documented By: WALTER See above Consultations Consultation(s) initiated? (list below): Yes Consultation #1 (Physician, Specialty, Details): See above Diagnosis Shortness of Breath Differential Diagnosis: other (See MDM) Most likely diagnosis given after review of the tests above:: Sepsis, pneumonia, hypernatremia, dehydration, acute renal failure Admission Indicated Admission indicated?: indicated Admission Request Was there a request for admission?: Yes Admission Attestation Admission request attestation: Discussed case with Hospitalist service regarding admission. Discussed patients ED course, exam findings, labs, and radiology results. The Hospitalist [agrees] to accept the patient for admission. Disposition Plan Disposition Plan: Admit Critical Care Time Critical Care Time Critical Care Time: Yes Total Critical Care Time (min.): 60 Attestation: ?I spent 60 minutes of critical care time with this patient not including reportable procedures. There was an acute impairment of an organ system with a high probability of imminent or life threatening deterioration in the patient's condition. Interventions and changes required in the course of therapy are located in the chart. Time involved was spent in direct patient care, reviewing ancillary data, old records, consulting with decision makers, EMS, other doctors, giving orders and documenting. Discharge Plan Plan Patient Disposition: Admit Acute Care w/in Hospital Discharge Disposition comment: ICU Problem List Clinical Impression: Sepsis, Pneumonia, Hypernatremia, Dehydration, Acute renal failure
--- NOTE | 2025-05-14 10:54 | PC.NURSE ---
Patient 02 sats maintaining at 97% on High flow at 40L and 80% 02. Patient brief changed, patient had smear of dark brown stool and soiled of urine. Clean dry bried applied, patient repositioned in [facility].
[2025-05-14 11:41] LABS: Reflex Lactate? Y
[2025-05-14] MEDS: SODIUM CHLORIDE 0.45 % 1,000 ML 100 ML IV (11:53)
[2025-05-14] MEDS: AZITHROMYCIN INJ 500 MG in SODIUM CHLORIDE 0.9% 250 ML 250 ML 250 MG IV (11:53)
--- NOTE | 2025-05-14 11:58 | PC.NURSE ---
Dr. Perdue at bedside to evaluate patient.
--- NOTE | 2025-05-14 12:39 | ESHP_ITS ---
<Statement entered by Emmanuel Taylor MD - 05/15/25 14:35> Patient's was nonverbal at the time of assessment and majority of history obtained from chart review. 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 Of note patient had a right hip replacement in August 2024 was improving with his ambulation but still walked with a limp. However in March 2025 patient developed infection of implant and needed a open washout and a course of antibiotics. Since then he was discharged to a SNF for rehab. Today workers at the SNF noticed patient to be in respiratory distress and called the ambulance. Upon admission to the ED , vitals were BP 126/85, pulse 108, RR 40, temp 101.1 F, SpO2 92% on HFNC at 15L per minute. Labs showed WBC 18.4, NA 179, chloride 134, osmolality 367, BUN 50, CR 2.4 lactic acid 2.9 AST 43, ALT 67, ALP 118. Chest x-ray showed right base hazy opacification. In the ED patient received DuoNebs x 1, Methylpred 125 mg IV x 1, magnesium sulfate 1 g IV x 1, ceftriaxone 1 g IV x 1, lactated Ringer's 500 cc IVF bolus and was started on 0.45% normal saline at 100 cc/h. Problem list: Acute metabolic encephalopathy secondary to hypernatremia Parkinson's disease Developmental delay Transaminitis SHIREEN?likely prerenal due to dehydration Lactic acidosis Likely chronic, symptomatic hyperosmoler hypernatremia Hyperchloremia Hypothyroidism Aspiration pneumonia Leukocytosis Patient was started on 0.45% normal saline IVF at 150 cc/h for correction of hypernatremia. His free water deficit is 8 L. We will aim for correction at a goal of no more than 8 mmol in 24 hours. Sodium checks Q4 hourly to monitor for overcorrection. Nephrology, Dr. Guillen consulted. Appreciate recommendations. With regards to patient's aspiration pneumonia, we will treat with ceftriaxone and azithromycin. Plan of care discussed with Attending Dr. Iron Taylor MD PGY 2 Disclaimer: This note was dictated by speech recognition. Minor errors in vulcanizer may be present due to voice recognition software. 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 Nguyen in February 2025 who was brought to the [facility] ED by EMS on 05/14/25 with concerns for shortness of breath. In the ED, vitals showed: BP 129/84 HR 108 RR 40 Temp 101.1 SpO2 92% on 15 L Oxygen Mask with FiO2 100% ED Course: CBC showed WBC 18.4 and hemoglobin 13.2. Coagulation panel showed PT 14.0, INR 1.3, and APTT 22.2. CMP showed sodium 179, potassium 4.1, chloride 134, bicarbonate 26.6, anion gap 18, BUN 50, creatinine 2.4 (baseline: 0.9), eGFR 28, calculated osmolality 367, lactic acid 2.9, AST 43, ALT 67, and procalcitonin 0.39. UA showed 1+ protein, 1+ ketones but was otherwise clean. Imagin/26 chest x-ray showed findings suspicious for early right base pneumonia and mild elevation of the right hemidiaphragm. 05/14 EKG showed sinus rhythm (HR 95) with short MD interval (111), moderate ST depression, and normal QT 349. In the ED, patient was started on albuterol, DuoNebs, ceftriaxone, IV Tylenol, and fluids. Patient was admitted for the work-up and management of severe hypoosmolar hypernatremia, acute respiratory failure, sepsis likely 2/2 pneumonia, SHIREEN, lactic acidosis w/ anion gap, and acute metabolic encephalopathy. Nephrology (Dr. Wadsworth) was consulted and is closely following the case. Review of Systems Review of Systems ROS Unobtainable: unobtainable due to mental status and unobtainable due to medical condition Exam Vital Signs Temp Pulse Resp BP Pulse Ox O2 Del Method O2 Flow Rate 99.5 F 92 35 H 126/85 H 97 High Flow Nasal Cannula 40 05/14/25 12:22 05/14/25 12:22 05/14/25 12:22 05/14/25 12:22 05/14/25 12:22 05/14/25 12:22 05/14/25 12:22 FiO2 80 05/14/25 12:22 Narrative Exam Physical Exam: General: Elderly, thin, and frail male in some distress. Alert, nonverbal. Head: Normocephalic, atraumatic. Eyes: L pupil much more dilated than R pupil but bilaterally reactive to light. Anicteric, vision grossly intact. Mouth/Throat: Oral mucosa dry. No obvious lesions in oropharynx. Mouth held open with rhythmic, lateral, translatory movement of lower jaw. Cardiovascular: Difficult to auscultate clearly but seemingly tachycardic rate and normal rhythm, no murmur, no JVD or carotid bruits. +S1/S2. Respiratory: On 40 L high-flow nasal cannula with FiO2 80%. Tachypneic, labored mouth-breathing. Bilateral anterior lung bills clear to auscultation. Decreased breath sounds in bilateral posterior lung bills with some mild crackles appreciated at R lung base. No accessory muscle use. Gastrointestinal: Soft, nontender, non-distended, no palpable masses. No guarding or rebound tenderness. Hypoactive bowel sounds. Extremities: Resting tremors of bilateral hands and forearms but more pronounced on R side. Healing, linear surgical wound at R lateral hip w/o erythema, warmth, or oozing (sutures in place). Mottling noted of bilateral knees. Symmetrical, no significant deformities. No edema, no cyanosis, no clubbing. 1+ radial pulse bilaterally, 1+ posterior tibial pulse bilaterally. Results: Labs 05/15/25 04:52 05/15/25 12:30 Labs: Short CBC 05/14/25 Range/Units 08:20 WBC 18.4 H (3.8-10.6) Thou/mm3 Hgb 13.2 L (13.5-16.0) g/dL Hct 45.4 (41.0-53.0) % Plt Count 370 D (140-440) Thou/mm3 BMP 05/14/25 08:20 Sodium 179 H* Potassium 4.1 Chloride 134 H* Carbon Dioxide 26.6 BUN 50 H Creatinine 2.4 H Glucose 137 H Calcium 9.7 Cardiac Enzymes 05/14/25 Range/Units 08:20 Troponin I 0.045 (0.0-0.045) ng/mL Liver Function 05/14/25 Range/Units 08:20 Total Bilirubin 0.4 (0.3-1.2) mg/dL AST 43 H (0-34) U/L ALT 67 H (10-49) U/L Alkaline Phosphatase 118 H (46-116) U/L Albumin 4.4 (3.4-4.8) gm/dL Urine 05/14/25 Range/Units 09:08 Urine Color Yellow (Lt Yel-Yel) Urine Clarity Clear (Clear/Hazy) Urine pH 5.5 (5.0-7.0) Ur Specific [place] 1.032 (1.001-1.035) Urine Protein 1+ A (Neg - Trace) Urine Glucose (UA) Negative (Negative) Quality Measures Quality Measures sepsis Current suspected stage: sepsis Possible source: pulmonary Blood cultures ordered: completed in ED Antibiotic ordered: Yes Advance care planning discussed with:: patient Medications Home Medications and Allergies Home Medications ?Medication ?Instructions ?Recorded ?Confirmed ?Type docusate sodium 250 mg capsule 1 tab PO QDAY ##0 10/2705/04/25 History omeprazole 20 mg capsule,delayed 20 mg PO QDAY ##0 07/0305/04/25 History release (Prilosec) cetirizine 10 mg tablet 10 mg PO QDAY 09/11/2205/04 History montelukast 10 mg tablet 10 mg PO HS 09/11/22 5 History propranolol 40 mg tablet 40 mg PO BID 09/11/22 History valbenazine 80 mg capsule 80 mg PO QDAY 09/11/2205/04 History (Ingrezza) calcium 600 mg (as 1 tab PO HS 02/28/24 5 History carbonate)-vitamin D3 10 mcg (400 unit) tablet escitalopram oxalate 10 mg tablet 10 mg PO DAILY 02/2705/04/25 History tamsulosin 0.4 mg capsule 0.4 mg PO QHS 05/12/2405/04 History amlodipine 5 mg tablet 5 mg PO DAILY 03/09/2505/04 History ibuprofen 400 mg tablet 400 mg PO Q12H 03/09/2504/19 History levothyroxine 50 mcg tablet 50 mcg PO DAILY 03/09/25 0 05/04/25 History ferrous sulfate 325 mg (65 mg 325 mg PO DAILY 04/25/25 05/04/25 History iron) tablet (FeroSul) Allergies Allergy/AdvReac Type Severity Reaction Status Date / Time No Known Drug Allergies Allergy Verified 05/04/25 13:59 Visit Medications Azithromycin 500 mg/ Sodium (Chloride) 250 mls @ 250 mls/hr IV QDAY ROSE MARIE Stop: 05/21/25 10:54 Sodium Chloride (Ns 0.45%) 1,000 mls @ 100 mls/hr IV .Q10H ONE Stop: 05/14/25 20:55 Last Admin: 05/14/25 11:53 Dose: 100 mls/hr Discontinued Medications Albuterol (Albuterol Rt 2.5 Mg/0.5 Ml Nebu) 10 mg INH X1 ONE Stop: 05/14/25 08:16 Last Admin: 05/14/25 08:27 Dose: 10 mg Magnesium Sulfate/Dextrose (Magnesium Sulfate Ivpb) 1 gm in 100 mls @ 100 mls/hr IV X1 ONE Stop: 05/14/25 09:16 Last Infusion: 05/14/25 09:35 Dose: Infused Ceftriaxone Sodium/Dextrose (Rocephin/D5w 1gm Iv Premix) 1 gm in 50 mls @ 100 mls/hr IV STAT STA Stop: 05/14/25 08:46 Last Infusion: 05/14/25 09:03 Dose: Infused Lactated Ringer's (Lactated Ringers) 500 mls @ 500 mls/hr IV .Q1H ONE Stop: 05/14/25 09:16 Last Infusion: 05/14/25 10:00 Dose: Infused Lactated Ringer's (Lactated Ringers) 1,000 mls @ 999 mls/hr IV .Q1H1M ONE Stop: 05/14/25 09:54 Last Admin: 05/14/25 08:57 Dose: Not Given Acetaminophen (Ofirmev Inj) 1,000 mg in 100 mls @ 250 mls/hr IV X1 ONE Stop: 05/14/25 09:56 Last Infusion: 05/14/25 10:11 Dose: Infused Azithromycin 500 mg/ Sodium (Chloride) 250 mls @ 250 mls/hr IV X1 ONE Stop: 05/14/25 11:59 Last Admin: 05/14/25 11:53 Dose: 250 mls/hr Ipratropium [place] (Ipratropium Rt 0.5 Mg/ 2.5 Ml Nebu) 1 mg INH X1 ONE Stop: 05/14/25 08:16 Last Admin: 05/14/25 08:28 Dose: 1 mg Methylprednisolone Sodium Succinate (Methylprednisolone Sod Succ 62.5 Mg/Ml 2ml Vial) 125 mg IVP X1 ONE Stop: 05/14/25 08:16 Last Admin: 05/14/25 08:31 Dose: 125 mg Assessment & Plan Plan Juan Anderson is a 75-year-old M with a PMH of Parkinson's disease, 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 Nguyen in February 2025 who was brought to the [facility] ED by EMS on 05/14/25 with concerns for shortness of breath. Patient was admitted to the ICU for the work-up and management of severe hypoosmolar hypernatremia, acute respiratory failure, sepsis likely 2/2 pneumonia, SHIREEN, lactic acidosis w/ anion gap, and acute metabolic encephalopathy. Nephrology (Dr. Wadsworth) was consulted and is closely following the case. NEURO #Acute encephalopathy, likely metabolic Patient can apparently speak at baseline but was nonverbal upon admission in the setting of severe hypernatremia DDx: sepsis-related encephalopathy Dx: -05/14 CMP showed sodium 179, potassium 4.1, chloride 134, and bicarbonate 26.6 Rx: -IV 1/2 NS fluid infusion @ 100 mL/hr to treat the hypernatremia that is the likely etiology for the above presentation #Parkinson's disease Dx: -On physical exam, resting tremors noted of bilateral hands and forearms that is more pronounced on R side Rx: -Continue home medications #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 Stable CARDIO #History of hypertension Currently normotensive (129/84) Rx: -Holding anti-hypertensive home medications, will continue as appropriate PULM #Acute respiratory failure, likely 2/2 #Aspiration pneumonia Upon admission, was put on 40 L high-flow nasal cannula @ 80% FiO2 and SpO2 sat in the mid-90s Patient may also have asthma based on home inhaler medications and is not reported to be on any home oxygen Dx: -05/14 CXR showed findings suggestive for early right base pneumonia (but this is not enough to explain the need for an FiO2 of 80%) -4/ SIRS criteria met: (HR 108, RR 40, Temp 101.1, WBC 18.4), source of infection (pneumonia), and signs of end organ damage (SHIREEN, transaminitis, acute encephalopathy) -Based on ABG results, patient seems to have an elevated A-a gradient Rx: -9-tkq-yriuur of IV ceftriaxone 1 gm qD [05/14--] -6-ake-hbkdbo of IV azithromycin 500 mg qD [05/14--] -Follow up on blood cultures GI #Transminitis Likely 2/2 sepsis Dx: -AST 43, ALT 67 Rx: -Continue to monitor NEPHRO #Severe hyperosmolar hyponatremia #Severe hyperchloremia #Severe dehydration DDx: dehydration, 2/2 adverse medication effect Dx: -CMP showed sodium 179 and chloride 134. -Calculated free water deficit = 8 L Rx: -IV 1/2 NS fluid infusion @ 100 mL/hr (correction at a goal of no more than 6-8 mmol sodium over 24 hours) -Sodium check q4HR #SHIREEN Creatinine 2.4 (baseline 0.9), BUN 50 (baseline < 5), eGFR 28 Likely 2/2 severe dehydration Rx: -IV 1/2 NS fluid infusion @ 100 mL/hr -Monitor urinary output -Avoid nephrotoxins -Renally dosed medications #Anion gap metabolic acidosis Mild in nature with anion gap 18, likely multifactorial with contributions from both SHIREEN and elevated lactate #Lactic acidosis Very mild elevation in the setting of poor perfusion from severe dehydration Dx: -Lactic acid 2.9 (down-trended now to 2.4) Rx: -IV 1/2 NS fluid infusion @ 100 mL/hr HEME #Leukocytosis DDx: reactive, 2/2 aspiration pneumonia Dx: -WBC elevated at 18.4 #Hemoconcentration 2/2 dehydration Patient's baseline hemoglobin seems to historically be around 9 - 10 but is currently 13 ENDO #No active problems ID See #Aspiration pneumonia in Respiratory section Disposition: Patient was admitted to the ICU for the work-up and management of severe hyperosmolar hypernatremia, acute respiratory failure, sepsis likely 2/2 pneumonia, SHIREEN, lactic acidosis w/ anion gap, and acute metabolic encephalopathy. DVT prophylaxis: Lovenox GI prophylaxis: None Diet: NPO Hayes: Present Lines: Peripheral IV Antibiotics: IV ceftriaxone 1 gm qD, IV azithromycin 500 mg qD CODE STATUS: FULL Patient plan of care was discussed with the attending wire drawing machine operator, Dr. Iron Mueller, DO Internal Medicine, PGY-1
[2025-05-14 12:41] LABS: Lactic Acid, 3 HR 2.4 mMol/L (0.4-2.0)
--- NOTE | 2025-05-14 13:29 | PC.NURSE ---
RT aware of ABG order
[2025-05-14 13:54] LABS: Base Excess -2 (-3-3); HCO3 23 mEq/L (20-26); Inspired Oxygen, FIO2 70 %; O2 Saturation 90 % (91-98); PCO2 37 mmHg (32.0-48.0); PO2 60 mmHg (83-108); pH, Arterial 7.39 (7.35-7.45)
[2025-05-14 13:55] LABS: Allen Test Performed/OK; Puncture Site Right Radial
--- NOTE | 2025-05-14 14:00 | PC.NURSE ---
Patient coughing, Suctioned small amount of thick yellow mucus from mouth
--- NOTE | 2025-05-14 14:02 | ESPR_ITS ---
Documentation for date of: 05/14/25 Subjective Subjective Interval history: This is a 75-year-old male who is a shelter resident brought to the ER for altered mental status and hypoxia. Apparently the patient desatted into the low 80s at the shelter. EMS was called and he was started on oxygen and given a round of nebs. On arrival to the ER he was noted to be altered. The patient's baseline is minimally verbal. He was started on high flow nasal cannula at 80% FiO2. His sats improved to mid 90s. Labs were obtained and he was noted to have a sodium of 179. He is hemodynamically stable. Due to his severe electrolyte imbalances ICU evaluation was requested. Patient received 500 cc of saline and then was started on half NS at 100 cc/h. PMH: Parkinson's, hypoxic brain injury at , asthma, hypertension, GERD, status post right hip replacement Critical Care Note Critical care time (min.): 65 Exam Vital Signs Temp Pulse Resp BP Pulse Ox O2 Del Method O2 Flow Rate 99.5 F 85 31 H 108/76 95 High Flow Nasal Cannula 40 05/14/25 13:26 05/14/25 13:53 05/14/25 13:53 05/14/25 13:26 05/14/25 13:53 05/14/25 13:26 05/14/25 13:53 FiO2 70 05/14/25 13:53 Narrative Exam General-awake however does not follow commands, patient has a blank stare, pupils equal and reactive, pseudophakia present, thin body habitus, HEENT-normocephalic, atraumatic, sclera anicteric, oral mucosa is very dry, unable to fully examine due to poor patient cooperation, poor dentition noted Chest-crackles auscultated on the right anterior field, left is clear, no active wheezing, heart regular rhythmic, no bruits murmurs auscultated times exam, no pain on palpation of chest wall, slightly tachypnea Abdomen-soft, no apparent tenderness on palpation, no rebound or guarding Extremities-no edema, pale, cool to touch, pedal pulses palpable, dusky discoloration of the right hand however there is a tight dressing in place which we have loosened, subtle mottling over bilateral knees Physical Exam Completion Physical Exam Complete?: Yes 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 05/15/25 04:52 05/15/25 08:25 Labs: Laboratory Results - last 24 hr 05/14/25 05/14/25 05/14/25 08:10 08:20 09:08 WBC 18.4 H RBC 4.65 Hgb 13.2 L Hct 45.4 MCV 98 MCH 28.4 MCHC 29.1 L RDW Std Deviation 54.7 H Plt Count 370 D Neut % (Auto) 88 H Lymph % (Auto) 4 L [place] % (Auto) 7 Eos % (Auto) 0 Baso % (Auto) 0 Neut # (Auto) 16.1 H Lymph # (Auto) 0.8 L [place] # (Auto) 1.3 H Eos # (Auto) 0.0 Baso # (Auto) 0.1 Immature Gran # (Auto) 0.09 H Absolute Nucleated RBC 0.02 H Immature Gran % 1 H Nucleated RBC % 0 PT 14.0 H INR 1.3 APTT 22.2 Puncture Site ABG pH ABG pCO2 ABG pO2 ABG HCO3 ABG O2 Saturation ABG Base Excess FiO2 Sodium 179 H* Potassium 4.1 Chloride 134 H* Carbon Dioxide 26.6 Anion Gap 18 H BUN 50 H Creatinine 2.4 H Estim Creat Clear Calc 22.0 L eGFR 28 L BUN/Creatinine Ratio 21 H Glucose 137 H Calculated Osmolality 367 H Lactic Acid 2.9 H Calcium 9.7 Corrected Calcium 9.7 Total Bilirubin 0.4 AST 43 H ALT 67 H Alkaline Phosphatase 118 H Troponin I 0.045 B-Natriuretic Peptide 71 Total Protein 7.6 Albumin 4.4 Globulin 3.2 Albumin/Globulin Ratio 1.4 Procalcitonin 0.39 Ur Collection Type Catheter Urine Color Yellow Urine Clarity Clear Urine pH 5.5 Ur Specific [place] 1.032 Urine Protein 1+ A Urine Glucose (UA) Negative Urine Ketones 1+ A Urine Blood Negative Urine Nitrite Negative Urine Bilirubin Negative Urine Urobilinogen (Auto) 3.0 Ur Leukocyte Esterase Negative Urine RBC 1 Urine WBC 2 Ur Squamous Epith Cells < 1 Urine Bacteria None Influenza A (Rapid) Influenza B (Rapid) 05/14/25 05/14/25 05/14/25 09:09 12:24 13:50 WBC RBC Hgb Hct MCV MCH MCHC RDW Std Deviation Plt Count Neut % (Auto) Lymph % (Auto) [place] % (Auto) Eos % (Auto) Baso % (Auto) Neut # (Auto) Lymph # (Auto) [place] # (Auto) Eos # (Auto) Baso # (Auto) Immature Gran # (Auto) Absolute Nucleated RBC Immature Gran % Nucleated RBC % PT INR APTT Puncture Site Right Radial ABG pH 7.39 ABG pCO2 37 ABG pO2 60 L ABG HCO3 23 ABG O2 Saturation 90 L ABG Base Excess -2 FiO2 70 Sodium Potassium Chloride Carbon Dioxide Anion Gap BUN Creatinine Estim Creat Clear Calc eGFR BUN/Creatinine Ratio Glucose Calculated Osmolality Lactic Acid 2.4 H Calcium Corrected Calcium Total Bilirubin AST ALT Alkaline Phosphatase Troponin I B-Natriuretic Peptide Total Protein Albumin Globulin Albumin/Globulin Ratio Procalcitonin Ur Collection Type Urine Color Urine Clarity Urine pH Ur Specific [place] Urine Protein Urine Glucose (UA) Urine Ketones Urine Blood Urine Nitrite Urine Bilirubin Urine Urobilinogen (Auto) Ur Leukocyte Esterase Urine RBC Urine WBC Ur Squamous Epith Cells Urine Bacteria Influenza A (Rapid) Negative Influenza B (Rapid) Negative Assessment & Plan Additional Plan Additional Plan: In summary this a 75-year-old male 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 This is likely due to severe hypernatremia. Parkinson's-continue home medications CV History of hypertension-continue home meds Resp Acute hypoxic respiratory failure-patient is currently on high flow nasal cannula satting in the mid 90s on 80% FiO2. His chest x-ray shows some right sided infiltrate however not enough to require 80% FiO2. Will follow-up on an ABG. Patient also appears to be a mouth breather and will attempt mask. - noted to have an elevated A a gradient and l Aspiration pneumonia-started on ceftriaxone and azithromycin, follow-up on blood cultures Renal Acute kidney injury-this is secondary to severe dehydration, provide IV fluids, monitor urinary output, avoid nephrotoxins Anion gap metabolic acidosis-this is mild with a gap of 18 and likely multifactorial and due to his kidney injury as well as his lactate Lactic acidosis-very mild elevation in the setting of poor perfusion from severe dehydration Severe dehydration-provide IV fluids Hypernatremia-patient sodium is 179, he has been started on IV fluids at 100 cc an hour. Check sodium levels every 4 hours, do not correct faster than 6-8 meq in 24 hours. GI NPO for now Endo stable Heme Leukocytosis- reactive v 2/2 aspiration Hemoconcentration 2/2 dehydration -> pts baseline Hb is 9-10 and currently 13 ID Aspiration PNA- on abx case d/w ICU team and ER labs, imaging, records reviewed ~65ccmin required for eval, exam, review, intervention, discussion and formulation of POC for this critically ill pt with acute hypoxic resp failure and severe hypernatremia Provider Notation Provider Notation: Although this document has been carefully reviewed, there may still be some phonetic and other typographical errors. These errors are purely grammatical due to imperfections in the software program and should not be construed in any way to compromise the substance of the patient's medical care during this visit. Thank you for the opportunity and privilege in assisting you with this patient's care and management.
[2025-05-14] MEDS: HEPARIN SOD INJ 5000 UNIT/ML VIAL SC ×2 (14:11→22:18)
[2025-05-14] MEDS: SODIUM CHLORIDE 0.45 % 1,000 ML 150 ML IV (14:13)
[2025-05-14 15:24] LABS: Sodium 175 mMol/L (136-145)
[2025-05-14 19:18] LABS: Sodium 173 mMol/L (136-145)
[2025-05-15] VITALS (30 sets, daily range): BP systolic 98–167; BP diastolic 59–108; PULSE 100–120; RESP 28–39; TEMP 36.6–37.2; O2SAT 90–97; BMI 17.6
[2025-05-15 01:18] LABS: Sodium 170 mMol/L (136-145)
[2025-05-15] MEDS: SODIUM CHLORIDE 0.45 % 1,000 ML 75 ML IV (05:37)
[2025-05-15 06:16] LABS: Basophils # (Auto) 0.0 Thou/mm3 (0.0-0.2); Basophils % (Auto) 0 % (0-2.5); Eosinophils # (Auto) 0.0 Thou/mm3 (0.0-0.5); Eosinophils % (Auto) 0 % (0-10); Hematocrit 37.4 % (41.0-53.0); Hemoglobin 10.8 g/dL (13.5-16.0); Immature Granulocytes Auto 0.12 Thou/mm3 (0.00-0.00); Lymphocytes # (Auto) 0.8 Thou/mm3 (1.0-4.8); Lymphocytes % (Auto) 3 % (10-50); Mean Corpuscular HGB Conc 28.9 g/dl (31.0-37.0); Mean Corpuscular Hemoglobin 28.3 pg (25.0-35.0); Mean Corpuscular Volume 98 fL (80-100); Monocytes # (Auto) 1.7 Thou/mm3 (0.0-0.8); Monocytes % (Auto) 7 % (0-12); Neutrophils # (Auto) 20.6 Thou/mm3 (1.8-7.7); Neutrophils % (Auto) 89 % (37-80); Nucleated Red Blood Cell # 0.03 Thou/mm3 (0.00-0.00); Nucleated Red Blood Cell % 0 /100 WBC (0); Platelet Count 300 Thou/mm3 (140-440); RDW Standard Deviation 54.6 fL (35.1-43.9); Red Blood Count 3.82 Miln/mm3 (4.50-5.90); White Blood Count 23.1 Thou/mm3 (3.8-10.6)
[2025-05-15 06:40] LABS: Alanine Aminotransferase 54 U/L (10-49); Albumin, Serum 4.0 gm/dL (3.4-4.8); Albumin/Globulin Ratio 1.3 (1.2-2.2); Alkaline Phosphatase 104 U/L (46-116); Anion Gap 16 (7-16); Aspartate Amino Transferase 42 U/L (0-34); BUN/Creatinine Ratio 24 Ratio (12-20); Bilirubin,Total 0.3 mg/dL (0.3-1.2); Blood Urea Nitrogen 57 mg/dL (9-23); Calcium 8.8 mg/dL (8.3-10.6); Calcium (Corrected) 8.8 mg/dL (8.5-10.1); Carbon Dioxide 24.9 mMol/L (20.0-31.0); Chloride 130 mMol/L (98-107); Creatinine (Component) 2.4 mg/dL (0.6-1.3); Estimated Creatinine Clearance 20.2 mL/min (>60); Globulin 3.0 gm/dL (2.3-3.5); Glucose 100 mg/dL (74-106); Magnesium 3.5 mg/dL (1.6-2.6); Osmolality,Calculated 352 (275-295); Phosphorous 5.5 mg/dL (2.4-5.1); Potassium 3.1 mMol/L (3.4-5.1); Total Protein 7.0 gm/dL (5.7-8.2); eGFR 28 See Note
[2025-05-15 06:42] LABS: Sodium 171 mMol/L (136-145)
[2025-05-15] MEDS: HEPARIN SOD INJ 5000 UNIT/ML VIAL SC ×3 (07:13→21:01)
[2025-05-15] MEDS: AZITHROMYCIN INJ 500 MG in SODIUM CHLORIDE 0.9% 250 ML 250 ML 250 MG IV (09:09)
[2025-05-15] MEDS: cefTRIAXone/D5w 1gm IV premix 1 GM/50 ML BAG IV (09:09)
[2025-05-15 09:16] LABS: Sodium 171 mMol/L (136-145)
--- NOTE | 2025-05-15 10:25 | PC.SS ---
Addendum entered by KEVIN Faith 05/16/25 15:20: Rounding note: Team C doctors were inquiring if there was an alternate number to call for medical decisions, ALTERATIONS SUPERVISOR informed doctors that patient is conserved through [facility]. Doctors stated they have been unable to get a hold of [facility]. Addendum entered by KEVIN Faith 05/15/25 12:14: SS update: bedside nurse Sulma stated that patient is not able to eat, speech referral, family came to bedside today. Addendum entered by KEVIN Faith 05/15/25 10:31: Rosanna stated that patient will need gurney transport once medically clear. Original Note: Patient is a 75 year old male presenting to the hospital for AMS hypoxia. ALTERATIONS SUPERVISOR made phone call to Rosanna Taylor from [facility], role and reason for telephone call was explained. Rosanna confirmed demographic information and stated that the main phone line for the longterm is [phone]. Rosanna stated that she would make medical decisions on behalf of patient but patient is conserved through [facility], they would be the point of contact for major surgeries or medical decisions. Their contact is Daria Landry PH: [phone]. Rosanna stated that patient had hip surgery on 03/26/25 and was referred to [facility] for short term rehab and was given a walker. Rosanna stated that once medically clear she would like patient to return to [facility] to continue short term rehab then once he is finished he will return to the longterm. Rosanna stated that Sarah at [facility] has patient on a behold for seven days. Rosanna stated that patient is verbal, pharmacy of choice is [facility] in [place]. His PCP is Dr. Pretty Serrato at [facility]. His last visit was on 03/23/25. Decision Maker: Olvin Landry ([facility]) [phone], Rosanna Taylor [phone] PCP: Dr. Serrato D/C: [facility] (on bed hold)
[2025-05-15] MEDS: SODIUM CHLORIDE 0.45% IV (10:50)
[2025-05-15] MEDS: POTASSIUM ACET IV (10:50)
--- NOTE | 2025-05-15 11:18 | ESPR_ITS ---
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 Nguyen in February 2025 who was brought to the [facility] ED by EMS on 05/14/25 with concerns for shortness of breath. In the ED, vitals showed: BP 129/84 HR 108 RR 40 Temp 101.1 SpO2 92% on 15 L Oxygen Mask with FiO2 100% ED Course: CBC showed WBC 18.4 and hemoglobin 13.2. Coagulation panel showed PT 14.0, INR 1.3, and APTT 22.2. CMP showed sodium 179, potassium 4.1, chloride 134, bicarbonate 26.6, anion gap 18, BUN 50, creatinine 2.4 (baseline: 0.9), eGFR 28, calculated osmolality 367, lactic acid 2.9, AST 43, ALT 67, and procalcitonin 0.39. UA showed 1+ protein, 1+ ketones but was otherwise clean. Imagin/26 chest x-ray showed findings suspicious for early right base pneumonia and mild elevation of the right hemidiaphragm. 05/14 EKG showed sinus rhythm (HR 95) with short DE interval (111), moderate ST depression, and normal QT 349. In the ED, patient was started on albuterol, DuoNebs, ceftriaxone, IV Tylenol, and fluids. Patient was admitted for the work-up and management of severe hypoosmolar hypernatremia, acute respiratory failure, sepsis likely 2/2 pneumonia, SHIREEN, lactic acidosis w/ anion gap, and acute metabolic encephalopathy. Nephrology (Dr. Wadsworth) was consulted and is closely following the case. Interval History 05/15/25: Overnight, patient had a total urine output of 200 mL and failed his swallow evaluation. Patient was examined at bedside; he continues to breathe primarily by mouth and his tongue seems to be black in color (same as yesterday). He is also noted to be holding his eyes shut tight and still remains nonverbal. Pertinent labs today include WBC now 23.1 from 18.4, hemoglobin now 10.8 from 13.2, sodium now 171 from 179, potassium now 3.1 from 4.1, chloride now 130 from 134, BUN now 57 from 50, creatinine now 2.4 from 2.4, calculated osmolality now 352 from 367, phosphorus 5.5, magnesium 3.5, AST now 42 from 43, and ALT now 54 from 67. Currently, patient is continuing to receive half NS fluid infusion at 100 mL/h to slowly correct his hypernatremia at no more than 6 to 8 mmol of sodium per 24 hours which will be monitored via sodium checks every 4 hours. He will also continue receiving his ceftriaxone and azithromycin for the treatment of his aspiration pneumonia that was the likely cause of his acute respiratory failure. At this time, patient is clinically stable and will be downgraded to floors today. Exam Vital Signs Temp Pulse Resp BP Pulse Ox O2 Del Method O2 Flow Rate 97.9 F 112 H 39 H 137/81 H 94 L High Flow Nasal Cannula 10 05/15/25 05:00 05/15/25 08:12 05/15/25 08:12 05/15/25 06:01 05/15/25 08:12 05/14/25 18:18 05/15/25 08:12 FiO2 75 05/15/25 06:03 Narrative Exam General: Elderly, thin, and frail male in no distress. Alert, nonverbal. Head: Normocephalic, atraumatic. Eyes: L pupil much more dilated than R pupil but bilaterally reactive to light. Anicteric, vision grossly intact. Noted to be squeezing eyes shut at certain points of interview. Mouth/Throat: Oral mucosa dry. No obvious lesions in oropharynx. Mouth held open with rhythmic, lateral, translatory movement of lower jaw. Tongue noted to be black. Cardiovascular: Difficult to auscultate clearly but seemingly tachycardic rate and normal rhythm, no murmur, no JVD or carotid bruits. +S1/S2. Respiratory: On Oxygen Mask. Tachypneic, labored mouth-breathing. Bilateral anterior lung bills clear to auscultation. Decreased breath sounds in bilateral posterior lung bills with some mild crackles appreciated at R lung base. No accessory muscle use. Gastrointestinal: Soft, nontender, non-distended, no palpable masses. No guarding or rebound tenderness. Hypoactive bowel sounds. Extremities: Resting tremors of bilateral hands and forearms but more pronounced on R side. Healing, linear surgical wound at R lateral hip w/o erythema, warmth, or oozing (sutures in place). Symmetrical, no significant deformities. No edema, no cyanosis, no clubbing. 1+ radial pulse bilaterally, 1+ posterior tibial pulse bilaterally. Objective Labs 05/15/25 04:52 05/15/25 12:30 Labs: Laboratory Results - last 24 hr 05/14/25 05/14/25 05/14/25 12:24 13:50 14:43 WBC RBC Hgb Hct MCV MCH MCHC RDW Std Deviation Plt Count Neut % (Auto) Lymph % (Auto) [place] % (Auto) Eos % (Auto) Baso % (Auto) Neut # (Auto) Lymph # (Auto) [place] # (Auto) Eos # (Auto) Baso # (Auto) Immature Gran # (Auto) Absolute Nucleated RBC Immature Gran % Nucleated RBC % Puncture Site Right Radial ABG pH 7.39 ABG pCO2 37 ABG pO2 60 L ABG HCO3 23 ABG O2 Saturation 90 L ABG Base Excess -2 FiO2 70 Sodium 175 H* Potassium Chloride Carbon Dioxide Anion Gap BUN Creatinine Estim Creat Clear Calc eGFR BUN/Creatinine Ratio Glucose Calculated Osmolality Lactic Acid 2.4 H Calcium Corrected Calcium Phosphorus Magnesium Total Bilirubin AST ALT Alkaline Phosphatase Total Protein Albumin Globulin Albumin/Globulin Ratio 05/14/25 05/15/25 05/15/25 18:47 00:35 04:52 WBC 23.1 H RBC 3.82 L Hgb 10.8 L D Hct 37.4 L MCV 98 MCH 28.3 MCHC 28.9 L RDW Std Deviation 54.6 H Plt Count 300 D Neut % (Auto) 89 H Lymph % (Auto) 3 L [place] % (Auto) 7 Eos % (Auto) 0 Baso % (Auto) 0 Neut # (Auto) 20.6 H Lymph # (Auto) 0.8 L [place] # (Auto) 1.7 H Eos # (Auto) 0.0 Baso # (Auto) 0.0 Immature Gran # (Auto) 0.12 H Absolute Nucleated RBC 0.03 H Immature Gran % 1 H Nucleated RBC % 0 Puncture Site ABG pH ABG pCO2 ABG pO2 ABG HCO3 ABG O2 Saturation ABG Base Excess FiO2 Sodium 173 H* 170 H* 171 H* Potassium 3.1 L D Chloride 130 H* Carbon Dioxide 24.9 Anion Gap 16 BUN 57 H Creatinine 2.4 H Estim Creat Clear Calc 20.2 L eGFR 28 L BUN/Creatinine Ratio 24 H Glucose 100 Calculated Osmolality 352 H Lactic Acid Calcium 8.8 Corrected Calcium 8.8 Phosphorus 5.5 H Magnesium 3.5 H Total Bilirubin 0.3 AST 42 H ALT 54 H Alkaline Phosphatase 104 Total Protein 7.0 Albumin 4.0 Globulin 3.0 Albumin/Globulin Ratio 1.3 05/15/25 08:25 WBC RBC Hgb Hct MCV MCH MCHC RDW Std Deviation Plt Count Neut % (Auto) Lymph % (Auto) [place] % (Auto) Eos % (Auto) Baso % (Auto) Neut # (Auto) Lymph # (Auto) [place] # (Auto) Eos # (Auto) Baso # (Auto) Immature Gran # (Auto) Absolute Nucleated RBC Immature Gran % Nucleated RBC % Puncture Site ABG pH ABG pCO2 ABG pO2 ABG HCO3 ABG O2 Saturation ABG Base Excess FiO2 Sodium 171 H* Potassium Chloride Carbon Dioxide Anion Gap BUN Creatinine Estim Creat Clear Calc eGFR BUN/Creatinine Ratio Glucose Calculated Osmolality Lactic Acid Calcium Corrected Calcium Phosphorus Magnesium Total Bilirubin AST ALT Alkaline Phosphatase Total Protein Albumin Globulin Albumin/Globulin Ratio ABG Interpretation ABG results: 05/14/25 13:50 ABG pH 7.39 ABG pCO2 37 ABG pO2 60 L ABG HCO3 23 ABG O2 Saturation 90 L ABG Base Excess -2 Quality Measures Quality Measures sepsis Current suspected stage: sepsis Possible source: pulmonary Blood cultures ordered: completed in ED Antibiotic ordered: Yes Advance care planning discussed with:: patient Assessment & Plan Assessment Current Active Medications: Generic Name Dose Route Start Last Admin Trade Name Freq PRN Reason Stop Dose Admin Acetaminophen 650 mg 05/14/25 13:40 Acetaminophen 325 Mg Tablet PO 06/13/25 13:39 Q4HR PRN PAIN SCALE 1-3 (mild Acetaminophen 650 mg 05/14/25 13:40 Acetaminophen Supp 650 Mg Supp DE 06/13/25 13:39 Q4HR PRN PAIN SCALE 1-3 (mild Al Hydrox/Mg Hydrox/Simethicone 30 ml 05/14/25 13:40 Mg Hyd/Al Hyd/James (Maalox Reg) Susp 30 Ml Udc PO 06/13/25 13:39 Q4HR PRN Heartburn or Upset Stomach Heparin Sodium (Porcine) 5,000 unit 05/14/25 14:00 05/15/25 07:13 Heparin Sod Inj 5000 Unit/Ml Vial SC 05/28/25 13:59 5,000 unit Q8HR ROSE MARIE Administration Azithromycin 500 mg/ Sodium 250 mls @ 250 mls/hr 05/15/25 09:00 05/15/25 09:09 Chloride IV 05/22/25 08:59 250 mls/hr QDAY ROSE MARIE Administration Ceftriaxone Sodium/Dextrose 1 gm in 50 mls @ 100 mls/hr 05/15/25 09:00 05/15/25 09:09 Rocephin/D5w 1gm Iv Premix IV 05/22/25 08:59 100 mls/hr QDAY ROSE MARIE Administration Potassium Acetate 60 meq/ 1,030 mls @ 100 mls/hr 05/15/25 09:45 05/15/25 10:50 Sodium Chloride IV 05/15/25 20:02 100 mls/hr X1 ONE Administration Levothyroxine Sodium 50 mcg 05/15/25 06:00 05/15/25 06:08 Levothyroxine Sodium 25 Mcg Tablet PO 06/14/25 05:59 Not Given ACBR ROSE MARIE Magnesium Hydroxide 30 ml 05/14/25 13:40 Milk Of Magnesia Susp 30 Ml Udc PO 06/13/25 13:39 QDAY PRN CONSTIPATION Nitroglycerin 0.4 mg 05/14/25 13:40 Nitroglycerin 0.4 Mg Subl Btl #25 SL Q5MIN PRN CHEST PAIN Plan Juan Anderson is a 75-year-old M with a PMH of Parkinson's disease, 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 Nguyen in February 2025 who was brought to the [facility] ED by EMS on 05/14/25 with concerns for shortness of breath. Overnight, patient had a total urine output of 200 mL and failed his swallow evaluation. Patient was examined at bedside; he continues to breathe primarily by mouth and his tongue seems to be black in color (same as yesterday). He is also noted to be holding his eyes shut tight and still remains nonverbal. Pertinent labs today include WBC now 23.1 from 18.4, hemoglobin now 10.8 from 13.2, sodium now 171 from 179, potassium now 3.1 from 4.1, chloride now 130 from 134, BUN now 57 from 50, creatinine now 2.4 from 2.4, calculated osmolality now 352 from 367, phosphorus 5.5, magnesium 3.5, AST now 42 from 43, and ALT now 54 from 67. Currently, patient is continuing to receive half NS fluid infusion at 100 mL/h to slowly correct his hypernatremia at no more than 6 to 8 mmol of sodium per 24 hours which will be monitored via sodium checks every 4 hours. He will also continue receiving his ceftriaxone and azithromycin for the treatment of his aspiration pneumonia that was the likely cause of his acute respiratory failure. At this time, patient is clinically stable and will be downgraded to floors today. NEURO #Acute encephalopathy, likely metabolic Patient can apparently speak at baseline but was nonverbal upon admission in the setting of severe hypernatremia DDx: sepsis-related encephalopathy Dx: -05/14 CMP showed sodium 179, potassium 4.1, chloride 134, and bicarbonate 26.6 Rx: -IV 1/2 NS fluid infusion @ 100 mL/hr to treat the hypernatremia that is the likely etiology for the above presentation RRx: -Today, he continues to remain nonverbal (sodium still elevated at 171) #Parkinson's disease Patient was mentioned to have Parkinson's disease but does not seem to have home medications for treating this condition Dx: -On physical exam, resting tremors noted of bilateral hands and forearms that is more pronounced on R side Rx: -Stable #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 Rx: -Stable #Depression/anxiety Surmised based on patient's home medication: PO Lexapro 10 mg qD Rx: -Once tolerating PO intake, restart home medication: PO Lexapro 10 mg qD CARDIO #History of hypertension Patient is reported to have a history of hypertension and has been starting to become hypertensive again on 05/15 after seeming normotension on 05/14 Rx: -Once tolerating PO intake, may consider restarting home medication: PO amlodipine 5 mg qD PULM #Acute respiratory failure, likely 2/2 #Aspiration pneumonia Upon admission, was put on 40 L high-flow nasal cannula @ 80% FiO2 and SpO2 sat in the mid-90s Patient may also have asthma based on home inhaler medications and is not reported to be on any home oxygen Dx: -05/14 CXR showed findings suggestive for early right base pneumonia (but this is not enough to explain the need for an FiO2 of 80%) -11/20 SIRS criteria met: (HR 108, RR 40, Temp 101.1, WBC 18.4), source of infection (pneumonia), and signs of end organ damage (SHIREEN, transaminitis, acute encephalopathy) -Based on ABG results, patient seems to have an elevated A-a gradient and, given the acute correction to his SpO2 with supplemental oxygen, likely suggests his initial hypoxemia was 2/2 V/Q mismatch from aspiration pneumonia -05/14 BCxs both NGTD after 24 hours -MRSA screen pending Rx: -2-rau-qhthxe of IV ceftriaxone 1 gm qD [05/14--] -3-[id number]-[id number] of IV azithromycin 500 mg qD [05/14--] GI #Transminitis Likely 2/2 sepsis, mild Dx: -AST now 42 from 43, ALT now 54 from 67 Rx: -Continue to monitor NEPHRO #Severe hyperosmolar hyponatremia #Severe hyperchloremia #Severe dehydration DDx: dehydration, 2/2 adverse medication effect Dx: -CMP showed sodium 179 and chloride 134. -Calculated free water deficit = 8 L Rx: -IV 1/2 NS fluid infusion @ 100 mL/hr (correction at a goal of no more than 6-8 mmol sodium over 24 hours) -Sodium check q4HR #Hypokalemia Potassium dropped to 3.1 from 4.1 Rx: -Potassium acetate 60 mEq given with 1/2 NS fluid infusion @ 100 mL/hr #SHIREEN Creatinine 2.4 (baseline 0.9), BUN 57 (baseline < 5), eGFR 28 Likely 2/2 severe dehydration Dx: -Today, creatinine remains stable at 2.4 Rx: -IV 1/2 NS fluid infusion @ 100 mL/hr -Monitor urinary output -Avoid nephrotoxins -Renally dosed medications #Anion gap metabolic acidosis (resolving) Mild in nature with anion gap 18, likely multifactorial with contributions from both SHIREEN and elevated lactate Dx: -Today, anion gap is 16 #Lactic acidosis Very mild elevation of 2.9 in the setting of poor perfusion from severe dehydration that later down-trended to 2.4 and was no longer trended HEME #Leukocytosis Initially, WBC was elevated at 18.4 on 05/14 but patient was afebrile Of note, patient received IV methylprednisolone 125 mg x 1 on 05/14 (currently believe that this is the cause of current WBC elevation) DDx: reactive, 2/2 aspiration pneumonia Dx: -WBC now 23.1 from 18.4 yesterday Rx: -Monitor for fever or other signs of infection #Hemoconcentration 2/2 dehydration Patient's baseline hemoglobin seems to historically be around 9 - 10 but was 13 upon ICU admission Dx: -Hemoglobin now 10.8 from 13 yesterday ENDO #Hypothyroidism Rx: -Continue patient's home medication: PO levothyroxine 50 mcg ACBR (if tolerating PO intake) ID See #Aspiration pneumonia in Respiratory section Disposition: At this time, patient is clinically stable and will be downgraded to floors today. DVT prophylaxis: Lovenox GI prophylaxis: None Diet: NPO Hayes: Present Lines: Peripheral IV Antibiotics: IV ceftriaxone 1 gm qD, IV azithromycin 500 mg qD CODE STATUS: FULL Patient plan of care was discussed with the attending soaping machine back tender, Dr. Iron Mueller, DO Internal Medicine, PGY-1
--- NOTE | 2025-05-15 12:37 | ESPR_ITS ---
Documentation for date of: 05/15/25 Subjective Subjective Interval history: This is a 75-year-old male who is a long term resident brought to the ER for altered mental status and hypoxia. Apparently the patient desatted into the low 80s at the long term. EMS was called and he was started on oxygen and given a round of nebs. On arrival to the ER he was noted to be altered. The patient's baseline is minimally verbal. He was started on high flow nasal cannula at 80% FiO2. His sats improved to mid 90s. Labs were obtained and he was noted to have a sodium of 179. He is hemodynamically stable. Due to his severe electrolyte imbalances ICU evaluation was requested. Patient received 500 cc of saline and then was started on half NS at 100 cc/h. 05/15-no acute overnight events, patient is more alert than yesterday he is more interactive though still does not follow commands, low urinary output, afebrile Critical Care Note Critical care time (min.): 0 Exam Vital Signs Temp Pulse Resp BP Pulse Ox O2 Del Method O2 Flow Rate 98.9 F 103 H 35 H 150/83 H 92 L High Flow Nasal Cannula 40 05/15/25 08:00 05/15/25 11:01 05/15/25 11:01 05/15/25 11:01 05/15/25 11:01 05/15/25 08:00 05/15/25 09:00 FiO2 75 05/15/25 09:00 Narrative Exam General-appears uncomfortable, awake, verbal status appears to be at baseline which is minimally verbal, thin body habitus HEENT-normocephalic, atraumatic, oral mucosa is very dry, sclera anicteric, poor dentition Chest-diminished breath sounds though mostly clear, no active wheezing auscultated, heart regular rhythmic, no bruits or murmurs auscultated times exam, no pain on palpation of chest wall, no increased work of breathing Abdomen-soft, nontender, sounds present, no rebound or guarding Extremities-no edema, pulses palpable, no clubbing, no mottling Physical Exam Completion Physical Exam Complete?: Yes 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 05/15/25 04:52 05/15/25 08:25 Labs: Laboratory Results - last 24 hr 05/14/25 05/14/25 05/14/25 12:24 13:50 14:43 WBC RBC Hgb Hct MCV MCH MCHC RDW Std Deviation Plt Count Neut % (Auto) Lymph % (Auto) Esmeralda % (Auto) Eos % (Auto) Baso % (Auto) Neut # (Auto) Lymph # (Auto) Esmeralda # (Auto) Eos # (Auto) Baso # (Auto) Immature Gran # (Auto) Absolute Nucleated RBC Immature Gran % Nucleated RBC % Puncture Site Right Radial ABG pH 7.39 ABG pCO2 37 ABG pO2 60 L ABG HCO3 23 ABG O2 Saturation 90 L ABG Base Excess -2 FiO2 70 Sodium 175 H* Potassium Chloride Carbon Dioxide Anion Gap BUN Creatinine Estim Creat Clear Calc eGFR BUN/Creatinine Ratio Glucose Calculated Osmolality Lactic Acid 2.4 H Calcium Corrected Calcium Phosphorus Magnesium Total Bilirubin AST ALT Alkaline Phosphatase Total Protein Albumin Globulin Albumin/Globulin Ratio 05/14/25 05/15/25 05/15/25 18:47 00:35 04:52 WBC 23.1 H RBC 3.82 L Hgb 10.8 L D Hct 37.4 L MCV 98 MCH 28.3 MCHC 28.9 L RDW Std Deviation 54.6 H Plt Count 300 D Neut % (Auto) 89 H Lymph % (Auto) 3 L Esmeralda % (Auto) 7 Eos % (Auto) 0 Baso % (Auto) 0 Neut # (Auto) 20.6 H Lymph # (Auto) 0.8 L Esmeralda # (Auto) 1.7 H Eos # (Auto) 0.0 Baso # (Auto) 0.0 Immature Gran # (Auto) 0.12 H Absolute Nucleated RBC 0.03 H Immature Gran % 1 H Nucleated RBC % 0 Puncture Site ABG pH ABG pCO2 ABG pO2 ABG HCO3 ABG O2 Saturation ABG Base Excess FiO2 Sodium 173 H* 170 H* 171 H* Potassium 3.1 L D Chloride 130 H* Carbon Dioxide 24.9 Anion Gap 16 BUN 57 H Creatinine 2.4 H Estim Creat Clear Calc 20.2 L eGFR 28 L BUN/Creatinine Ratio 24 H Glucose 100 Calculated Osmolality 352 H Lactic Acid Calcium 8.8 Corrected Calcium 8.8 Phosphorus 5.5 H Magnesium 3.5 H Total Bilirubin 0.3 AST 42 H ALT 54 H Alkaline Phosphatase 104 Total Protein 7.0 Albumin 4.0 Globulin 3.0 Albumin/Globulin Ratio 1.3 05/15/25 08:25 WBC RBC Hgb Hct MCV MCH MCHC RDW Std Deviation Plt Count Neut % (Auto) Lymph % (Auto) Esmeralda % (Auto) Eos % (Auto) Baso % (Auto) Neut # (Auto) Lymph # (Auto) Esmeralda # (Auto) Eos # (Auto) Baso # (Auto) Immature Gran # (Auto) Absolute Nucleated RBC Immature Gran % Nucleated RBC % Puncture Site ABG pH ABG pCO2 ABG pO2 ABG HCO3 ABG O2 Saturation ABG Base Excess FiO2 Sodium 171 H* Potassium Chloride Carbon Dioxide Anion Gap BUN Creatinine Estim Creat Clear Calc eGFR BUN/Creatinine Ratio Glucose Calculated Osmolality Lactic Acid Calcium Corrected Calcium Phosphorus Magnesium Total Bilirubin AST ALT Alkaline Phosphatase Total Protein Albumin Globulin Albumin/Globulin Ratio Assessment & Plan Additional Plan Additional Plan: In summary this a 75-year-old male admitted to the ICU for 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 This is likely due to severe hypernatremia. -Patient appears more interactive today than yesterday -Still does not appear completely at baseline however is improving Parkinson's-continue home medications CV History of hypertension-continue home meds Resp Acute hypoxic respiratory failure-patient is currently on high flow nasal cannula satting in the mid 90s on 80% FiO2. His chest x-ray shows some right sided infiltrate however not enough to require 80% FiO2. Will follow-up on an ABG. Patient also appears to be a mouth breather and will attempt mask. - noted to have an elevated A a gradient and VQ mismatch -Able to wean down FiO2 and placed on a facemask today -Respiratory status appears to be improving Aspiration pneumonia-started on ceftriaxone and azithromycin, follow-up on blood cultures - Improving Renal Acute kidney injury-this is secondary to severe dehydration, provide IV fluids, monitor urinary output, avoid nephrotoxins -No change in creatinine -Continue with fluids Anion gap metabolic acidosis-this is mild with a gap of 18 and likely multifactorial and due to his kidney injury as well as his lactate -Trending back down Lactic acidosis-very mild elevation in the setting of poor perfusion from severe dehydration Severe dehydration-provide IV fluids Hypernatremia-patient sodium is 179, he has been started on IV fluids at 100 cc an hour. Check sodium levels every 4 hours, do not correct faster than 6-8 meq in 24 hours. - Today sodium is 171, will continue with fluids and every 4 hours sodium checks GI NPO for now-obtain swallow eval Transaminitis-mild monitor Endo stable Heme Leukocytosis- reactive v 2/2 aspiration -Slight increase today Hemoconcentration 2/2 dehydration -> pts baseline Hb is 9-10 and currently 13 - Hemoglobin down to 10.8 however I still feel that this is hemoconcentrated and do anticipate further drop with additional fluids ID Aspiration PNA- on abx case d/w ICU team Stable for downgrade labs, imaging, records reviewed ~35ccmin required for eval, exam, review, intervention, discussion and formulation of POC for this critically ill pt with acute hypoxic resp failure and severe hypernatremia Provider Notation Provider Notation: Although this document has been carefully reviewed, there may still be some phonetic and other typographical errors. These errors are purely grammatical due to imperfections in the software program and should not be construed in any way to compromise the substance of the patient's medical care during this visit. Thank you for the opportunity and privilege in assisting you with this patient's care and management.
[2025-05-15 13:14] LABS: Sodium 171 mMol/L (136-145)
--- NOTE | 2025-05-15 13:28 | ESPR_ITS ---
<Statement entered by Oliver Baez MD - 05/16/25 07:36> Patient examined and case discussed with the team including attending physician. Note reviewed, I agree with the care plan as documented. Please refer to the note below for further details. - Oliver Baez MD, PGY 3 Disclaimer: The document may contain phonetic/typographic errors due to voice recognition software. These errors are purely due to imperfections in the software program. 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 Nguyen in February 2025 who was brought to the [facility] ED by EMS on 05/14/25 with concerns for shortness of breath. He was found to have a sodium of 179 and was admitted for workup and management of severe hyperosmolar hyponatremia, acute respiratory failure, sepsis likely secondary to pneumonia, SHIREEN, lactic acidosis with anion gap, and acute metabolic encephalopathy. Patient spent the night in the ICU. He has remained nonverbal. His sodium is downtrending and a goal reduction of 10-12 for 24 hours is set. He is receiving an infusion of D5W and his sodium is being trended. He is continuing on his ceftriaxone and azithromycin for treatment of his suspected aspiration pneumonia. He was downgraded to the floors today. The patient was seen and examined at bedside by the floor team. Sodium is being followed closely, most recent value of 171, goal is 167-169, based on this morning's value of 179. Vitals are significant for tachycardia and tachypnea. He is satting at 94% on 15 L oxy mask. Will continue to trend sodium and treat his suspected aspiration pneumonia with azithromycin and ceftriaxone. Exam Vital Signs Temp Pulse Resp BP Pulse Ox O2 Del Method O2 Flow Rate 98.9 F 103 H 35 H 150/83 H 92 L High Flow Nasal Cannula 40 05/15/25 08:00 05/15/25 11:01 05/15/25 11:01 05/15/25 11:01 05/15/25 11:01 05/15/25 08:00 05/15/25 09:00 FiO2 75 05/15/25 09:00 Narrative Exam General: Thin, frail elderly man. Awake and alert, nonverbal. No acute distress. Neurologic: Left pupil more dilated than right pupil. No gross neurological deficit, and patient able to move all 4 extremities. HEENT: Oral mucosa dry. No obvious lesions in oropharynx. Mouth held open with rhythmic, lateral, translatory movement of lower jaw. Tongue noted to be black. Heart: Regular rate and rhythm, normal S1 and S2, no murmurs. Lungs: Tachypneic, labored mouth breathing on oxygen mask. Clear to auscultation bilaterally with no wheezing or crackles. Abdomen: Soft, nondistended, nontender, positive bowel sounds. No guarding or rebound tenderness. Extremities: No edema. 2+ radial and dorsalis pedis pulses bilaterally. Skin: Healing, linear surgical wound at R lateral hip w/o erythema, warmth, or oozing (sutures in place). Objective Labs 05/17/25 04:50 05/17/25 12:40 Labs: Laboratory Results - last 24 hr 05/14/25 05/14/25 05/14/25 13:50 14:43 18:47 WBC RBC Hgb Hct MCV MCH MCHC RDW Std Deviation Plt Count Neut % (Auto) Lymph % (Auto) Holmes % (Auto) Eos % (Auto) Baso % (Auto) Neut # (Auto) Lymph # (Auto) Holmes # (Auto) Eos # (Auto) Baso # (Auto) Immature Gran # (Auto) Absolute Nucleated RBC Immature Gran % Nucleated RBC % Puncture Site Right Radial ABG pH 7.39 ABG pCO2 37 ABG pO2 60 L ABG HCO3 23 ABG O2 Saturation 90 L ABG Base Excess -2 FiO2 70 Sodium 175 H* 173 H* Potassium Chloride Carbon Dioxide Anion Gap BUN Creatinine Estim Creat Clear Calc eGFR BUN/Creatinine Ratio Glucose Calculated Osmolality Calcium Corrected Calcium Phosphorus Magnesium Total Bilirubin AST ALT Alkaline Phosphatase Total Protein Albumin Globulin Albumin/Globulin Ratio 05/15/25 05/15/25 05/15/25 00:35 04:52 08:25 WBC 23.1 H RBC 3.82 L Hgb 10.8 L D Hct 37.4 L MCV 98 MCH 28.3 MCHC 28.9 L RDW Std Deviation 54.6 H Plt Count 300 D Neut % (Auto) 89 H Lymph % (Auto) 3 L Holmes % (Auto) 7 Eos % (Auto) 0 Baso % (Auto) 0 Neut # (Auto) 20.6 H Lymph # (Auto) 0.8 L Holmes # (Auto) 1.7 H Eos # (Auto) 0.0 Baso # (Auto) 0.0 Immature Gran # (Auto) 0.12 H Absolute Nucleated RBC 0.03 H Immature Gran % 1 H Nucleated RBC % 0 Puncture Site ABG pH ABG pCO2 ABG pO2 ABG HCO3 ABG O2 Saturation ABG Base Excess FiO2 Sodium 170 H* 171 H* 171 H* Potassium 3.1 L D Chloride 130 H* Carbon Dioxide 24.9 Anion Gap 16 BUN 57 H Creatinine 2.4 H Estim Creat Clear Calc 20.2 L eGFR 28 L BUN/Creatinine Ratio 24 H Glucose 100 Calculated Osmolality 352 H Calcium 8.8 Corrected Calcium 8.8 Phosphorus 5.5 H Magnesium 3.5 H Total Bilirubin 0.3 AST 42 H ALT 54 H Alkaline Phosphatase 104 Total Protein 7.0 Albumin 4.0 Globulin 3.0 Albumin/Globulin Ratio 1.3 05/15/25 12:30 WBC RBC Hgb Hct MCV MCH MCHC RDW Std Deviation Plt Count Neut % (Auto) Lymph % (Auto) Holmes % (Auto) Eos % (Auto) Baso % (Auto) Neut # (Auto) Lymph # (Auto) Holmes # (Auto) Eos # (Auto) Baso # (Auto) Immature Gran # (Auto) Absolute Nucleated RBC Immature Gran % Nucleated RBC % Puncture Site ABG pH ABG pCO2 ABG pO2 ABG HCO3 ABG O2 Saturation ABG Base Excess FiO2 Sodium 171 H* Potassium Chloride Carbon Dioxide Anion Gap BUN Creatinine Estim Creat Clear Calc eGFR BUN/Creatinine Ratio Glucose Calculated Osmolality Calcium Corrected Calcium Phosphorus Magnesium Total Bilirubin AST ALT Alkaline Phosphatase Total Protein Albumin Globulin Albumin/Globulin Ratio ABG Interpretation ABG results: 05/14/25 13:50 ABG pH 7.39 ABG pCO2 37 ABG pO2 60 L ABG HCO3 23 ABG O2 Saturation 90 L ABG Base Excess -2 Quality Measures Quality Measures sepsis Current suspected stage: sepsis Possible source: pulmonary Blood cultures ordered: completed in ED Antibiotic ordered: Yes Advance care planning discussed with:: patient Assessment & Plan Assessment Current Active Medications: Generic Name Dose Route Start Last Admin Trade Name Freq PRN Reason Stop Dose Admin Acetaminophen 650 mg 05/14/25 13:40 Acetaminophen 325 Mg Tablet PO 10/26/25 13:39 Q4HR PRN PAIN SCALE 1-3 (mild Acetaminophen 650 mg 05/14/25 13:40 Acetaminophen Supp 650 Mg Supp IL 06/13/25 13:39 Q4HR PRN PAIN SCALE 1-3 (mild Al Hydrox/Mg Hydrox/Simethicone 30 ml 05/14/25 13:40 Mg Hyd/Al Hyd/James (Maalox Reg) Susp 30 Ml Udc PO 06/13/25 13:39 Q4HR PRN Heartburn or Upset Stomach Heparin Sodium (Porcine) 5,000 unit 05/14/25 14:00 05/15/25 07:13 Heparin Sod Inj 5000 Unit/Ml Vial SC 05/28/25 13:59 5,000 unit Q8HR ROSE MARIE Administration Azithromycin 500 mg/ Sodium 250 mls @ 250 mls/hr 05/15/25 09:00 05/15/25 09:09 Chloride IV 05/22/25 08:59 250 mls/hr QDAY ROSE MARIE Administration Ceftriaxone Sodium/Dextrose 1 gm in 50 mls @ 100 mls/hr 05/15/25 09:00 05/15/25 09:09 Rocephin/D5w 1gm Iv Premix IV 05/22/25 08:59 100 mls/hr QDAY ROSE MARIE Administration Potassium Acetate 60 meq/ 1,030 mls @ 100 mls/hr 05/15/25 09:45 05/15/25 10:50 Sodium Chloride IV 05/15/25 20:02 100 mls/hr X1 ONE Administration Levothyroxine Sodium 50 mcg 05/15/25 06:00 05/15/25 06:08 Levothyroxine Sodium 25 Mcg Tablet PO 06/14/25 05:59 Not Given ACBR ROSE MARIE Magnesium Hydroxide 30 ml 05/14/25 13:40 Milk Of Magnesia Susp 30 Ml Udc PO 06/13/25 13:39 QDAY PRN CONSTIPATION Nitroglycerin 0.4 mg 05/14/25 13:40 Nitroglycerin 0.4 Mg Subl Btl #25 SL Q5MIN PRN CHEST PAIN Plan Summary: Juan Anderson is a 75-year-old M with a PMH of Parkinson's disease, 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 Nguyen in February 2025 who was brought to the [facility] ED by EMS on 05/14/25 with concerns for shortness of breath. He was found to have a suspected aspiration pneumonia and severe hyponatremia. He spent 1 night in the ICU and was downgraded to floors on 05/15/2025. #Severe hyperosmolar hypernatremia #Severe hyperchloremia #Severe dehydration * Presented with a sodium of 179, chloride 134 * Chloride is improved to 130, current sodium 174 Plan: * Floor team started patient on D5W drip at 70 mL/h * Sodium checks Q4 * Titrating the rate of drip to sodium data with a goal reduction of 10-12 every 24 hours #Acute encephalopathy, likely metabolic * Reportedly the patient can speak at baseline but was nonverbal upon admission severe hyponatremia Plan: * D5W at 70 mL/h, trending sodium #Parkinson's * Reportedly the patient has Parkinson's disease but no home medications * Patient is also reportedly had bilateral tremors on physical exam though none were noticed on evaluation by the floor team Plan: * Consider having the patient follow-up outpatient for Parkinson's treatment #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 * Patient reportedly has 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 Plan: * No direct intervention #History of hypertension * Reportedly the patient has a history of hypertension * Takes amlodipine 5 mg daily at home Plan: * BP stable, holding amlodipine #Acute hypoxic respiratory failure secondary to #Aspiration pneumonia * Chest x-ray showed findings suggestive of early right base pneumonia * Patient required 40 L high flow nasal cannula at 80% FiO2 upon admission * Patient has since been weaned to 15 L oxy mask * Based on ABG results patient seems to have an elevated A-AA gradient and given the acute correction to his SpO2 with supplemental oxygen this likely suggest that his initial hypoxemia was secondary to VQ mismatch from aspiration pneumonia Plan: * Continuing 5-day course of IV ceftriaxone 1 g every day started on 05/14/2025 * Continuing 3-day course of IV azithromycin 500 mg every day started on 05/14/2025 #Transaminitis * Likely secondary to sepsis * Resolving Plan: * Continue to monitor with daily labs #Hypokalemia * Potassium 3.1 Plan: * Potassium acetate given by ICU team * Follow potassium levels in a.m. #SHIREEN * Creatinine 2.4, baseline 0.9 * BUN 57 up from 50, baseline less than 5 * Consider secondary to dehydration Plan: * Continue D5W fluid infusion * Monitor urine output * Avoid nephrotoxic agents * Renally dose medications #Anion gap metabolic acidosis (Resolved) * Anion gap was 18, corrected to 16 #Leukocytosis * White count jose l from 18 to 23 * Considered that the patient received methylprednisolone 125 mg on 05/14/2025 Plan: * Monitor for signs of infection #Chronic anemia * Patient's baseline hemoglobin is around 9-10 Plan: * Continue to monitor #Hypothyroidism * Patient is a history of hypothyroidism Plan: * Home p.o. levothyroxine 50 mg Hospital Maintenance: DVT ppx: Lovenox GI ppx: None Diet: N.p.o. IV lines: Peripheral IV Hayes: Present Code status: Full code Dispo: Patient downgraded to floors today, continuing to monitor sodium, continuing ceftriaxone and azithromycin for suspected aspiration pneumonia. Patient was seen and discussed with my attending physician Dr. Pearl HUMPHRIES and my senior resident Dr. Nestor HUMPHRIES PGY-3. David Otero DO PGY-1. Attending Provider Attestation/Addendum I attest that I was physically present for the evaluation, physical examination, lab and imaging review of the patient with the residents. I discussed the case with the residents and agree with the findings and plans of care as documented above. Selvin Kang MD
[2025-05-15 16:45] LABS: Sodium 174 mMol/L (136-145)
[2025-05-15] MEDS: DEXTROSE 5%-WATER 1,000 ML 70 ML IV (17:13)
[2025-05-15 20:33] LABS: Sodium 166 mMol/L (136-145)
[2025-05-16] VITALS (18 sets, daily range): BP systolic 119–157; BP diastolic 55–95; PULSE 96–122; RESP 27–40; TEMP 36.7–37; O2SAT 90–100; BMI 17.6
[2025-05-16 01:13] LABS: Sodium 175 mMol/L (136-145)
[2025-05-16] MEDS: DEXTROSE 5%-WATER 1,000 ML 70 ML IV (02:13)
[2025-05-16 05:31] LABS: Basophils # (Auto) 0.0 Thou/mm3 (0.0-0.2); Basophils % (Auto) 0 % (0-2.5); Eosinophils # (Auto) 0.0 Thou/mm3 (0.0-0.5); Eosinophils % (Auto) 0 % (0-10); Hematocrit 35.6 % (41.0-53.0); Hemoglobin 10.1 g/dL (13.5-16.0); Immature Granulocytes Auto 0.12 Thou/mm3 (0.00-0.00); Lymphocytes # (Auto) 0.6 Thou/mm3 (1.0-4.8); Lymphocytes % (Auto) 3 % (10-50); Mean Corpuscular HGB Conc 28.4 g/dl (31.0-37.0); Mean Corpuscular Hemoglobin 27.9 pg (25.0-35.0); Mean Corpuscular Volume 98 fL (80-100); Monocytes # (Auto) 1.5 Thou/mm3 (0.0-0.8); Monocytes % (Auto) 8 % (0-12); Neutrophils # (Auto) 16.4 Thou/mm3 (1.8-7.7); Neutrophils % (Auto) 88 % (37-80); Nucleated Red Blood Cell # 0.05 Thou/mm3 (0.00-0.00); Nucleated Red Blood Cell % 0 /100 WBC (0); Platelet Count 235 Thou/mm3 (140-440); RDW Standard Deviation 55.7 fL (35.1-43.9); Red Blood Count 3.62 Miln/mm3 (4.50-5.90); White Blood Count 18.6 Thou/mm3 (3.8-10.6)
[2025-05-16] MEDS: LEVOTHYROXINE SODIUM 25 MCG TABLET 50 MCG PO (05:35)
[2025-05-16] MEDS: HEPARIN SOD INJ 5000 UNIT/ML VIAL SC ×3 (05:35→22:07)
[2025-05-16 05:54] LABS: Alanine Aminotransferase 43 U/L (10-49); Albumin, Serum 3.6 gm/dL (3.4-4.8); Albumin/Globulin Ratio 1.4 (1.2-2.2); Alkaline Phosphatase 100 U/L (46-116); Anion Gap 16 (7-16); Aspartate Amino Transferase 39 U/L (0-34); BUN/Creatinine Ratio 25 Ratio (12-20); Bilirubin,Total 0.2 mg/dL (0.3-1.2); Blood Urea Nitrogen 45 mg/dL (9-23); Calcium 8.6 mg/dL (8.3-10.6); Calcium (Corrected) 8.9 mg/dL (8.5-10.1); Carbon Dioxide 26.2 mMol/L (20.0-31.0); Chloride 133 mMol/L (98-107); Creatinine (Component) 1.8 mg/dL (0.6-1.3); Estimated Creatinine Clearance 27.4 mL/min (>60); Globulin 2.6 gm/dL (2.3-3.5); Glucose 131 mg/dL (74-106); Magnesium 3.6 mg/dL (1.6-2.6); Osmolality,Calculated 358 (275-295); Phosphorous 3.8 mg/dL (2.4-5.1); Potassium 4.1 mMol/L (3.4-5.1); Total Protein 6.2 gm/dL (5.7-8.2); eGFR 39 See Note
[2025-05-16 06:01] LABS: Sodium 175 mMol/L (136-145)
[2025-05-16] MEDS: AZITHROMYCIN INJ 500 MG in SODIUM CHLORIDE 0.9% 250 ML 250 ML 250 MG IV (09:30)
[2025-05-16] MEDS: cefTRIAXone/D5w 1gm IV premix 1 GM/50 ML BAG IV (09:30)
[2025-05-16] MEDS: DEXTROSE 5%-WATER 1,000 ML 100 ML IV ×3 (09:31→15:04)
[2025-05-16 10:45] LABS: Sodium 172 mMol/L (136-145)
--- NOTE | 2025-05-16 12:22 | ESPR_ITS ---
<Statement entered by Oliver Baez MD - 05/16/25 19:50> Patient examined and case discussed with the team including attending physician. Note reviewed, I agree with the care plan as documented. Please refer to the note below for further details. - Oliver Baez MD, PGY 3 Disclaimer: The document may contain phonetic/typographic errors due to voice recognition software. These errors are purely due to imperfections in the software program. Documentation for date of: 05/16/25 Subjective Subjective Interval history: No overnight events. The patient is nonverbal this morning and could not share a review of systems. Goal sodium reduction 10-12 for 24hours set. D5W infusion increased from 70 to 100 as sodium uptrended, currently downtrending once again on new infusion rate. The patient was seen and examined at bedside by the floor team. Sodium is being followed closely, most recent value of 172, goal is 167-169, based on this morning's value of 175. Vitals are significant for tachycardia and tachypnea. He is satting at 95% on 10 L oxy mask. Will continue to trend sodium and treat his suspected aspiration pneumonia with azithromycin and ceftriaxone. Exam Vital Signs Temp Pulse Resp BP Pulse Ox O2 Del Method O2 Flow Rate 98.0 F 112 H 40 H 134/67 H 91 L Oxy Mask 10 05/16/25 10:00 05/16/25 10:00 05/16/25 10:00 05/16/25 10:00 05/16/25 09:00 05/16/25 10:05/16/25 10:00 FiO2 75 05/15/25 09:00 Narrative Exam General: Thin, frail elderly man. Awake and alert, nonverbal. No acute distress. Neurologic: Left pupil more dilated than right pupil. No gross neurological deficit, and patient able to move all 4 extremities. HEENT: Oral mucosa dry. No obvious lesions in oropharynx. Mouth held open with rhythmic, lateral, translatory movement of lower jaw. Tongue noted to be black. Heart: Regular rate and rhythm, normal S1 and S2, no murmurs. Lungs: Tachypneic, labored mouth breathing on oxygen mask. Clear to auscultation bilaterally with no wheezing or crackles. Abdomen: Soft, nondistended, nontender, positive bowel sounds. No guarding or rebound tenderness. Extremities: No edema. 2+ radial and dorsalis pedis pulses bilaterally. Skin: Healing, linear surgical wound at R lateral hip w/o erythema, warmth, or oozing (sutures in place). Objective Labs 05/17/25 04:50 05/17/25 12:40 Labs: Laboratory Results - last 24 hr 05/15/25 05/15/25 05/15/25 12:30 16:09 19:43 WBC RBC Hgb Hct MCV MCH MCHC RDW Std Deviation Plt Count Neut % (Auto) Lymph % (Auto) [place] % (Auto) Eos % (Auto) Baso % (Auto) Neut # (Auto) Lymph # (Auto) [place] # (Auto) Eos # (Auto) Baso # (Auto) Immature Gran # (Auto) Absolute Nucleated RBC Immature Gran % Nucleated RBC % Sodium 171 H* 174 H* 166 H* Potassium Chloride Carbon Dioxide Anion Gap BUN Creatinine Estim Creat Clear Calc eGFR BUN/Creatinine Ratio Glucose Calculated Osmolality Calcium Corrected Calcium Phosphorus Magnesium Total Bilirubin AST ALT Alkaline Phosphatase Total Protein Albumin Globulin Albumin/Globulin Ratio 05/16/25 05/16/25 05/16/25 00:26 04:25 10:00 WBC 18.6 H RBC 3.62 L Hgb 10.1 L Hct 35.6 L MCV 98 MCH 27.9 MCHC 28.4 L RDW Std Deviation 55.7 H Plt Count 235 D Neut % (Auto) 88 H Lymph % (Auto) 3 L [place] % (Auto) 8 Eos % (Auto) 0 Baso % (Auto) 0 Neut # (Auto) 16.4 H Lymph # (Auto) 0.6 L [place] # (Auto) 1.5 H Eos # (Auto) 0.0 Baso # (Auto) 0.0 Immature Gran # (Auto) 0.12 H Absolute Nucleated RBC 0.05 H Immature Gran % 1 H Nucleated RBC % 0 Sodium 175 H* 175 H* 172 H* Potassium 4.1 D Chloride 133 H* Carbon Dioxide 26.2 Anion Gap 16 BUN 45 H Creatinine 1.8 H D Estim Creat Clear Calc 27.4 L eGFR 39 L BUN/Creatinine Ratio 25 H Glucose 131 H Calculated Osmolality 358 H Calcium 8.6 Corrected Calcium 8.9 Phosphorus 3.8 Magnesium 3.6 H Total Bilirubin 0.2 L AST 39 H ALT 43 Alkaline Phosphatase 100 Total Protein 6.2 Albumin 3.6 Globulin 2.6 Albumin/Globulin Ratio 1.4 ABG Interpretation ABG results: 05/14/25 13:50 ABG pH 7.39 ABG pCO2 37 ABG pO2 60 L ABG HCO3 23 ABG O2 Saturation 90 L ABG Base Excess -2 Quality Measures Quality Measures sepsis Current suspected stage: sepsis Possible source: pulmonary Blood cultures ordered: completed in ED Antibiotic ordered: Yes Advance care planning discussed with:: legal surragate Assessment & Plan Assessment Current Active Medications: Generic Name Dose Route Start Last Admin Trade Name Freq PRN Reason Stop Dose Admin Acetaminophen 650 mg 05/14/25 13:40 Acetaminophen 325 Mg Tablet PO 06/13/25 13:39 Q4HR PRN PAIN SCALE 1-3 (mild Acetaminophen 650 mg 05/14/25 13:40 Acetaminophen Supp 650 Mg Supp VA 06/13/25 13:39 Q4HR PRN PAIN SCALE 1-3 (mild Al Hydrox/Mg Hydrox/Simethicone 30 ml 05/14/25 13:40 Mg Hyd/Al Hyd/James (Maalox Reg) Susp 30 Ml Udc PO 06/13/25 13:39 Q4HR PRN Heartburn or Upset Stomach Heparin Sodium (Porcine) 5,000 unit 05/14/25 14:00 05/16/25 05:35 Heparin Sod Inj 5000 Unit/Ml Vial SC 05/28/25 13:59 5,000 unit Q8HR ROSE MARIE Administration Azithromycin 500 mg/ Sodium 250 mls @ 250 mls/hr 05/15/25 09:00 05/16/25 09:30 Chloride IV 05/22/25 08:59 250 mls/hr QDAY ROSE MARIE Administration Ceftriaxone Sodium/Dextrose 1 gm in 50 mls @ 100 mls/hr 05/15/25 09:00 05/16/25 09:30 Rocephin/D5w 1gm Iv Premix IV 05/22/25 08:59 100 mls/hr QDAY ROSE MARIE Administration Dextrose 1,000 mls @ 100 mls/hr 05/16/25 08:43 05/16/25 11:05 D5w IV 06/15/25 08:42 100 mls/hr .Q10H ROSE MARIE Administration Levothyroxine Sodium 50 mcg 05/15/25 06:00 05/16/25 05:35 Levothyroxine Sodium 25 Mcg Tablet PO 06/14/25 05:59 50 mcg ACBR ROSE MARIE Administration Magnesium Hydroxide 30 ml 05/14/25 13:40 Milk Of Magnesia Susp 30 Ml Udc PO 06/13/25 13:39 QDAY PRN CONSTIPATION Nitroglycerin 0.4 mg 05/14/25 13:40 Nitroglycerin 0.4 Mg Subl Btl #25 SL Q5MIN PRN CHEST PAIN Plan Juan Anderson is a 75-year-old M with a PMH of Parkinson's disease, 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 Nguyen in February 2025 who was brought to the [facility] ED by EMS on 05/14/25 with concerns for shortness of breath. #Severe hyperosmolar hypernatremia #Severe hyperchloremia #Severe dehydration Presented with a sodium of 179, chloride 134. Sodium trended downward with initial D5W administration but once again trended upward, has been steadily decreasing on latest 100ml/hr D5W. Chloride still elevated. Current sodium 172, current chloride 133. -Titrate further to 100ml/hr D5W -Trend sodium q4 -Titrating the rate of drip to sodium data with a goal reduction of 10-12 every 24 hours -Order scruff worker consult as low BMI 17.6 is concerning #Acute Encephalopathy, likely metabolic Pt apparently verbal at baseline but has been nonverbal this admission. -Manage as above. #Acute Hypoxic Respiratory Failure 2/2 Aspiration Pneumonia Chest x-ray showed findings suggestive of early right base pneumonia. Patient required 40 L high flow nasal cannula at 80% FiO2 upon admission, has since been weaned. - Currently on O2mask 10L with stable saturation. - Complete IV Rocephin 1g and IV Zithromax 500mg (both 05/14-05/16), transition to IV Unasyn 1.5g (05/16-) #Parkinson's Reported hx of Parkinson's but no home medication. Apparently has hx of b/l tremors but none noted this admission. 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 - BP stable this admit, no antihypertensives indicated at this time. #Transaminitis (resolved) Most likely 2/2 sepsis -Monitor labs in AM #Hypokalemia (resolved) Potassium this morning 4.1 -Monitor labs in AM #SHIREEN Creatinine at baseline 0.9, this morning 1.8 downtrending from 2.4 yesterday. BUN also improving, 45 today from 57 yesterday. Currently thought to be 2/2 hypovolemia/dehydration. - Cont D5W fluid infusio lissett above. - Strict Is & Os - Avoid nephrotoxic agents - Renally dose - Monitor labs in AM #Anion gap metabolic acidosis (Resolved) * Anion gap was 18, corrected to 16 #Leukocytosis WBCs downtrending to 18.6 from 23.1. Consider pt received methylprednisolone 125mg on 05/14/25 - Monitor for signs/sx of infection - Trend CBC in AM #Chronic anemia Baseline hgb ~9-10 - Monitor #Hypothyroidism Chronic, historical - Cont home PO Synthroid 50mg Hospital management: Disposition: Continue to provide fluid and abx, monitor for improvement and hopefully return of verbal status. Fluids: D5W 125 ml/hr DVT prophylaxis: Heparin 5k q8 Hayes Catheter in place CODE STATUS: full code ----- Plan discussed with attending physician Dr. Pearl Kovacs, Medical Student OMSIV Attending Provider Attestation/Addendum I attest that I was physically present for the evaluation, physical examination, lab and imaging review of the patient with the residents. I discussed the case with the residents and agree with the findings and plans of care as documented above. Selvin Kang MD
--- NOTE | 2025-05-16 12:42 | XR_ITS ---
Examination: AP chest single view Technique one AP portable semiupright chest single view Date and time: May 16, 2025, 12:55 PM Indications: Shortness of breath today Findings: Normal heart size Accentuation interstitial markings throughout the lungs Prominent central pulmonary arteries Prominent osteopenia Impression: Normal heart size Suspicious for pulmonary artery hypertension Interstitial disease throughout the lungs, differential would include bronchitis, atypical pulmonary edema, clinical correlation advised
--- NOTE | 2025-05-16 13:31 | PC.SS ---
Addendum entered by KEVIN Faith 05/16/25 15:22: SS update: CHYRON OPERATOR placed phone call to [facility] Daria, Daria was not available, CHYRON OPERATOR contacted [facility] after hours staff, CHYRON OPERATOR spoke to [place] with [facility] and left call back number, Cherry stated that after hours staff would follow up with CHYRON OPERATOR. Original Note: SS update: high flow, not intubated, on iv antibiotics.
[2025-05-16 14:11] LABS: Sodium 171 mMol/L (136-145)
[2025-05-16 14:18] LABS: Lactate (Lactic Acid) 1.5 mMol/L (0.4-2.0)
[2025-05-16 14:44] LABS: Alanine Aminotransferase 40 U/L (10-49); Albumin, Serum 3.6 gm/dL (3.4-4.8); Albumin/Globulin Ratio 1.4 (1.2-2.2); Alkaline Phosphatase 97 U/L (46-116); Anion Gap 12 (7-16); Aspartate Amino Transferase 31 U/L (0-34); BUN/Creatinine Ratio 28 Ratio (12-20); Bilirubin,Total 0.2 mg/dL (0.3-1.2); Blood Urea Nitrogen 42 mg/dL (9-23); Calcium 8.6 mg/dL (8.3-10.6); Calcium (Corrected) 8.9 mg/dL (8.5-10.1); Carbon Dioxide 27.5 mMol/L (20.0-31.0); Chloride 131 mMol/L (98-107); Creatinine (Component) 1.5 mg/dL (0.6-1.3); Estimated Creatinine Clearance 32.9 mL/min (>60); Globulin 2.5 gm/dL (2.3-3.5); Glucose 192 mg/dL (74-106); Osmolality,Calculated 350 (275-295); Potassium 4.1 mMol/L (3.4-5.1); Total Protein 6.1 gm/dL (5.7-8.2); eGFR 49 See Note
[2025-05-16 14:47] LABS: Sodium 170 mMol/L (136-145)
[2025-05-16] MEDS: AMPICILLIN/SULBAC INJ 1.5 GM in SODIUM CHLORIDE 0.9% (Popper) 50 ML IV (17:37)
[2025-05-16 18:01] LABS: Sodium 169 mMol/L (136-145)
[2025-05-16 21:38] LABS: Sodium 168 mMol/L (136-145)
[2025-05-17] VITALS (13 sets, daily range): BP systolic 102–137; BP diastolic 66–75; PULSE 86–121; RESP 23–37; TEMP 35.6–37.1; O2SAT 89–100
[2025-05-17] MEDS: DEXTROSE 5%-WATER 1,000 ML 100 ML IV (00:12)
[2025-05-17 00:59] LABS: Sodium 168 mMol/L (136-145)
[2025-05-17] MEDS: DEXTROSE 5%-WATER 1,000 ML 150 ML IV ×2 (01:36→07:50)
[2025-05-17] MEDS: HEPARIN SOD INJ 5000 UNIT/ML VIAL SC ×3 (05:26→21:27)
[2025-05-17 05:49] LABS: Basophils # (Auto) 0.0 Thou/mm3 (0.0-0.2); Basophils % (Auto) 0 % (0-2.5); Eosinophils # (Auto) 0.5 Thou/mm3 (0.0-0.5); Eosinophils % (Auto) 3 % (0-10); Hematocrit 34.3 % (41.0-53.0); Hemoglobin 9.9 g/dL (13.5-16.0); Immature Granulocytes Auto 0.15 Thou/mm3 (0.00-0.00); Lymphocytes # (Auto) 0.7 Thou/mm3 (1.0-4.8); Lymphocytes % (Auto) 5 % (10-50); Mean Corpuscular HGB Conc 28.9 g/dl (31.0-37.0); Mean Corpuscular Hemoglobin 28.2 pg (25.0-35.0); Mean Corpuscular Volume 98 fL (80-100); Monocytes # (Auto) 1.1 Thou/mm3 (0.0-0.8); Monocytes % (Auto) 8 % (0-12); Neutrophils # (Auto) 11.8 Thou/mm3 (1.8-7.7); Neutrophils % (Auto) 82 % (37-80); Nucleated Red Blood Cell # 0.06 Thou/mm3 (0.00-0.00); Nucleated Red Blood Cell % 0 /100 WBC (0); Platelet Count 217 Thou/mm3 (140-440); RDW Standard Deviation 55.2 fL (35.1-43.9); Red Blood Count 3.51 Miln/mm3 (4.50-5.90); White Blood Count 14.3 Thou/mm3 (3.8-10.6)
[2025-05-17 06:24] LABS: Albumin, Serum 3.4 gm/dL (3.4-4.8); Anion Gap 13 (7-16); BUN/Creatinine Ratio 20 Ratio (12-20); Blood Urea Nitrogen 28 mg/dL (9-23); Calcium 8.5 mg/dL (8.3-10.6); Calcium (Corrected) 9.0 mg/dL (8.5-10.1); Carbon Dioxide 27.2 mMol/L (20.0-31.0); Chloride 126 mMol/L (98-107); Creatinine (Component) 1.4 mg/dL (0.6-1.3); Estimated Creatinine Clearance 36.2 mL/min (>60); Glucose 160 mg/dL (74-106); Osmolality,Calculated 336 (275-295); Phosphorous 2.1 mg/dL (2.4-5.1); Potassium 3.4 mMol/L (3.4-5.1); eGFR 53 See Note
[2025-05-17 06:26] LABS: Sodium 166 mMol/L (136-145)
[2025-05-17] MEDS: POTASSIUM PHOS 22.5 MMOL in SODIUM CHLORIDE 0.9% 500 ML 500 ML 82.778 MMOL IV (07:49)
[2025-05-17 08:58] LABS: Sodium 149 mMol/L (136-145)
[2025-05-17] MEDS: AMPICILLIN/SULBAC INJ 1.5 GM in SODIUM CHLORIDE 0.9% (Popper) 50 ML IV ×2 (09:11→20:37)
--- NOTE | 2025-05-17 09:13 | ESPR_ITS ---
<Statement entered by William Goncalves MD - 05/17/25 17:35> No acute overnight events. Seen and examined at bedside. Patient appears alert but he is not conversational. Per social service liaison, patient is conserved by Dr. Simmons who we reached out to regarding artificial feeding and at this time will place NG tube for nutritional support and consulted screening unit registered nurse for recommendations. Na downtrending but had significant drop from 16 to 149 and spoke to nephrology who stated that no fluids needed at this time as likely will correct on its own. Will continue every 4 hours sodium checks otherwise. He also remains on HFNC and repeat CXR unchanged from prior. Suspect microaspiration's and secretions as coarse lung sounds appreciated on exam. Chest PT ordered. ----- Note reviewed and agree with care plan as documented. Please refer to the note below for further details. Plan discussed with attending physician Dr. Pearl Goncalves MD PGY-2 Internal Medicine Documentation for date of: 05/17/25 Subjective Subjective Interval history: No overnight events. The patient is nonverbal this morning and could not share a review of systems. Goal sodium reduction 10-12 for 24hours set. D5W infusion increased from 100 to 150, currently sodium downtrending. The patient was seen and examined at bedside by the floor team. Sodium is being followed closely, most recent value of 166, goal is ~155. Vitals are significant for tachycardia and tachypnea. He is satting at 90% on HFNC 80%O2 35 l/m. Will continue to trend sodium and treat his suspected aspiration pneumonia with azithromycin and ceftriaxone. Also plan to contact caregivers for information on patient baseline status and care goals. Exam Vital Signs Temp Pulse Resp BP Pulse Ox O2 Del Method O2 Flow Rate 97.2 F 94 32 H 132/70 H 95 High Flow Nasal Cannula 35 05/17/25 08:00 05/17/25 08:00 05/17/25 08:00 05/17/25 08:00 05/17/25 08:00 05/17/25 08:00 05/17/25 08:00 FiO2 80 05/17/25 08:00 Narrative Exam General: Thin, frail elderly man. Awake and alert, nonverbal. No acute distress. Neurologic: Left pupil more dilated than right pupil. No gross neurological deficit, and patient able to move all 4 extremities. HEENT: Oral mucosa dry. No obvious lesions in oropharynx. Mouth held open with rhythmic, lateral, translatory movement of lower jaw. Tongue noted to be black. Heart: Regular rate and rhythm, normal S1 and S2, no murmurs. Lungs: Tachypneic, labored mouth breathing on oxygen mask. Clear to auscultation bilaterally with no wheezing or crackles. Abdomen: Soft, nondistended, nontender, positive bowel sounds. No guarding or rebound tenderness. Extremities: No edema. 2+ radial and dorsalis pedis pulses bilaterally. Skin: Healing, linear surgical wound at R lateral hip w/o erythema, warmth, or oozing (sutures in place). Objective Labs 05/17/25 04:50 05/17/25 16:11 Labs: Laboratory Results - last 24 hr 05/16/25 05/16/25 05/16/25 10:00 13:03 14:10 WBC RBC Hgb Hct MCV MCH MCHC RDW Std Deviation Plt Count Neut % (Auto) Lymph % (Auto) [place] % (Auto) Eos % (Auto) Baso % (Auto) Neut # (Auto) Lymph # (Auto) [place] # (Auto) Eos # (Auto) Baso # (Auto) Immature Gran # (Auto) Absolute Nucleated RBC Immature Gran % Nucleated RBC % Sodium 172 H* 171 H* 170 H* Potassium 4.1 Chloride 131 H* Carbon Dioxide 27.5 Anion Gap 12 BUN 42 H Creatinine 1.5 H Estim Creat Clear Calc 32.9 L eGFR 49 L BUN/Creatinine Ratio 28 H Glucose 192 H D Calculated Osmolality 350 H Lactic Acid 1.5 Calcium 8.6 Corrected Calcium 8.9 Phosphorus Total Bilirubin 0.2 L AST 31 ALT 40 Alkaline Phosphatase 97 Total Protein 6.1 Albumin 3.6 Globulin 2.5 Albumin/Globulin Ratio 1.4 05/16/25 05/16/25 05/17/25 16:50 21:03 00:36 WBC RBC Hgb Hct MCV MCH MCHC RDW Std Deviation Plt Count Neut % (Auto) Lymph % (Auto) [place] % (Auto) Eos % (Auto) Baso % (Auto) Neut # (Auto) Lymph # (Auto) [place] # (Auto) Eos # (Auto) Baso # (Auto) Immature Gran # (Auto) Absolute Nucleated RBC Immature Gran % Nucleated RBC % Sodium 169 H* 168 H* 168 H* Potassium Chloride Carbon Dioxide Anion Gap BUN Creatinine Estim Creat Clear Calc eGFR BUN/Creatinine Ratio Glucose Calculated Osmolality Lactic Acid Calcium Corrected Calcium Phosphorus Total Bilirubin AST ALT Alkaline Phosphatase Total Protein Albumin Globulin Albumin/Globulin Ratio 05/17/25 05/17/25 05/17/25 04:50 04:50 08:17 WBC 14.3 H RBC 3.51 L Hgb 9.9 L Hct 34.3 L MCV 98 MCH 28.2 MCHC 28.9 L RDW Std Deviation 55.2 H Plt Count 217 Neut % (Auto) 82 H Lymph % (Auto) 5 L [place] % (Auto) 8 Eos % (Auto) 3 Baso % (Auto) 0 Neut # (Auto) 11.8 H Lymph # (Auto) 0.7 L [place] # (Auto) 1.1 H Eos # (Auto) 0.5 Baso # (Auto) 0.0 Immature Gran # (Auto) 0.15 H Absolute Nucleated RBC 0.06 H Immature Gran % 1 H Nucleated RBC % 0 Sodium 166 H* Cancelled 149 H D Potassium 3.4 D Chloride 126 H* Carbon Dioxide 27.2 Anion Gap 13 BUN 28 H Creatinine 1.4 H Estim Creat Clear Calc 36.2 L eGFR 53 L BUN/Creatinine Ratio 20 Glucose 160 H Calculated Osmolality 336 H Lactic Acid Calcium 8.5 Corrected Calcium 9.0 Phosphorus 2.1 L Total Bilirubin AST ALT Alkaline Phosphatase Total Protein Albumin 3.4 Globulin Albumin/Globulin Ratio ABG Interpretation ABG results: 05/14/25 13:50 ABG pH 7.39 ABG pCO2 37 ABG pO2 60 L ABG HCO3 23 ABG O2 Saturation 90 L ABG Base Excess -2 Quality Measures Quality Measures sepsis Current suspected stage: ruled out Possible source: pulmonary Blood cultures ordered: completed in ED Antibiotic ordered: Yes Advance care planning discussed with:: legal surragate Assessment & Plan Assessment Current Active Medications: Generic Name Dose Route Start Last Admin Trade Name Freq PRN Reason Stop Dose Admin Acetaminophen 650 mg 05/14/25 13:40 Acetaminophen 325 Mg Tablet PO 06/13/25 13:39 Q4HR PRN PAIN SCALE 1-3 (mild Acetaminophen 650 mg 05/14/25 13:40 Acetaminophen Supp 650 Mg Supp [place] 06/13/25 13:39 Q4HR PRN PAIN SCALE 1-3 (mild Al Hydrox/Mg Hydrox/Simethicone 30 ml 05/14/25 13:40 Mg Hyd/Al Hyd/James (Maalox Reg) Susp 30 Ml Udc PO 06/13/25 13:39 Q4HR PRN Heartburn or Upset Stomach Heparin Sodium (Porcine) 5,000 unit 05/14/25 14:00 05/17/25 05:26 Heparin Sod Inj 5000 Unit/Ml Vial SC 05/28/25 13:59 5,000 unit Q8HR ROSE MARIE Administration Ampicillin Sodium/Sulbactam 50 mls @ 100 mls/hr 05/16/25 18:00 05/17/25 09:11 Sodium 1.5 gm/ Sodium Chloride IV 05/23/25 17:59 100 mls/hr Q12HR ROSE MARIE Administration Protocol Dextrose 1,000 mls @ 150 mls/hr 05/17/25 01:31 05/17/25 07:50 D5w IV 06/16/25 01:30 150 mls/hr .Q6H40M ROSE MARIE Administration Potassium Phosphate 22.5 mmol/ 507.5 mls @ 82.778 mls/hr 05/17/25 07:28 05/17/25 07:49 Sodium Chloride IV 05/17/25 13:35 82.778 mls/hr X1 ONE Administration Levothyroxine Sodium 50 mcg 05/15/25 06:00 05/17/25 05:33 Levothyroxine Sodium 25 Mcg Tablet PO 06/14/25 05:59 Not Given ACBR ROSE MARIE Lidocaine 1 patch 05/16/25 15:36 Lidocaine 5% 1 Patch TOP 06/15/25 15:35 UD PRN PAIN Magnesium Hydroxide 30 ml 05/14/25 13:40 Milk Of Magnesia Susp 30 Ml Udc PO 06/13/25 13:39 QDAY PRN CONSTIPATION Nitroglycerin 0.4 mg 05/14/25 13:40 Nitroglycerin 0.4 Mg Subl Btl #25 SL Q5MIN PRN CHEST PAIN Plan Juan Anderson is a 75-year-old M with a PMH of Parkinson's disease, 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 Nguyen in February 2025 who was brought to the [facility] ED by EMS on 05/14/25 with concerns for shortness of breath. #Severe hyperosmolar hypernatremia #Severe hyperchloremia #Severe dehydration Presented with a sodium of 179, chloride 134. Sodium trended downward with D5W administration, however was increased to 150mls/hr and sodum decreased more quickly than preferred to 149 this morning. Chloride still elevated. Current sodium 158, current chloride 126. -Consulted Dr. Salcido, appreciated. Per recs will hold fluid administration and observe for now. -Trend sodium q4 -Pending laundry housekeeper consult as low BMI 17.6 is concerning -Free water flushes of 80 cc/h for goal Na of 155 until tomorrow #Acute Encephalopathy, likely metabolic Pt apparently verbal at baseline but has been nonverbal this admission. -Manage as above. #Acute Hypoxic Respiratory Failure 2/2 Aspiration Pneumonia Chest x-ray showed findings suggestive of early right base pneumonia. Patient required 40 L high flow nasal cannula at 80% FiO2 upon admission, had been weaned however worsened overnight. - Placed back on HFNC 35O2 rate 80% with stable saturation. - Completed IV Rocephin 1g and IV Zithromax 500mg (both 05/14-05/16), transitioned to IV Unasyn 1.5g (05/16-) #Parkinson's Reported hx of Parkinson's but no home medication. Apparently has hx of b/l tremors but none noted this admission. 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 - BP stable this admit, no antihypertensives indicated at this time. #Transaminitis (resolved) Most likely 2/2 sepsis -Monitor labs in AM #Hypokalemia (resolved) Potassium this morning 4.1 -Monitor labs in AM #SHIREEN, improving Creatinine at baseline 0.9, this morning 1.8 downtrending from 2.4 yesterday. BUN also improving, 45 today from 57 yesterday. Currently thought to be 2/2 hypovolemia/dehydration. - Free water flushes as above - Strict Is & Os - Avoid nephrotoxic agents - Renally dose - Monitor labs in AM #Anion gap metabolic acidosis (Resolved) Anion gap on admit was 18, since normalized. #Leukocytosis WBCs downtrending to 14.3 from 18.6. Consider pt received methylprednisolone 125mg on 05/14/25 - Monitor for signs/sx of infection - Trend CBC in AM #Chronic anemia Baseline hgb ~9-10 - Monitor #Hypothyroidism Chronic, historical - As pt cannot tolerate oral intake, swapped to IV Synthroid. Hospital management: Disposition: Installed NG tube, see how sodium improves w/ overnight free water flushes Fluids: Free water flushes Diet: Renal Lines: NG tube, peripheral IVs DVT prophylaxis: Hep 5k SC Q8 Hayes: In place CODE STATUS: full code ----- Plan discussed with attending physician Dr. Pearl Kovacs, Medical Student OMSIV Attending Provider Attestation/Addendum I attest that I was physically present for the evaluation, physical examination, lab and imaging review of the patient with the residents. I discussed the case with the residents and agree with the findings and plans of care as documented above. Patient seen and examined at bedside this morning. Appears comfortable but continues to be confused. He is alert but unable to answer questions or follow commands. Sodium level down trended from 166 to 149, discussed with nephrology, we will discontinue D5W and continue to monitor sodium level closely, appreciate recommendations. Continues to be on high flow nasal cannula, WBC is downtrending, chest x-ray unchanged compared to prior study, patient tends to breathe from mouth, but does not tolerate oxy mask, we will continue to try to titrate down the supplemental oxygen. With suspicion for aspiration, we will continue with IV Unasyn. Patient also continues to be mildly tachycardic and tachypneic. We will discuss with Dr. Simmons who is patient's conservator, regarding NG tube placement to start the patient on free water and tube feeding. Blood culture results have been negative for 48 hours, urine culture came back negative. Kidney function improving, creatinine of 1.4 today. Noted to have phosphate of 2.1, repleted accordingly. Selvin Kang MD
--- NOTE | 2025-05-17 10:04 | XR_ITS ---
Examination: AP chest single view Technique one AP portable upright chest single view Date and time: May 17, 2025, 1013 hours, comparison 05/08/2025 INDICATIONS: Increasing shortness of breath hypoxia today FINDINGS: Bibasilar pneumonia. Normal heart size Mild to moderate vascular congestion IMPRESSION: Significant bibasilar pneumonia
--- NOTE | 2025-05-17 10:17 | PC.NURSE ---
restraints to be taken off patient per Dr Baez
--- NOTE | 2025-05-17 11:50 | PCS.ST ---
Swallow Evaluation completed. See report for details. NOT safe for PO at this time. ST will treat daily for diet readiness.
[2025-05-17 13:01] LABS: Sodium 158 mMol/L (136-145)
[2025-05-17] MEDS: FUROSEMIDE INJ 10 MG/ML 4ML VIAL 20 MG IVP (13:37)
--- NOTE | 2025-05-17 14:56 | PC.SS ---
MEDICAL RECORD TECHNICIAN conducted phone contact with patient's [facility] family independence case manager, Daria Landry ; to confirm that [facility] possesses patient's medical rights. CM confirmed [facility] possesses patient's medical rights. Medical team can reach out to Dr. Simmons to obtain consents for Code Status change or procedures. MEDICAL RECORD TECHNICIAN confirmed with [facility] staff that patient is not conserved. MEDICAL RECORD TECHNICIAN provided update to residential team.
[2025-05-17 16:43] LABS: Sodium 160 mMol/L (136-145)
--- NOTE | 2025-05-17 17:27 | XR_ITS ---
Examination: AP chest single view Technique one AP portable upright chest single view Date and time: May 17, 2025, 1732 hrs., Comparison 05/17/2025 10:13 AM Indications: Post orogastric tube placement. Findings: Orogastric tube in the stomach satisfactory position Normal heart size Interstitial disease throughout the lungs but especially at the lung bases, mild pneumonia versus bronchitis pattern Prominent osteopenia Impression: Orogastric tube in the stomach satisfactory position
[2025-05-17 20:22] LABS: Sodium 164 mMol/L (136-145)
[2025-05-18] VITALS (14 sets, daily range): BP systolic 97–132; BP diastolic 63–78; PULSE 77–113; RESP 19–37; TEMP 36.1–36.7; O2SAT 90–100; BMI 18.0
[2025-05-18 00:41] LABS: Sodium 163 mMol/L (136-145)
[2025-05-18 05:39] LABS: Basophils # (Auto) 0.0 Thou/mm3 (0.0-0.2); Basophils % (Auto) 0 % (0-2.5); Eosinophils # (Auto) 0.7 Thou/mm3 (0.0-0.5); Eosinophils % (Auto) 5 % (0-10); Hematocrit 32.6 % (41.0-53.0); Hemoglobin 9.6 g/dL (13.5-16.0); Immature Granulocytes Auto 0.13 Thou/mm3 (0.00-0.00); Lymphocytes # (Auto) 0.7 Thou/mm3 (1.0-4.8); Lymphocytes % (Auto) 5 % (10-50); Mean Corpuscular HGB Conc 29.4 g/dl (31.0-37.0); Mean Corpuscular Hemoglobin 27.9 pg (25.0-35.0); Mean Corpuscular Volume 95 fL (80-100); Monocytes # (Auto) 1.0 Thou/mm3 (0.0-0.8); Monocytes % (Auto) 7 % (0-12); Neutrophils # (Auto) 11.2 Thou/mm3 (1.8-7.7); Neutrophils % (Auto) 82 % (37-80); Nucleated Red Blood Cell # 0.03 Thou/mm3 (0.00-0.00); Nucleated Red Blood Cell % 0 /100 WBC (0); Platelet Count 193 Thou/mm3 (140-440); RDW Standard Deviation 53.3 fL (35.1-43.9); Red Blood Count 3.44 Miln/mm3 (4.50-5.90); White Blood Count 13.7 Thou/mm3 (3.8-10.6)
[2025-05-18] MEDS: HEPARIN SOD INJ 5000 UNIT/ML VIAL SC ×3 (05:40→21:07)
[2025-05-18 06:05] LABS: Albumin, Serum 3.3 gm/dL (3.4-4.8); Anion Gap 13 (7-16); BUN/Creatinine Ratio 19 Ratio (12-20); Blood Urea Nitrogen 27 mg/dL (9-23); Calcium 8.5 mg/dL (8.3-10.6); Calcium (Corrected) 9.1 mg/dL (8.5-10.1); Carbon Dioxide 29.0 mMol/L (20.0-31.0); Chloride 121 mMol/L (98-107); Creatinine (Component) 1.4 mg/dL (0.6-1.3); Estimated Creatinine Clearance 36.2 mL/min (>60); Free T4 (Free Thyroxine) 1.24 ng/dL (0.89-1.76); Glucose 97 mg/dL (74-106); Osmolality,Calculated 327 (275-295); Phosphorous 3.3 mg/dL (2.4-5.1); Potassium 3.5 mMol/L (3.4-5.1); Thyroid Stimulating Hormone 1.63 uIU/mL (0.55-4.78); eGFR 53 See Note
[2025-05-18 06:07] LABS: Sodium 163 mMol/L (136-145)
[2025-05-18] MEDS: DEXTROSE 5%-WATER 1,000 ML 75 ML IV (06:24)
[2025-05-18] MEDS: AMPICILLIN/SULBAC INJ 1.5 GM in SODIUM CHLORIDE 0.9% (Popper) 50 ML IV ×2 (08:09→20:30)
[2025-05-18] MEDS: guaiFENesin SYRUP 200 MG/10 ML UDC 100 MG PO ×3 (08:10→21:07)
[2025-05-18] MEDS: POTASSIUM CHLORIDE 10% 20 MEQ/15 ML UDC 40 MEQ NG (08:11)
[2025-05-18 08:25] LABS: Sodium 157 mMol/L (136-145)
--- NOTE | 2025-05-18 12:17 | ESPR_ITS ---
<Statement entered by William Goncalves MD - 05/18/25 14:19> No acute overnight events. Seen and examined at bedside, remains on HFNC and saturating 95%. Coarse lung sounds auscultated without stethoscope and ordered BUREAU CHIEF suctioning and added mucinex given the NG tube was placed and suspect that secretions may be contributing to hypoxia. Otherwise, Na downtrending with 150 cc of free water flushes and D5W at 75 cc/h and will continue to trend q4h. Remains on unasyn for aspiration pneumonia and leukocytosis improving. Plan on speaking to Dr. Simmons tomorrow regarding goals of care given patient's condition and comorbidities, especially since per report he was verbal and communicative and has been non-verbal since admission. Additionally, consulted registered clinical dietitian for recommendations for nutritional support via NG tube. ----- Note reviewed and agree with care plan as documented. Please refer to the note below for further details. Plan discussed with attending physician Dr. Go Goncalves MD PGY-2 Internal Medicine Documentation for date of: 05/18/25 Subjective Subjective Interval history: No acute overnight events. Seen and examined at bedside. Patient appears alert but he is not conversational. Dr. Simmons is conservator who agreed for NG placement yesterday, today pt is in restraints d/t pulling at tubes. Overnight pt was placed on D5 75ml/hr in addition to increasing free water flushes d/t sodium plateauing at mid 160s. Most recent sodium is 157 with goal of ~155, so downtrending well. He is satting ~92% on HFNC 85%O2 35ml/hr. Will continue to trend sodium and treat his suspected aspiration pneumonia with Unasyn. As pt is nonverbal ROS could not be collected. Exam Vital Signs Temp Pulse Resp BP Pulse Ox O2 Del Method O2 Flow Rate 98.1 F 95 27 H 118/70 92 L High Flow Nasal Cannula 35 05/18/25 07:56 05/18/25 08:00 05/18/25 07:56 05/18/25 07:56 05/18/25 07:56 05/18/25 07:56 05/18/25 07:56 FiO2 85 05/18/25 07:56 Narrative Exam General: Thin, frail elderly man. Awake and alert, nonverbal. No acute distress. Neurologic: Left pupil more dilated than right pupil. No gross neurological deficit, and patient able to move all 4 extremities. HEENT: Oral mucosa dry. No obvious lesions in oropharynx. Mouth held open with rhythmic, lateral, translatory movement of lower jaw. Tongue noted to be black. Heart: Regular rate and rhythm, normal S1 and S2, no murmurs. Lungs: Tachypneic, labored mouth breathing on oxygen mask. Clear to auscultation bilaterally with no wheezing or crackles. Abdomen: Soft, nondistended, nontender, positive bowel sounds. No guarding or rebound tenderness. Extremities: No edema. 2+ radial and dorsalis pedis pulses bilaterally. Skin: Healing, linear surgical wound at R lateral hip w/o erythema, warmth, or oozing (sutures in place). Objective Labs 05/19/25 05:14 05/19/25 07:40 Labs: Laboratory Results - last 24 hr 05/17/25 05/17/25 05/17/25 12:40 16:11 19:57 WBC RBC Hgb Hct MCV MCH MCHC RDW Std Deviation Plt Count Neut % (Auto) Lymph % (Auto) [place] % (Auto) Eos % (Auto) Baso % (Auto) Neut # (Auto) Lymph # (Auto) [place] # (Auto) Eos # (Auto) Baso # (Auto) Immature Gran # (Auto) Absolute Nucleated RBC Immature Gran % Nucleated RBC % Sodium 158 H 160 H 164 H* Potassium Chloride Carbon Dioxide Anion Gap BUN Creatinine Estim Creat Clear Calc eGFR BUN/Creatinine Ratio Glucose Calculated Osmolality Calcium Corrected Calcium Phosphorus Albumin TSH Free T4 05/18/25 05/18/25 05/18/25 00:10 04:45 07:48 WBC 13.7 H RBC 3.44 L Hgb 9.6 L Hct 32.6 L MCV 95 MCH 27.9 MCHC 29.4 L RDW Std Deviation 53.3 H Plt Count 193 Neut % (Auto) 82 H Lymph % (Auto) 5 L [place] % (Auto) 7 Eos % (Auto) 5 Baso % (Auto) 0 Neut # (Auto) 11.2 H Lymph # (Auto) 0.7 L [place] # (Auto) 1.0 H Eos # (Auto) 0.7 H Baso # (Auto) 0.0 Immature Gran # (Auto) 0.13 H Absolute Nucleated RBC 0.03 H Immature Gran % 1 H Nucleated RBC % 0 Sodium 163 H* 163 H* 157 H Potassium 3.5 Chloride 121 H* Carbon Dioxide 29.0 Anion Gap 13 BUN 27 H Creatinine 1.4 H Estim Creat Clear Calc 36.2 L eGFR 53 L BUN/Creatinine Ratio 19 Glucose 97 D Calculated Osmolality 327 H Calcium 8.5 Corrected Calcium 9.1 Phosphorus 3.3 Albumin 3.3 L TSH 1.63 Free T4 1.24 ABG Interpretation ABG results: 05/14/25 13:50 ABG pH 7.39 ABG pCO2 37 ABG pO2 60 L ABG HCO3 23 ABG O2 Saturation 90 L ABG Base Excess -2 Quality Measures Quality Measures sepsis Current suspected stage: ruled out Possible source: pulmonary Blood cultures ordered: completed in ED Antibiotic ordered: Yes Advance care planning discussed with:: legal surragate Assessment & Plan Assessment Current Active Medications: Generic Name Dose Route Start Last Admin Trade Name Freq PRN Reason Stop Dose Admin Acetaminophen 650 mg 05/14/25 13:40 Acetaminophen 325 Mg Tablet PO 06/13/25 13:39 Q4HR PRN PAIN SCALE 1-3 (mild Acetaminophen 650 mg 05/14/25 13:40 Acetaminophen Supp 650 Mg Supp NJ 06/13/25 13:39 Q4HR PRN PAIN SCALE 1-3 (mild Al Hydrox/Mg Hydrox/Simethicone 30 ml 05/14/25 13:40 Mg Hyd/Al Hyd/James (Maalox Reg) Susp 30 Ml Udc PO 06/13/25 13:39 Q4HR PRN Heartburn or Upset Stomach Guaifenesin 100 mg 05/18/25 07:30 05/18/25 08:10 Guaifenesin Syrup 200 Mg/10 Ml Udc PO 06/17/25 07:29 100 mg TID ROSE MARIE Administration Protocol Heparin Sodium (Porcine) 5,000 unit 05/14/25 14:00 05/18/25 05:40 Heparin Sod Inj 5000 Unit/Ml Vial SC 05/28/25 13:59 5,000 unit Q8HR ROSE MARIE Administration Ampicillin Sodium/Sulbactam 50 mls @ 100 mls/hr 05/16/25 18:00 05/18/25 08:09 Sodium 1.5 gm/ Sodium Chloride IV 05/23/25 17:59 100 mls/hr Q12HR ROSE MARIE Administration Protocol Dextrose 1,000 mls @ 75 mls/hr 05/18/25 06:15 05/18/25 09:45 D5w IV 06/17/25 06:14 75 mls/hr .[id number] ROSE MARIE Infusion Levothyroxine Sodium 50 mcg 05/15/25 06:00 05/17/25 05:33 Levothyroxine Sodium 25 Mcg Tablet PO 06/14/25 05:59 Not Given On Hold: 05/17/25 18:06 ACBR ROSE MARIE Comment: CHANGED TO IVP Levothyroxine Sodium 35 mcg 05/17/25 18:15 05/18/25 08:12 Levothyroxine Inj 100 Mcg Vial IV 06/16/25 18:14 35 mcg QDAY ROSE MARIE Administration Lidocaine 1 patch 05/16/25 15:36 Lidocaine 5% 1 Patch TOP 06/15/25 15:35 UD PRN PAIN Protocol Magnesium Hydroxide 30 ml 05/14/25 13:40 Milk Of Magnesia Susp 30 Ml Udc PO 06/13/25 13:39 QDAY PRN CONSTIPATION Nitroglycerin 0.4 mg 05/14/25 13:40 Nitroglycerin 0.4 Mg Subl Btl #25 SL Q5MIN PRN CHEST PAIN Plan Juan Anderson is a 75-year-old M with a PMH of Parkinson's disease, 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 Nguyen in February 2025 who was brought to the [facility] ED by EMS on 05/14/25 with concerns for shortness of breath. #Severe hyperosmolar hypernatremia #Severe hyperchloremia #Severe dehydration Presented with a sodium of 179, chloride 134. Sodium trended downward and is near goal of 155, today 157 after starting 75ml/hr D5W in addition to free water flushes. Chloride still elevated, current chloride 121 from 126. -Consulted Nephrology Dr. Wadsworth, appreciated. Per recs will conitnue management as above. -Trend sodium q4 -Pending payroll officer consult as low BMI 17.6 is concerning -Free water flushes of 150 cc/h + D5W as above for goal Na of 155 -Spoke with conservator Dr. Simmons today, per discussion will place pt as DNR/DNI. Also declines hospice at this time. #Acute Encephalopathy, likely metabolic Pt apparently verbal at baseline but has been nonverbal this admission. -Manage as above. #Acute Hypoxic Respiratory Failure 2/2 Aspiration Pneumonia Chest x-ray showed findings suggestive of early right base pneumonia. Patient required 40 L high flow nasal cannula at 80% FiO2 upon admission, had been weaned however worsened overnight. - Placed back on HFNC 35O2 rate 80% with stable saturation. - Completed IV Rocephin 1g and IV Zithromax 500mg (both 05/14-05/16), transitioned to IV Unasyn 1.5g (05/16-) #Parkinson's Reported hx of Parkinson's but no home medication. Apparently has hx of b/l tremors but none noted this admission. 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 - BP stable this admit, no antihypertensives indicated at this time. #Transaminitis (resolved) Most likely 2/2 sepsis -Monitor labs in AM #Hypokalemia (resolved) Potassium this morning 4.1 -Monitor labs in AM #SHIREEN, improving Creatinine at baseline 0.9, this morning 1.4 downtrending from 1.8 yesterday. BUN also improving. Currently thought to be 2/2 hypovolemia/dehydration. - Free water flushes - Strict Is & Os - Avoid nephrotoxic agents - Renally dose - Monitor labs in AM #Anion gap metabolic acidosis (Resolved) Anion gap on admit was 18, since normalized. #Leukocytosis WBCs downtrending. Consider pt received methylprednisolone 125mg on 05/14/25 - Monitor for signs/sx of infection - Trend CBC in AM #Chronic anemia Baseline hgb ~9-10 - Monitor #Hypothyroidism Chronic, historical - IV Synthroid. Hospital management: Disposition: Sodium improving with free water flushes, observe for now. Contact caregivers/conservator for care goals. Fluids: Free water flushes Diet: Renal Lines: NG tube, peripheral IVs DVT prophylaxis: Hep 5k SC Q8 Hayes: In place CODE STATUS: full code ----- Plan discussed with attending physician Dr. Go Kovacs, Medical Student [facility] Attending Provider Attestation/Addendum I have examined the patient, reviewed labs and imaging findings, discussed the case with the resident(s), and reviewed entered orders. I agree with the plan of care as outlined in this note, with these additional summaries/recommendations: Patient seen at bedside. No acute overnight events. Patient's hypernatremia has been improving and dextrose containing fluids was placed on hold yesterday. Unfortunately sodium increased again and D5 added back to patient's regimen. Today sodium is 163. We will continue to adjust free water flushes and dextrose containing fluids to prevent overcorrection. Continue NG tube. Patient has now been hospitalized for 4 days without any oral intake. We will continue to correct sodium and follow-up with patient's conservator for further goals of care. Patient continues to be encephalopathic with infectious and metabolic etiologies that we are correcting without significant improvement. Patient has acute hypoxic respiratory failure secondary to aspiration pneumonia on high flow nasal cannula. Overall prognosis is guarded. Continue to wean O2 requirements. Leukocytosis improving. Continue home levothyroxine. Avoid nephrotoxic agents and renally dose medications. Please see residents note for additional details and management. Dr. Go MD
[2025-05-18 12:42] LABS: Sodium 155 mMol/L (136-145)
--- NOTE | 2025-05-18 14:24 | PC.SS ---
Rounding Note: NG tube in place for feedings. Plan to start multivitamins. Sodium decreasing.
[2025-05-18] MEDS: DEXTROSE 5%-WATER 1,000 ML 40 ML IV (14:42)
--- NOTE | 2025-05-18 15:39 | PC.DIETICIAN ---
Nutrition prescription Jevity 1.2 at 20 ml/hr via NG tube by pump. Advance 10 ml every 8 hrs to goal rate of 70 ml/hr x 22 hrs. If no IV fluids, water flushes of 150 ml/hr (per MD). -Hold TF for one hour before and after levothyroxine administration (if given via NGT)-
[2025-05-18 16:51] LABS: Sodium 152 mMol/L (136-145)
--- NOTE | 2025-05-18 17:43 | PC.NURSE ---
patient partially pulled NG tube. Reinserted NG tube and confirmed placement by ASCULTATION. Informmed DR. MORA, per MD, will order Xray for placement verification.
--- NOTE | 2025-05-18 17:45 | XR_ITS ---
Examination: AP chest single view Technique: Portable sitting AP chest single view Date and time: May 18, 2025, 1758 hrs., Comparison 05/17/2025 Indications: Post orogastric tube placement. Findings: Orogastric tube coiled in the stomach satisfactory position Again noted interstitial disease throughout the lungs Normal heart size Prominent osteopenia Impression: Orogastric tube coiled in stomach satisfactory position
[2025-05-18 20:54] LABS: Sodium 151 mMol/L (136-145)
[2025-05-19] VITALS (11 sets, daily range): BP systolic 112–161; BP diastolic 59–84; PULSE 80–117; RESP 19–99; TEMP 36.1–36.9; O2SAT 75–100; BMI 18.0
[2025-05-19 00:46] LABS: Sodium 150 mMol/L (136-145)
--- NOTE | 2025-05-19 02:48 | PC.NURSE ---
[employer] downtime occurred on <05/19> from <0200> to <0235>.
[2025-05-19] MEDS: HEPARIN SOD INJ 5000 UNIT/ML VIAL SC (05:23)
[2025-05-19] MEDS: guaiFENesin SYRUP 200 MG/10 ML UDC 100 MG PO (05:23)
[2025-05-19 05:59] LABS: Basophils # (Auto) 0.0 Thou/mm3 (0.0-0.2); Basophils % (Auto) 0 % (0-2.5); Eosinophils # (Auto) 1.0 Thou/mm3 (0.0-0.5); Eosinophils % (Auto) 6 % (0-10); Hematocrit 31.6 % (41.0-53.0); Hemoglobin 9.2 g/dL (13.5-16.0); Immature Granulocytes Auto 0.18 Thou/mm3 (0.00-0.00); Lymphocytes # (Auto) 0.6 Thou/mm3 (1.0-4.8); Lymphocytes % (Auto) 4 % (10-50); Mean Corpuscular HGB Conc 29.1 g/dl (31.0-37.0); Mean Corpuscular Hemoglobin 27.9 pg (25.0-35.0); Mean Corpuscular Volume 96 fL (80-100); Monocytes # (Auto) 1.1 Thou/mm3 (0.0-0.8); Monocytes % (Auto) 6 % (0-12); Neutrophils # (Auto) 14.1 Thou/mm3 (1.8-7.7); Neutrophils % (Auto) 83 % (37-80); Nucleated Red Blood Cell # 0.03 Thou/mm3 (0.00-0.00); Nucleated Red Blood Cell % 0 /100 WBC (0); Platelet Count 179 Thou/mm3 (140-440); RDW Standard Deviation 51.3 fL (35.1-43.9); Red Blood Count 3.30 Miln/mm3 (4.50-5.90); White Blood Count 17.0 Thou/mm3 (3.8-10.6)
[2025-05-19 06:20] LABS: Albumin, Serum 3.0 gm/dL (3.4-4.8); Anion Gap 7 (7-16); BUN/Creatinine Ratio 14 Ratio (12-20); Blood Urea Nitrogen 14 mg/dL (9-23); Calcium 8.5 mg/dL (8.3-10.6); Calcium (Corrected) 9.3 mg/dL (8.5-10.1); Carbon Dioxide 32.1 mMol/L (20.0-31.0); Chloride 111 mMol/L (98-107); Creatinine (Component) 1.0 mg/dL (0.6-1.3); Estimated Creatinine Clearance 50.7 mL/min (>60); Glucose 120 mg/dL (74-106); Osmolality,Calculated 299 (275-295); Phosphorous 2.9 mg/dL (2.4-5.1); Potassium 3.9 mMol/L (3.4-5.1); Sodium 150 mMol/L (136-145); eGFR > 60 See Note
--- NOTE | 2025-05-19 07:21 | XR_ITS ---
Examination: AP chest single view Technique: AP portable upright chest single view Date and time: May 19, 2025, 0726 hrs., Comparison 05/18/2025 Indications: Hypoxia today. Findings: Again noted interstitial disease throughout the lungs Normal heart size Orogastric tube satisfactory position Significant osteopenia Impression: Again noted extensive interstitial disease throughout the lungs, consider diffuse significant interstitial pneumonia
[2025-05-19 08:14] LABS: Lactate (Lactic Acid) 2.8 mMol/L (0.4-2.0)
[2025-05-19 08:15] LABS: Base Excess, Venous 2 (-3-3); O2 Saturation, Venous 68 % (96-97); PCO2, Venous 63 mmHg (36-56); PO2, Venous 41 mmHg (15-58); pH, Venous 7.28 (7.33-7.66)
[2025-05-19 08:31] LABS: Sodium 150 mMol/L (136-145)
[2025-05-19] MEDS: AMPICILLIN/SULBAC INJ 1.5 GM in SODIUM CHLORIDE 0.9% (Popper) 50 ML IV (08:35)
[2025-05-19] MEDS: DEXTROSE 5%-0.45% NS 1,000 ML 100 ML IV (08:36)
--- NOTE | 2025-05-19 10:41 | ESPR_ITS ---
<Statement entered by Mango Hammonds MD - 05/19/25 17:10> Patient was seen and evaluated at bedside this morning. No acute events. This morning patient had a rapid response called due to hypoxia with patient got to the 70s. Patient was on high flow nasal cannula on 40 L 100% FiO2 on top of that was also placed on oxy mask at 15 L. At this time chest x-ray was ordered and did not show any major changes from previous chest x-rays. Spoke with Dr. Simmons, conservator, who stated at this time he agrees that patient should be transition to comfort care given his decline in respiratory drive and overall health. At this time patient was started on comfort care. General: Nonverbal, awake and alert, thin and frail Eyes: Able to track with his eyes Ears: No ear discharge Nose: No nasal discharge. Mouth/Throat: Dry mucous membranes, no redness, no lesions. Neck: Neck supple, non-tender, no cervical lymphadenopathy. Lungs: Coarse breath sounds with mild labored breathing Cardio: Normal S1/S2, regular rhythm, no murmurs, no JVD Abdomen: Soft, non-tender, no palpable masses, peristalsis present, no guarding or rebound. Extremities: Symmetrical, no significant deformities, no peripheral edema , non-tender, peripheral pulses presents. Skin: No rashes, no lesions, warm to touch. Neuro: Able to move all extremities, but nonverbal. Note reviewed and agree with medical student's care plan documented except as noted above. Case disclosed with Attending Dr. Go Hammonds PGY2 Disclaimer: Even though this this note was dictated by speech recognition and even though it was carefully revised there may still be minor errors in movers due to voice recognition software. Documentation for date of: 05/19/25 Subjective Subjective Interval history: No acute overnight events. Seen and examined at bedside. Patient appears alert but he is not conversational. Dr. Simmons is conservator, spoke to them this morning and pending recommendations. Of note, Rapid Response called ~0720 for desaturation, O2 settings were increased and a CXR was obtained which was unchanged from yesterday (i.e. broad pulmonary congestion possibly suggestive of extensive pneumonia). Please see Event Note for details. Tele overnight showed sinus with highest HR 136. As pt is nonverbal ROS could not be collected. Exam Vital Signs Temp Pulse Resp BP Pulse Ox O2 Del Method O2 Flow Rate 97.9 F 90 30 H 112/61 94 L High Flow Nasal Cannula 40 05/19/25 08:00 05/19/25 08:00 05/19/25 08:00 05/19/25 08:00 05/19/25 08:00 05/19/25 08:00 05/19/25 08:00 FiO2 90 05/19/25 08:00 Narrative Exam General: Thin, frail elderly man. Awake and alert, nonverbal. No acute distress. Neurologic: Left pupil more dilated than right pupil. No gross neurological deficit, and patient able to move all 4 extremities. HEENT: Oral mucosa dry. No obvious lesions in oropharynx. Mouth held open with rhythmic, lateral, translatory movement of lower jaw. Tongue noted to be black. Heart: Regular rate and rhythm, normal S1 and S2, no murmurs. Lungs: Tachypneic, labored mouth breathing. Coarse lung sounds throughout b/l. Abdomen: Soft, nondistended, nontender, positive bowel sounds. No guarding or rebound tenderness. Extremities: No edema. 2+ radial and dorsalis pedis pulses bilaterally. Skin: Healing, linear surgical wound at R lateral hip w/o erythema, warmth, or oozing (sutures in place). Objective Labs 05/19/25 05:14 05/19/25 11:15 Labs: Laboratory Results - last 24 hr 05/18/25 05/18/25 05/18/25 12:18 16:20 20:18 WBC RBC Hgb Hct MCV MCH MCHC RDW Std Deviation Plt Count Neut % (Auto) Lymph % (Auto) [place] % (Auto) Eos % (Auto) Baso % (Auto) Neut # (Auto) Lymph # (Auto) [place] # (Auto) Eos # (Auto) Baso # (Auto) Immature Gran # (Auto) Absolute Nucleated RBC Immature Gran % Nucleated RBC % VBG pH VBG pCO2 VBG pO2 VBG O2 Sat ([place]) VBG Base Excess Sodium 155 H 152 H 151 H Potassium Chloride Carbon Dioxide Anion Gap BUN Creatinine Estim Creat Clear Calc eGFR BUN/Creatinine Ratio Glucose Calculated Osmolality Lactic Acid Calcium Corrected Calcium Phosphorus Albumin 05/19/25 05/19/25 05/19/25 00:27 05:14 07:40 WBC 17.0 H RBC 3.30 L Hgb 9.2 L Hct 31.6 L MCV 96 MCH 27.9 MCHC 29.1 L RDW Std Deviation 51.3 H Plt Count 179 Neut % (Auto) 83 H Lymph % (Auto) 4 L [place] % (Auto) 6 Eos % (Auto) 6 Baso % (Auto) 0 Neut # (Auto) 14.1 H Lymph # (Auto) 0.6 L [place] # (Auto) 1.1 H Eos # (Auto) 1.0 H Baso # (Auto) 0.0 Immature Gran # (Auto) 0.18 H Absolute Nucleated RBC 0.03 H Immature Gran % 1 H Nucleated RBC % 0 VBG pH 7.28 L VBG pCO2 63 H VBG pO2 41 VBG O2 Sat ([place]) 68 L VBG Base Excess 2 Sodium 150 H 150 H 150 H Potassium 3.9 Chloride 111 H Carbon Dioxide 32.1 H Anion Gap 7 BUN 14 Creatinine 1.0 Estim Creat Clear Calc 50.7 L eGFR > 60 BUN/Creatinine Ratio 14 Glucose 120 H Calculated Osmolality 299 H Lactic Acid 2.8 H Calcium 8.5 Corrected Calcium 9.3 Phosphorus 2.9 Albumin 3.0 L ABG Interpretation ABG results: 05/14/25 05/19/25 13:50 07:40 ABG pH 7.39 ABG pCO2 37 ABG pO2 60 L ABG HCO3 23 ABG O2 Saturation 90 L ABG Base Excess -2 VBG pH 7.28 L VBG pCO2 63 H VBG pO2 41 VBG Base Excess 2 Quality Measures Quality Measures sepsis Current suspected stage: sepsis Possible source: pulmonary Blood cultures ordered: completed in ED Antibiotic ordered: Yes Advance care planning discussed with:: legal surragate Assessment & Plan Assessment Current Active Medications: Generic Name Dose Route Start Last Admin Trade Name Freq PRN Reason Stop Dose Admin Acetaminophen 650 mg 05/14/25 13:40 Acetaminophen 325 Mg Tablet PO 06/13/25 13:39 Q4HR PRN PAIN SCALE 1-3 (mild Acetaminophen 650 mg 05/14/25 13:40 Acetaminophen Supp 650 Mg Supp DE 06/13/25 13:39 Q4HR PRN PAIN SCALE 1-3 (mild Al Hydrox/Mg Hydrox/Simethicone 30 ml 05/14/25 13:40 Mg Hyd/Al Hyd/James (Maalox Reg) Susp 30 Ml Udc PO 06/13/25 13:39 Q4HR PRN Heartburn or Upset Stomach Guaifenesin 100 mg 05/18/25 07:30 05/19/25 05:23 Guaifenesin Syrup 200 Mg/10 Ml Udc PO 06/17/25 07:29 100 mg TID ROSE MARIE Administration Protocol Heparin Sodium (Porcine) 5,000 unit 05/14/25 14:00 05/19/25 05:23 Heparin Sod Inj 5000 Unit/Ml Vial SC 05/28/25 13:59 5,000 unit Q8HR ROSE MARIE Administration Dextrose 1,000 mls @ 40 mls/hr 05/18/25 14:15 05/18/25 20:23 D5w IV 06/17/25 14:14 0 mls/hr On Hold: 05/18/25 20:23 .Q24H ROSE MARIE Infusion Dextrose/Sodium Chloride 1,000 mls @ 100 mls/hr 05/19/25 08:30 05/19/25 08:36 D5-1/2ns IV 05/19/25 18:29 100 mls/hr .Q10H ROSE MARIE Administration Piperacillin/Tazobactam/Dextrose 3.375 gm in 50 mls @ 100 mls/hr 05/19/25 10:30 Zosyn IV 05/19/25 10:59 X1 ONE Piperacillin/Tazobactam/Dextrose 3.375 gm in 50 mls @ 12.5 mls/hr 05/19/25 14:30 Zosyn IV 05/26/25 14:29 Q8H ROSE MARIE Levothyroxine Sodium 50 mcg 05/15/25 06:00 05/17/25 05:33 Levothyroxine Sodium 25 Mcg Tablet PO 06/14/25 05:59 Not Given On Hold: 05/17/25 18:06 ACBR ROSE MARIE Comment: CHANGED TO IVP Levothyroxine Sodium 35 mcg 05/17/25 18:15 05/19/25 08:34 Levothyroxine Inj 100 Mcg Vial IV 06/16/25 18:14 35 mcg QDAY ROSE MARIE Administration Lidocaine 1 patch 05/16/25 15:36 Lidocaine 5% 1 Patch TOP 06/15/25 15:35 UD PRN PAIN Protocol Magnesium Hydroxide 30 ml 05/14/25 13:40 Milk Of Magnesia Susp 30 Ml Udc PO 06/13/25 13:39 QDAY PRN CONSTIPATION Nitroglycerin 0.4 mg 05/14/25 13:40 Nitroglycerin 0.4 Mg Subl Btl #25 SL Q5MIN PRN CHEST PAIN Plan Juan Anderson is a 75-year-old M with a PMH of Parkinson's disease, 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 Nguyen in February 2025 who was brought to the [facility] ED by EMS on 05/14/25 with concerns for shortness of breath. #Severe hyperosmolar hypernatremia #Severe hyperchloremia #Severe dehydration Presented with a sodium of 179, chloride 134. Sodium trended downward and is at goal, today 150 with current fluid administration. Chloride still elevated, current chloride 111 from 121. He has not eaten for 5 days now. Having spoken with Dr. Simmons his conservator, pt code status has been changed to DNR/DNI and NG tube was placed. Spoke again with Dr. Simmons today regarding pursuing comfort care vs hospice care as prognosis is very poor, Dr. Simmons agreed to begin comfort care. Spoke also with caregiver who agrees with this plan. Notably the pt came from a halfway which could not care for him currently at his needed level of care. -Started morhpine sulfate 100mls @ 1mg/hr IV for comfort care. -DC'd fluids. #Acute Encephalopathy, likely metabolic Pt apparently verbal at baseline but has been nonverbal this admission. -Manage as above. #Acute Hypoxic Respiratory Failure 2/2 Aspiration Pneumonia #?Sepsis Chest x-ray showed findings suggestive of early right base pneumonia. Patient required 40 L high flow nasal cannula at 80% FiO2 upon admission, had been weaned however overnight O2 requirements increased significantly and desaturation occurred leading to Rapid Response. This morning pt is at 100% saturation on 100% O2 40L/min HFNC. CXR obtained during rapid is unchanged from yesterday, showing diffuse interstitial fluid suggestive of a broad pneumonia. Pt has had coarse lung sounds b/l for this admission. Lactic Acid ordered during rapid this morning elevated to 2.8, additionally VBG ordered during Rapid Response showed low normal pH and high normal pCO2, all concerning for sepsis development. At this stage likely source is aspiration pneumonia vs alternative source. - Order repeat LA today - S/p Fluid bolus today, however as we have started comfort care discontinued fluids as above. - Completed IV Rocephin 1g and IV Zithromax 500mg (both 05/14-05/16), transitioned to IV Unasyn 1.5g which was DCd today (05/16-05/19). Started on IV Zosyn 3.375g for pseudomonal coverage given acute respiratory deterioration however discontinued same day as we have initiated comfort care. #Parkinson's Reported hx of Parkinson's but no home medication. Apparently has hx of b/l tremors but none noted this admission. 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 - BP stable this admit, no antihypertensives indicated at this time. #Transaminitis (resolved) Most likely 2/2 sepsis -Monitor labs in AM #Hypokalemia (resolved) Potassium this morning 4.1 -Monitor labs in AM #SHIREEN (resolved) Creatinine at baseline 0.9, this morning 1.0. BUN also normal this morning. Inciting event thought ot be hypovolemia/dehydration. - Strict Is & Os - Avoid nephrotoxic agents - Renally dose - Monitor labs in AM #Anion gap metabolic acidosis (Resolved) Anion gap on admit was 18, since normalized. #Leukocytosis WBCs increased overnight, 13.7 -> 17.0 today. Likely related to Rapid Response desaturation this morning. - Monitor for signs/sx of infection - Trend CBC in AM #Chronic anemia Baseline hgb ~9-10 - Monitor #Hypothyroidism Chronic, historical - IV Synthroid. Hospital management: Disposition: Sodium much closer to baseline, per discussion w/ caregivers/conservator initiated comfort care. Fluids: None Diet: Renal Lines: NG tube, peripheral IVs DVT prophylaxis: Hep 5k SC Q8 Hayes: In place CODE STATUS: DNR/DNI ----- Plan discussed with attending physician Dr. Go Kovacs, Medical Student OMSIV Attending Provider Attestation/Addendum I have examined the patient, reviewed labs and imaging findings, discussed the case with the resident(s), and reviewed entered orders. I agree with the plan of care as outlined in this note. Dr. Go MD
[2025-05-19] MEDS: PIPER/TAZO 3.375 GM PREMIX 3.375 GM/50 ML BAG IV (11:00)
[2025-05-19 11:11] LABS: Reflex Lactate? Y
[2025-05-19 12:39] LABS: Sodium 151 mMol/L (136-145)
[2025-05-19] MEDS: Morphine IV Drip 100mg/100ml 100 ML IV (13:51)
[2025-05-19] MEDS: SCOPOLAMINE 1 MG TDSY TOP (13:53)
--- NOTE | 2025-05-19 13:59 | PD.RESDS ---
Planned Discharge Date 05/19/25 DS: Providers Provider Date of admission: 05/14/25 13:40 Primary care physician: Sharri Portillo MD Admitting Provider: Osiris Perdue MD Attending Provider on Admission: Arnulfo Stiles MD Consults: 05/14/25 10:55 Consult to Nephrology Stat Comment: Consulting Provider: Alberto Wadsworth 05/15/25 11:07 Referral - [employer] SUPERVISOR Sales Service Manager Routine Comment: Dysphagia 05/16/25 13:40 Referral Registered Dietitian Routine Comment: BMI 17.6, came from home, concerning Attending Provider on DC: Macario Salasmartha Discharging Provider: Corona Kovacs [facility] Course Time Spent with Patient Time attestation: Total time spent providing and/or coordinating discharge services: Time spent: Greater than 30 minutes Exam Vital Signs Temp Pulse Resp BP Pulse Ox O2 Del Method O2 Flow Rate 97.0 F 106 H 31 H 117/59 L 100 High Flow Nasal Cannula 40 05/19/25 12:00 05/19/25 12:00 05/19/25 12:00 05/19/25 12:00 05/19/25 12:00 05/19/25 12:00 05/19/25 12:00 FiO2 100 05/19/25 12:00 Discharge Plan Plan Patient Disposition: HOME (Self Care) Prescriptions/Referrals Prescriptions/Med Rec: No Action tamsulosin 0.4 mg capsule 0.4 mg PO QHS omeprazole [Prilosec] 20 MG capsule,delayed release(DR/EC) 20 mg PO QDAY Qty: 0 Patient Comments: TO SUPPRESS GASTRIC ACID SECRETIONS docusate sodium 250 MG capsule 1 tab PO QDAY Qty: 0 escitalopram oxalate 10 mg tablet 10 mg PO DAILY calcium carbonate-vitamin D3 600 mg-10 mcg (400 unit) tablet 1 tab PO QDAY aspirin 81 mg capsule 81 mg PO QDAY Qty: 30 0RF albuterol sulfate 90 mcg/actuation HFA aerosol inhaler 2 puff inhalation Q6H PRN (Reason: shortness of breath or wheezing) Qty: 8.5 0RF amlodipine 5 mg tablet 5 mg PO DAILY levothyroxine 50 mcg tablet 50 mcg PO DAILY ibuprofen 400 mg tablet 400 mg PO Q12H acetaminophen [Tylenol] 325 mg tablet 325 mg PO QID MDD 4 PRN (Reason: fever or pain) Qty: 30 0RF cetirizine 10 mg tablet 10 mg PO QDAY propranolol 40 mg tablet 40 mg PO BID montelukast 10 mg tablet 10 mg PO HS ferrous sulfate [FeroSul] 325 mg (65 mg iron) tablet 325 mg PO DAILY cephalexin 500 mg capsule 1,000 mg PO TID Qty: 30 0RF bisacodyl [Dulcolax (bisacodyl)] 10 mg suppository 10 mg CA QDAY PRN (Reason: constipation) Fleet Enema 19-7 gram/118 mL enema 118 ml CA QDAY PRN (Reason: constipation) Ingrezza 80 mg capsule 80 mg PO QDAY magnesium hydroxide [Milk of Magnesia] 400 mg/5 mL suspension 30 ml PO .q 72 PRN (Reason: constipation) Referrals: Sharri Portillo MD [Primary Care Provider] Patient/Caregiver Discharge Instructions Print Language: Bermudian Stand Alone Forms: [place] Award Info., Patient Portal Info Letter
--- NOTE | 2025-05-19 15:17 | PC.SS ---
Rounding Note: Patient has been transitioned to comfort care. Currently on 40L of oxygen.
--- NOTE | 2025-05-19 22:22 | DES_ITS ---
<Statement entered by Mango Hammonds MD - 05/20/25 14:44> Patient was placed on comfort care yesterday afternoon after multiple attempts of trying to wean the patient down from high flow nasal cannula were unsuccessful. Patient's labs also did not show minimal improvement and again spiking WBCs prior to decision to make him comfort care. Patient's imaging also showed extensive interstitial disease which could have contributed to his decline in respiratory effort as well as oxygenation. Spoke with Dr. Simmons yesterday afternoon and provided patient's history and hospital course to which he decided that patient at this time should be transition to comfort care given his decline. At 22:21 on 05/19/2025 patient . Note reviewed and agree with medical student's care plan as documented except as noted above. Case disclosed with attending Dr. Go Hammonds PGY2 Disclaimer: Even though this this note was dictated by speech recognition and even though it was carefully revised there may still be minor errors in hearing aid dispenser due to voice recognition software. Documentation for date of: 05/19/25 Summary Date and Time Date of admission: 05/14/25 13:40 Summary Details: Time of : 05/19/2025 10:21PM Hospital Course: Mr. 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 He was noted to be nonverbal and bedbound, neither of which were present at baseline. Emergency department workup was significant for severe hypernatremia, acute respiratory failure, acute kidney injury, lactic acidosis, sepsis likely secondary to aspiration pneumonia, and presumed acute metabolic encphalopathy. He was admitted to the intensive care unit. During this time sodium was slowly decreased with daily fluid administration and aspiration pneumonia was treated with empiric antibiotics and he was downgraded to telemetry. Sodium reached goal levels after several days of fluids but unfortunately oxygen saturation became difficult to stabilize. The patient could not be weaned off of high flow nasal cannula and experienced multiple critical desaturations. During the last days of his admission the patient required high flow nasal cannula at maximized settings, would desaturate at any lowr settings. His mentation did not improve during admission and overall his inpatient course was consistently deteriorative. During this time, as the patient had no living family, his custodial ([facility]) was contacted who aided with history and directed us to the patient's legal surrogate, Dr. Simmons. In close discussion with Dr. Simmons it was decided to transition the patient to nasogastric tube feeding as he could not tolerate oral intake before ultimately changing code status to DNR/DNI when the patient's oxygen saturation could not be stabilized. Chest radiography this admission showed interstitial pneumonia consistent with aspiration that did not improve with empiric antibiotic administration. After multiple days of reliance on high flow oxygen to achieve consistent saturation and poor prognosis, it was ultimately decided between the hospitalist team and Dr. Simmons to place the patient on comfort care with morphine. At this point the patient passed peacefully at 22:21 on 05/19/25 with [facility] caregivers at bedside. Additional Data Attending physician: Arnulfo Stiles MD Visit Providers Provider Primary care physician: Sharri Portillo MD Consults: 05/14/25 10:55 Consult to Nephrology Stat Comment: Consulting Provider: Alberto Wadsworth 05/15/25 11:07 Referral - [facility] Physician Routine Comment: Dysphagia 05/16/25 13:40 Referral Registered Dietitian Routine Comment: BMI 17.6, came from home, concerning Discharge Plan Plan Patient Disposition: Prescriptions/Referrals Referrals: Sharri Portillo MD [Primary Care Provider] Patient/Caregiver Discharge Instructions Print Language: Yemeni Stand Alone Forms: Patient Portal Info Letter
--- NOTE | 2025-05-19 22:24 | PD.DPN ---
Documentation for date of: 05/19/25 Pronouncement Note Date and Time of Date of : 05/19/25 Time of : 22:21 PCOD Preliminary cause of : Cardiopulmonary arrest Summary Additional details: Patient was seen and examined at the bedside, no pulses could be felt, no cardiac sounds were heard after 1 continuous minute of auscultation, no breath sounds heard, and pupils were fixed and dilated. Patient pronounced at 10:21pm. Patient seen and assessed under supervision of attending physician . Maddie Maza MD PGY-1, Internal Medicine Please note: this document was transcribed using voice recognition technology; minor inaccuracies may be present. Additional Data Attending/PCP notified?: Yes Attending physician: Arnulfo Stiles MD
--- NOTE | 2025-05-19 22:30 | PC.NURSE ---
The nurse noted that the patient's heart rate was decreasing, and the cardiac rhythm showed asystole. Given the patient's status as DNR and on comfort care, the nurse assessed the patient and confirmed there was no pulse. The nurse then called the physician to the bedside. Upon arrival, the physician confirmed the absence of vital signs and pronounced the patient at 22:21 on 05/19/25.
== END 2025-05-19 22:10 | disposition expired | DRG 871 ==
LOC: SERX 12:06 → SERHOLD 14:25 → S2SX 17:05 → S2NX 05-17 07:50
PROVIDERS: Student in an Organized Health Care Education/Training Program; Admitting Provider Internal Medicine; Emergency Provider Emergency Medicine; PCP Hospitalist; Visit Provider Student in an Organized Health Care Education/Training Program
DX: A41.9 Sepsis, unspecified organism (principal); G93.41 Metabolic encephalopathy; J96.01 Acute respiratory failure with hypoxia; J69.0 Pneumonitis due to inhalation of food and vomit; E87.0 Hyperosmolality and hypernatremia; G93.1 Anoxic brain damage, not elsewhere classified; N17.9 Acute kidney failure, unspecified; E87.20 Acidosis, unspecified; E87.1 Hypo-osmolality and hyponatremia; G20.A1 Parkinson's disease without dyskinesia, without mention of fluctuations; J45.909 Unspecified asthma, uncomplicated; N40.0 Benign prostatic hyperplasia without lower urinary tract symptoms; K21.9 Gastro-esophageal reflux disease without esophagitis; I10 Essential (primary) hypertension; Z96.641 Presence of right artificial hip joint; E87.6 Hypokalemia; R74.01 Elevation of levels of liver transaminase levels; F41.9 Anxiety disorder, unspecified; E86.0 Dehydration; E03.9 Hypothyroidism, unspecified; E87.8 Other disorders of electrolyte and fluid balance, not elsewhere classified; F32.A Depression, unspecified; I46.8 Cardiac arrest due to other underlying condition; D64.9 Anemia, unspecified; Z51.5 Encounter for palliative care; E86.1 Hypovolemia; Z66 Do not resuscitate; Z74.01 Bed confinement status; Z78.1 Physical restraint status; Z79.890 Hormone replacement therapy; Z87.440 Personal history of urinary (tract) infections
CPT/HCPCS: 36415; 36600; 71045; 80053; 80069; 81001; 82803; 83605; 83735; 83880; 84100; 84145; 84295; 84439; 84443; 84484; 85025; 85610; 85730; 87040; 87081; 87086; 87502; 87811; 92526; 92610; 93005; 94644; 94762; 99285; J0131; J0295; J0456; J0696; J1200; J1644; J1938; J2270; J2543; J2919; J3475; J7030; J7042; J7050; J7070; J7120; J7999; A9270